=== PATIENT | female | born 1945 | race Caucasian/White ===

== ENCOUNTER 2017-04-02 10:30 | Inpatient (IN) | payer MEDICARE, OTHER ==
[~2017-04-02] VITALS: Ht 177.8 cm; Wt 121.5 kg
[~2017-04-02 10:30] MED LIST: ALLO100 PO; APIX2.5T PO; ATEN-100 PO; CEPH500C3 PO; GABA100C4 PO; LORTA5 PO; SIMV20 PO; SYNT125T PO; TAMS0.4C67 PO; VESI10TA4 PO; VITA100T15 PO
--- NOTE | 2017-04-02 10:36 | PD ---
HPI Chief Complaint: flank pain Time Seen by Provider: 10:36 Travel History International Travel<30 days: No Contact w/Intl Traveler<30days: No Traveled to known affect area: No History of Present Illness HPI 71-year-old female came to the emergency room brought by EMS with history of right sided flank pain that started last night. Patient has history of kidney stones and had a stent put in on the left side by a the urologist from [facility] 1 month ago. Patient has vomited 3-4 times this morning because of the pain. She took her Vicodin but that has not helped. No history of fever or chills. No history of hematuria or dysuria. Patient also happens to have a right hip pain that is chronic. However she says the location of this pain is different from her usual hip pain. PFSH Past Medical History Narrative Medical List of her past medical, surgical, family and social history is reviewed from the nursing note. Hx Anticoagulant Therapy: Yes (ELIQUIS) Arthritis: Yes Heart Rhythm Problems: Yes (Afib) Cancer: Yes (UTERINE - Stage 1) Cardiac Catheterization: Yes Cardiovascular Problems: Yes (AFIB) High Cholesterol: Yes Chest Pain: No Congestive Heart Failure: No Diabetes: Yes (METFORMIN) Endocrine: Yes Genitourinary: Yes Kidney Stones: Yes Musculoskeletal: Yes Neurologic: No Psychiatric: No Reproductive: No Respiratory: No Radiation Therapy: Yes Thyroid Disease: Yes Past Surgical History Abdominal Surgery: No Cardiac Surgery: No Ear Surgery: No Endocrine Surgery: No (partial thyroidectomy 1975) Eye Surgery: No Genitourinary Surgery: Yes (kiDney stone removals) Gynecologic Surgery: Yes (hysterectomy 5.5 years later) Hysterectomy: Yes Oral Surgery: Yes (tonsilectomy at 2) Thoracic Surgery: No Other Surgery: Yes Social History Alcohol Use: No Tobacco Use: No Substance Use: No Allergies-Medications (Allergen,Severity, Reaction): Coded Allergies: Ampicillin (Verified Allergy, Unknown, 04/02/17) *MDRO Multi-Drug Resistant Organism (Verified Adverse Reaction, Unknown, ) 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 Comments List of her allergies reviewed from the nursing note. Reported Meds & Prescriptions Reported Meds & Active Scripts Active Reported Vitamin D3 (Cholecalciferol) 400 Unit Cap 400 Units PO DAILY Tamsulosin (Tamsulosin HCl) 0.4 Mg Cap 0.4 Mg PO HS Synthroid (Levothyroxine Sodium) 125 Mcg Tab 125 Mcg PO DAILY Vesicare (Solifenacin) 10 Mg Tab 10 Mg PO DAILY Simvastatin 20 Mg Tab 20 Mg PO DAILY Hydrocodone-Acetaminophen 5-325 mg Tab 1 Tab PO Q6H PRN Gabapentin 100 Mg Cap 100 Mg PO TID Vitamin B-12 (Cyanocobalamin) 1,000 Mcg Tab 100 Mcg PO DAILY Atenolol 25 Mg Tab 12.5 Mg PO DAILY Eliquis (Apixaban) 2.5 Mg Tab 2.5 Mg PO BID Allopurinol 100 Mg Tab 100 Mg PO DAILY Narrative Medication List of her home medications reviewed from the nursing note. Review of Systems Except as stated in HPI: all other systems reviewed are Neg Physical Exam Narrative GENERAL: Awake, alert, morbidly obese, moderate distress SKIN: Focused skin assessment warm/dry. HEAD: Atraumatic. Normocephalic. EYES: Pupils equal and round. No scleral icterus. No injection or drainage. ENT: No nasal bleeding or discharge. Mucous membranes pink and moist. NECK: Trachea midline. No JVD. CARDIOVASCULAR: Regular rate and rhythm. No murmur appreciated. RESPIRATORY: No accessory muscle use. Clear to auscultation. Breath sounds equal bilaterally. GASTROINTESTINAL: Abdomen soft, non-tender, nondistended. Hepatic and splenic margins not palpable. Large ventral hernia MUSCULOSKELETAL: No obvious deformities. No clubbing. No cyanosis. No edema. NEUROLOGICAL: Awake and alert. No obvious cranial nerve deficits. Motor grossly within normal limits. Normal speech. PSYCHIATRIC: Appropriate mood and affect; insight and judgment normal. Data Data Last Documented VS Vital Signs Date Time Temp Pulse Resp B/P Pulse Ox O2 Delivery O2 Flow Rate FiO2 04/02/17 10:39 98.4 77 15 118/71 95 Orders Complete Blood Count With Diff (04/02/17 10:43) Comprehensive Metabolic Panel (04/02/17 10:43) Urinalysis - C+S If Indicated (04/02/17 10:43) Ct Abd/Pel W/O Iv Contrast (04/02/17 10:43) Ecg Monitoring (04/02/17 10:43) Iv Access Insert/Monitor (04/02/17 10:43) Morphine Inj (Morphine Inj) (04/02/17 10:45) Ondansetron Inj (Zofran Inj) (04/02/17 10:45) Sodium Chloride 0.9% Flush (Ns Flush) (04/02/17 10:45) Sodium Chlor 0.9% 1000 Ml Inj (Ns 1000 M (04/02/17 10:43) Morphine Inj (Morphine Inj) (04/02/17 11:30) Vascular Access Team Consult/P PRN (04/02/17 11:31) Vascular Poc Ultrasound (04/02/17 ) Urinary Catheter Insert/Apply (04/02/17 12:20) Sodium Chlor 0.9% 1000 Ml Inj (Ns 1000 M (04/02/17 12:30) NPO (04/02/17 12:29) Consent (04/02/17 12:33) Electrocardiogram (04/02/17 ) Prothrombin Time / Inr (Pt) (04/02/17 12:45) Diet Npo (04/02/17 Lunch) Vital Signs (Adult) BRYON.Q4H (04/02/17 12:45) Ondansetron Inj (Zofran Inj) (04/02/17 12:45) Sodium Chlor 0.9% 1000 Ml Inj (Ns 1000 M (04/02/17 12:45) Consult Urology (04/02/17 ) Basic Metabolic Panel (Bmp) (04/03/17 06:00) Complete Blood Count With Diff (04/03/17 06:00) Intake + Output 06,14,22 (04/02/17 12:45) Atenolol (Tenormin) (04/03/17 09:00) Admit Order (Ed Use Only) (04/02/17 12:47) Labs Laboratory Tests Test 04/02/17 04/02/17 11:20 12:45 White Blood Count 9.7 TH/MM3 Red Blood Count 3.39 MIL/MM3 Hemoglobin 9.7 GM/DL Hematocrit 30.3 % Mean Corpuscular Volume 89.3 FL Mean Corpuscular Hemoglobin 28.7 PG Mean Corpuscular Hemoglobin 32.1 % Concent Red Cell Distribution Width 16.4 % Platelet Count 211 TH/MM3 Mean Platelet Volume 7.1 FL Neutrophils (%) (Auto) 85.8 % Lymphocytes (%) (Auto) 7.7 % Monocytes (%) (Auto) 4.8 % Eosinophils (%) (Auto) 1.0 % Basophils (%) (Auto) 0.7 % Neutrophils # (Auto) 8.3 TH/MM3 Lymphocytes # (Auto) 0.7 TH/MM3 Monocytes # (Auto) 0.5 TH/MM3 Eosinophils # (Auto) 0.1 TH/MM3 Basophils # (Auto) 0.1 TH/MM3 CBC Comment DIFF FINAL Differential Comment Sodium Level 135 MEQ/L Potassium Level 5.2 MEQ/L Chloride Level 106 MEQ/L Carbon Dioxide Level 18.7 MEQ/L Anion Gap 10 MEQ/L Blood Urea Nitrogen 50 MG/DL Creatinine 3.70 MG/DL Estimat Glomerular Filtration 12 ML/MIN Rate Random Glucose 141 MG/DL Calcium Level 9.0 MG/DL Total Bilirubin 0.3 MG/DL Aspartate Amino Transf 22 U/L (AST/SGOT) Alanine Aminotransferase 14 U/L (ALT/SGPT) Alkaline Phosphatase 110 U/L Total Protein 7.7 GM/DL Albumin 3.2 GM/DL Prothrombin Time 11.2 SEC Prothromb Time International 1.0 RATIO Ratio MDM Medical Decision Making Medical Screen Exam Complete: Yes Emergency Medical Condition: Yes Medical Record Reviewed: Yes Interpretation(s) Twelve-lead EKG was reviewed by me. Atrial fibrillation, left axis deviation, left bundle branch block. Heart rate of 73 bpm Differential Diagnosis Ureteral colic, pyelonephritis, muscular pain, incarcerated hernia Narrative Course 11:29 AM the hernia was manually reduced by me completely. Currently waiting for blood test results and the CAT scan to be done and resulted. Patient has been given pain medication. 12:30 PM CAT scan and blood test results of back. CAT scan is significant for bilateral severe hydronephrosis and the blood test result is significant for acute renal failure. I discussed the case with Dr. Turner who is on for urology. He wants the patient to be admitted under medical service, fluid resuscitated, nothing by mouth. He will try to take her to the OR today and if not then it would be tomorrow as per him. For the hospitalist call back. I've ordered a second liter of IV fluid bolus. Patient will get a Bell catheter. Still waiting for a UA. Critical Care Narrative Aggregate critical care time was 30 minutes. Time to perform other separately billable procedures was not included in the critical care time. My time did not include minutes spent treating any other patients simultaneously or on activities that did not directly contribute to the patient's treatment. The services I provided to this patient were to treat and/or prevent clinically significant deterioration that could result in: Bilateral ureteral obstruction with severe hydronephrosis, acute renal failure, fluid resuscitation I provided critical care services requiring my management, as noted below: Chart data review, documentation time, medication orders and management, vital sign assessments/reviewing monitor data, ordering and reviewing lab tests, ordering and interpreting/reviewing x-rays and diagnostic studies, care of the patient and discussion of the patient with the admitting physicians. Procedures EKG Prior to Arrival: No Physician Communication Physician Communication Dr. Turner Diagnosis Primary Impression: Bilateral ureteral obstruction Additional Impressions: Bilateral hydronephrosis Acute renal failure Qualified Code: N17.9 - Acute renal failure, unspecified acute renal failure type Obstructive uropathy Dehydration Rafa Murrieta MD April 02, 2017 10:36
[2017-04-02 10:39] VITALS: BP 118/71; PULSE 77; RESP 15; TEMP 98.4; O2SAT 95
[2017-04-02] MEDS ORDERED: SODIUM CHLOR 0.9% 1000 ML INJ 1,000 ML IV ONE ×2 (10:43→12:30)
[2017-04-02] MEDS ORDERED: ONDANSETRON HCL 4 MG/2 ML VIAL IVP ONE (10:45)
[2017-04-02] MEDS ORDERED: SODIUM CHLORIDE 0.9% FLUSH 10 ML FLUSH IVF PRN (10:45)
[2017-04-02] MEDS ORDERED: MORPHINE SULFATE 4 MG/ML INJ IV ONE (10:45)
[2017-04-02] MEDS ORDERED: ALLO100T PO (11:10)
[2017-04-02] MEDS ORDERED: GABA100C4 PO (11:10)
[2017-04-02] MEDS ORDERED: VESI10TA PO (11:10)
[2017-04-02] MEDS ORDERED: LEVO.125 PO (11:10)
[2017-04-02] MEDS ORDERED: ATEN25TA PO (11:10)
[2017-04-02] MEDS ORDERED: HYDR-3516 PO (11:10)
[2017-04-02] MEDS ORDERED: APIX2.5T PO (11:10)
[2017-04-02] MEDS ORDERED: SIMV20TA PO (11:10)
[2017-04-02] MEDS ORDERED: TAMS0.4C4 PO (11:10)
[2017-04-02] MEDS ORDERED: VITA10002 PO (11:10)
[2017-04-02] MEDS ORDERED: CHOL1CAP8 PO (11:11)
[2017-04-02] MEDS ORDERED: MORPHINE SULFATE 8 MG/ML INJ IM ONE (11:30)
[2017-04-02 11:39] LABS: AUTOMATED NEUTROPHIL # 8.3 TH/MM3 (1.8-7.7); BASOPHIL # 0.1 TH/MM3 (0-0.2); BASOPHIL % 0.7 % (0.0-2.0); EOSINOPHIL # 0.1 TH/MM3 (0-0.4); HEMATOCRIT 30.3 % (35.0-46.0); HEMO FLAGS DIFF FINAL; LYMPH % 7.7 % (9.0-44.0); LYMPHOCYTE # 0.7 TH/MM3 (1.0-4.8); MEAN CELL VOLUME 89.3 FL (80.0-100.0); MEAN CORPUSCULAR HEMOGLOBIN 28.7 PG (27.0-34.0); MEAN CORPUSCULAR HGB CONC 32.1 % (32.0-36.0); MONO % 4.8 % (0.0-8.0); NEUT % 85.8 % (16.0-70.0); PLATELET COUNT 211 TH/MM3 (150-450); RED BLOOD COUNT 3.39 MIL/MM3 (4.00-5.30); RED CELL DISTRIBUTION WIDTH 16.4 % (11.6-17.2); WHITE BLOOD COUNT 9.7 TH/MM3 (4.0-11.0)
[2017-04-02 12:02] LABS: ANION GAP 10 MEQ/L (5-15); AST (GOT) 22 U/L (15-37); BICARBONATE 18.7 MEQ/L (21.0-32.0); BLOOD UREA NITROGEN 50 MG/DL (7-18); CHLORIDE 106 MEQ/L (98-107); GLOMERULAR FILTRATION RATE 12 ML/MIN (>89); POTASSIUM 5.2 MEQ/L (3.5-5.1); SODIUM (NA) 135 MEQ/L (136-145)
[2017-04-02 12:09] LABS: ALKALINE PHOSPHATASE 110 U/L (45-117); ALT (GPT) 14 U/L (10-53); TOTAL BILIRUBIN ADULT 0.3 MG/DL (0.2-1.0)
--- NOTE | 2017-04-02 12:13 | RADRPT ---
EXAM DATE/TIME: 04/02/2017 11:33 [facility] COMPARISON: No previous studies available for comparison. INDICATIONS : Right side abdomen pain history of kidney stones ORAL CONTRAST: No oral contrast ingested. RADIATION DOSE: 30.35 CTDIvol (mGy) MEDICAL HISTORY : Renal calculi. diabetes uterine cancer SURGICAL HISTORY : Hysterectomy. Renal stent ENCOUNTER: Initial ACUITY: 1 day PAIN SCALE: 8/10 LOCATION: Right Abdomen TECHNIQUE: Volumetric scanning of the abdomen and pelvis was performed. Using automated exposure control and ad justment of the mA and/or kV according to patient size, radiation dose was kept as low as reasonably achievable to obtain optimal diagnostic quality images. FINDINGS: LOWER LUNGS: The visualized lower lungs are clear. LIVER: Homogeneous density without lesion. There is no dilation of the biliary tree. Large gallstone seen w ithin the fundus. SPLEEN: Normal size without lesion. PANCREAS: Within normal limits. KIDNEYS: Severe hydronephrosis of both kidneys. Hydroureter on the right with what appears to be a subtle calc ulus at the UVJ measuring 9 x 18 mm. The possibility of a ureterocele cannot be excluded from these i mages. Left-sided nephroureteral stent appears in good position. There are 3 nonobstructing left-side d renal calculi measuring 5-6 mm in size. ADRENAL GLANDS: Within normal limits. VASCULAR: There is no aortic aneurysm. BOWEL/MESENTERY: The stomach, small bowel, and colon demonstrate no acute abnormality. There is no free intraperitone al air or fluid. ABDOMINAL WALL: Large periumbilical hernia containing small segment of transverse colon. Slight inflammatory changes. No obstruction. A few scattered diverticula without diverticulitis. RETROPERITONEUM: There is no lymphadenopathy. BLADDER: No wall thickening or mass. REPRODUCTIVE: Within normal limits. INGUINAL: There is no lymphadenopathy or hernia. 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 CONCLUSION: 1. Severe right-sided hydronephrosis with what appears to be a subtle calculus at the right UVJ measu ring 9 x 2 mm. Possibility of a ureterocele cannot be excluded. 2. Severe left-sided hydronephrosis despite a left-sided nephroureteral stent. Several nonobstructing left-sided renal calculi. 3. Large gallstone in the gallbladder fundus. No inflammatory changes. 4. Large periumbilical hernia containing fat and small segment of transverse colon. Slight inflammato ry changes but no obstruction. 5. Scattered diverticula without diverticulitis. Sebas Godoy MD on April 02, 2017 at 12:03 Board Certified Radiologist. This report was verified electronically.
[2017-04-02] MEDS ORDERED: SODIUM CHLOR 0.9% 1000 ML INJ 1,000 ML IV SCH (12:45)
[2017-04-02] MEDS ORDERED: ONDANSETRON HCL 4 MG/2 ML VIAL IV PUSH PRN (12:45)
[2017-04-02 13:10] LABS: PROTHROMBIN TIME - PATIENT 11.2 SEC (9.8-11.6)
--- NOTE | 2017-04-02 13:28 | HHI.HP ---
[facility] ([place], [place])ists Primary Care Physician Quinn Chambers MD Admission Diagnosis bilateral obstructive uropathy, acute renal failure Diagnoses: (1) Bilateral hydronephrosis Diagnosis: Principal (2) ANDREA (acute kidney injury) Diagnosis: Principal Chief Complaint: right flank pain Travel History International Travel<30 Days: No Contact w/Intl Traveler <30 Da: No Traveled to Known Affected Are: No History of Present Illness patient is a 71 y/o female with history of kidney stones- s/p left ureteral stent placement two months ago, presented with right flank pain. she says that the pain started last night. pain was moderate in intensity with some radiation to the back. pain was associated with nausea and emesis earlier this morning. she denies any gross hematuria and dysuria. she's being followed up by her urologist at [facility]. Review of Systems Constitutional: DENIES: Fever, Weight loss, Chills, Night Sweats Eyes: DENIES: Blurred vision, Diplopia, Vision loss, Double Vision Ears, nose, mouth, throat: DENIES: Tinnitus, Vertigo, Throat pain, Epistaxis Respiratory: DENIES: Apneas, Cough, Snoring, Wheezing, Hemoptysis, Sputum production, Shortness of breath Cardiovascular: DENIES: Chest pain, Palpitations, Syncope, Dyspnea on Exertion , PND, Lower Extremity Edema, Orthopnea, Claudication Gastrointestinal: COMPLAINS OF: Abdominal pain (right flank.), Nausea, Vomiting , DENIES: Black stools, Bloody stools, Constipation, Diarrhea, Difficulty Swallowing, Anorexia Genitourinary: DENIES: Urinary frequency, Urgency, Hematuria, Dysuria Musculoskeletal: DENIES: Joint pain, Muscle aches, Stiffness, Joint Swelling Integumentary: DENIES: Rash Neurologic: DENIES: Abnormal gait, Headache, Localized weakness, Paresthesias, Seizures, Speech Problems, Tremor, Poor Balance Psychiatric: DENIES: Anxiety, Confusion, Mood changes, Depression, Hallucinations, Agitation, Suicidal Ideation, Homicidal Ideation, Delusions Past Family Social History Past Medical History atrial fibrillation kidney stone uterine cancer Past Surgical History tonsillectomy stent placement left kidney partial thyroidectomy Reported Medications Vitamin D3 (Cholecalciferol) 400 Unit Cap 400 Units PO DAILY Tamsulosin (Tamsulosin HCl) 0.4 Mg Cap 0.4 Mg PO HS Synthroid (Levothyroxine Sodium) 125 Mcg Tab 125 Mcg PO DAILY Vesicare (Solifenacin) 10 Mg Tab 10 Mg PO DAILY Simvastatin 20 Mg Tab 20 Mg PO DAILY Hydrocodone-Acetaminophen 5-325 mg Tab 1 Tab PO Q6H PRN Gabapentin 100 Mg Cap 100 Mg PO TID Vitamin B-12 (Cyanocobalamin) 1,000 Mcg Tab 100 Mcg PO DAILY Atenolol 25 Mg Tab 12.5 Mg PO DAILY Eliquis (Apixaban) 2.5 Mg Tab 2.5 Mg PO BID Allopurinol 100 Mg Tab 100 Mg PO DAILY Allergies: Coded Allergies: Ampicillin (Verified Allergy, Unknown, 04/02/17) *MDRO Multi-Drug Resistant Organism (Verified Adverse Reaction, Unknown, ) 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 Active Ordered Medications Current Medications Morphine Sulfate (Morphine Inj) 4 mg ONCE ONCE IV ; Start 04/02/17 at 10:45; Stop 04/02/17 at 10:46; Status DC Ondansetron HCl (Zofran Inj) 4 mg ONCE ONCE IVP ; Start 04/02/17 at 10:45; Stop 04/02/17 at 10:46; Status DC Sodium Chloride 2 ml 2 ml UNSCH PRN IVF FLUSH AFTER USING IV ACCESS; Start 04/02 at 10:45 Sodium Chloride (NS 1000 ml Inj) 1,000 ml @ 1,000 mls/hr Q1H ONCE IV Last administered on 04/02/17 10:43; Start 04/02/17 at 10:43; Stop 04/02/17 at 11:42; Status DC Morphine Sulfate 6 mg 6 mg ONCE ONCE IM Last administered on 04/02/17 11:49; Start 04/02/17 at 11:30; Stop 04/02/17 at 11:31; Status DC Sodium Chloride (NS 1000 ml Inj) 1,000 ml @ 999 mls/hr BOLUS ONCE IV Last administered on 04/02/17 12:30; Start 04/02/17 at 12:30; Stop 04/02/17 at 13:30 Ondansetron HCl 4 mg 4 mg Q8HR PRN IV PUSH NAUSEA; Start 04/02/17 at 12:45 Sodium Chloride (NS 1000 ml Inj) 1,000 ml @ 100 mls/hr Q10H IV ; Start 04/02/17 at 12:45 Atenolol (Tenormin) 12.5 mg DAILY PO ; Start 04/03/17 at 09:00 Social History doesn't smoke.drinks occasionally. Physical Exam Vital Signs Vital Signs Date Time Temp Pulse Resp B/P Pulse Ox O2 Delivery O2 Flow Rate FiO2 04/02/17 10:39 98.4 77 15 118/71 95 Physical Exam GENERAL: This is a well-nourished, well-developed patient, in no apparent distress. SKIN: No rashes, ecchymoses or lesions. Cool and dry. HEAD: Atraumatic. Normocephalic. No temporal or scalp tenderness. EYES: Pupils equal round and reactive. Extraocular motions intact. No scleral icterus. No injection or drainage. ENT: Nose without bleeding, purulent drainage or septal hematoma. Throat without erythema, tonsillar hypertrophy or exudate. Uvula midline. Airway patent. NECK: Trachea midline. No JVD or lymphadenopathy. Supple, nontender, no meningeal signs. CARDIOVASCULAR: Regular rate and rhythm without murmurs, gallops, or rubs. RESPIRATORY: Clear to auscultation. Breath sounds equal bilaterally. No wheezes , rales, or rhonchi. GASTROINTESTINAL: Abdomen soft, non-tender, nondistended. No hepato-splenomegaly , or palpable masses. No guarding. MUSCULOSKELETAL: Extremities without clubbing, cyanosis, or edema. No joint tenderness, effusion, or edema noted. No calf tenderness. Negative Homans sign bilaterally. NEUROLOGICAL: Awake and alert. Cranial nerves II through XII intact. Motor and sensory grossly within normal limits. Five out of 5 muscle strength in all muscle groups. Normal speech. Laboratory Laboratory Tests Test 04/02/17 04/02/17 11:20 12:45 White Blood Count 9.7 Red Blood Count 3.39 Hemoglobin 9.7 Hematocrit 30.3 Mean Corpuscular Volume 89.3 Mean Corpuscular Hemoglobin 28.7 Mean Corpuscular Hemoglobin 32.1 Concent Red Cell Distribution Width 16.4 Platelet Count 211 Mean Platelet Volume 7.1 Neutrophils (%) (Auto) 85.8 Lymphocytes (%) (Auto) 7.7 Monocytes (%) (Auto) 4.8 Eosinophils (%) (Auto) 1.0 Basophils (%) (Auto) 0.7 Neutrophils # (Auto) 8.3 Lymphocytes # (Auto) 0.7 Monocytes # (Auto) 0.5 Eosinophils # (Auto) 0.1 Basophils # (Auto) 0.1 CBC Comment DIFF FINAL Differential Comment Sodium Level 135 Potassium Level 5.2 Chloride Level 106 Carbon Dioxide Level 18.7 Anion Gap 10 Blood Urea Nitrogen 50 Creatinine 3.70 Estimat Glomerular Filtration 12 Rate Random Glucose 141 Calcium Level 9.0 Total Bilirubin 0.3 Aspartate Amino Transf 22 (AST/SGOT) Alanine Aminotransferase 14 (ALT/SGPT) Alkaline Phosphatase 110 Total Protein 7.7 Albumin 3.2 Prothrombin Time 11.2 Prothromb Time International 1.0 Ratio Result Diagram: 04/02/17 1120 04/02/17 1120 Imaging Last Impressions Abdomen/Pelvis CT 04/02/17 1043 Signed Impressions: Service Date/Time: Sunday, April 02, 2017 11:33 - CONCLUSION: 1. Severe right-sided hydronephrosis with what appears to be a subtle calculus at the right UVJ measuring 9 x 2 mm. Possibility of a ureterocele cannot be excluded. 2. Severe left-sided hydronephrosis despite a left-sided nephroureteral stent. Several nonobstructing left-sided renal calculi. 3. Large gallstone in the gallbladder fundus. No inflammatory changes. 4. Large periumbilical hernia containing fat and small segment of transverse colon. Slight inflammatory changes but no obstruction. 5. Scattered diverticula without diverticulitis. Sebas Godoy MD Assessment and Plan Assessment and Plan A/P - bilateral hydronephrosis with nephrolithiasis- s/p left ureteral stent placement two months ago keep NPO and start IV fluid- continue with pain control and consult urology. -acute kidney injury superimposed on chronic renal insufficiency start IV hydration- monitor I/O and close monitoring of the renal function -atrial fibrillation; hold Eliquis for possible procedure- resume atenolol -anemia of chronic disease- will monitor -diabetes mellitus; accu-check with SSI -DVT prophylaxis with SCD's Discussed Condition With ER physician and the patient. Physician Certification 2 Midnight Certification Type: Admission for Inpatient Services Order for Inpatient Services The services are ordered in accordance with Medicare regulations or non- Medicare payer requirements, as applicable. In the case of services not specified as inpatient-only, they are appropriately provided as inpatient services in accordance with the 2-midnight benchmark. Estimated LOS (days): 2 days is the estimated time the patient will need to remain in the hospital, assuming treatment plan goals are met and no additional complications. Post-Hospital Plan: Home Damien England MD April 02, 2017 13:28
[2017-04-02] MEDS ORDERED: DEXTROSE 50% IN WATER 50 ML VIAL(D50) IV PUSH PRN (13:30)
[2017-04-02] MEDS ORDERED: GLUCAGON 1 MG/ML VIAL OTHER PRN (13:30)
[2017-04-02 15:07] LABS: BACTERIA, URINE MOD /hpf; BLOOD, URINE MOD (NEG); COMMENT (UR) CULTURE INDICATED; CULTURE IF INDICATED CULTURE INDICATED; GLUCOSE,URINE TRACE mg/dL (NEG); KETONE, URINE NEG (NEG); MUCUS URINE FEW /lpf (OCC); NITRITE,URINE NEG (NEG); PH, URINE 6.5 (5.0-8.5); SQUAMOUS EPITHELIAL CELL URINE 4 /hpf (0-5); URINE COLOR YELLOW (YELLW/STRAW)
[2017-04-02 15:26] VITALS: BP 120/57; PULSE 84; RESP 15; TEMP 98.2; O2SAT 95
[2017-04-02] MEDS: MORPHINE SULFATE 4 MG/ML INJ IV PUSH PRN (15:37)
[2017-04-02 16:05] VITALS: BP 108/73; PULSE 122; RESP 20; TEMP 97.2; O2SAT 98
[2017-04-02] MEDS: INSULIN ASPART SUPPLEMENTAL SCALE SQ SCH ×2 (18:55→21:00)
[2017-04-02 20:05] VITALS: BP 103/50; PULSE 76; RESP 20; TEMP 98.7; O2SAT 97
[2017-04-02 20:45] VITALS: PULSE 75
[2017-04-02] MEDS: DEXT 5%-NACL 0.9% 1000 ML INJ 1,000 ML IV SCH (22:15)
[2017-04-03] VITALS (7 sets, daily range): BP systolic 85–110; BP diastolic 46–55; PULSE 67–82; RESP 16–20; TEMP 97–98; O2SAT 95–99
[2017-04-03] MEDS: INSULIN ASPART SUPPLEMENTAL SCALE SQ SCH ×4 (04:39→21:00)
[2017-04-03] MEDS: MORPHINE SULFATE 4 MG/ML INJ IV PUSH PRN ×2 (04:46→08:22)
--- NOTE | 2017-04-03 06:13 | EKG ---
Date Performed: 04/02/2017 Time Performed: 13:02:38 PTAGE: 71 years EKG: ATRIAL FIBRILLATION MARKED LEFT AXIS DEVIATION LEFT BUNDLE BRANCH BLOCK ABNORMAL ECG PREVIOUS TRACING : 07/16/2015 22.32 Compared to the previous tracing LBBB present DOCTOR: Aníbal Mcclendon Interpretating Date/Time 04/03/2017 06:13:39
--- NOTE | 2017-04-03 07:51 | PD.CONS ---
HPI Service Urology Consult Requested By Primary Care Physician Quinn Chambers MD Diagnosis: (1) Bilateral hydronephrosis ICD Code: N13.30 (2) ANDREA (acute kidney injury) ICD Code: N17.9 History of Present Illness 71 y.o female admitted with right flank pain associated with nausea and vomiting. She is found to be in acute renal failure with a creatinine of 3.7. She has a history of a poorly functioning left kidney and a history of nephrolithiasis. CT scan performed emergency room demonstrated bilateral hydronephrosis with a suggestion of a distal right ureteral calculus causing obstruction. Her left double-J stent is in place but she does have some dilatation of the collecting system. The patient will need to undergo cystoscopy with left double-J stent exchange followed by right double-J stent insertion to alleviate her obstruction and acute renal failure. Past Family Social History Past Medical History Nephrolithiasis Uterine cancer Atrial fibrillation Past Surgical History ESWL Left ureteroscopy laser lithotripsy and stone extraction with stent insertion Total abdominal hysterectomy Partial thyroidectomy Tonsillectomy Allergies: Coded Allergies: Ampicillin (Verified Allergy, Unknown, 04/02/17) *MDRO Multi-Drug Resistant Organism (Verified Adverse Reaction, Unknown, ) 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 Family History Denies malignancies Social History Presently denies smoking or drinking Physical Exam Vital Signs Date Time Temp Pulse Resp B/P Pulse Ox O2 Delivery O2 Flow Rate FiO2 04/03/17 05:01 16 04/03/17 04:37 98.0 80 19 104/55 98 04/03/17 00:23 97.4 67 20 110/53 98 04/02/17 20:05 98.7 76 20 103/50 97 04/02/17 16:05 97.2 122 20 108/73 98 04/02/17 15:26 98.2 84 15 120/57 95 Room Air 04/02/17 10:39 98.4 77 15 118/71 95 Physical Exam GENERAL: This is a well-nourished, well-developed patient, in no apparent distress. SKIN: No rashes, ecchymoses or lesions. Cool and dry. HEAD: Atraumatic. Normocephalic. No temporal or scalp tenderness. EYES: Pupils equal round and reactive. Extraocular motions intact. No scleral icterus. No injection or drainage. ENT: Nose without bleeding, purulent drainage or septal hematoma. Throat without erythema, tonsillar hypertrophy or exudate. Uvula midline. Airway patent. NECK: Trachea midline. No JVD or lymphadenopathy. Supple, nontender, no meningeal signs. CARDIOVASCULAR: Regular rate and rhythm without murmurs, gallops, or rubs. RESPIRATORY: Clear to auscultation. Breath sounds equal bilaterally. No wheezes , rales, or rhonchi. GASTROINTESTINAL: Abdomen soft, non-tender, nondistended. No hepato-splenomegaly , or palpable masses. No guarding. GENITOURINARY: Right CVA tenderness is noted, normal external genitalia MUSCULOSKELETAL: Extremities without clubbing, cyanosis, or edema. No joint tenderness, effusion, or edema noted. No calf tenderness. Negative Homans sign bilaterally. NEUROLOGICAL: Awake and alert. Cranial nerves II through XII intact. Motor and sensory grossly within normal limits. Five out of 5 muscle strength in all muscle groups. Normal speech. Laboratory Tests Test 04/02/17 04/02/17 04/02/17 11:20 12:45 14:30 White Blood Count 9.7 Red Blood Count 3.39 Hemoglobin 9.7 Hematocrit 30.3 Mean Corpuscular Volume 89.3 Mean Corpuscular Hemoglobin 28.7 Mean Corpuscular Hemoglobin 32.1 Concent Red Cell Distribution Width 16.4 Platelet Count 211 Mean Platelet Volume 7.1 Neutrophils (%) (Auto) 85.8 Lymphocytes (%) (Auto) 7.7 Monocytes (%) (Auto) 4.8 Eosinophils (%) (Auto) 1.0 Basophils (%) (Auto) 0.7 Neutrophils # (Auto) 8.3 Lymphocytes # (Auto) 0.7 Monocytes # (Auto) 0.5 Eosinophils # (Auto) 0.1 Basophils # (Auto) 0.1 CBC Comment DIFF FINAL Differential Comment Sodium Level 135 Potassium Level 5.2 Chloride Level 106 Carbon Dioxide Level 18.7 Anion Gap 10 Blood Urea Nitrogen 50 Creatinine 3.70 Estimat Glomerular Filtration 12 Rate Random Glucose 141 Calcium Level 9.0 Total Bilirubin 0.3 Aspartate Amino Transf 22 (AST/SGOT) Alanine Aminotransferase 14 (ALT/SGPT) Alkaline Phosphatase 110 Total Protein 7.7 Albumin 3.2 Prothrombin Time 11.2 Prothromb Time International 1.0 Ratio Urine Color YELLOW Urine Turbidity CLOUDY Urine pH 6.5 Urine Specific [place] 1.028 Urine Protein 300 Urine Glucose (UA) TRACE Urine Ketones NEG Urine Occult Blood MOD Urine Nitrite NEG Urine Bilirubin NEG Urine Urobilinogen LESS THAN 2.0 Urine Leukocyte Esterase MOD Urine RBC 100 Urine WBC Urine WBC Clumps MANY Urine Squamous Epithelial 4 Cells Urine Amorphous Sediment RARE Urine Bacteria MOD Urine Mucus FEW Microscopic Urinalysis Comment CULTURE INDICATED Date/Time Procedure Status Source Growth 04/02/17 14:30 Urine Culture Received Urine Clean Catch Pending Result Diagram: 04/02/17 1120 04/02/17 1120 Imaging Last Impressions Abdomen/Pelvis CT 04/02/17 1043 Signed Impressions: Service Date/Time: Sunday, April 02, 2017 11:33 - CONCLUSION: 1. Severe right-sided hydronephrosis with what appears to be a subtle calculus at the right UVJ measuring 9 x 2 mm. Possibility of a ureterocele cannot be excluded. 2. Severe left-sided hydronephrosis despite a left-sided nephroureteral stent. Several nonobstructing left-sided renal calculi. 3. Large gallstone in the gallbladder fundus. No inflammatory changes. 4. Large periumbilical hernia containing fat and small segment of transverse colon. Slight inflammatory changes but no obstruction. 5. Scattered diverticula without diverticulitis. Sebas Godoy MD Assessment and Plan Assessment and Plan 71 year-old female with evidence of acute renal failure with history of a poorly functioning left kidney with right sided ureteral calculus causing obstruction with hydronephrosis. We'll plan for cystoscopy with exchange of left double-J stent followed by insertion of right double-J stent. Continue nothing by mouth. Risk and benefits discussed and the patient is willing to proceed. Jose Turner DO April 03, 2017 07:51
[2017-04-03] MEDS ORDERED: Custom Consult Pharmacy 1 EA OTHER SCH (08:00)
--- NOTE | 2017-04-03 08:00 | HHI.PR ---
Subjective Remarks resting comfortably with no distress. still with mild right flank pain. no nausea or vomiting. Objective Vitals Vital Signs Date Time Temp Pulse Resp B/P Pulse Ox O2 Delivery O2 Flow Rate FiO2 04/03/17 05:01 16 04/03/17 04:37 98.0 80 19 104/55 98 04/03/17 00:23 97.4 67 20 110/53 98 04/02/17 20:05 98.7 76 20 103/50 97 04/02/17 16:05 97.2 122 20 108/73 98 04/02/17 15:26 98.2 84 15 120/57 95 Room Air 04/02/17 10:39 98.4 77 15 118/71 95 I/O 04/02/17 04/02/17 04/02/17 04/03/17 04/03/17 04/03/17 07:00 15:00 23:00 07:00 15:00 23:00 Intake Total 0 ml Output Total 300 ml Balance -300 ml Intake Oral 0 ml Output Urine Total 300 ml # Bowel Movements 0 Result Diagram: 04/02/17 1120 04/02/17 1120 Imaging Last Impressions Abdomen/Pelvis CT 04/02/17 1043 Signed Impressions: Service Date/Time: Sunday, April 02, 2017 11:33 - CONCLUSION: 1. Severe right-sided hydronephrosis with what appears to be a subtle calculus at the right UVJ measuring 9 x 2 mm. Possibility of a ureterocele cannot be excluded. 2. Severe left-sided hydronephrosis despite a left-sided nephroureteral stent. Several nonobstructing left-sided renal calculi. 3. Large gallstone in the gallbladder fundus. No inflammatory changes. 4. Large periumbilical hernia containing fat and small segment of transverse colon. Slight inflammatory changes but no obstruction. 5. Scattered diverticula without diverticulitis. Sebas Godoy MD Objective Remarks GENERAL: This is a well-nourished, well-developed patient, in no apparent distress. CARDIOVASCULAR: Regular rate and regular rhythm without murmurs, gallops, or rubs. RESPIRATORY: Clear to auscultation. Breath sounds equal bilaterally. No wheezes , rales, or rhonchi. GASTROINTESTINAL: Abdomen soft, non-tender, nondistended. Normal, active bowel sounds MUSCULOSKELETAL: Extremities without clubbing, cyanosis, or edema. NEURO: Alert & Oriented x4 to person, place, time, situation. Moves all ext x4 Procedures none Medications and IVs Current Medications Morphine Sulfate (Morphine Inj) 4 mg ONCE ONCE IV ; Start 04/02/17 at 10:45; Stop 04/02/17 at 10:46; Status DC Ondansetron HCl (Zofran Inj) 4 mg ONCE ONCE IVP ; Start 04/02/17 at 10:45; Stop 04/02/17 at 10:46; Status DC Sodium Chloride 2 ml 2 ml UNSCH PRN IVF FLUSH AFTER USING IV ACCESS; Start 04/02 at 10:45 Sodium Chloride (NS 1000 ml Inj) 1,000 ml @ 1,000 mls/hr Q1H ONCE IV Last administered on 04/02/17 10:43; Start 04/02/17 at 10:43; Stop 04/02/17 at 11:42; Status DC Morphine Sulfate 6 mg 6 mg ONCE ONCE IM Last administered on 04/02/17 11:49; Start 04/02/17 at 11:30; Stop 04/02/17 at 11:31; Status DC Sodium Chloride (NS 1000 ml Inj) 1,000 ml @ 999 mls/hr BOLUS ONCE IV Last administered on 04/02/17 12:30; Start 04/02/17 at 12:30; Stop 04/02/17 at 13:30; Status DC Ondansetron HCl 4 mg 4 mg Q8HR PRN IV PUSH NAUSEA; Start 04/02/17 at 12:45 Sodium Chloride (NS 1000 ml Inj) 1,000 ml @ 100 mls/hr Q10H IV Last administered on 04/02/17 13:32; Start 04/02/17 at 12:45; Stop 04/02/17 at 22:14; Status DC Atenolol (Tenormin) 12.5 mg DAILY PO ; Start 04/03/17 at 09:00 Morphine Sulfate (Morphine Inj) 2 mg Q3H PRN IV PUSH PAIN Last administered on 04/03/17 04:46; Start 04/02/17 at 13:30 Dextrose (D50w (Vial) Inj) 25 ml UNSCH PRN IV PUSH HYPOGLYCEMIA-SEE COMMENTS; Start 04/02/17 at 13:30 Glucagon (Glucagon Inj) 1 mg UNSCH PRN OTHER HYPOGLYCEMIA-SEE COMMENTS; Start 04/02/17 at 13:30 Insulin Aspart 1 1 ACHS SLIDING SCALE SQ ; Start 04/02/17 at 16:00 Dextrose/Sodium Chloride (D5W-NS 1000 ml Inj) 1,000 ml @ 84 mls/hr [id number] IV Last administered on 04/02/17t 22:15; Start 04/02/17 at 22:15 A/P Assessment and Plan A/p - bilateral hydronephrosis with nephrolithiasis- s/p left ureteral stent placement two months ago keep NPO and start IV fluid- continue with pain control. urology consult appreciated and plan for cystoscopy and exchange of left double-J stent followed by insertion of right double-J stent. -acute kidney injury superimposed on chronic renal insufficiency continue IV hydration- monitor I/O and close monitoring of the renal function -possible UTI- start IV antibiotic and follow the culture -atrial fibrillation; hold Eliquis for possible procedure- resumed atenolol -anemia of chronic disease- will monitor -diabetes mellitus; accu-check with SSI -DVT prophylaxis with SCD's Damien England MD April 03, 2017 08:00
[2017-04-03] MEDS: ATENOLOL 25 MG TAB PO SCH (08:21)
[2017-04-03] MEDS: DEXT 5%-NACL 0.9% 1000 ML INJ 1,000 ML IV SCH (08:24)
[2017-04-03] MEDS ORDERED: LEVOFLOXACIN 500 MG PREMIX INJ 100 ML IV ONE (09:00)
[2017-04-03 09:35] LABS: AUTOMATED NEUTROPHIL # 6.4 TH/MM3 (1.8-7.7); BASOPHIL % 0.6 % (0.0-2.0); EOSINOPHIL # 0.1 TH/MM3 (0-0.4); EOSINOPHIL % 1.6 % (0.0-4.0); HEMATOCRIT 28.1 % (35.0-46.0); HEMO FLAGS DIFF FINAL; LYMPH % 8.5 % (9.0-44.0); LYMPHOCYTE # 0.7 TH/MM3 (1.0-4.8); MEAN CELL VOLUME 90.6 FL (80.0-100.0); MEAN CORPUSCULAR HEMOGLOBIN 28.9 PG (27.0-34.0); MEAN CORPUSCULAR HGB CONC 31.9 % (32.0-36.0); MONO % 6.6 % (0.0-8.0); NEUT % 82.7 % (16.0-70.0); PLATELET COUNT 168 TH/MM3 (150-450); RED CELL DISTRIBUTION WIDTH 16.5 % (11.6-17.2); WHITE BLOOD COUNT 7.8 TH/MM3 (4.0-11.0)
[2017-04-03 09:43] LABS: POTASSIUM 4.8 MEQ/L (3.5-5.1)
[2017-04-03] MEDS ORDERED: PROPOFOL 200 MG/20 ML AMP IV ONE (09:43)
[2017-04-03] MEDS ORDERED: PHENYLEPH/NS 1000 MCG/10 ML SYR IV ONE (09:45)
[2017-04-03] MEDS ORDERED: NEOSTIGMINE METHYLSULFATE 10 MG/10 ML VIAL IV PUSH ONE (09:45)
[2017-04-03] MEDS ORDERED: ePHEDrine/NS 25 MG/5 ML SYR IV ONE (09:45)
[2017-04-03] MEDS ORDERED: ONDANSETRON HCL 4 MG/2 ML VIAL IV PUSH ONE (09:46)
[2017-04-03] MEDS ORDERED: PHENYLEPHRINE HCL 10 MG/ML VIAL IV ONE (09:46)
[2017-04-03] MEDS ORDERED: SODIUM CHLOR 0.9% 250 ML INJ 1,000 ML IV ONE (09:47)
[2017-04-03] MEDS ORDERED: ACETAMINOPHEN 1000 MG/100 ML VIAL IV ONE (11:39)
[2017-04-03] MEDS ORDERED: DEXAMETHASONE SOD PHOS 4 MG/ML VIAL ONE (11:39)
[2017-04-03] MEDS ORDERED: fentaNYL CITRATE 250 MCG/5 ML AMP ONE (11:39)
[2017-04-03] MEDS ORDERED: FAMOTIDINE 20 MG/2 ML VIAL ONE (11:39)
[2017-04-03] MEDS ORDERED: IOHEXOL 350 MG/ML 50 ML BTL (for RAD DIAG) OTHER ONE (12:46)
--- NOTE | 2017-04-03 13:30 | PD.OP ---
Operative Report Date of Surgery: April 03, 2017 Preoperative Diagnosis: Bilateral hydronephrosis with encrusted left ureteral stent and right UVJ stone Postoperative Diagnosis: Same Procedure: Cystoscopy left retrograde study left double-J stent exchange; right ureteroscopy with stone extraction; right retrograde study with right double-J stent insertion Anesthesia: LARA Surgeon: Jose Turner Case Coordinator(s): None Resident Surgeon: None Operation and Findings: Patient is brought to the operating room and identified myself as Dorothy Arredondo. She is placed in dorsal lithotomy position, prepped and draped in usual sterile fashion, received preprocedure antibiotics, and general endotracheal tube anesthesia was administered. 22 [place] scope was inserted in the bladder suazo cystoscopy did not show any acute abnormalities. There was a stone identified at the right UVJ. The left ureter stent was identified and using alligator graspers brought to the urethral meatus. A 0.35 sensor wire was then passed through the left ureteral stent with a good curl in the kidney and the stent was removed. An open-ended catheter was inserted over the wire and the wire was then removed, leaving the open-ended catheter in the lower left ureter. Retrograde study was performed showing dilatation of the left collecting system but no acute obstruction was identified. The cystoscope was backloaded over the wire and then it 22 cm 6 [place] Bard exterminator helper stent was placed without difficulty. Attention was directed then to the right ureteral orifice. Attempt was made using the alligator grasper to grasp the stone out of the lower distal ureter but this was unsuccessful because it was impacted. The rigid ureteroscope was then used and passed into the bladder and using a nitinol basket, the stone fragments were extracted from the lower ureter. Noted was a stone was impacted in the ureter and some fragments were embedded in the wall of the lower ureter at the UVJ. A wire was then passed through the rigid ureteroscope and left in position. Stone fragments were cleared from the lower ureter using the nitinol basket. The cystoscope was backloaded over the wire and then an opening catheter was inserted over the wire. Retrograde study was then performed on the left showing dilatated collecting system but no other evidence of any stones. A 6 [place] 22 cm right double-J stent was placed with good curl in the kidney and a good curl in the bladder. 16 [place] Bell was then inserted and we will be left until tomorrow morning and her creatinine returns to baseline. She'll follow-up at the [facility] with her regular urologist. Stone fragments were sent to pathology for analysis. She tolerated the procedure well. Jose Turner DO April 03, 2017 13:30
[2017-04-03] MEDS: SODIUM CHLOR 0.9% 1000 ML INJ 1,000 ML IV SCH (22:51)
[2017-04-04] VITALS: BP 106/52; PULSE 72; RESP 17; TEMP 98.9; O2SAT 94
[2017-04-04 04:00] VITALS: BP 103/82; PULSE 69; RESP 17; TEMP 98.1; O2SAT 97
[2017-04-04] MEDS: INSULIN ASPART SUPPLEMENTAL SCALE SQ SCH ×3 (04:26→20:07)
[2017-04-04 06:41] LABS: BICARBONATE 18.4 MEQ/L (21.0-32.0); POTASSIUM 4.7 MEQ/L (3.5-5.1)
--- NOTE | 2017-04-04 07:41 | HHI.PR ---
Subjective Remarks feeling better today. pain has almost resolved. no new complaints. Objective Vitals Vital Signs Date Time Temp Pulse Resp B/P Pulse Ox O2 Delivery O2 Flow Rate FiO2 04/04/17 04:00 98.1 69 17 103/82 97 04/04/17 00:00 98.9 72 17 106/52 94 04/03/17 20:00 98.0 76 18 94/50 95 04/03/17 16:00 97.0 80 16 99/52 99 04/03/17 14:30 97.8 82 18 85/46 98 04/03/17 14:20 83 16 118/56 99 Nasal Cannula 2 04/03/17 14:00 86 16 113/53 99 Nasal Cannula 2 04/03/17 13:45 98.7 88 16 127/58 98 Nasal Cannula 2 04/03/17 08:00 97.3 78 16 107/55 99 I/O 04/03/17 04/03/17 04/03/17 04/04/17 04/04/17 04/04/17 07:00 15:00 23:00 07:00 15:00 23:00 Intake Total 0 ml 1100 ml 240 ml Output Total 300 ml 105 ml 900 ml 550 ml Balance -300 ml 995 ml -900 ml -310 ml Intake Oral 0 ml 240 ml Other 1100 ml Output Urine Total 300 ml 100 ml 900 ml 550 ml Estimated Blood Loss 5 ml # Bowel Movements 0 Result Diagram: 04/03/17 0900 04/04/17 0556 Imaging Last Impressions Abdomen/Pelvis CT 04/02/17 1043 Signed Impressions: Service Date/Time: Sunday, April 02, 2017 11:33 - CONCLUSION: 1. Severe right-sided hydronephrosis with what appears to be a subtle calculus at the right UVJ measuring 9 x 2 mm. Possibility of a ureterocele cannot be excluded. 2. Severe left-sided hydronephrosis despite a left-sided nephroureteral stent. Several nonobstructing left-sided renal calculi. 3. Large gallstone in the gallbladder fundus. No inflammatory changes. 4. Large periumbilical hernia containing fat and small segment of transverse colon. Slight inflammatory changes but no obstruction. 5. Scattered diverticula without diverticulitis. Sebas Godoy MD Objective Remarks GENERAL: This is a well-nourished, well-developed patient, in no apparent distress. CARDIOVASCULAR: Regular rate and regular rhythm without murmurs, gallops, or rubs. RESPIRATORY: Clear to auscultation. Breath sounds equal bilaterally. No wheezes , rales, or rhonchi. GASTROINTESTINAL: Abdomen soft, non-tender, nondistended. Normal, active bowel sounds MUSCULOSKELETAL: Extremities without clubbing, cyanosis, or edema. NEURO: Alert & Oriented x4 to person, place, time, situation. Moves all ext x4 Procedures none Medications and IVs Current Medications Morphine Sulfate (Morphine Inj) 4 mg ONCE ONCE IV ; Start 04/02/17 at 10:45; Stop 04/02/17 at 10:46; Status DC Ondansetron HCl (Zofran Inj) 4 mg ONCE ONCE IVP ; Start 04/02/17 at 10:45; Stop 04/02/17 at 10:46; Status DC Sodium Chloride 2 ml 2 ml UNSCH PRN IVF FLUSH AFTER USING IV ACCESS; Start 04/02 at 10:45 Sodium Chloride (NS 1000 ml Inj) 1,000 ml @ 1,000 mls/hr Q1H ONCE IV Last administered on 04/02/17 10:43; Start 04/02/17 at 10:43; Stop 04/02/17 at 11:42; Status DC Morphine Sulfate 6 mg 6 mg ONCE ONCE IM Last administered on 04/02/17 11:49; Start 04/02/17 at 11:30; Stop 04/02/17 at 11:31; Status DC Sodium Chloride (NS 1000 ml Inj) 1,000 ml @ 999 mls/hr BOLUS ONCE IV Last administered on 04/02/17 12:30; Start 04/02/17 at 12:30; Stop 04/02/17 at 13:30; Status DC Ondansetron HCl 4 mg 4 mg Q8HR PRN IV PUSH NAUSEA; Start 04/02/17 at 12:45 Sodium Chloride (NS 1000 ml Inj) 1,000 ml @ 100 mls/hr Q10H IV Last administered on 04/02/17 13:32; Start 04/02/17 at 12:45; Stop 04/02/17 at 22:14; Status DC Atenolol (Tenormin) 12.5 mg DAILY PO Last administered on 04/03/17 08:21; Start 04/03/17 at 09:00 Morphine Sulfate (Morphine Inj) 2 mg Q3H PRN IV PUSH PAIN Last administered on 04/03/17 08:22; Start 04/02/17 at 13:30 Dextrose (D50w (Vial) Inj) 25 ml UNSCH PRN IV PUSH HYPOGLYCEMIA-SEE COMMENTS; Start 04/02/17 at 13:30 Glucagon (Glucagon Inj) 1 mg UNSCH PRN OTHER HYPOGLYCEMIA-SEE COMMENTS; Start 04/02/17 at 13:30 Insulin Aspart 1 1 ACHS SLIDING SCALE SQ ; Start 04/02/17 at 16:00 Dextrose/Sodium Chloride 1,000 ml @ 84 mls/hr [id number] IV Last administered on 04/03/17 08:24; Start 04/02/17 at 22:15; Stop 04/03/17 at 20:57; Status DC Levofloxacin/ Dextrose 100 ml @ 100 mls/hr ONCE ONCE IV Last administered on 04/03/17 08:46; Start 04/03/17 at 09:00; Stop 04/03/17 at 09:59; Status DC Pharmacy Profile Note ([facility]) 0 ml @ 0 mls/hr UNSCH OTHER ; Start 04/03/17 at 08:00 Acetaminophen (Ofirmev Inj) 1,000 mg STK-MED ONCE IV ; Start 04/03/17 at 11:39; Stop 04/03/17 at 11:40; Status DC Fentanyl Citrate (fentaNYL INJ) 250 mcg STK-MED ONCE .ROUTE ; Start 04/03/17 at 11:39; Stop 04/03/17 at 11:40; Status DC Famotidine (Pepcid Inj) 20 mg STK-MED ONCE .ROUTE ; Start 04/03/17 at 11:39; Stop 04/03/17 at 11:40; Status DC Dexamethasone Sodium Phosphate (Decadron Inj) 4 mg STK-MED ONCE .ROUTE ; Start 04/03/17 at 11:39; Stop 04/03/17 at 11:40; Status DC Iohexol 50 ml 50 ml STK-MED ONCE OTHER Last administered on 04/03/17 12:46; Start 04/03/17 at 12:46; Stop 04/03/17 at 13:24; Status DC Sodium Chloride (NS 1000 ml Inj) 1,000 ml @ 84 mls/hr [id number] IV Last administered on 04/03/17t 22:51; Start 04/03/17 at 21:00 A/P Assessment and Plan A/p - bilateral hydronephrosis with nephrolithiasis- s/p left ureteral stent placement two months ago s/p Cystoscopy left retrograde study left double-J stent exchange; right ureteroscopy with stone extraction; right retrograde study with right double-J stent insertion urology following. -acute kidney injury superimposed on chronic renal insufficiency- improving continue IV hydration- monitor I/O and close monitoring of the renal function -possible UTI- started IV antibiotic and follow the culture -atrial fibrillation; resume Eliquis ( ok with urology)- resumed atenolol -anemia of chronic disease- will monitor -diabetes mellitus; accu-check with SSI -DVT prophylaxis with SCD's d/w . Discharge Planning dc home within the next 24-48 hrs if renal function gets close to her baseline. d/w . Damien England MD April 04, 2017 07:41
--- NOTE | 2017-04-04 07:44 | HHI.DCPOC ---
Discharge Care Plan Diagnosis: (1) Bilateral hydronephrosis Your Health Problems Are: Urinary Difficulties Goals to Promote Your Health * To prevent worsening of your condition and complications * To maintain your health at the optimal level Directions to Meet Your Goals Take your medications as prescribed Follow your dietary instruction Follow activity as directed Keep your appointments as scheduled Take your immunizations and boosters as scheduled If your symptoms worsen call your PCP, if no PCP go to Urgent Care Center or Emergency Room Smoking is Dangerous to Your Health. Avoid second hand smoke Call the 24-hour hour crisis hotline for domestic abuse at Damien England MD April 04, 2017 07:44
--- NOTE | 2017-04-04 07:52 | HHI.PR ---
Subjective Patient symptoms today Pt seen and examined. Feeling better. Objective Vital Signs Vital Signs Date Time Temp Pulse Resp B/P Pulse Ox O2 Delivery O2 Flow Rate FiO2 04/04/17 04:00 98.1 69 17 103/82 97 04/04/17 00:00 98.9 72 17 106/52 94 04/03/17 20:00 98.0 76 18 94/50 95 04/03/17 16:00 97.0 80 16 99/52 99 04/03/17 14:30 97.8 82 18 85/46 98 04/03/17 14:20 83 16 118/56 99 Nasal Cannula 2 04/03/17 14:00 86 16 113/53 99 Nasal Cannula 2 04/03/17 13:45 98.7 88 16 127/58 98 Nasal Cannula 2 04/03/17 08:00 97.3 78 16 107/55 99 Result Diagram: 04/03/17 0900 04/04/17 0556 Objective Remarks Abd: soft,nt,nd Gonzalez: urine clear Medications and IVs Current Medications Medications (Trade) Dose Ordered Sig/David Route Start Time Stop Time Status Last Admin (NS Flush) 2 ml UNSCH PRN IVF 04/02/17 10:45 (Zofran Inj) 4 mg Q8HR PRN IV PUSH 04/02/17 12:45 (Tenormin) 12.5 mg DAILY PO 04/03/17 09:00 04/03/17 08:21 (Morphine Inj) 2 mg Q3H PRN IV PUSH 04/02/17 13:30 04/03/17 08:22 (D50w (Vial) Inj) 25 ml UNSCH PRN IV PUSH 04/02/17 13:30 Glucagon 1 mg 1 mg UNSCH PRN OTHER 04/02/17 13:30 Pharmacy Profile Note 0 ml @ 0 mls/hr UNSCH OTHER 04/03/17 08:00 (NS 1000 ml Inj) 1,000 ml @ 84 mls/hr [id number] IV 04/03/17 21:00 04/03/17 22:51 (Depew 5-325 Mg) 1 tab Q4H PRN PO 04/04/17 07:45 UNV (Tylenol) 650 mg Q4H PRN PO 04/04/17 07:45 UNV Assessment and Plan Assessment and Plan 71 year-old female with evidence of acute renal failure with history of a poorly functioning left kidney with right sided ureteral calculus causing obstruction with hydronephrosis. We'll plan for cystoscopy with exchange of left double-J stent followed by insertion of right double-J stent. Continue nothing by mouth. Risk and benefits discussed and the patient is willing to proceed. 04/04 Stable s/p cysto with right URS with stone extraction with right JJ stent insertion and left JJ stent change AFR slowing improving Maintain gonzalez [facility] 2017 07:51
[2017-04-04 08:00] VITALS: BP 117/55; PULSE 63; RESP 18; TEMP 96.8; O2SAT 98
[2017-04-04] MEDS ORDERED: ACETAMINOPHEN 325 MG TAB PO PRN (08:00)
[2017-04-04] MEDS: ATENOLOL 25 MG TAB PO SCH (08:13)
[2017-04-04] MEDS: SODIUM CHLOR 0.9% 1000 ML INJ 1,000 ML IV SCH (08:14)
[2017-04-04] MEDS ORDERED: APIXABAN 2.5 MG TABLET PO SCH (09:00)
[2017-04-04] MEDS ORDERED: SODIUM BICARBONATE 8.4% INJ 50 MEQ in SODIUM CHLOR 0.45% 1000 ML INJ 1,000 ML IV SCH (11:00)
[2017-04-04 12:00] VITALS: BP 115/60; PULSE 79; RESP 20; TEMP 96.7; O2SAT 98
[2017-04-04 16:00] VITALS: BP 111/58; PULSE 68; RESP 18; TEMP 97; O2SAT 98
[2017-04-04 20:00] VITALS: BP 113/56; PULSE 62; PULSE 67; RESP 18; TEMP 98.6; O2SAT 98
[2017-04-04] MEDS: APIXABAN 2.5 MG TABLET PO SCH (20:04)
[2017-04-04] MEDS ORDERED: SODIUM CHLOR 0.9% 1000 ML INJ 1,000 ML IV SCH (21:00)
[2017-04-05] VITALS: BP 109/54; PULSE 64; RESP 17; TEMP 97.7; O2SAT 98
[2017-04-05 04:00] VITALS: BP 111/57; PULSE 69; RESP 18; TEMP 96.1; O2SAT 97
[2017-04-05] MEDS: INSULIN ASPART SUPPLEMENTAL SCALE SQ SCH ×4 (06:29→20:06)
[2017-04-05] MEDS: ATENOLOL 25 MG TAB PO SCH (07:43)
[2017-04-05] MEDS: APIXABAN 2.5 MG TABLET PO SCH ×2 (07:44→20:03)
[2017-04-05 08:00] VITALS: BP 129/60; PULSE 63; RESP 18; TEMP 97.6; O2SAT 98
[2017-04-05 08:14] LABS: BICARBONATE 18.6 MEQ/L (21.0-32.0); POTASSIUM 4.7 MEQ/L (3.5-5.1)
[2017-04-05] MEDS ORDERED: LEVOFLOXACIN 500 MG PREMIX INJ 100 ML IV SCH (09:00)
--- NOTE | 2017-04-05 10:00 | HHI.PR ---
Subjective Remarks resting comfortably with no distress. pain is controlled. no new complaints other than constipation. Objective Vitals Vital Signs Date Time Temp Pulse Resp B/P Pulse Ox O2 Delivery O2 Flow Rate FiO2 04/05/17 08:00 97.6 63 18 129/60 98 04/05/17 04:00 96.1 69 18 111/57 97 04/05/17 00:00 97.7 64 17 109/54 98 04/04/17 20:00 67 04/04/17 20:00 98.6 62 18 113/56 98 04/04/17 16:00 97.0 68 18 111/58 98 04/04/17 12:00 96.7 79 20 115/60 98 I/O 04/04/17 04/04/17 04/04/17 04/05/17 04/05/17 04/05/17 07:00 15:00 23:00 07:00 15:00 23:00 Intake Total 240 ml 840 ml 775 ml 553 ml Output Total 550 ml 775 ml 350 ml 750 ml Balance -310 ml 65 ml 425 ml -197 ml Intake Oral 240 ml 840 ml IV Total 775 ml 553 ml Output Urine Total 550 ml 775 ml 350 ml 750 ml # Bowel Movements 0 Result Diagram: 04/03/17 0900 04/05/17 0700 Imaging Last Impressions Abdomen/Pelvis CT 04/02/17 1043 Signed Impressions: Service Date/Time: Sunday, April 02, 2017 11:33 - CONCLUSION: 1. Severe right-sided hydronephrosis with what appears to be a subtle calculus at the right UVJ measuring 9 x 2 mm. Possibility of a ureterocele cannot be excluded. 2. Severe left-sided hydronephrosis despite a left-sided nephroureteral stent. Several nonobstructing left-sided renal calculi. 3. Large gallstone in the gallbladder fundus. No inflammatory changes. 4. Large periumbilical hernia containing fat and small segment of transverse colon. Slight inflammatory changes but no obstruction. 5. Scattered diverticula without diverticulitis. Sebas Godoy MD Objective Remarks GENERAL: This is a well-nourished, well-developed patient, in no apparent distress. CARDIOVASCULAR: Regular rate and regular rhythm without murmurs, gallops, or rubs. RESPIRATORY: Clear to auscultation. Breath sounds equal bilaterally. No wheezes , rales, or rhonchi. GASTROINTESTINAL: Abdomen soft, non-tender, nondistended. Normal, active bowel sounds MUSCULOSKELETAL: Extremities without clubbing, cyanosis, or edema. NEURO: Alert & Oriented x4 to person, place, time, situation. Moves all ext x4 Procedures none Medications and IVs Current Medications Morphine Sulfate (Morphine Inj) 4 mg ONCE ONCE IV ; Start 04/02/17 at 10:45; Stop 04/02/17 at 10:46; Status DC Ondansetron HCl (Zofran Inj) 4 mg ONCE ONCE IVP ; Start 04/02/17 at 10:45; Stop 04/02/17 at 10:46; Status DC Sodium Chloride 2 ml 2 ml UNSCH PRN IVF FLUSH AFTER USING IV ACCESS; Start 04/02 at 10:45 Sodium Chloride (NS 1000 ml Inj) 1,000 ml @ 1,000 mls/hr Q1H ONCE IV Last administered on 04/02/17 10:43; Start 04/02/17 at 10:43; Stop 04/02/17 at 11:42; Status DC Morphine Sulfate 6 mg 6 mg ONCE ONCE IM Last administered on 04/02/17 11:49; Start 04/02/17 at 11:30; Stop 04/02/17 at 11:31; Status DC Sodium Chloride (NS 1000 ml Inj) 1,000 ml @ 999 mls/hr BOLUS ONCE IV Last administered on 04/02/17 12:30; Start 04/02/17 at 12:30; Stop 04/02/17 at 13:30; Status DC Ondansetron HCl 4 mg 4 mg Q8HR PRN IV PUSH NAUSEA; Start 04/02/17 at 12:45 Sodium Chloride (NS 1000 ml Inj) 1,000 ml @ 100 mls/hr Q10H IV Last administered on 04/02/17 13:32; Start 04/02/17 at 12:45; Stop 04/02/17 at 22:14; Status DC Atenolol (Tenormin) 12.5 mg DAILY PO Last administered on 04/05/17 07:43; Start 04/03/17 at 09:00 Morphine Sulfate (Morphine Inj) 2 mg Q3H PRN IV PUSH BREAKTHROUGH PAIN Last administered on 04/03/17 08:22; Start 04/02/17 at 13:30 Dextrose (D50w (Vial) Inj) 25 ml UNSCH PRN IV PUSH HYPOGLYCEMIA-SEE COMMENTS; Start 04/02/17 at 13:30 Glucagon (Glucagon Inj) 1 mg UNSCH PRN OTHER HYPOGLYCEMIA-SEE COMMENTS; Start 04/02/17 at 13:30 Insulin Aspart 1 1 ACHS SLIDING SCALE SQ ; Start 04/02/17 at 16:00 Dextrose/Sodium Chloride 1,000 ml @ 84 mls/hr [id number] IV Last administered on 04/03/17 08:24; Start 04/02/17 at 22:15; Stop 04/03/17 at 20:57; Status DC Levofloxacin/ Dextrose 100 ml @ 100 mls/hr ONCE ONCE IV Last administered on 04/03/17 08:46; Start 04/03/17 at 09:00; Stop 04/03/17 at 09:59; Status DC Pharmacy Profile Note ([facility]) 0 ml @ 0 mls/hr UNSCH OTHER ; Start 04/03/17 at 08:00; Stop 04/04/17 at 14:44; Status DC Acetaminophen (Ofirmev Inj) 1,000 mg STK-MED ONCE IV ; Start 04/03/17 at 11:39; Stop 04/03/17 at 11:40; Status DC Fentanyl Citrate (fentaNYL INJ) 250 mcg STK-MED ONCE .ROUTE ; Start 04/03/17 at 11:39; Stop 04/03/17 at 11:40; Status DC Famotidine (Pepcid Inj) 20 mg STK-MED ONCE .ROUTE ; Start 04/03/17 at 11:39; Stop 04/03/17 at 11:40; Status DC Dexamethasone Sodium Phosphate (Decadron Inj) 4 mg STK-MED ONCE .ROUTE ; Start 04/03/17 at 11:39; Stop 04/03/17 at 11:40; Status DC Iohexol 50 ml 50 ml STK-MED ONCE OTHER Last administered on 04/03/17 12:46; Start 04/03/17 at 12:46; Stop 04/03/17 at 13:24; Status DC Sodium Chloride (NS 1000 ml Inj) 1,000 ml @ 84 mls/hr [id number] IV Last administered on 04/04/17 08:14; Start 04/03/17 at 21:00; Stop 04/04/17 at 09:39 ; Status DC Acetaminophen/ Hydrocodone Bitart ([place] 5-325 Mg) 1 tab Q4H PRN PO PAIN > 5; Start 04/04/17 at 08:00 Acetaminophen (Tylenol) 650 mg Q4H PRN PO PAIN < 5; Start 04/04/17 at 08:00 Apixaban (Eliquis) 2.5 mg BID PO ; Start 04/04/17 at 09:00; Stop 04/04/17 at 09: 00; Status DC Apixaban 2.5 mg 2.5 mg BID PO Last administered on 04/05/17 07:44; Start 04/04 at 21:00 Sodium Bicarbonate 50 meq/Sodium Chloride 1,050 ml @ 50 mls/hr Q21H IV Last administered on 04/04/17 13:15; Start 04/04/17 at 11:00; Stop 04/04/17 at 21:00 ; Status DC Sodium Chloride 1,000 ml @ 100 mls/hr Q10H IV ; Start 04/04/17 at 21:00 Levofloxacin/ Dextrose (Levaquin 500 Mg Premix Inj) 100 ml @ 100 mls/hr Q48H IV Last administered on 04/05/17 07:45; Start 04/05/17 at 09:00; Stop at 09:59 A/P Assessment and Plan A/p - bilateral hydronephrosis with nephrolithiasis- s/p left ureteral stent placement two months ago s/p Cystoscopy left retrograde study left double-J stent exchange; right ureteroscopy with stone extraction; right retrograde study with right double-J stent insertion f/u with Urology as outpatient. -acute kidney injury superimposed on chronic renal insufficiency- improving slowly continue IV hydration- monitor I/O and close monitoring of the renal function -atrial fibrillation; resume Eliquis ( ok with urology)- resumed atenolol -anemia of chronic disease- will monitor -diabetes mellitus; accu-check with SSI -constipation; laxatives as needed. -DVT prophylaxis with SCD's Discharge Planning dc home tomorrow if stable and renal function continues to improve. Damien England MD April 05, 2017 10:00
[2017-04-05] MEDS ORDERED: DOCUSATE SODIUM 100 MG CAP PO PRN (10:15)
--- NOTE | 2017-04-05 10:43 | HHI.PR ---
Subjective Patient symptoms today Pt seen and examined. Feels well. Creatinine down to 3.01 Objective Vital Signs Vital Signs Date Time Temp Pulse Resp B/P Pulse Ox O2 Delivery O2 Flow Rate FiO2 04/05/17 08:00 97.6 63 18 129/60 98 04/05/17 04:00 96.1 69 18 111/57 97 04/05/17 00:00 97.7 64 17 109/54 98 04/04/17 20:00 67 04/04/17 20:00 98.6 62 18 113/56 98 04/04/17 16:00 97.0 68 18 111/58 98 04/04/17 12:00 96.7 79 20 115/60 98 Result Diagram: 04/03/17 0900 04/05/17 0700 Objective Remarks Abd: soft,nt,nd Gonzalez: urine clear 04/05 Abd: soft,nt,nd Gonzalez: urine clear Medications and IVs Current Medications Medications (Trade) Dose Ordered Sig/David Route Start Time Stop Time Status Last Admin (NS Flush) 2 ml UNSCH PRN IVF 04/02/17 10:45 (Zofran Inj) 4 mg Q8HR PRN IV PUSH 04/02/17 12:45 (Tenormin) 12.5 mg DAILY PO 04/03/17 09:00 04/05/17 07:43 (Morphine Inj) 2 mg Q3H PRN IV PUSH 04/02/17 13:30 04/03/17 08:22 (D50w (Vial) Inj) 25 ml UNSCH PRN IV PUSH 04/02/17 13:30 (Glucagon Inj) 1 mg UNSCH PRN OTHER 04/02/17 13:30 ([place] 5-325 Mg) 1 tab Q4H PRN PO 04/04/17 08:00 (Tylenol) 650 mg Q4H PRN PO 04/04/17 08:00 Apixaban 2.5 mg 2.5 mg BID PO 04/04/17 21:00 04/05/17 07:44 (NS 1000 ml Inj) 1,000 ml @ 100 mls/hr Q10H IV 04/04/17 21:00 (Colace) 100 mg BID PRN PO 04/05/17 10:15 Assessment and Plan Assessment and Plan 71 year-old female with evidence of acute renal failure with history of a poorly functioning left kidney with right sided ureteral calculus causing obstruction with hydronephrosis. We'll plan for cystoscopy with exchange of left double-J stent followed by insertion of right double-J stent. Continue nothing by mouth. Risk and benefits discussed and the patient is willing to proceed. 04/04 Stable s/p cysto with right URS with stone extraction with right JJ stent insertion and left JJ stent change AFR slowing improving Maintain gonzalez for now F/U with urologist at [facility] 04/05 04/04 Stable s/p cysto with right URS with stone extraction with right JJ stent insertion and left JJ stent change POD#2 AFR slowing improving down to 3.01 Void trial in AM F/U with urologist at [facility] Jose Turner DO April 05, 2017 10:43
[2017-04-05 12:00] VITALS: BP 130/63; PULSE 72; RESP 19; TEMP 97.3; O2SAT 97
[2017-04-05] MEDS ORDERED: SODIUM CHLOR 0.45% IV ONE (13:00)
[2017-04-05] MEDS ORDERED: SODIUM BICARBONATE IV ONE (13:00)
[2017-04-05 16:45] VITALS: BP 133/63; PULSE 73; RESP 20; TEMP 98.2; O2SAT 96
[2017-04-05 20:00] VITALS: BP 124/62; PULSE 67; PULSE 73; RESP 16; TEMP 97.6; O2SAT 96
[2017-04-06] VITALS (7 sets, daily range): BP systolic 134–147; BP diastolic 62–84; PULSE 62–86; RESP 16–20; TEMP 96.3–97.6; O2SAT 96–98
[2017-04-06] MEDS: ACETAMINOPHEN/HYDROcodone 325 MG/5 MG TAB PO PRN ×3 (02:47→13:49)
[2017-04-06] MEDS: INSULIN ASPART SUPPLEMENTAL SCALE SQ SCH ×3 (06:37→15:35)
[2017-04-06 08:32] LABS: BICARBONATE 18.2 MEQ/L (21.0-32.0)
[2017-04-06] MEDS: SODIUM CHLOR 0.9% 1000 ML INJ 1,000 ML IV SCH ×2 (09:00)
[2017-04-06] MEDS: ATENOLOL 25 MG TAB PO SCH (09:20)
[2017-04-06] MEDS: APIXABAN 2.5 MG TABLET PO SCH (09:20)
--- NOTE | 2017-04-06 11:58 | HHI.PR ---
Subjective Remarks The patient was anxious to go home today. She says she feels like she will be able to urinate on her own. She said the Bell catheter has been removed less than an hour ago. She complained of chronic dryness in her lower extremities. Discussed with nursing. Objective Vitals Vital Signs Date Time Temp Pulse Resp B/P Pulse Ox O2 Delivery O2 Flow Rate FiO2 04/06/17 08:00 72 04/06/17 07:50 97.2 65 20 143/69 97 04/06/17 03:00 96.3 73 16 134/62 98 04/06/17 00:00 97.6 75 16 135/63 96 04/05/17 20:00 67 04/05/17 20:00 97.6 73 16 124/62 96 04/05/17 16:45 98.2 73 20 133/63 96 04/05/17 12:00 97.3 72 19 130/63 97 I/O 04/05/17 04/05/17 04/05/17 04/06/17 04/06/17 04/06/17 07:00 15:00 23:00 07:00 15:00 23:00 Intake Total 553 ml 907 ml 1234 ml Output Total 750 ml 1300 ml 850 ml 650 ml Balance -197 ml -1300 ml 57 ml 584 ml Intake Oral 240 ml 240 ml IV Total 553 ml 667 ml 994 ml Output Urine Total 750 ml 1300 ml 850 ml 650 ml # Bowel Movements 2 1 2 Result Diagram: 04/03/17 0900 04/06/17 0705 Imaging Last Impressions Abdomen/Pelvis CT 04/02/17 1043 Signed Impressions: Service Date/Time: Sunday, April 02, 2017 11:33 - CONCLUSION: 1. Severe right-sided hydronephrosis with what appears to be a subtle calculus at the right UVJ measuring 9 x 2 mm. Possibility of a ureterocele cannot be excluded. 2. Severe left-sided hydronephrosis despite a left-sided nephroureteral stent. Several nonobstructing left-sided renal calculi. 3. Large gallstone in the gallbladder fundus. No inflammatory changes. 4. Large periumbilical hernia containing fat and small segment of transverse colon. Slight inflammatory changes but no obstruction. 5. Scattered diverticula without diverticulitis. Sebas Godoy MD Objective Remarks GENERAL: This is a well-nourished, well-developed patient, in no apparent distress. CARDIOVASCULAR: Regular rate and regular rhythm without murmurs, gallops, or rubs. RESPIRATORY: Clear to auscultation. Breath sounds equal bilaterally. No wheezes , rales, or rhonchi. GASTROINTESTINAL: Abdomen soft, non-tender, nondistended. Umbilical hernia noted. MUSCULOSKELETAL: Extremities without clubbing, cyanosis, or edema. NEURO: Alert & Oriented x4 to person, place, time, situation. Moves all ext x4. PSYCH: Mood and affect appropriate. Procedures Cystoscopy with right URS with stone extraction with right JJ stent insertion and left JJ stent change. Medications and IVs Current Medications Medications (Trade) Dose Ordered Sig/David Route Start Time Stop Time Status Last Admin (NS Flush) 2 ml UNSCH PRN IVF 04/02/17 10:45 (Zofran Inj) 4 mg Q8HR PRN IV PUSH 04/02/17 12:45 (Tenormin) 12.5 mg DAILY PO 04/03/17 09:00 04/06/17 09:20 (Morphine Inj) 2 mg Q3H PRN IV PUSH 04/02/17 13:30 04/03/17 08:22 (D50w (Vial) Inj) 25 ml UNSCH PRN IV PUSH 04/02/17 13:30 (Glucagon Inj) 1 mg UNSCH PRN OTHER 04/02/17 13:30 ([place] 5-325 Mg) 1 tab Q4H PRN PO 04/04/17 08:00 04/06/17 06:34 (Tylenol) 650 mg Q4H PRN PO 04/04/17 08:00 (Eliquis) 2.5 mg BID PO 04/04/17 21:00 04/06/17 09:20 Docusate Sodium 100 mg 100 mg BID PRN PO 04/05/17 10:15 04/05/17 11:59 (NS 1000 ml Inj) 1,000 ml @ 100 mls/hr Q10H IV 04/05/17 23:00 04/06/17 00:00 A/P Problem List: (1) Bilateral hydronephrosis ICD Code: N13.30 Status: Acute (2) ANDREA (acute kidney injury) ICD Code: N17.9 Status: Acute Assessment and Plan Bilateral hydronephrosis with nephrolithiasis S/p left ureteral stent placement two months ago. Urology was consulted. S/p Cystoscopy left retrograde study left double-J stent exchange; right ureteroscopy with stone extraction; right retrograde study with right double-J stent insertion. - Bell removed. - f/u with Urology as outpatient. Acute kidney injury Superimposed on chronic renal insufficiency- improving slowly. - continue IV hydration- monitor I/O and close monitoring of the renal function. Atrial fibrillation Resume Eliquis ( ok with urology). - resumed atenolol. Anemia Of chronic disease. - will monitor. Diabetes mellitus Well controlled. - accu-check with SSI DVT prophylaxis with SCD's Discharge Planning D/c home if urinating well without Bell. Bhargav Villafuerte DO April 06, 2017 11:58
[2017-04-06] MEDS ORDERED: HYDROCORTISONE 1% CREAM 30 GM TOPICAL ONE (13:00)
[2017-04-06] MEDS ORDERED: HYDR-3516 PO (13:04)
--- NOTE | 2017-04-06 13:12 | HHI.DS ---
Discharge Summary Admission Date April 02, 2017 at 12:51 Discharge Date: April 06, 2017 Admitting Diagnosis bilateral obstructive uropathy, acute renal failure (1) Bilateral hydronephrosis ICD Code: N13.30 Diagnosis: Principal (2) ANDREA (acute kidney injury) ICD Code: N17.9 Diagnosis: Principal (3) Chronic anemia ICD Code: D64.9 Procedures Cystoscopy with right URS with stone extraction with right JJ stent insertion and left JJ stent change. Brief History - From Admission patient is a 71 y/o female with history of kidney stones- s/p left ureteral stent placement two months ago, presented with right flank pain. she says that the pain started last night. pain was moderate in intensity with some radiation to the back. pain was associated with nausea and emesis earlier this morning. she denies any gross hematuria and dysuria. she's being followed up by her urologist at [facility]. CBC/BMP: 04/03/17 0900 04/06/17 0705 Significant Findings Laboratory Tests Test 04/04/17 04/05/17 04/06/17 05:56 07:00 07:05 Chloride Level 112 MEQ/L 115 MEQ/L 115 MEQ/L (98-107) (98-107) (98-107) Carbon Dioxide Level 18.4 MEQ/L 18.6 MEQ/L 18.2 MEQ/L (21.0-32.0) (21.0-32.0) (21.0-32.0) Blood Urea Nitrogen 52 MG/DL (7-18) 49 MG/DL (7-18) 40 MG/DL (7-18) Creatinine 4.37 MG/DL 3.01 MG/DL 2.19 MG/DL (0.50-1.00) (0.50-1.00) (0.50-1.00) Estimat Glomerular Filtration 10 ML/MIN (>89) 15 ML/MIN (>89) 22 ML/MIN (>89) Rate Random Glucose 119 MG/DL 109 MG/DL (74-106) (74-106) Calcium Level 8.3 MG/DL 8.4 MG/DL (8.5-10.1) (8.5-10.1) Imaging Last Impressions Abdomen/Pelvis CT 04/02/17 1043 Signed Impressions: Service Date/Time: Sunday, April 02, 2017 11:33 - CONCLUSION: 1. Severe right-sided hydronephrosis with what appears to be a subtle calculus at the right UVJ measuring 9 x 2 mm. Possibility of a ureterocele cannot be excluded. 2. Severe left-sided hydronephrosis despite a left-sided nephroureteral stent. Several nonobstructing left-sided renal calculi. 3. Large gallstone in the gallbladder fundus. No inflammatory changes. 4. Large periumbilical hernia containing fat and small segment of transverse colon. Slight inflammatory changes but no obstruction. 5. Scattered diverticula without diverticulitis. Sebas Godoy MD PE at Discharge GENERAL: This is a well-nourished, well-developed patient, in no apparent distress. CARDIOVASCULAR: Regular rate and regular rhythm without murmurs, gallops, or rubs. RESPIRATORY: Clear to auscultation. Breath sounds equal bilaterally. No wheezes , rales, or rhonchi. GASTROINTESTINAL: Abdomen soft, non-tender, nondistended. Umbilical hernia noted. MUSCULOSKELETAL: Extremities without clubbing, cyanosis, or edema. NEURO: Alert & Oriented x4 to person, place, time, situation. Moves all ext x4. PSYCH: Mood and affect appropriate. Hospital Course Bilateral hydronephrosis with nephrolithiasis S/p left ureteral stent placement two months ago. CT abdomen showed: Severe right-sided hydronephrosis with what appears to be a subtle calculus at the right UVJ measuring 9 x 2 mm; Possibility of a ureterocele cannot be excluded; Severe left-sided hydronephrosis despite a left-sided nephroureteral stent; Several nonobstructing left-sided renal calculi. Urology was consulted. S/p cystoscopy left retrograde study left double-J stent exchange; right ureteroscopy with stone extraction; right retrograde study with right double-J stent insertion. Bell catheter was removed. The pt will f/u with urology as an outpatient. Acute kidney injury Superimposed on chronic renal insufficiency. Improving with fluids. She will have a BMP repeated in 3-5 days and will follow up with nephrology. Pt Condition on Discharge: Stable Discharge Disposition: Discharge Home Discharge Time: > 30 minutes Discharge Instructions DIET: Follow Instructions for: Diabetic Diet Activities you can perform: Weight Bearing as Molly Follow up Referrals: Nephrology - [address] Lopez PCP Follow-up Urology - 1 Week with Jose Turner DO New Orders: BASIC METABOLIC PROF - 3-5 Days New Medications: Hydrocodone-Acetaminophen (Hydrocodone-Acetaminophen) 5-325 mg Tab 1 TAB PO Q4H PRN PAIN > 5 #10 TAB Continued Medications: Allopurinol (Allopurinol) 100 Mg Tab 100 MG PO DAILY Gout #30 Ref 0 TAB Apixaban (Eliquis) 2.5 Mg Tab 2.5 MG PO BID Blood Clot Prevention Ref 0 TAB Atenolol (Atenolol) 25 Mg Tab 12.5 MG PO DAILY Blood Pressure Management #30 Ref 0 TAB Cholecalciferol (Vitamin D3) 400 Unit Cap 400 UNITS PO DAILY Nutritional Supplement #1 Ref 0 BOTTLE Cyanocobalamin (Vitamin B-12) 1,000 Mcg Tab 100 MCG PO DAILY Nutritional Supplement #1 Ref 0 BOTTLE Gabapentin (Gabapentin) 100 Mg Cap 100 MG PO TID #90 Ref 0 CAP Hydrocodone-Acetaminophen (Hydrocodone-Acetaminophen) 5-325 mg Tab 1 TAB PO Q6H PRN PAIN Ref 0 TAB Levothyroxine (Synthroid) 125 Mcg Tab 125 MCG PO DAILY Thyroid #30 Ref 0 TAB Simvastatin (Simvastatin) 20 Mg Tab 20 MG PO DAILY Cholesterol Management #30 Ref 0 TAB Solifenacin (Vesicare) 10 Mg Tab 10 MG PO DAILY Urinary Symptom Managemen #30 Ref 0 TAB Tamsulosin (Tamsulosin) 0.4 Mg Cap 0.4 MG PO HS Manage Prostate Problems #30 Ref 0 CAP Additional Information Discharge time greater than 30 minutes. Bhargav Villafuerte DO April 06, 2017 13:12
== END 2017-04-06 16:18 | disposition home or self-care (01) | DRG 669 ==
LOC: NEPD 10:30 → NEDA 12:51 → HOCB 16:13
PROVIDERS: ADMIT Hospitalist; ATTEND Hospitalist
PROC: 0TP98DZ Removal of Intraluminal Device from Ureter, Via Natural or Artificial Opening Endoscopic (ICD-10-PCS; 2017-04-03)
PROC: 0T788DZ Dilation of Bilateral Ureters with Intraluminal Device, Via Natural or Artificial Opening Endoscopic (ICD-10-PCS; 2017-04-03)
PROC: BT14ZZZ Fluoroscopy of Kidneys, Ureters and Bladder (ICD-10-PCS; 2017-04-03)
PROC: 0TC68ZZ Extirpation of Matter from Right Ureter, Via Natural or Artificial Opening Endoscopic (ICD-10-PCS; principal; 2017-04-03 12:18)
DX: N13.2 Hydronephrosis with renal and ureteral calculous obstruction (principal); N17.9 Acute kidney failure, unspecified; E11.22 Type 2 diabetes mellitus with diabetic chronic kidney disease; E66.01 Morbid (severe) obesity due to excess calories; I48.91 Unspecified atrial fibrillation; E89.0 Postprocedural hypothyroidism; E86.0 Dehydration; I12.9 Hypertensive chronic kidney disease with stage 1 through stage 4 chronic kidney disease, or unspecified chronic kidney disease; N18.9 Chronic kidney disease, unspecified; D63.8 Anemia in other chronic diseases classified elsewhere; Z79.84 Long term (current) use of oral hypoglycemic drugs; Z68.38 Body mass index [BMI] 38.0-38.9, adult
CPT/HCPCS: 51702; 74176; 74420; 76937; 80048; 80053; 81001; 82370; 82948; 85025; 85610; 87086; 88300; 93005; 96360; 96361; 96372; C1769; J0131; J1100; J1956; J2270; J2370; J2405; J2710; J3010; J7030; J7042; J7050; Q9967

== ENCOUNTER 2017-08-19 00:22 | Inpatient (IN) | payer MEDICARE, OTHER ==
[~2017-08-19] VITALS: Ht 177.8 cm; Wt 112.9 kg
[2017-08-19] VITALS (11 sets, daily range): BP systolic 90–123; BP diastolic 43–64; PULSE 75–100; RESP 16–21; TEMP 96.4–98; O2SAT 96–100
[~2017-08-19 00:22] MED LIST changes: -ALLO100 PO; +ALLO100T PO; -ATEN-100 PO; +ATEN25TA PO; -CEPH500C3 PO; +CHOL1CAP8 PO; +HYDR-3516 PO; +LEVO.125 PO; -LORTA5 PO; -SIMV20 PO; +SIMV20TA PO; -SYNT125T PO; +TAMS0.4C4 PO; -TAMS0.4C67 PO; +VESI10TA PO; -VESI10TA4 PO; +VITA10002 PO; -VITA100T15 PO
--- NOTE | 2017-08-19 01:04 | PD ---
HPI Chief Complaint: Abdominal Pain Time Seen by Provider: 00:42 Travel History International Travel<30 days: No Contact w/Intl Traveler<30days: No Traveled to known affect area: No History of Present Illness HPI The patient is a 71 year old female who presents to the [facility] emergency department with a history of laying down to go to sleep and at the point of nearly falling asleep having sudden onset of tremors, chills, nausea with vomiting, and generalized body pain. The generalized body pain improved, however she continues to have abdominal pain. The abdominal pain since the onset was initially generalized and now has become more localized to the left upper quadrant of the abdomen. She had had n/v 7-8 times. The patient denies any known recent fevers, cough congestion, neck pain, chest pain, shortness of breath, diarrhea, new urinary symptoms, or neurologic symptoms. She has a history of an abdominal hernia that is reportedly soft. She also has a history of recurrent kidney stones with ureteral stents in place that have required replacement approximately every 6 months since originally having them placed a few years ago. Dr. Reid is her urologist at the [facility] for her urologic care. Incidentally on review of systems, the patient does report having increased lower extremity edema with a slight erythema to the skin over the last few weeks. PCP: Dr. Chambers. [facility] Past Medical History Narrative Medical The patient's past medical history is significant for chronic right hip pain, atrial fibrillation, osteoarthritis, kidney stones with ureteral stents, recurrent urinary tract infections, anemia requiring a blood transfusion a few years ago. Her recent medical history is significant for being hospitalized for 5 days for a bacterial infection in the blood 2 weeks ago. The source of the infection was not determined. She has completed a course of antibiotic recently. Hx Anticoagulant Therapy: Yes (elaquis) Arthritis: Yes Atrial Fibrillation: Yes Heart Rhythm Problems: Yes (Afib) Cancer: Yes (UTERINE - Stage 1) Cardiac Catheterization: Yes Cardiovascular Problems: Yes (AFIB) High Cholesterol: Yes Chest Pain: No Congestive Heart Failure: No Diabetes: Yes Endocrine: Yes Genitourinary: Yes Kidney Stones: Yes Musculoskeletal: Yes Neurologic: No Psychiatric: No Reproductive: No Respiratory: No Radiation Therapy: Yes Thyroid Disease: Yes Past Surgical History Narrative Surgical The patient's past surgical history is significant for hysterectomy, bilateral ureteral stents, tonsillectomy, kidney stone removal. 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 Reported Meds & Prescriptions Reported Meds & Active Scripts Active Reported Simvastatin 20 Mg Tab 20 Mg PO DAILY Atenolol 25 Mg Tab 12.5 Mg PO DAILY Allopurinol 100 Mg Tab 100 Mg PO DAILY Review of Systems Except as stated in HPI: all other systems reviewed are Neg General / Constitutional: Positive: Fever, Chills Eyes: No: Visual changes HENT: No: Headaches Cardiovascular: No: Chest Pain or Discomfort Respiratory: No: Shortness of Breath Gastrointestinal: Positive: Nausea, Vomiting, Abdominal Pain, No: Diarrhea, Hematemesis, Hematochezia, Changes in Bowel Habits, Indigestion, Loss of Appetite Genitourinary: Positive: Frequency, Flank Pain Musculoskeletal: No: Pain Skin: No Rash Neurologic: No: Weakness Psychiatric: No: Depression Endocrine: No: Polydipsia Hematologic/Lymphatic: No: Easy Bruising Physical Exam Narrative General: The patient is well-developed well-nourished female in no acute distress. The patient has skin pallor noted on examination. Head and Neck exam: Head is normocephalic atraumatic. Eyes: EOMI, pupils are equal round and reactive to light. Nose: Midline septum with pink mucous membranes Mouth: Dentition unremarkable. Moist mucus membranes. Posterior oropharynx is not erythematous. No tonsillar hypertrophy. Uvula midline. Airway patent. Neck: No palpable lymphadenopathy. No nuchal rigidity. No thyromegaly. Cardiovascular: Irregularly irregular with a rate in the 70s without murmurs, gallops, or rubs. Lungs: Clear to auscultation bilaterally. No wheezes, rhonchi, or rales. Abdomen: Soft, with tenderness on palpation of the left upper and left lower quadrant of the abdomen. The patient has a palpable abdominal hernia that is easily reducible. No other tenderness on palpation of the other quadrants of the abdomen. Normal bowel sounds are audible. No guarding, rebound, or rigidity. Negative Moncada's sign. No tenderness on palpation of McBurney's point. Extremities: No clubbing or cyanosis. The patient has hyperpigmentation of bilateral lower extremities consistent with venous stasis changes with a slight underlying pink coloration. The patient reports tenderness on palpation of bilateral lower extremities. 2+ pulses in all 4 extremities. Negative Homans sign. No palpable cords. Back: No spinous process tenderness to palpation. The patient has bilateral CVA tenderness on palpation worse on the left compared to the right. Neurologic Exam: Grossly nonfocal. Skin Exam: No rash noted. Intact skin that is warm and dry. Data Data Last Documented VS Vital Signs Date Time Temp Pulse Resp B/P (MAP) Pulse Ox O2 Delivery O2 Flow Rate FiO2 08/19/17 01:27 97.9 75 16 111/55 (73) 96 Nasal Cannula Orders Orders Complete Blood Count With Diff (08/19/17 00:54) Comprehensive Metabolic Panel (08/19/17 00:54) Prothrombin Time / Inr (Pt) (08/19/17 00:54) Act Partial Throm Time (Ptt) (08/19/17 00:54) C-Reactive Protein (Crp) (08/19/17 00:54) Lipase (08/19/17 00:54) Urinalysis - C+S If Indicated (08/19/17 00:54) Magnesium (Mg) (08/19/17 00:54) Chest, Single Ap (08/19/17 00:54) Iv Access Insert/Monitor (08/19/17 00:54) Ecg Monitoring (08/19/17 00:54) Oximetry (08/19/17 00:54) Ct Abd/Pel W/O Iv Contrast (08/19/17 02:16) Red Blood Cells (Rbc) (08/19/17 02:18) Blood Product Administration (08/19/17 02:18) Sodium Chlor 0.9% 250 Ml Inj (Ns 250 Ml (08/19/17 02:30) Type And Screen (08/19/17 02:18) Admit Order (Ed Use Only) (08/19/17 02:51) Labs Laboratory Tests Test 08/19/17 01:35 08/19/17 02:40 White Blood Count 6.8 TH/MM3 Red Blood Count 2.59 MIL/MM3 Hemoglobin 7.2 GM/DL Hematocrit 22.8 % Mean Corpuscular Volume 87.9 FL Mean Corpuscular Hemoglobin 27.8 PG Mean Corpuscular Hemoglobin Concent 31.7 % Red Cell Distribution Width 19.0 % Platelet Count 220 TH/MM3 Mean Platelet Volume 6.8 FL Neutrophils (%) (Auto) 80.9 % Lymphocytes (%) (Auto) 8.7 % Monocytes (%) (Auto) 7.6 % Eosinophils (%) (Auto) 1.9 % Basophils (%) (Auto) 0.9 % Neutrophils # (Auto) 5.5 TH/MM3 Lymphocytes # (Auto) 0.6 TH/MM3 Monocytes # (Auto) 0.5 TH/MM3 Eosinophils # (Auto) 0.1 TH/MM3 Basophils # (Auto) 0.1 TH/MM3 CBC Comment DIFF FINAL Differential Comment Prothrombin Time 12.5 SEC Prothromb Time International Ratio 1.1 RATIO Activated Partial Thromboplast Time 32.3 SEC Blood Urea Nitrogen 96 MG/DL Creatinine 11.06 MG/DL Random Glucose 108 MG/DL Total Protein 7.5 GM/DL Albumin 2.5 GM/DL Calcium Level 8.5 MG/DL Magnesium Level 1.8 MG/DL Alkaline Phosphatase 127 U/L Aspartate Amino Transf (AST/SGOT) 14 U/L Alanine Aminotransferase (ALT/SGPT) 7 U/L Total Bilirubin 0.3 MG/DL Sodium Level 136 MEQ/L Potassium Level 5.1 MEQ/L Chloride Level 109 MEQ/L Carbon Dioxide Level 12.9 MEQ/L Anion Gap 14 MEQ/L Estimat Glomerular Filtration Rate 3 ML/MIN C-Reactive Protein 4.97 MG/DL Lipase 114 U/L Urine Color YELLOW Urine Turbidity CLOUDY Urine pH 5.5 Urine Specific Agency 1.016 Urine Protein 100 mg/dL Urine Glucose (UA) NEG mg/dL Urine Ketones NEG mg/dL Urine Occult Blood MOD Urine Nitrite NEG Urine Bilirubin NEG Urine Urobilinogen LESS THAN 2.0 MG/DL Urine Leukocyte Esterase LARGE Urine RBC 55 /hpf Urine WBC /hpf Urine WBC Clumps MANY Urine Bacteria MANY /hpf Urine Mucus FEW /lpf Microscopic Urinalysis Comment CULTURE INDICATED MDM Medical Decision Making Medical Screen Exam Complete: Yes Emergency Medical Condition: Yes Medical Record Reviewed: Yes Interpretation(s) Last Impressions Abdomen/Pelvis CT 08/19/17 0216 Signed Impressions: Service Date/Time: Saturday, August 19, 2017 02:51 - CONCLUSION: 1. Compared with April 02 there is placement of a right-sided ureteral stent with persistent moderate right hydronephrosis. There is also moderate left hydronephrosis with renal cortical atrophy and stable left ureteral stent. Nonobstructing calcifications left kidney. 2. Stable large calcified gallstone without biliary ductal dilatation. 3. Stable left-sided ventral hernia containing fat and a loop of small bowel. 4. Bell catheter in bladder. Colin Gilmore MD Chest X-Ray 08/19/17 0054 Signed Impressions: Service Date/Time: Saturday, August 19, 2017 01:07 - CONCLUSION: 1. Mild basilar atelectasis. Cardiomegaly. Colin Gilmore MD Differential Diagnosis Sepsis related to urinary tract infection, versus pneumonia, versus undetermined cause, versus symptomatic anemia, versus acute coronary syndrome Narrative Course During the course of the patients emergency department visit, the patients history, examination, and differential diagnosis were reviewed with the patient. The patient had IV access obtained and blood work sent for analysis. The patient was placed on a behavioral sciences department chair with oximetry and blood pressure monitoring. An ECG was done on arrival. The patient's ECG reveals atrial fibrillation which the patient has a history of with a heart rate of 74, marked left axis deviation, left bundle branch block, no other acute abnormality. The patient was initially provided normal saline at 250 mL IV fluid bolus times one. The patients laboratory studies were reviewed and remarkable for a white count of 6.8, hemoglobin 7.2, platelets 228 with neutrophils 80.9, lymphocytes 8.7. The patient's MCV is 87.9, CMP is remarkable for a chloride of 109, acidosis with CO2 of 12.9, BUN 96, creatinine 11.06 which is acute on chronic renal failure compared to a prior creatinine at this facility of 2, glucose 108, AST 14, ALT 7, alkaline phosphatase 127, C-reactive protein 4.97, albumin 2.5, lipase 114. The patient had a Bell catheter placed to gravity to carefully monitor her urine output while she is rehydrated. Given the patient's anemia the patient was typed and crossmatched for 2 units of packed red blood cells, 1 unit will be administered. PT 12.5, PTT 32.3. Urinalysis shows cloudy urine, protein 100, moderate occult blood, large leukocyte esterase, rbc's 65, innumerable wbc's with many wbc clumps and bacteria many. Culture indicated. Radiology studies were reviewed and remarkable for a chest x-ray that shows mild basilar atelectasis, cardiomegaly. CT scan of the abdomen and pelvis is compared with April 02. There is placement of a right-sided ureteral stent with persistent moderate right hydronephrosis. There is also moderate left hydronephrosis with renal cortical atrophy and stable left ureteral stent. Nonobstructing calcifications of the left kidney. Stable large calcified gallstone without biliary ductal dilatation, stable left-sided ventral hernia containing fat and a loop of small bowel. Bell catheter and bladder. The patients results were discussed with the patient, including the plan of care. I explained that further testing and/ or monitoring is indicated based on the patients history, examination, and/ or laboratory findings. Therefore, I recommended admission for additional evaluation. The patient expressed understanding and was agreeable with this plan. The patient was admitted to the hospital in guarded condition and sent to a bed under the care of the [facility]. Physician Communication Physician Communication The patient's case is discussed with Dr. Zayas who did agree to admit the patient for further evaluation and treatment at this time. Diagnosis Primary Impression: Acute on chronic renal failure Qualified Codes: N17.9 - Acute kidney failure, unspecified; N18.9 - Chronic kidney disease, unspecified Additional Impression: Anemia Qualified Codes: D64.9 - Anemia, unspecified Admitting Information Admitting Physician Requests: Admit Luz Burnett MD Aug 19, 2017 01:04
--- NOTE | 2017-08-19 01:21 | RADRPT ---
EXAM DATE/TIME: 08/19/2017 01:07 [facility] COMPARISON: No previous studies available for comparison. INDICATIONS : Vomiting for hours. MEDICAL HISTORY : Renal calculi. diabetes uterine cancer SURGICAL HISTORY : Hysterectomy. ENCOUNTER: Initial ACUITY: 1 day PAIN SCORE: 6/10 LOCATION: Bilateral chest FINDINGS: A single view of the chest demonstrates the lungs to be symmetrically aerated without evidence of mas s, infiltrate or effusion. The cardiomediastinal contours are prominent with mild basilar atelectasi s. Osseous structures are intact. CONCLUSION: 1. Mild basilar atelectasis. Cardiomegaly. Colin Gilmore MD on August 19, 2017 at 1:18 Board Certified Radiologist. This report was verified electronically.
[2017-08-19 01:58] LABS: AUTOMATED NEUTROPHIL # 5.5 TH/MM3 (1.8-7.7); BASOPHIL # 0.1 TH/MM3 (0-0.2); BASOPHIL % 0.9 % (0.0-2.0); EOSINOPHIL # 0.1 TH/MM3 (0-0.4); EOSINOPHIL % 1.9 % (0.0-4.0); HEMATOCRIT 22.8 % (35.0-46.0); HEMO FLAGS DIFF FINAL; LYMPH % 8.7 % (9.0-44.0); LYMPHOCYTE # 0.6 TH/MM3 (1.0-4.8); MEAN CELL VOLUME 87.9 FL (80.0-100.0); MEAN CORPUSCULAR HEMOGLOBIN 27.8 PG (27.0-34.0); MEAN CORPUSCULAR HGB CONC 31.7 % (32.0-36.0); MONO % 7.6 % (0.0-8.0); NEUT % 80.9 % (16.0-70.0); PLATELET COUNT 220 TH/MM3 (150-450); RED BLOOD COUNT 2.59 MIL/MM3 (4.00-5.30); WHITE BLOOD COUNT 6.8 TH/MM3 (4.0-11.0)
[2017-08-19 02:09] LABS: APTT (PATIENT) 32.3 SEC (24.3-30.1); INTERNATIONAL NORMALIZED RATIO 1.1 RATIO; PROTHROMBIN TIME - PATIENT 12.5 SEC (9.8-11.6)
[2017-08-19 02:11] LABS: ANION GAP 14 MEQ/L (5-15); AST (GOT) 14 U/L (15-37); BICARBONATE 12.9 MEQ/L (21.0-32.0); BLOOD UREA NITROGEN 96 MG/DL (7-18); CHLORIDE 109 MEQ/L (98-107); GLOMERULAR FILTRATION RATE 3 ML/MIN (>89); MAGNESIUM 1.8 MG/DL (1.5-2.5); POTASSIUM 5.1 MEQ/L (3.5-5.1); SODIUM (NA) 136 MEQ/L (136-145)
[2017-08-19 02:14] LABS: ALKALINE PHOSPHATASE 127 U/L (45-117); ALT (GPT) 7 U/L (10-53); TOTAL BILIRUBIN ADULT 0.3 MG/DL (0.2-1.0)
[2017-08-19] MEDS ORDERED: SODIUM CHLOR 0.9% 250 ML INJ 250 ML IV ONE (02:30)
[2017-08-19 03:01] LABS: BACTERIA, URINE MANY /hpf; BLOOD, URINE MOD (NEG); COMMENT (UR) CULTURE INDICATED; CULTURE IF INDICATED CULTURE INDICATED; GLUCOSE,URINE NEG (NEG); KETONE, URINE NEG (NEG); MUCUS URINE FEW /lpf (OCC); NITRITE,URINE NEG (NEG); PH, URINE 5.5 (5.0-8.5); URINE COLOR YELLOW (YELLW/STRAW)
--- NOTE | 2017-08-19 03:14 | RADRPT ---
EXAM DATE/TIME: 08/19/2017 02:51 [facility] COMPARISON: No previous studies available for comparison. INDICATIONS : Left sided abdominal pain. ORAL CONTRAST: No oral contrast ingested. RADIATION DOSE: 31.13 CTDIvol (mGy) ; Patient body habitus MEDICAL HISTORY : Renal calculi. Cardiovascular disease Uterine cancer. Diabetes. SURGICAL HISTORY : Hysterectomy. Thyroidectomy.Cardiac catherization. ENCOUNTER: Initial ACUITY: 1 day PAIN SCALE: 10/10 LOCATION: Left abdomen TECHNIQUE: Volumetric scanning of the abdomen and pelvis was performed. Using automated exposure control and ad justment of the mA and/or kV according to patient size, radiation dose was kept as low as reasonably achievable to obtain optimal diagnostic quality images. DICOM format image data is available electro nically for review and comparison. FINDINGS: Compare April 02. Lung bases are clear. No acute findings within the liver. Multiple splenic granulomata . Large gallstone in gallbladder stable. There is persistent moderate bilateral hydronephrosis similar to April 02 with bilateral nephroureteral stents present suspect position. There is a left-sided abdominal ventral hernia containing a loop of colon but without evidence for ob struction. No free air or free fluid. Advanced arthritic change right hip similar to prior exam. CONCLUSION: 1. Compared with April 02 there is placement of a right-sided ureteral stent with persistent moderate ri ght hydronephrosis. There is also moderate left hydronephrosis with renal cortical atrophy and stable left ureteral stent. Nonobstructing calcifications left kidney. 2. Stable large calcified gallstone without biliary ductal dilatation. 3. Stable left-sided ventral hernia containing fat and a loop of small bowel. 4. Bell catheter in bladder. Colin Gilmore MD on August 19, 2017 at 3:06 Board Certified Radiologist. This report was verified electronically.
[2017-08-19] MEDS ORDERED: SODIUM CHLORIDE 0.9% FLUSH 10 ML FLUSH IV FLUSH PRN ×2 (04:00→04:45)
--- NOTE | 2017-08-19 04:37 | HHI.HP ---
[facility] Primary [facility] Physician Quinn Chambers MD Admission Diagnosis ACUTE ON CHRONIC RENAL FAILURE, ANEMIA Diagnoses: Chief Complaint: Generalized malaise, pain all over Travel History International Travel<30 Days: No Contact w/Intl Traveler <30 Da: No Traveled to Known Affected Are: No History of Present Illness 71-year-old female with a medical history significant for diabetes, osteoarthritis, atrial fibrillation on Eliquis, history of ovarian cancer, anemia, history of bilateral ureteral stent placement for kidney stones, chronic kidney disease with fluctuating levels of renal functions who presented to the emergency room for sudden onset, severe generalized body ache. Patient reports she has had urinary tract infection on and off. She denies suprapubic pain. No dysuria. She believes she has been voiding as usual. She denies blood in her stool or melena. Workup in the emergency room revealed significant anemia with hemoglobin of 7.3 and acute on chronic renal failure with creatinine of 11 and low bicarbonate. The patient also reports increasing bilateral lower extremity erythema. She denies any fevers or chills at home. The patient normally follows with urology and nephrology at the [facility]. Past Family Social History Past Medical History diabetes, osteoarthritis, atrial fibrillation on Eliquis, history of ovarian cancer, anemia, history of bilateral ureteral stent placement for kidney stones , chronic kidney disease with fluctuating levels of renal functions Past Surgical History Appendectomy Partial thyroidectomy Total hysterectomy Rotator cuff repair Reported Medications Reported Meds & Active Scripts Active Reported Simvastatin 20 Mg Tab 20 Mg PO DAILY Atenolol 25 Mg Tab 12.5 Mg PO DAILY Allopurinol 100 Mg Tab 100 Mg PO DAILY Patient has been on Eliquis for atrial fibrillation. She reports she was told to stop this medication a couple of weeks ago and to restart it once her "blood count" normalized. Allergies: Coded Allergies: ampicillin (Unverified Allergy, Unknown, 08/19/17) *MDRO Multi-Drug Resistant Organism (Verified Adverse Reaction, Unknown, ) 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 Family History Reviewed and is found to be noncontributory. Social History Patient does not smoke tobacco, use alcohol or illicit drugs. Physical Exam Vital Signs Vital Signs Date Time Temp Pulse Resp B/P (MAP) Pulse Ox O2 Delivery O2 Flow Rate FiO2 08/19/17 01:27 97.9 75 16 111/55 (73) 96 Nasal Cannula 08/19/17 00:43 21 08/19/17 00:39 97.9 75 21 111/55 (73) 96 Physical Exam GENERAL: Chronically ill-appearing female. Very pale. SKIN: Pale skin. Bilateral lower extremity with chronic venous stasis changes. There is evidence of early cellulitis involving both lower extremities. HEAD: Atraumatic. Normocephalic. No temporal or scalp tenderness. EYES: Pupils equal round and reactive. Extraocular motions intact. No scleral icterus. No injection or drainage. ENT: Nose without bleeding, purulent drainage or septal hematoma. Throat without erythema, tonsillar hypertrophy or exudate. Uvula midline. Airway patent. NECK: Trachea midline. No JVD or lymphadenopathy. Supple, nontender, no meningeal signs. CARDIOVASCULAR: Normal rate and irregular rhythm without overt murmurs. RESPIRATORY: Clear to auscultation. Breath sounds equal bilaterally. No wheezes , rales, or rhonchi. GASTROINTESTINAL: Abdomen soft, non-tender, nondistended. No hepato-splenomegaly , or palpable masses. No guarding. MUSCULOSKELETAL: Extremities without clubbing, cyanosis, or edema. No joint tenderness, effusion, or edema noted. No calf tenderness. Negative Homans sign bilaterally. NEUROLOGICAL: Awake and alert. Normal speech. Laboratory Laboratory Tests Test 08/19/17 01:35 08/19/17 02:40 White Blood Count 6.8 Red Blood Count 2.59 Hemoglobin 7.2 Hematocrit 22.8 Mean Corpuscular Volume 87.9 Mean Corpuscular Hemoglobin 27.8 Mean Corpuscular Hemoglobin Concent 31.7 Red Cell Distribution Width 19.0 Platelet Count 220 Mean Platelet Volume 6.8 Neutrophils (%) (Auto) 80.9 Lymphocytes (%) (Auto) 8.7 Monocytes (%) (Auto) 7.6 Eosinophils (%) (Auto) 1.9 Basophils (%) (Auto) 0.9 Neutrophils # (Auto) 5.5 Lymphocytes # (Auto) 0.6 Monocytes # (Auto) 0.5 Eosinophils # (Auto) 0.1 Basophils # (Auto) 0.1 CBC Comment DIFF FINAL Differential Comment Prothrombin Time 12.5 Prothromb Time International Ratio 1.1 Activated Partial Thromboplast Time 32.3 Blood Urea Nitrogen 96 Creatinine 11.06 Random Glucose 108 Total Protein 7.5 Albumin 2.5 Calcium Level 8.5 Magnesium Level 1.8 Alkaline Phosphatase 127 Aspartate Amino Transf (AST/SGOT) 14 Alanine Aminotransferase (ALT/SGPT) 7 Total Bilirubin 0.3 Sodium Level 136 Potassium Level 5.1 Chloride Level 109 Carbon Dioxide Level 12.9 Anion Gap 14 Estimat Glomerular Filtration Rate 3 C-Reactive Protein 4.97 Lipase 114 Urine Color YELLOW Urine Turbidity CLOUDY Urine pH 5.5 Urine Specific [place] 1.016 Urine Protein 100 Urine Glucose (UA) NEG Urine Ketones NEG Urine Occult Blood MOD Urine Nitrite NEG Urine Bilirubin NEG Urine Urobilinogen LESS THAN 2.0 Urine Leukocyte Esterase LARGE Urine RBC 55 Urine WBC Urine WBC Clumps MANY Urine Bacteria MANY Urine Mucus FEW Microscopic Urinalysis Comment CULTURE INDICATED Date/Time Source Procedure Growth Status 08/19/17 02:40 Urine Clean Catch Urine Culture Pending Received Result Diagram: 08/19/175 08/19/17134 Imaging Last Impressions Abdomen/Pelvis CT 08/19/176 Signed Impressions: Service Date/Time: Saturday, August 19, 2017 02:51 - CONCLUSION: 1. Compared with April 02 there is placement of a right-sided ureteral stent with persistent moderate right hydronephrosis. There is also moderate left hydronephrosis with renal cortical atrophy and stable left ureteral stent. Nonobstructing calcifications left kidney. 2. Stable large calcified gallstone without biliary ductal dilatation. 3. Stable left-sided ventral hernia containing fat and a loop of small bowel. 4. Bell catheter in bladder. Colin Gilmore MD Chest X-Ray 08/19/17 0054 Signed Impressions: Service Date/Time: Saturday, August 19, 2017 01:07 - CONCLUSION: 1. Mild basilar atelectasis. Cardiomegaly. MD Mimi Carrion VTE Risk Assessment Mimi VTE Risk Assessment: Mod/High Risk (score >= 2) VTE Pharm Contraindication: anemia Caprini Risk Assessment Model Point Value = 1 Point Value = 2 Point Value = 3 Point Value = 5 Age 41-60 Minor surgery BMI > 25 kg/m2 Swollen legs Varicose veins or History of unexplained or recurrent spontaneous Oral contraceptives or hormone replacement Sepsis (< 1 month) Serious lung disease, including pneumonia (< 1 month) Abnormal pulmonary function Acute myocardial infarction Congestive heart failure (< 1 month) History of inflammatory bowel disease Medical patient at bed rest Age 61-74 Arthroscopic surgery Major open surgery (> 45 min) Laparoscopic surgery (> 45 min) Malignancy Confined to bed (> 72 hours) Immobilizing plaster cast Central venous access Age >= 75 History of VTE Family history of VTE Factor V Leiden Prothrombin [id number] Lupus anticoagulant Anticardiolipin antibodies Elevated serum homocysteine Heparin-induced thrombocytopenia Other congenital or acquired thrombophilia Stroke (< 1 month) Elective arthroplasty Hip, pelvis, or leg fracture Acute spinal cord injury (< 1 month) Prophylaxis Regimen Total Risk Factor Score Risk Level Prophylaxis Regimen 0-1 Low Early ambulation 2 Moderate Order ONE of the following: *Sequential Compression Device (SCD) *Heparin 5000 units SQ BID 3-4 Higher Order ONE of the following medications: *Heparin 5000 units SQ TID *Enoxaparin/Lovenox 40 mg SQ daily (WT < 150 kg, CrCl > 30 mL/min) *Enoxaparin/Lovenox 30 mg SQ daily (WT < 150 kg, CrCl > 10-29 mL/min) *Enoxaparin/Lovenox 30 mg SQ BID (WT < 150 kg, CrCl > 30 mL/min) AND/OR *Sequential Compression Device (SCD) 5 or more Highest Order ONE of the following medications: *Heparin 5000 units SQ TID (Preferred with Epidurals) *Enoxaparin/Lovenox 40 mg SQ daily (WT < 150 kg, CrCl > 30 mL/min) *Enoxaparin/Lovenox 30 mg SQ daily (WT < 150 kg, CrCl > 10-29 mL/min) *Enoxaparin/Lovenox 30 mg SQ BID (WT < 150 kg, CrCl > 30 mL/min) AND *Sequential Compression Device (SCD) Assessment and Plan Problem List: (1) Cellulitis of both lower extremities ICD Code: L03.115 - Cellulitis of right lower limb; L03.116 - Cellulitis of left lower limb (2) Anemia ICD Code: D64.9 - Anemia, unspecified (3) Acute on chronic renal failure ICD Code: N17.9 - Acute kidney failure, unspecified; N18.9 - Chronic kidney disease, unspecified (4) Diabetes ICD Code: E11.9 - Diabetes Status: Chronic (5) Atrial fibrillation ICD Code: I48.91 - Unspecified atrial fibrillation Status: Chronic (6) Complicated UTI (urinary tract infection) ICD Code: N39.0 - Urinary tract infection, site not specified Status: Acute Assessment and Plan 71-year-old female admitted for acute on chronic renal failure, worsening anemia requiring blood transfusion, cellulitis of bilateral lower extremities. Acute on chronic renal failure: The patient does have a history of obstructive uropathy but she previously had bilateral stent placed. There is persistent hydronephrosis. - Consult nephrology. - Start IV fluid with bicarbonate pending nephrology consult. Worsening anemia: No reports of active bleeding. Anemia may be secondary to chronic kidney disease. -1 unit of PRBC has been ordered. Continue to follow H&H. Bilateral lower extremity cellulitis: Patient has chronic venous stasis. She has developed cellulitis over the past few days. - Start Rocephin. Monitor for improvement. UTI: Has been recurrent for the patient. No history of multi drug resistant UTI. - Follow urine culture. On Rocephin as above. Atrial fibrillation: Continue atenolol. Patient reports she was taken off Eliquis temporarily. She was told to resume this medication once approved by her physician. [id number]. - Follow H&H. Would plan to resume this medication if renal functions can tolerate in the next couple of days. GI prophylaxis: Stool softener PRN constipation. DVT PPx: SCDs. Physician Certification 2 Midnight Certification Type: Admission for Inpatient Services Order for Inpatient Services The services are ordered in accordance with Medicare regulations or non- Medicare payer requirements, as applicable. In the case of services not specified as inpatient-only, they are appropriately provided as inpatient services in accordance with the 2-midnight benchmark. Estimated LOS (days): 3 days is the estimated time the patient will need to remain in the hospital, assuming treatment plan goals are met and no additional complications. Post-Hospital Plan: Not yet determined Capo Zayas MD Aug 19, 2017 04:37
[2017-08-19] MEDS ORDERED: LACTULOSE SYRUP 20 GM/30 ML CUP PO PRN (04:45)
[2017-08-19] MEDS ORDERED: NALOXONE HCL 0.4 MG/ML AMP IV PUSH PRN (04:45)
[2017-08-19] MEDS ORDERED: BISACODYL 10 MG SUPP RECTAL PRN (04:45)
[2017-08-19] MEDS: cefTRIAXone INJ 1,000 MG in SODIUM CHLORIDE 0.9% INJ 100 ML IV SCH ×2 (05:15→17:54)
[2017-08-19] MEDS ORDERED: ACETAMINOPHEN/HYDROcodone 325 MG/5 MG TAB PO ONE ×2 (06:15→06:30)
[2017-08-19] MEDS ORDERED: SODIUM BICARBONATE 8.4% INJ 75 MEQ in SODIUM CHLOR 0.45% 1000 ML INJ 1,000 ML IV SCH (06:45)
[2017-08-19] MEDS ORDERED: ACETAMINOPHEN/HYDROcodone 325 MG/5 MG TAB PO PRN (07:00)
[2017-08-19] MEDS ORDERED: PILL SPLITTER OTHER PRN (07:45)
[2017-08-19] MEDS ORDERED: SODIUM CHLORIDE 0.9% FLUSH 10 ML FLUSH IV FLUSH SCH (09:00)
[2017-08-19] MEDS: SODIUM CHLORIDE 0.9% FLUSH 10 ML FLUSH IV FLUSH SCH ×2 (09:27→20:16)
[2017-08-19] MEDS: ATENOLOL 25 MG TAB PO SCH (09:29)
[2017-08-19] MEDS: PRAVASTATIN SOD 40 MG TAB PO SCH (09:29)
[2017-08-19] MEDS: ALLOPURINOL 100 MG TAB PO SCH (09:29)
--- NOTE | 2017-08-19 11:14 | MB ---
cc: ELIZA FONTANEZ MD DATE OF CONSULTATION: 08/19/2017 REASON FOR CONSULTATION Chronic kidney disease and acute kidney injury, for evaluation. HISTORY OF PRESENT ILLNESS This is a 71-year-old female with past medical history of diabetes mellitus, atrial fibrillation, history of recurrent renal stone, history of bilateral stent and following with urology and nephrology at [facility], came with abdominal pain, suprapubic pain and generalized body pain with nausea and vomiting. I was called to see the patient because of very high BUN and creatinine. The patient has a history of chronic kidney disease and she has recurrent infection and left-sided renal stone and according to the patient her left kidney is not working very good and she is following at [facility]. We have her creatinine in the past, in March it was 4.8 and then it improved to 2.1 and now she came with creatinine of 11.0. The patient is not following with any care consultant here in this area. She was told once at [facility] that at some point she will need dialysis and she was seen by Dr. Turner when she was here in March and she had a cystoscopy done. The patient did not notice any dysuria, hematuria or decrease in the urine output. She has this abdominal pain and pain in her legs and right hip yesterday evening and then she started vomiting and she vomited six times at home before she came here. She denies taking any nonsteroidal anti-inflammatory drugs. PAST MEDICAL HISTORY 1. Chronic kidney disease. 2. Diabetes mellitus. 3. Osteoarthritis. 4. Atrial fibrillation. 5. Anemia. 6. Ovarian cancer. 7. Recurrent urinary tract infection. 8. History of kidney stones. 9. Hyperlipidemia. PAST SURGICAL HISTORY 1. Thyroidectomy. 2. Hysterectomy. 3. Rotator cuff repair. 4. Appendicectomy. 5. Multiple cystoscopy and stent placement in both ureters. REVIEW OF SYSTEMS There is no history of fever. No headache, dizziness or blurring of vision. Denies any shortness of breath. No chest pain. She has this generalized body pain and pain in her abdomen, mainly in the lower abdomen and has nausea and she vomited six times yesterday. There is no history of diarrhea. Nausea is improving now. She has this chronic edema of her legs which got a little bit more worse according to the patient after she had a long flight 2 weeks ago. SOCIAL HISTORY There is no history of smoking or alcoholism. FAMILY HISTORY Family history is noncontributory. ALLERGIES She is allergic to AMPICILLIN. MEDICATIONS Currently she is on the following medications: 1. IV fluid with sodium bicarbonate at 75 an hour. 2. Allopurinol 100 mg once a day. 3. Atenolol 12.5 mg daily. 4. Pravachol 40 mg once a day. 5. Ceftriaxone 1 gram q.12 hours. 6. Zofran as needed. 7. Acdz-gi-Bhwnhtpm. 8. Dulcolax as needed. 9. [place] as needed. PHYSICAL EXAMINATION GENERAL: The patient is awake, alert. She is not in acute distress. VITAL SIGNS: Her last blood pressure is 90/43, temperature is 97.6, oxygen saturation on room air is 100%. HEENT: Pupils are mid constricted. Nonicteric sclerae, conjunctivae pale. NECK: Supple. JVD is not elevated. LUNGS: The patient has bilateral decreased air entry with occasional wheezing. HEART: S1, S2, regular rhythm. ABDOMEN: Abdomen is obese, soft, lax. There is mild tenderness in umbilical and suprapubic region. She also has periumbilical hernia which is reducible. Bowel sounds positive. EXTREMITIES: She has bilateral mild lymphedema with chronic scaling and mild erythema of both legs, especially the lower half. INVESTIGATION WBC count is 6.8, hemoglobin 7.2, platelet count of 220, neutrophils 80.9%. Sodium 136, potassium 5.1, chloride 109, bicarb 12.9, BUN 96, creatinine 11.0, AST is 14, ALT is 7. Alkaline phosphatase 127. C-reactive protein is 4.9, total protein 7.5, albumin of 2.5, lipase is 114, INR is 1.1. Urinalysis showing protein of 100, large leukocyte esterase, RBC 55, WBC innumerable. She also has high kappa and lambda chain in June of 2015. The urine culture is pending. IMAGING STUDIES CT scan of the abdomen and pelvis was done without IV contrast and showed that she has right ureteral stent with persistent moderate right hydronephrosis. There is moderate left hydronephrosis with cortical atrophy, stable large calcified gallstone without biliary dilatation, stable left-sided ventral hernia, Bell catheter in the bladder. Chest x-ray was done which shows basilar atelectasis and cardiomegaly. ASSESSMENT/PLAN 1. Chronic kidney disease, acute kidney injury. 2. Metabolic acidosis. 3. Possible urinary tract infection. 4. Anemia. 5. Atrial fibrillation. The patient has chronic kidney disease and according to the patient her left kidney is not functioning much, there is some cortical thinning, so possibility of some damage to both kidneys because of recurrent obstruction and urinary tract infection with more damage to the left kidney and now she has some acute worsening, possibility of obstruction is there and also may be an element of prerenal. I will ask urology to see the patient and agree with continuing IV fluids and antibiotic and follow the culture results. She is asking for tramadol for pain as according to the patient it works better for her. At present there is no acute urgent need for dialysis, but I did discuss with the patient that if kidney function does not improve she possibly will need dialysis. Thank you for the consultation and I will follow the patient while she is in the hospital. MD NAEEM Morris/RAHUL /10:21 AM /10:35 AM
--- NOTE | 2017-08-19 12:02 | HHI.PR ---
Subjective Remarks Follow-up for acute renal failure and infection Patient stated she is feeling better. She is complaining about fatigue. She remains afebrile. She stated prior from this admission she was making good urine. Denies any change in her urine output. She did have diffuse abdominal pain prior from this admission but that has seemed to resolve. Objective Vitals Vital Signs Date Time Temp Pulse Resp B/P (MAP) Pulse Ox O2 Delivery O2 Flow Rate FiO2 08/19/17 10:05 97.6 79 18 90/43 100 08/19/17 09:39 97.6 100 16 90/43 (59) 100 08/19/17 08:00 96.8 78 18 94/54 (67) 100 08/19/17 06:03 96.4 81 18 112/57 (75) 98 08/19/17 06:00 08/19/17 05:37 75 16 113/54 (73) 100 Room Air 08/19/17 01:27 97.9 75 16 111/55 (73) 96 Nasal Cannula 08/19/17 00:43 21 08/19/17 00:39 97.9 75 21 111/55 (73) 96 I/O 08/18/17 08/18/17 08/18/17 08/19/17 08/19/17 08/19/17 07:00 15:00 23:00 07:00 15:00 23:00 Intake Total 220 ml Output Total 300 ml Balance -80 ml Intake Oral 120 ml IV Total 100 ml Output Urine Total 300 ml # Bowel Movements 0 Result Diagram: 08/19/1713408/19/17134 Objective Remarks GENERAL: in NAD SKIN: LE with hyperpigmentation venous stasis changes along with erythema and warmth of the lower extremity. HEAD: Normocephalic. CARDIOVASCULAR: Regular rate and rhythm without murmurs, gallops, or rubs. RESPIRATORY: Breath sounds equal bilaterally. No accessory muscle use. GASTROINTESTINAL: Abdomen soft, non-tender, nondistended. No CVA tenderness. Medications and IVs Current Medications Sodium Chloride 250 ml @ 15 mls/hr ONCE ONCE IV Last administered on t 09:33; Start 08/19/17 at 02:30; Stop 08/19/17 at 19:09 Sodium Chloride (NS Flush) 2 ml UNSCH PRN IV FLUSH FLUSH AFTER USING IV ACCESS ; Start 08/19/17 at 04:00; Status Cancel Sodium Chloride (NS Flush) 2 ml BID IV FLUSH ; Start 08/19/17 at 09:00; Status Cancel Sodium Chloride (NS Flush) 2 ml UNSCH PRN IV FLUSH FLUSH AFTER USING IV ACCESS ; Start 08/19/17 at 04:45 Sodium Chloride (NS Flush) 2 ml BID IV FLUSH Last administered on 08/19/17 09: 27; Start 08/19/17 at 09:00 Ondansetron HCl (Zofran Inj) 4 mg Q6H PRN IVP NAUSEA OR VOMITING; Start at 04:45 Naloxone HCl (Narcan Inj) 0.4 mg UNSCH PRN IV PUSH SEE LABEL COMMENTS; Start at 04:45 Magnesium Hydroxide (Milk Of Magnesia Liq) 30 ml Q12H PRN PO MILD - MODERATE CONSTIPATION; Start 08/19/17 at 04:45 Sennosides (Senokot) 17.2 mg Q12H PRN PO MODERATE - SEVERE CONSTIPATION; Start 08/19/17 at 04:45 Bisacodyl (Dulcolax Supp) 10 mg DAILY PRN RECTAL SEVERE CONSITIPATION; Start at 04:45 Lactulose (Lactulose Liq) 30 ml DAILY PRN PO SEVERE CONSITIPATION; Start at 04:45 Ceftriaxone Sodium 1000 mg/ Sodium Chloride 100 ml @ 200 mls/hr Q12H IV Last administered on 08/19/17 05:15; Start 08/19/17 at 05:00 Acetaminophen/ Hydrocodone Bitart ([place] 5-325 Mg) 1 tab ONCE ONCE PO Last administered on 08/19/17 06:22; Start 08/19/17 at 06:15; Stop 08/19/17 at 06:18 ; Status DC Acetaminophen/ Hydrocodone Bitart ([place] 5-325 Mg) 1 tab ONCE ONCE PO ; Start 08/19/17 at 06:30; Stop 08/19/17 at 06:31; Status DC Sodium Bicarbonate 75 meq/Sodium Chloride 1,075 ml @ 75 mls/hr [id number] IV Last administered on 08/19/17 09:27; Start 08/19/17 at 06:45; Stop 08/19/17 at 21:04 Acetaminophen/ Hydrocodone Bitart ([place] 5-325 Mg) 1 tab Q6H PRN PO PAIN GREATER THAN 5; Start 08/19/17 at 07:00; Stop 08/19/17 at 10:31; Status DC Allopurinol (Zyloprim) 100 mg DAILY PO Last administered on 08/19/17 09:29; Start 08/19/17 at 09:00 Atenolol (Tenormin) 12.5 mg DAILY PO Last administered on 08/19/17 09:29; Start 08/19/17 at 09:00 Pravastatin Sodium (Pravachol) 40 mg DAILY PO Last administered on 08/19/17 09 :29; Start 08/19/17 at 09:00 Miscellaneous (Pill Splitter) 1 ea UNSCH PRN OTHER SEE LABEL COMMENTS; Start at 07:45 Tramadol HCl (Ultram) 50 mg Q6H PRN PO PAIN SCALE 4 TO 10; Start 08/19/17 at 10 :30 A/P Problem List: (1) Cellulitis of both lower extremities ICD Code: L03.115 - Cellulitis of right lower limb; L03.116 - Cellulitis of left lower limb (2) Anemia ICD Code: D64.9 - Anemia, unspecified (3) Acute on chronic renal failure ICD Code: N17.9 - Acute kidney failure, unspecified; N18.9 - Chronic kidney disease, unspecified (4) Diabetes ICD Code: E11.9 - Diabetes Status: Chronic (5) Atrial fibrillation ICD Code: I48.91 - Unspecified atrial fibrillation Status: Chronic (6) Complicated UTI (urinary tract infection) ICD Code: N39.0 - Urinary tract infection, site not specified Status: Acute Assessment and Plan 71-year-old female admitted for acute on chronic renal failure, worsening anemia requiring blood transfusion, cellulitis of bilateral lower extremities. Acute on chronic renal failure: The patient does have a history of obstructive uropathy but she previously had bilateral stent placed. There is persistent hydronephrosis. - [employer] consulted appreciate recommendation. - Continue with IV fluid with bicarbonate pending nephrology consult. -May be prerenal. [employer] consulted urologist due to possible obstructive uropathy. -Strict ins and outs. Avoid nephrotoxins. Worsening anemia: No reports of active bleeding. Anemia may be secondary to chronic kidney disease. -1 unit of PRBC has been ordered. Continue to follow H&H. Bilateral lower extremity cellulitis: Patient has chronic venous stasis. She has developed cellulitis over the past few days. - Continue Rocephin. Monitor for improvement. UTI: Has been recurrent for the patient. No history of multi drug resistant UTI. - Follow urine culture. On Rocephin as above. Atrial fibrillation: Continue atenolol. Patient reports she was taken off Eliquis temporarily. She was told to resume this medication once approved by her physician. She was [id number]. - Follow H&H. Would plan to resume this medication if renal functions can tolerate in the next couple of days. GI prophylaxis: Stool softener PRN constipation. DVT PPx: SCDs. Yvonne Benton MD Aug 19, 2017 12:02
[2017-08-19] MEDS: traMADol HCL 50 MG TAB PO PRN ×2 (12:47→17:54)
--- NOTE | 2017-08-19 13:59 | EKG ---
Date Performed: 08/19/2017 Time Performed: 00:43:15 PTAGE: 71 years EKG: ATRIAL FIBRILLATION MARKED LEFT AXIS DEVIATION LEFT BUNDLE BRANCH BLOCK ABNORMAL ECG Compar ed to prior tracing no significant change PREVIOUS TRACING : 04/02/2017 13.02 DOCTOR: Ramon Gandara Interpretating Date/Time 08/19/2017 13:58:11
[2017-08-20] VITALS (10 sets, daily range): BP systolic 95–137; BP diastolic 50–85; PULSE 73–92; RESP 16–20; TEMP 96.4–98.3; O2SAT 92–100
[2017-08-20] MEDS: cefTRIAXone INJ 1,000 MG in SODIUM CHLORIDE 0.9% INJ 100 ML IV SCH ×2 (05:00→17:42)
[2017-08-20 05:47] LABS: AUTOMATED NEUTROPHIL # 4.8 TH/MM3 (1.8-7.7); BASOPHIL # 0.1 TH/MM3 (0-0.2); BASOPHIL % 1.1 % (0.0-2.0); EOSINOPHIL # 0.2 TH/MM3 (0-0.4); EOSINOPHIL % 3.1 % (0.0-4.0); HEMATOCRIT 21.8 % (35.0-46.0); HEMO FLAGS DIFF FINAL; LYMPH % 12.3 % (9.0-44.0); LYMPHOCYTE # 0.8 TH/MM3 (1.0-4.8); MEAN CELL VOLUME 85.6 FL (80.0-100.0); MEAN CORPUSCULAR HEMOGLOBIN 28.6 PG (27.0-34.0); MEAN CORPUSCULAR HGB CONC 33.4 % (32.0-36.0); NEUT % 75.5 % (16.0-70.0); PLATELET COUNT 174 TH/MM3 (150-450); RED BLOOD COUNT 2.54 MIL/MM3 (4.00-5.30); RED CELL DISTRIBUTION WIDTH 19.1 % (11.6-17.2); WHITE BLOOD COUNT 6.4 TH/MM3 (4.0-11.0)
[2017-08-20 06:11] LABS: BICARBONATE 15.9 MEQ/L (21.0-32.0); POTASSIUM 5.3 MEQ/L (3.5-5.1)
[2017-08-20] MEDS: traMADol HCL 50 MG TAB PO PRN ×3 (08:23→21:08)
[2017-08-20] MEDS: ATENOLOL 25 MG TAB PO SCH (08:23)
[2017-08-20] MEDS: PRAVASTATIN SOD 40 MG TAB PO SCH (08:25)
[2017-08-20] MEDS: ALLOPURINOL 100 MG TAB PO SCH (08:25)
[2017-08-20] MEDS: SODIUM CHLORIDE 0.9% FLUSH 10 ML FLUSH IV FLUSH SCH ×2 (08:25→21:08)
--- NOTE | 2017-08-20 08:33 | PD.CONS ---
HPI Service Urology Consult Requested By Reason for Consult Bilateral hydronephrosis, ARF Primary Care Physician Quinn Chambers MD Diagnosis: (1) Cellulitis of both lower extremities ICD Code: L03.115 - Cellulitis of right lower limb; L03.116 - Cellulitis of left lower limb (2) Anemia ICD Code: D64.9 - Anemia, unspecified (3) Acute on chronic renal failure ICD Code: N17.9 - Acute kidney failure, unspecified; N18.9 - Chronic kidney disease, unspecified (4) Diabetes ICD Code: E11.9 - Diabetes (5) Atrial fibrillation ICD Code: I48.91 - Unspecified atrial fibrillation (6) Complicated UTI (urinary tract infection) ICD Code: N39.0 - Urinary tract infection, site not specified History of Present Illness 71yo female with history DM, Afib on Eliquis and Nephrolithiasis with Renal insufficiency now admitted with Creatinine over 11 and baseline in the range of 2-4. Patient was found to have a bilateral hydronephrosis with bilateral ureteral stents in place. At this time the patient denies any pain, no hematuria. She has had multiple kidney stones in the past, which were treated with lithotripsy. She has been seen by Dr. Turner in the past. The current stents have been in place since March 2017. No fevers. No N/V. Review of Systems ROS Limitations: Clinical Condition Constitutional: DENIES: Fever Endocrine: DENIES: Abnorml menstrual pattern Eyes: DENIES: Blurred vision Ears, nose, mouth, throat: DENIES: Hearing loss Respiratory: DENIES: Apneas, Cough Cardiovascular: DENIES: Chest pain, Palpitations Gastrointestinal: DENIES: Abdominal pain, Nausea, Vomiting Genitourinary: DENIES: Urgency, Hematuria Musculoskeletal: DENIES: Joint pain Integumentary: DENIES: Abnormal pigmentation Immunologic/allergic: DENIES: Eczema Neurologic: DENIES: Abnormal gait Psychiatric: DENIES: Anxiety Except as stated in HPI: all other systems reviewed are Neg Past Family Social History Past Medical History diabetes, osteoarthritis, atrial fibrillation on Eliquis, history of ovarian cancer, anemia, history of bilateral ureteral stent placement for kidney stones , chronic kidney disease with fluctuating levels of renal functions Past Surgical History Appendectomy Partial thyroidectomy Total hysterectomy Rotator cuff repair Reported Medications Reported Meds & Active Scripts Active Reported Simvastatin 20 Mg Tab 20 Mg PO DAILY Atenolol 25 Mg Tab 12.5 Mg PO DAILY Allopurinol 100 Mg Tab 100 Mg PO DAILY Allergies: Coded Allergies: ampicillin (Unverified Allergy, Unknown, 08/19/17) *MDRO Multi-Drug Resistant Organism (Verified Adverse Reaction, Unknown, ) 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 Active Ordered Medications Current Medications Medications (Trade) Dose Ordered Sig/David Route Start Time Stop Time Status Last Admin (NS Flush) 2 ml UNSCH PRN IV FLUSH 08/19/17 04:45 (NS Flush) 2 ml BID IV FLUSH 08/19/17 09:00 08/19/17 20:16 (Zofran Inj) 4 mg Q6H PRN IVP 08/19/17 04:45 (Narcan Inj) 0.4 mg UNSCH PRN IV PUSH 08/19/17 04:45 (Milk Of Magnesia Liq) 30 ml Q12H PRN PO 08/19/17 04:45 (Senokot) 17.2 mg Q12H PRN PO 08/19/17 04:45 (Dulcolax Supp) 10 mg DAILY PRN RECTAL 08/19/17 04:45 (Lactulose Liq) 30 ml DAILY PRN PO 08/19/17 04:45 Ceftriaxone Sodium 1000 mg/ Sodium Chloride 100 ml @ 200 mls/hr Q12H IV 08/19/17 05:00 08/20/17 05:00 (Zyloprim) 100 mg DAILY PO 08/19/17 09:00 08/19/17 09:29 (Tenormin) 12.5 mg DAILY PO 08/19/17 09:00 08/19/17 09:29 (Pravachol) 40 mg DAILY PO 08/19/17 09:00 08/19/17 09:29 (Pill Splitter) 1 ea UNSCH PRN OTHER 08/19/17 07:45 (Ultram) 50 mg Q6H PRN PO 08/19/17 10:30 08/19/17 17:54 (Flu (Quadrivalent) Vaccine Inj) 0.5 ml ONCE ONCE IM 08/21/17 10:00 08/21/17 10:01 Family History Family history reviewed and noncontriobutory to present illness Social History Patient does not smoke tobacco, use alcohol or illicit drugs. Physical Exam Vital Signs Date Time Temp Pulse Resp B/P (MAP) Pulse Ox O2 Delivery O2 Flow Rate FiO2 08/20/17 04:32 97.6 78 17 95/50 (65) 96 08/20/17 00:14 98.1 79 17 119/58 (78) 96 08/19/17 20:31 98.0 86 17 110/59 (76) 96 08/19/17 16:00 97.9 85 19 114/61 (78) 97 08/19/17 13:15 97.7 77 18 122/61 98 08/19/17 12:00 97.1 78 18 123/64 (83) 99 08/19/17 10:05 97.6 79 18 90/43 100 08/19/17 09:39 97.6 100 16 90/43 (59) 100 Physical Exam GENERAL: This is a well-nourished, well-developed patient, in no apparent distress. SKIN: No rashes, ecchymoses or lesions. Cool and dry. HEAD: Atraumatic. Normocephalic. EYES: Extraocular motions intact. No scleral icterus. No injection or drainage. ENT: Nose without bleeding, purulent drainage. Airway patent. NECK: Trachea midline. No JVD or lymphadenopathy. CARDIOVASCULAR: Normal pulse, LE Edema RESPIRATORY: Nonlabored GASTROINTESTINAL: Abdomen soft, non-tender, nondistended GENITOURINARY: Bell in place, clear yellow urine MUSCULOSKELETAL: Extremities without clubbing, cyanosis; LE edema.. NEUROLOGICAL: Awake and alert.Motor and sensory grossly within normal limits, Normal speech. Lab results reviewed: Yes Laboratory Tests Test 08/20/17 05:31 White Blood Count 6.4 Red Blood Count 2.54 Hemoglobin 7.3 Hematocrit 21.8 Mean Corpuscular Volume 85.6 Mean Corpuscular Hemoglobin 28.6 Mean Corpuscular Hemoglobin Concent 33.4 Red Cell Distribution Width 19.1 Platelet Count 174 Mean Platelet Volume 7.1 Neutrophils (%) (Auto) 75.5 Lymphocytes (%) (Auto) 12.3 Monocytes (%) (Auto) 8.0 Eosinophils (%) (Auto) 3.1 Basophils (%) (Auto) 1.1 Neutrophils # (Auto) 4.8 Lymphocytes # (Auto) 0.8 Monocytes # (Auto) 0.5 Eosinophils # (Auto) 0.2 Basophils # (Auto) 0.1 CBC Comment DIFF FINAL Differential Comment Blood Urea Nitrogen 93 Creatinine 11.31 Random Glucose 92 Calcium Level 7.7 Phosphorus Level 5.4 Sodium Level 139 Potassium Level 5.3 Chloride Level 112 Carbon Dioxide Level 15.9 Anion Gap 11 Estimat Glomerular Filtration Rate 3 Date/Time Source Procedure Growth Status 08/19/17 02:40 Urine Clean Catch Urine Culture Pending Received Result Diagram: 08/20/1731 08/20/1731 Personally reviewed images: Yes Imaging Last Impressions Abdomen/Pelvis CT 08/19/17 0216 Signed Impressions: Service Date/Time: Saturday, August 19, 2017 02:51 - CONCLUSION: 1. Compared with April 02 there is placement of a right-sided ureteral stent with persistent moderate right hydronephrosis. There is also moderate left hydronephrosis with renal cortical atrophy and stable left ureteral stent. Nonobstructing calcifications left kidney. 2. Stable large calcified gallstone without biliary ductal dilatation. 3. Stable left-sided ventral hernia containing fat and a loop of small bowel. 4. Bell catheter in bladder. Colin Gilmore MD Chest X-Ray 08/19/17 0054 Signed Impressions: Service Date/Time: Saturday, August 19, 2017 01:07 - CONCLUSION: 1. Mild basilar atelectasis. Cardiomegaly. Colin Gilmore MD Assessment and Plan Problem List: (1) Urinary tract infection ICD Code: N39.0 - Urinary tract infection Status: Chronic (2) Renal failure ICD Code: N19 - Renal failure Status: Acute (3) CKD (chronic kidney disease) stage 3, GFR 30-59 ml/min ICD Code: N18.3 - Chronic kidney disease, stage 3 (moderate) Status: Chronic (4) Obstructive uropathy ICD Code: N13.9 - Obstructive and reflux uropathy, unspecified Status: Acute Assessment and Plan -Images reviewed, bilateral ureteral stents noted. However signficant hydronephrosis also identified bilaterally -In the clinical setting with stents in place with elevated Cr and ARF, it appears the stents are currently not properly draining -Recommend Bilateral nephrostomy tube placement today in order to adequately drain each kidney. Each collecting system may then be further investigated in the future to evaluate function and plan any further treatment. This was discussed with the patient who understands and agrees -NPO -Will follow. Expect Cr to improve after nephrostomy tube placement Lele Cyr MD Aug 20, 2017 08:33
--- NOTE | 2017-08-20 10:34 | HHI.PR ---
Subjective Remarks Follow-up for acute renal failure Patient stated that she feels the same and just feels awful. She cannot give me specific details. Deny any pain. Denies any nausea or vomiting. Last urine output document 1000 mL. She remains afebrile. Objective Vitals Vital Signs Date Time Temp Pulse Resp B/P (MAP) Pulse Ox O2 Delivery O2 Flow Rate FiO2 08/20/17 08:00 97.9 92 17 116/61 (79) 96 08/20/17 04:32 97.6 78 17 95/50 (65) 96 08/20/17 00:14 98.1 79 17 119/58 (78) 96 08/19/17 20:31 98.0 86 17 110/59 (76) 96 08/19/17 16:00 97.9 85 19 114/61 (78) 97 08/19/17 13:15 97.7 77 18 122/61 98 08/19/17 12:00 97.1 78 18 123/64 (83) 99 I/O 08/19/17 08/19/17 08/19/17 08/20/17 08/20/17 08/20/17 07:00 15:00 23:00 07:00 15:00 23:00 Intake Total 220 ml 730 ml 360 ml 120 ml Output Total 300 ml 250 ml 400 ml 350 ml Balance -80 ml 480 ml -40 ml -230 ml Intake Oral 120 ml 480 ml 360 ml 120 ml IV Total 100 ml Packed Cells 250 ml Output Urine Total 300 ml 250 ml 400 ml 350 ml # Bowel Movements 0 0 0 Result Diagram: 08/20/17 0531 08/20/17530 Objective Remarks GENERAL: in NAD SKIN: LE with hyperpigmentation venous stasis changes along with erythema and warmth of the lower extremity. HEAD: Normocephalic. CARDIOVASCULAR: Regular rate and rhythm without murmurs, gallops, or rubs. RESPIRATORY: Breath sounds equal bilaterally. No accessory muscle use. GASTROINTESTINAL: Abdomen soft, non-tender, nondistended. No CVA tenderness. Medications and IVs Current Medications Sodium Chloride 250 ml @ 15 mls/hr ONCE ONCE IV Last administered on t 09:33; Start 08/19/17 at 02:30; Stop 08/19/17 at 19:09; Status DC Sodium Chloride (NS Flush) 2 ml UNSCH PRN IV FLUSH FLUSH AFTER USING IV ACCESS ; Start 08/19/17 at 04:00; Status Cancel Sodium Chloride (NS Flush) 2 ml BID IV FLUSH ; Start 08/19/17 at 09:00; Status Cancel Sodium Chloride (NS Flush) 2 ml UNSCH PRN IV FLUSH FLUSH AFTER USING IV ACCESS ; Start 08/19/17 at 04:45 Sodium Chloride (NS Flush) 2 ml BID IV FLUSH Last administered on 08/19/17 20: 16; Start 08/19/17 at 09:00 Ondansetron HCl (Zofran Inj) 4 mg Q6H PRN IVP NAUSEA OR VOMITING; Start at 04:45 Naloxone HCl (Narcan Inj) 0.4 mg UNSCH PRN IV PUSH SEE LABEL COMMENTS; Start at 04:45 Magnesium Hydroxide (Milk Of Magnesia Liq) 30 ml Q12H PRN PO MILD - MODERATE CONSTIPATION; Start 08/19/17 at 04:45 Sennosides (Senokot) 17.2 mg Q12H PRN PO MODERATE - SEVERE CONSTIPATION; Start 08/19/17 at 04:45 Bisacodyl (Dulcolax Supp) 10 mg DAILY PRN RECTAL SEVERE CONSITIPATION; Start at 04:45 Lactulose (Lactulose Liq) 30 ml DAILY PRN PO SEVERE CONSITIPATION; Start at 04:45 Ceftriaxone Sodium 1000 mg/ Sodium Chloride 100 ml @ 200 mls/hr Q12H IV Last administered on 08/20/17 05:00; Start 08/19/17 at 05:00 Acetaminophen/ Hydrocodone Bitart ([place] 5-325 Mg) 1 tab ONCE ONCE PO Last administered on 08/19/17 06:22; Start 08/19/17 at 06:15; Stop 08/19/17 at 06:18 ; Status DC Acetaminophen/ Hydrocodone Bitart ([place] 5-325 Mg) 1 tab ONCE ONCE PO ; Start 08/19/17 at 06:30; Stop 08/19/17 at 06:31; Status DC Sodium Bicarbonate 75 meq/Sodium Chloride 1,075 ml @ 75 mls/hr [id number] IV Last administered on 08/19/17 09:27; Start 08/19/17 at 06:45; Stop 08/19/17 at 21:04; Status DC Acetaminophen/ Hydrocodone Bitart ([place] 5-325 Mg) 1 tab Q6H PRN PO PAIN GREATER THAN 5; Start 08/19/17 at 07:00; Stop 08/19/17 at 10:31; Status DC Allopurinol (Zyloprim) 100 mg DAILY PO Last administered on 08/19/17 09:29; Start 08/19/17 at 09:00 Atenolol (Tenormin) 12.5 mg DAILY PO Last administered on 08/20/17 08:23; Start 08/19/17 at 09:00 Pravastatin Sodium (Pravachol) 40 mg DAILY PO Last administered on 08/19/17 09 :29; Start 08/19/17 at 09:00 Miscellaneous (Pill Splitter) 1 ea UNSCH PRN OTHER SEE LABEL COMMENTS; Start at 07:45 Tramadol HCl (Ultram) 50 mg Q6H PRN PO PAIN SCALE 4 TO 10 Last administered on 08/20/17 08:23; Start 08/19/17 at 10:30 Influenza Virus Vaccine (Flu (Quadrivalent) Vaccine Inj) 0.5 ml ONCE ONCE IM ; Start 08/21/17 at 10:00; Stop 08/21/17 at 10:01 A/P Problem List: (1) Cellulitis of both lower extremities ICD Code: L03.115 - Cellulitis of right lower limb; L03.116 - Cellulitis of left lower limb (2) Anemia ICD Code: D64.9 - Anemia, unspecified (3) Acute on chronic renal failure ICD Code: N17.9 - Acute kidney failure, unspecified; N18.9 - Chronic kidney disease, unspecified (4) Diabetes ICD Code: E11.9 - Diabetes Status: Chronic (5) Atrial fibrillation ICD Code: I48.91 - Unspecified atrial fibrillation Status: Chronic (6) Complicated UTI (urinary tract infection) ICD Code: N39.0 - Urinary tract infection, site not specified Status: Acute Assessment and Plan 71-year-old female admitted for acute on chronic renal failure, worsening anemia requiring blood transfusion, cellulitis of bilateral lower extremities. Acute on chronic renal failure: The patient does have a history of obstructive uropathy but she previously had bilateral stent placed. There is persistent hydronephrosis. -Most likely secondary to obstructive uropathy. - Pulmonary Specialist consulted appreciate recommendation. - Continue with IV fluid with bicarbonate. -Urologist consulted appreciate recommendations. Patient scheduled for bilateral nephrostomy tube placement today. -Continue a strict ins and outs and avoid nephrotoxins. Worsening anemia: No reports of active bleeding. Anemia may be secondary to chronic kidney disease. -1 unit of PRBC has been ordered. Continue to follow H&H. Bilateral lower extremity cellulitis: Patient has chronic venous stasis. She has developed cellulitis over the past few days. - Continue Rocephin. Monitor for improvement. UTI: Has been recurrent for the patient. No history of multi drug resistant UTI. - Follow urine culture. On Rocephin as above. Atrial fibrillation: Continue atenolol. Patient reports she was taken off Eliquis temporarily. She was told to resume this medication once approved by her physician. [id number]. - Follow H&H. Would plan to resume this medication if renal functions can tolerate in the next couple of days. GI prophylaxis: Stool softener PRN constipation. DVT PPx: SCDs. Yvonne Benton MD Aug 20, 2017 10:34
[2017-08-20] MEDS ORDERED: LEVOFLOXACIN 500 MG PREMIX INJ 100 ML IV ONE (11:28)
[2017-08-20] MEDS ORDERED: MIDAZOLAM HCL 5 MG/5 ML VIAL ONE (11:28)
[2017-08-20] MEDS ORDERED: IOHEXOL 350 MG/ML 50 ML BTL (for RAD DIAG) OTHER ONE (12:40)
--- NOTE | 2017-08-20 13:15 | PD.RAD ---
Post Procedure Progress Note Pre Procedure Diagnosis: (1) Urinary tract infection due to Proteus (2) Sepsis due to urinary tract infection (3) Bilateral ureteral obstruction Post Procedure Diagnosis: (1) Obstructive uropathy (2) Sepsis due to urinary tract infection (3) Urinary tract infection due to Proteus Procedure Date: Aug 20, 2017 Supervising Radiologist: Julien Ramos Proceduralist/Assist: Matthias Vegas, RT(R), Suresh Oliveira, RT(R) Estimated blood loss: none Anesthesia: Local, Conscious Sedation Plan of Activity Patient to Unit: ROPU Patient Condition: Fair See PACS Report for procedural detail/treatment Drainage Procedure Procedure 1 Imaging Guidance: Fluoroscopy, Ultrasound Side: Right Procedure Type: Nephrostomy Procedure: Placement [place]: 8 Drainage: [place] drainage Fluid Description: Julien Garnica MD Aug 20, 2017 13:15
[2017-08-20] MEDS: ONDANSETRON HCL 4 MG/2 ML VIAL IVP PRN (13:29)
--- NOTE | 2017-08-20 15:14 | RADRPT ---
EXAM DATE/TIME: 08/20/2017 11:30 [facility] COMPARISON: No previous studies available for comparison. INDICATIONS : Patient presents with hydronephrosis in need of Nephrostomy tube placement. MEDICAL HISTORY : Diabetes Osteoarthritis Atrial Fibrillation Ovarian cancer Anemia Kidney stones Chronic kidney disease SURGICAL HISTORY : Appendectomy Partial thyroidectomy Total hysterectomy Rotator cuff repair ENCOUNTER: Initial ACUITY: 1 day PAIN SCORE: 3/10 LOCATION: Right hip FLUORO TIME: 2.3 minutes IMAGE SERIES: 0 SEDATION TIME: 30 minutes CONTRAST: 18 cc Omnipaque (iohexol) 350 MEDICATION(S): 1.) 1.5 mg midazolam (Versed) IV 2.) 75 mcg fentanyl (Sublimaze) IV Prophylactic antibiotics were administered with appropriate pre-procedure timing. DEVICE(S): 1.) 8.3x 25 Expel Neph PROCEDURE : 1. Ultrasound-guided puncture of the kidney. 2. Antegrade percutaneous pyelogram. 3. Percutaneous nephrostomy placement with fluoroscopic guidance. 4. Conscious sedation with continuous EKG and oximetry monitoring. The risks, benefits and alternatives to the procedure were explained and verbal and written consent w as obtained. The site was prepped in sterile fashion. Full sterile technique was used, including ca p, mask, sterile gloves and gown and a large sterile sheet. Hand hygiene and 2% chlorhexidine and/or betadine/alcohol prep was utilized per protocol for cutaneous antisepsis. Sterile gel and sterile probe cover were utilized for ultrasound guidance. The skin and subcutaneous tissues were infiltrate d with local anesthetic solution. Under direct ultrasound and fluoroscopic guidance, a 22 gauge Chiba needle was used to access a poste rior lower pole calyx of the left kidney. A 0.018 inch guidewire was introduced and coiled in the joshua al pelvis. The AccuStick dilator was used to aid in insertion of a 4 Maldivian vessel dilator. The trans parenchymal tract was tested over a [place]indy adapter revealing direct access into the collecting system with no vascular opacification noted. The AccuStick was then used to insert a 5.5 Maldivian vesse l dilator through which a J-wire was inserted. An 8 Maldivian pigtail nephrostomy tube was then introduc ed and formed up in the renal pelvis. This was secured at the skin with silk suture and connected to gravity drainage. The urine was frankly purulent. The patient tolerated the procedure well and was taken to recovery area in stable condition. MEDICAL MANAGEMENT: Conscious sedation administered as above. Continuous pulse oximetry, hemodynamic and EKG monitoring performed throughout. Patient was stable throughout and taken to recovery in good stable condition. CONCLUSION: Uncomplicated percutaneous nephrostomy as above. Julien Ramos MD on August 20, 2017 at 14:36 Board Certified Radiologist. This report was verified electronically.
--- NOTE | 2017-08-20 22:17 | HHI.NPPN ---
Subjective History of Present Illness 71-year-old female with past medical history of diabetes mellitus, atrial fibrillation, history of recurrent renal stone, history of bilateral stent and following with urology and nephrology at [facility], came with abdominal pain, suprapubic pain and generalized body pain with nausea and vomiting. I was called to see the patient because of very high BUN and creatinine. Additional Remarks Patient is alert, no SOB, feeling better, not in distress. Review of Systems General Constitutional: Fatigue Cardiovascular Cardiac: Edema, BURGOS Objective Data Data 08/20/17 08/21/17 19:00 07:00 Intake Total 0 ml 480 ml Output Total 600 ml 275 ml Balance -600 ml 205 ml Intake Oral 0 ml 480 ml Output Urine Total 100 ml 275 ml Drainage Total 500 ml # Bowel Movements 0 0 Vital Signs Date Time Temp Pulse Resp B/P (MAP) Pulse Ox O2 Delivery O2 Flow Rate FiO2 08/20/17 20:00 96.4 83 16 98/55 (69) 100 08/20/17 18:49 Room Air 08/20/17 16:15 96.9 87 20 97/54 (68) 96 08/20/17 13:40 80 18 137/73 (94) 94 08/20/17 13:10 98.3 84 18 121/59 (79) 98 08/20/17 12:40 79 18 114/85 (95) 92 08/20/17 12:25 97.6 73 18 120/60 (80) 99 08/20/17 08:00 97.9 92 17 116/61 (79) 96 08/20/17 04:32 97.6 78 17 95/50 (65) 96 08/20/17 00:14 98.1 79 17 119/58 (78) 96 -: 08/20/17 0531 08/20/17 0531 Physical Exam General Appearance: No Acute Distress, Comfortable Eyes Eye Exam: Pupils Equal Neck Neck Exam: Neck Supple Pulmonary Resp Exam: Breath Sounds Equal, No Distress, Decreased Bases Cardiology CV Exam: Regular, Normal Sinus Rhythm Gastrointestinal/Abdomen GI Exam: Soft, Non-Tender, Bowel Sounds Present, Distended Extremeties Extremities Exam: Moderate Edema, Pitting Edema Neurologic Neuro Exam: Alert, Awake, Oriented Psychiatric Psych Exam: Appropriate Responses Assessment/Plan Assessment Summary: ANDREA/Acute Renal Failure Problem List: (1) Hypothyroidism ICD Codes: E03.9 - Hypothyroidism, unspecified Status: Chronic (2) Chronic anemia ICD Codes: D64.9 - Chronic anemia Status: Chronic (3) Atrial fibrillation ICD Codes: I48.91 - Unspecified atrial fibrillation Status: Chronic (4) Diabetes ICD Codes: E11.9 - Diabetes Status: Chronic (5) Anemia ICD Codes: D64.9 - Anemia, unspecified (6) Bilateral hydronephrosis ICD Codes: N13.30 - Unspecified hydronephrosis Status: Acute (7) ANDREA (acute kidney injury) ICD Codes: N17.9 - Acute kidney failure, unspecified Status: Acute Plan Patient has Rt. Nephrostomy done. Her Creatinine was 2.1-3.0 in March 2017. Has bloody urine in Nephrostomy. Continue IVF and encourage oral intake. Creatinine only slightly better. Avoid Nephrotoxins, and follow the BMP. Nely Lopez MD Aug 20, 2017 22:17
[2017-08-20] MEDS: SODIUM BICARBONATE 8.4% INJ 100 MEQ in DEXTROSE 5% IN WATE 1000ML INJ 1,000 ML IV SCH ×2 (22:26)
[2017-08-21] MEDS: ACETAMINOPHEN 325 MG TAB PO PRN (02:05)
[2017-08-21] MEDS: cefTRIAXone INJ 1,000 MG in SODIUM CHLORIDE 0.9% INJ 100 ML IV SCH (04:03)
[2017-08-21] MEDS: traMADol HCL 50 MG TAB PO PRN ×4 (04:03→23:46)
[2017-08-21 04:15] VITALS: BP 119/58; PULSE 83; RESP 19; TEMP 98.4; O2SAT 98
[2017-08-21 07:21] LABS: BICARBONATE 17.4 MEQ/L (21.0-32.0); POTASSIUM 5.1 MEQ/L (3.5-5.1)
[2017-08-21 07:22] LABS: MEAN CELL VOLUME 87.1 FL (80.0-100.0); MEAN CORPUSCULAR HEMOGLOBIN 28.2 PG (27.0-34.0); MEAN CORPUSCULAR HGB CONC 32.4 % (32.0-36.0); PLATELET COUNT 176 TH/MM3 (150-450); RED BLOOD COUNT 2.76 MIL/MM3 (4.00-5.30); RED CELL DISTRIBUTION WIDTH 19.3 % (11.6-17.2); REVIEW FLAG FINAL; WHITE BLOOD COUNT 8.3 TH/MM3 (4.0-11.0)
[2017-08-21 08:00] VITALS: BP 115/55; PULSE 88; RESP 17; TEMP 98.3; O2SAT 96
[2017-08-21] MEDS: ONDANSETRON HCL 4 MG/2 ML VIAL IVP PRN ×3 (08:09→23:51)
[2017-08-21] MEDS: SODIUM CHLORIDE 0.9% FLUSH 10 ML FLUSH IV FLUSH SCH ×2 (08:09→23:47)
[2017-08-21] MEDS: PRAVASTATIN SOD 40 MG TAB PO SCH (08:10)
[2017-08-21] MEDS: ATENOLOL 25 MG TAB PO SCH (08:11)
[2017-08-21] MEDS ORDERED: LEVO.15 PO (08:17)
[2017-08-21] MEDS ORDERED: INFLUENZA VIRUS VACCINE (QUADRIVALENT) 0.5 ML SYR IM ONE (10:00)
[2017-08-21] MEDS: ALLOPURINOL 100 MG TAB PO SCH (10:31)
[2017-08-21 12:00] VITALS: BP 91/53; PULSE 70; RESP 17; TEMP 97.5; O2SAT 100
[2017-08-21] MEDS ORDERED: ASP: Documented ESBL, MDR A baumannii or P. aeruginosa PRN (12:00)
[2017-08-21] MEDS ORDERED: MISCELLANEOUS PHARMACY INFORMATION XX PRN (12:00)
--- NOTE | 2017-08-21 12:33 | HHI.PR ---
Subjective Remarks f/u for ARF and infection patient found sitting up in chair. she stated she feels a lot better, but a little nausea today. denied any emesis or abdominal pain. Patient remains afebrile and asking to go back in bed. d/w patient's nurse stated med list updated with Synthroid dose and no other complaints. Objective Vitals Vital Signs Date Time Temp Pulse Resp B/P (MAP) Pulse Ox O2 Delivery O2 Flow Rate FiO2 08/21/17 08:00 98.3 88 17 115/55 (75) 96 08/21/17 04:15 98.4 83 19 119/58 (78) 98 08/20/17 23:30 97.4 85 19 118/60 (79) 97 08/20/17 20:00 96.4 83 16 98/55 (69) 100 08/20/17 18:49 Room Air 08/20/17 16:15 96.9 87 20 97/54 (68) 96 08/20/17 13:40 80 18 137/73 (94) 94 08/20/17 13:10 98.3 84 18 121/59 (79) 98 08/20/17 12:40 79 18 114/85 (95) 92 I/O 08/20/17 08/20/17 08/20/17 08/21/17 08/21/17 08/21/17 07:00 15:00 23:00 07:00 15:00 23:00 Intake Total 120 ml 0 ml 1680 ml 790 ml Output Total 350 ml 100 ml 1225 ml 775 ml Balance -230 ml -100 ml 455 ml 15 ml Intake Oral 120 ml 0 ml 480 ml 240 ml IV Total 1200 ml 550 ml Output Urine Total 350 ml 100 ml 725 ml 775 ml Drainage Total 500 ml # Bowel Movements 0 0 0 0 Result Diagram: 08/21/1716 08/21/17615 Objective Remarks GENERAL: in NAD SKIN: LE with hyperpigmentation venous stasis changes along with erythema and warmth of the lower extremity. HEAD: Normocephalic. CARDIOVASCULAR: Regular rate and rhythm without murmurs, gallops, or rubs. RESPIRATORY: Breath sounds equal bilaterally. No accessory muscle use. GASTROINTESTINAL: Abdomen soft, non-tender, nondistended. No CVA tenderness. A/P Problem List: (1) Cellulitis of both lower extremities ICD Code: L03.115 - Cellulitis of right lower limb; L03.116 - Cellulitis of left lower limb (2) Anemia ICD Code: D64.9 - Anemia, unspecified (3) Acute on chronic renal failure ICD Code: N17.9 - Acute kidney failure, unspecified; N18.9 - Chronic kidney disease, unspecified (4) Diabetes ICD Code: E11.9 - Diabetes Status: Chronic (5) Atrial fibrillation ICD Code: I48.91 - Unspecified atrial fibrillation Status: Chronic (6) Complicated UTI (urinary tract infection) ICD Code: N39.0 - Urinary tract infection, site not specified Status: Acute Assessment and Plan 71-year-old female admitted for acute on chronic renal failure, worsening anemia requiring blood transfusion, cellulitis of bilateral lower extremities. Acute on chronic renal failure: The patient does have a history of obstructive uropathy but she previously had bilateral stent placed. There is persistent hydronephrosis. -Most likely secondary to obstructive uropathy. - Financial Services Officer consulted appreciate recommendation. - Continue with IV fluid with bicarbonate. -Urologist consulted appreciate recommendations. -Post right nephrostomy tube placement by IR on 08/20. -Continue a strict ins and outs and avoid nephrotoxins. Worsening anemia: No reports of active bleeding. Anemia may be secondary to chronic kidney disease. -s/p 1 unit of PRBC and hemoglobin is stable. Continue to follow H&H. Bilateral lower extremity cellulitis: Patient has chronic venous stasis. She has developed cellulitis over the past few days. - Continue Rocephin. Monitor for improvement. UTI: Has been recurrent for the patient. - Cultures positive for ESBL. Will start ertapenem renal dose. Consult infectious disease. Atrial fibrillation: Continue atenolol. Patient reports she was taken off Eliquis temporarily. She was told to resume this medication once approved by her physician. She was admitted to an [id number] 2 weeks ago. - Follow H&H. Would plan to resume this medication if renal functions can tolerate. GI prophylaxis: Stool softener PRN constipation. Decondition. PT is following. Encourage ambulation. DVT PPx: SCDs. Yvonne Benton MD Aug 21, 2017 12:33
[2017-08-21] MEDS: ERTAPENEM INJ 500 MG in SODIUM CHLORIDE 0.9% INJ 100 ML IV SCH (14:34)
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
[2017-08-21 15:02] LABS: BASOPHIL % 0.5 % (0.0-2.0); EOSINOPHIL # 0.2 TH/MM3 (0-0.4); EOSINOPHIL % 2.8 % (0.0-4.0); HEMATOCRIT 24.9 % (35.0-46.0); HEMO FLAGS DIFF FINAL; LYMPH % 4.2 % (9.0-44.0); LYMPHOCYTE # 0.3 TH/MM3 (1.0-4.8); MEAN CELL VOLUME 86.8 FL (80.0-100.0); MEAN CORPUSCULAR HEMOGLOBIN 28.4 PG (27.0-34.0); MEAN CORPUSCULAR HGB CONC 32.7 % (32.0-36.0); MONO % 4.3 % (0.0-8.0); NEUT % 88.2 % (16.0-70.0); PLATELET COUNT 189 TH/MM3 (150-450); RED BLOOD COUNT 2.87 MIL/MM3 (4.00-5.30); RED CELL DISTRIBUTION WIDTH 19.8 % (11.6-17.2)
[2017-08-21 15:25] LABS: ANION GAP 8 MEQ/L (5-15); AST (GOT) 8 U/L (15-37); BICARBONATE 19.8 MEQ/L (21.0-32.0); BLOOD UREA NITROGEN 85 MG/DL (7-18); CHLORIDE 109 MEQ/L (98-107); GLOMERULAR FILTRATION RATE 4 ML/MIN (>89); POTASSIUM 4.5 MEQ/L (3.5-5.1); SODIUM (NA) 137 MEQ/L (136-145)
[2017-08-21 15:29] LABS: ALKALINE PHOSPHATASE 116 U/L (45-117); ALT (GPT) LESS THAN 6 U/L (10-53); TOTAL BILIRUBIN ADULT 0.2 MG/DL (0.2-1.0)
[2017-08-21 16:00] VITALS: BP 111/59; PULSE 75; RESP 16; TEMP 96.6
--- NOTE | 2017-08-21 16:34 | HHI.NPPN ---
Subjective History of Present Illness 71-year-old female with past medical history of diabetes mellitus, atrial fibrillation, history of recurrent renal stone, history of bilateral stent and following with urology and nephrology at [facility], came with abdominal pain, suprapubic pain and generalized body pain with nausea and vomiting. I was called to see the patient because of very high BUN and creatinine. Additional Remarks Patient is alert, no SOB, no abd. pain. Review of Systems General Constitutional: Fatigue Cardiovascular Cardiac: Edema, BURGOS Objective Data Data Vital Signs Date Time Temp Pulse Resp B/P (MAP) Pulse Ox O2 Delivery O2 Flow Rate FiO2 08/21/17 16:00 96.6 75 16 111/59 (76) 08/21/17 12:00 97.5 70 17 91/53 (66) 100 08/21/17 08:00 98.3 88 17 115/55 (75) 96 08/21/17 04:15 98.4 83 19 119/58 (78) 98 08/20/17 23:30 97.4 85 19 118/60 (79) 97 08/20/17 20:00 96.4 83 16 98/55 (69) 100 08/20/17 18:49 Room Air -: 08/21/17 1430 08/21/17 1430 Microbiology 08/21/17 Aerobic Blood Culture, Received Pending 08/21/17 Anaerobic Blood Culture, Received Pending 08/21/17 Aerobic Blood Culture, Received Pending 08/21/17 Anaerobic Blood Culture, Received Pending Physical Exam General Appearance: No Acute Distress, Comfortable Throat Throat Exam: Oral Mucosa [place] & Moist Neck Neck Exam: Neck Supple Pulmonary Resp Exam: Clear Bilaterally, Breath Sounds Equal, No Distress, Decreased Bases Cardiology CV Exam: Regular, Normal Sinus Rhythm Gastrointestinal/Abdomen GI Exam: Soft, Non-Tender, Bowel Sounds Present, Distended Extremeties Extremities Exam: Moderate Edema, Pitting Edema Neurologic Neuro Exam: Alert, Awake, Oriented Psychiatric Psych Exam: Appropriate Responses Assessment/Plan Assessment Summary: ANDREA/Acute Renal Failure Problem List: (1) Dehydration ICD Codes: E86.0 - Dehydration Status: Acute (2) Hypothyroidism ICD Codes: E03.9 - Hypothyroidism Status: Chronic (3) Chronic anemia ICD Codes: D64.9 - Chronic anemia Status: Chronic (4) Diabetes ICD Codes: E11.9 - Diabetes Status: Chronic (5) Atrial fibrillation ICD Codes: I48.91 - Unspecified atrial fibrillation Status: Chronic (6) Bilateral hydronephrosis ICD Codes: N13.30 - Unspecified hydronephrosis Status: Acute (7) ANDREA (acute kidney injury) ICD Codes: N17.9 - Acute kidney failure, unspecified Status: Acute Plan Patient has been post Rt. Nephrostomy. Urine out put is adequate. Creatinine is very slowly improving. Has underlying Chronic kidney disease, her baseline Creatinine was 2.1-3.0 in March 2015. Now the Creatinine is 9.7. Continue the IVF with NaHco3. Avoid Nephrotoxins, possibility of Dialysis discussed with the patient. Nely Lopez MD Aug 21, 2017 16:34
[2017-08-21 19:45] VITALS: BP 109/59; PULSE 77; RESP 18; TEMP 97.1; O2SAT 100
[2017-08-21] MEDS: SODIUM BICARBONATE 8.4% INJ 100 MEQ in DEXTROSE 5% IN WATE 1000ML INJ 1,000 ML IV SCH ×2 (23:24)
[2017-08-21 23:58] VITALS: BP 115/56; PULSE 67; RESP 18; TEMP 97.4; O2SAT 93
[2017-08-22 04:48] VITALS: BP 100/55; PULSE 68; RESP 18; TEMP 97.8; O2SAT 100
[2017-08-22] MEDS: cefTRIAXone INJ 1,000 MG in SODIUM CHLORIDE 0.9% INJ 100 ML IV SCH (05:54)
[2017-08-22] MEDS: traMADol HCL 50 MG TAB PO PRN ×3 (05:55→18:31)
[2017-08-22] MEDS: LEVOTHYROXINE SODIUM 150 MCG TAB PO SCH (05:55)
[2017-08-22] MEDS: ONDANSETRON HCL 4 MG/2 ML VIAL IVP PRN ×3 (05:58→18:32)
[2017-08-22 07:50] LABS: HEMATOCRIT 23.9 % (35.0-46.0); MEAN CELL VOLUME 87.1 FL (80.0-100.0); MEAN CORPUSCULAR HEMOGLOBIN 28.4 PG (27.0-34.0); MEAN CORPUSCULAR HGB CONC 32.6 % (32.0-36.0); PLATELET COUNT 149 TH/MM3 (150-450); RED BLOOD COUNT 2.74 MIL/MM3 (4.00-5.30); RED CELL DISTRIBUTION WIDTH 19.6 % (11.6-17.2); REVIEW FLAG FINAL
[2017-08-22 08:00] VITALS: BP 111/56; PULSE 81; RESP 17; TEMP 96.6; O2SAT 96
[2017-08-22 08:30] LABS: ANION GAP 9 MEQ/L (5-15); AST (GOT) 8 U/L (15-37); BLOOD UREA NITROGEN 79 MG/DL (7-18); CHLORIDE 111 MEQ/L (98-107); GLOMERULAR FILTRATION RATE 4 ML/MIN (>89); POTASSIUM 4.5 MEQ/L (3.5-5.1); SODIUM (NA) 139 MEQ/L (136-145)
[2017-08-22 08:34] LABS: ALKALINE PHOSPHATASE 103 U/L (45-117); ALT (GPT) LESS THAN 6 U/L (10-53); TOTAL BILIRUBIN ADULT 0.2 MG/DL (0.2-1.0)
[2017-08-22] MEDS: ATENOLOL 25 MG TAB PO SCH (09:00)
[2017-08-22] MEDS: SODIUM CHLORIDE 0.9% FLUSH 10 ML FLUSH IV FLUSH SCH ×2 (09:00→20:10)
[2017-08-22] MEDS: PRAVASTATIN SOD 40 MG TAB PO SCH (09:11)
[2017-08-22] MEDS: ALLOPURINOL 100 MG TAB PO SCH (09:11)
[2017-08-22 12:00] VITALS: BP 102/58; PULSE 82; RESP 17; TEMP 96.3; O2SAT 99
--- NOTE | 2017-08-22 13:59 | HHI.PR ---
Subjective Patient symptoms today Patient doing well, no pain. Right Nephrostomy tube draining clear yellow urine. Cr improving Objective Vital Signs Vital Signs Date Time Temp Pulse Resp B/P (MAP) Pulse Ox O2 Delivery O2 Flow Rate FiO2 08/22/17 08:00 96.6 81 17 111/56 (74) 96 08/22/17 04:48 97.8 68 18 100/55 (70) 100 08/21/17 23:58 97.4 67 18 115/56 (75) 93 08/21/17 19:45 97.1 77 18 109/59 (76) 100 08/21/17 18:50 Room Air 08/21/17 16:00 96.6 75 16 111/59 (76) Intake & Output 08/22/17 08/22/17 07:00 19:00 Intake Total 1203 ml Output Total 1100 ml Balance 103 ml Intake Oral 720 ml IV Total 483 ml Output Urine Total 1100 ml # Bowel Movements 0 Result Diagram: 08/22/1771208/22/17 07 Objective Remarks NAD, AAOx3 Resp NL Right nephrostomy tube in place, draining clear yellow urine Medications and IVs Current Medications Medications (Trade) Dose Ordered Sig/David Route Start Time Stop Time Status Last Admin (NS Flush) 2 ml UNSCH PRN IV FLUSH 08/19/17 04:45 (NS Flush) 2 ml BID IV FLUSH 08/19/17 09:00 08/21/17 23:47 (Zofran Inj) 4 mg Q6H PRN IVP 08/19/17 04:45 08/22/17 12:13 (Narcan Inj) 0.4 mg UNSCH PRN IV PUSH 08/19/17 04:45 (Milk Of Magnesia Liq) 30 ml Q12H PRN PO 08/19/17 04:45 (Senokot) 17.2 mg Q12H PRN PO 08/19/17 04:45 (Dulcolax Supp) 10 mg DAILY PRN RECTAL 08/19/17 04:45 (Lactulose Liq) 30 ml DAILY PRN PO 08/19/17 04:45 (Zyloprim) 100 mg DAILY PO 08/19/17 09:00 08/22/17 09:11 (Tenormin) 12.5 mg DAILY PO 08/19/17 09:00 08/21/17 08:11 (Pravachol) 40 mg DAILY PO 08/19/17 09:00 08/22/17 09:11 (Pill Splitter) 1 ea UNSCH PRN OTHER 08/19/17 07:45 (Ultram) 50 mg Q6H PRN PO 08/19/17 10:30 08/22/17 12:13 Sodium Bicarbonate 100 meq/Dextrose 1,100 ml @ 42 mls/hr Q24H IV 08/20/17 21:45 08/21/17 23:24 (Tylenol) 650 mg Q6H PRN PO 08/21/17 02:00 08/21/17 02:05 Ertapenem 500 mg/ Sodium Chloride 100 ml @ 200 mls/hr Q24H IV 08/21/17 14:00 08/21/17 14:34 Ceftriaxone Sodium 1000 mg/ Sodium Chloride 100 ml @ 200 mls/hr Q24H IV 08/22/17 05:00 08/22/17 05:54 (Synthroid) 150 mcg DAILY@0600 PO 08/22/17 06:00 08/22/17 05:55 Assessment and Plan Problem List: (1) Urinary tract infection ICD Code: N39.0 - Urinary tract infection Status: Chronic (2) Renal failure ICD Code: N19 - Renal failure Status: Acute (3) CKD (chronic kidney disease) stage 3, GFR 30-59 ml/min ICD Code: N18.3 - Chronic kidney disease, stage 3 (moderate) Status: Chronic (4) Obstructive uropathy ICD Code: N13.9 - Obstructive and reflux uropathy, unspecified Status: Acute Assessment and Plan -Right nephrostomy tube appears to be draining well -No left nephrostomy tube as this appears to be a nonfunctional renal unit -Cr improving, continue to monitor -Patient to follow-up with Dr. Turner in clinic for further management regarding her ureteral stents -Please call with questions Lele Cyr MD Aug 22, 2017 13:59
[2017-08-22] MEDS: ERTAPENEM INJ 500 MG in SODIUM CHLORIDE 0.9% INJ 100 ML IV SCH (14:43)
--- NOTE | 2017-08-22 15:11 | HHI.PR ---
Subjective Remarks Above for renal failure secondary to obstruction status post nephrostomy tube placement and UTI Patient stated that she feels nauseous but she is doing a lot better. She has concerns about her renal diet and does not understand why she can't drink milk. Otherwise she remains afebrile. Discussed with patient's nurse and no complaints. Objective Vitals Vital Signs Date Time Temp Pulse Resp B/P (MAP) Pulse Ox O2 Delivery O2 Flow Rate FiO2 08/22/17 12:00 96.3 82 17 102/58 (73) 99 08/22/17 08:00 96.6 81 17 111/56 (74) 96 08/22/17 04:48 97.8 68 18 100/55 (70) 100 08/21/17 23:58 97.4 67 18 115/56 (75) 93 08/21/17 19:45 97.1 77 18 109/59 (76) 100 08/21/17 18:50 Room Air 08/21/17 16:00 96.6 75 16 111/59 (76) I/O 08/21/17 08/21/17 08/21/17 08/22/17 08/22/17 08/22/17 07:00 15:00 23:00 07:00 15:00 23:00 Intake Total 790 ml 420 ml 960 ml 843 ml Output Total 775 ml 1200 ml 875 ml 225 ml Balance 15 ml -780 ml 85 ml 618 ml Intake Oral 240 ml 420 ml 360 ml 360 ml IV Total 550 ml 600 ml 483 ml Output Urine Total 775 ml 1200 ml 875 ml 225 ml # Bowel Movements 0 1 0 0 Result Diagram: 08/22/1771208/22/17712 Objective Remarks GENERAL: in NAD SKIN: LE with hyperpigmentation venous stasis changes of the lower extremity. Erythema seems to have resolved lately. HEAD: Normocephalic. CARDIOVASCULAR: Regular rate and rhythm without murmurs, gallops, or rubs. RESPIRATORY: Breath sounds equal bilaterally. No accessory muscle use. GASTROINTESTINAL: Abdomen soft, non-tender, nondistended. No CVA tenderness. Right nephrostomy tube in place Medications and IVs Current Medications Sodium Chloride 250 ml @ 15 mls/hr ONCE ONCE IV Last administered on t 09:33; Start 08/19/17 at 02:30; Stop 08/19/17 at 19:09; Status DC Sodium Chloride (NS Flush) 2 ml UNSCH PRN IV FLUSH FLUSH AFTER USING IV ACCESS ; Start 08/19/17 at 04:00; Status Cancel Sodium Chloride (NS Flush) 2 ml BID IV FLUSH ; Start 08/19/17 at 09:00; Status Cancel Sodium Chloride (NS Flush) 2 ml UNSCH PRN IV FLUSH FLUSH AFTER USING IV ACCESS ; Start 08/19/17 at 04:45 Sodium Chloride (NS Flush) 2 ml BID IV FLUSH Last administered on 08/21/17 23: 47; Start 08/19/17 at 09:00 Ondansetron HCl (Zofran Inj) 4 mg Q6H PRN IVP NAUSEA OR VOMITING Last administered on 08/22/17 12:13; Start 08/19/17 at 04:45 Naloxone HCl (Narcan Inj) 0.4 mg UNSCH PRN IV PUSH SEE LABEL COMMENTS; Start at 04:45 Magnesium Hydroxide (Milk Of Magnesia Liq) 30 ml Q12H PRN PO MILD - MODERATE CONSTIPATION; Start 08/19/17 at 04:45 Sennosides (Senokot) 17.2 mg Q12H PRN PO MODERATE - SEVERE CONSTIPATION; Start 08/19/17 at 04:45 Bisacodyl (Dulcolax Supp) 10 mg DAILY PRN RECTAL SEVERE CONSITIPATION; Start at 04:45 Lactulose (Lactulose Liq) 30 ml DAILY PRN PO SEVERE CONSITIPATION; Start at 04:45 Ceftriaxone Sodium 1000 mg/ Sodium Chloride 100 ml @ 200 mls/hr Q12H IV Last administered on 08/21/17 04:03; Start 08/19/17 at 05:00; Stop 08/21/17 at 12:04 ; Status DC Acetaminophen/ Hydrocodone Bitart ([place] 5-325 Mg) 1 tab ONCE ONCE PO Last administered on 08/19/17 06:22; Start 08/19/17 at 06:15; Stop 08/19/17 at 06:18 ; Status DC Acetaminophen/ Hydrocodone Bitart ([place] 5-325 Mg) 1 tab ONCE ONCE PO ; Start 08/19/17 at 06:30; Stop 08/19/17 at 06:31; Status DC Sodium Bicarbonate 75 meq/Sodium Chloride 1,075 ml @ 75 mls/hr [id number] IV Last administered on 08/19/17 09:27; Start 08/19/17 at 06:45; Stop 08/19/17 at 21:04; Status DC Acetaminophen/ Hydrocodone Bitart ([place] 5-325 Mg) 1 tab Q6H PRN PO PAIN GREATER THAN 5; Start 08/19/17 at 07:00; Stop 08/19/17 at 10:31; Status DC Allopurinol (Zyloprim) 100 mg DAILY PO Last administered on 08/22/17 09:11; Start 08/19/17 at 09:00 Atenolol (Tenormin) 12.5 mg DAILY PO Last administered on 08/21/17 08:11; Start 08/19/17 at 09:00 Pravastatin Sodium (Pravachol) 40 mg DAILY PO Last administered on 08/22/17 09 :11; Start 08/19/17 at 09:00 Miscellaneous (Pill Splitter) 1 ea UNSCH PRN OTHER SEE LABEL COMMENTS; Start at 07:45 Tramadol HCl (Ultram) 50 mg Q6H PRN PO PAIN SCALE 4 TO 10 Last administered on 08/22/17 12:13; Start 08/19/17 at 10:30 Influenza Virus Vaccine (Flu (Quadrivalent) Vaccine Inj) 0.5 ml ONCE ONCE IM Last administered on 08/21/17 10:32; Start 08/21/17 at 10:00; Stop 08/21/17 at 10:01; Status DC Midazolam HCl (Versed Inj) 5 mg STK-MED ONCE .ROUTE Last administered on 11:45; Start 08/20/17 at 11:28; Stop 08/20/17 at 11:29; Status DC Fentanyl Citrate (fentaNYL INJ) 200 mcg STK-MED ONCE .ROUTE Last administered on 08/20/17 11:45; Start 08/20/17 at 11:28; Stop 08/20/17 at 11:29; Status DC Levofloxacin/ Dextrose 100 ml @ As Directed STK-MED ONCE IV Last administered on 08/20/17 11:28; Start 08/20/17 at 11:28; Stop 08/20/17 at 11:29; Status DC Iohexol (Omnipaque 350 Inj) 18 ml STK-MED ONCE OTHER Last administered on 12:05; Start 08/20/17 at 12:40; Stop 08/20/17 at 12:41; Status DC Sodium Bicarbonate 100 meq/Dextrose 1,100 ml @ 42 mls/hr Q24H IV Last administered on 08/21/17 23:24; Start 08/20/17 at 21:45 Acetaminophen (Tylenol) 650 mg Q6H PRN PO pain, headaches Last administered on 08/21/17 02:05; Start 08/21/17 at 02:00 Miscellaneous Medication (ASP Crit: Doc ESBL, MDR A baumannii or P aer) 1 UNSCH X1 PRN .XX PHARMACY DOCUMENTATION; Start 08/21/17 at 12:00; Stop 08/22/17 at 11 :59; Status DC Miscellaneous Medication ([facility]) 1 UNSCH X1 PRN XX PHARMACY DOCUMENTATION; Start 08/21/17 at 12:00; Stop 08/22/17 at 11:59; Status DC Ertapenem 500 mg/ Sodium Chloride 100 ml @ 200 mls/hr Q24H IV Last administered on 08/22/17 14:43; Start 08/21/17 at 14:00 Ceftriaxone Sodium 1000 mg/ Sodium Chloride 100 ml @ 200 mls/hr Q24H IV Last administered on 08/22/17 05:54; Start 08/22/17 at 05:00 Levothyroxine Sodium (Synthroid) 150 mcg DAILY@0600 PO Last administered on 05:55; Start 08/22/17 at 06:00 A/P Problem List: (1) Cellulitis of both lower extremities ICD Code: L03.115 - Cellulitis of right lower limb; L03.116 - Cellulitis of left lower limb (2) Anemia ICD Code: D64.9 - Anemia, unspecified (3) Acute on chronic renal failure ICD Code: N17.9 - Acute kidney failure, unspecified; N18.9 - Chronic kidney disease, unspecified (4) Diabetes ICD Code: E11.9 - Diabetes Status: Chronic (5) Atrial fibrillation ICD Code: I48.91 - Unspecified atrial fibrillation Status: Chronic (6) Complicated UTI (urinary tract infection) ICD Code: N39.0 - Urinary tract infection, site not specified Status: Acute Assessment and Plan 71-year-old female admitted for acute on chronic renal failure, worsening anemia requiring blood transfusion, cellulitis of bilateral lower extremities. Acute on chronic renal failure: The patient does have a history of obstructive uropathy but she previously had bilateral stent placed. There is persistent hydronephrosis. -Most likely secondary to obstructive uropathy. - Pattern Drum Maker consulted appreciate recommendation. - Continue with IV fluid with bicarbonate. -Urologist consulted appreciate recommendations. Urology signed off and stated that patient can follow-up with Dr. Turner as outpatient. -Post right nephrostomy tube placement by IR on 08/20. -Continue a strict ins and outs and avoid nephrotoxins. -Kidney function is slowly improving. Worsening anemia: No reports of active bleeding. Anemia may be secondary to chronic kidney disease. -s/p 1 unit of PRBC and hemoglobin is stable. Continue to follow H&H. Bilateral lower extremity cellulitis: Patient has chronic venous stasis. -Cellulitis seems to have resolved. -May consider discontinuing Rocephin tomorrow or earlier if okay with infectious disease. UTI: Has been recurrent for the patient. - Cultures positive for ESBL. On ertapenem. Infectious disease is following. The cultures obtained. -Echo order place to rule out endocarditis. Atrial fibrillation: -Continue atenolol. Patient reports she was taken off Eliquis temporarily. She was told to resume this medication once approved by her physician. [id number]. - Follow H&H. Would plan to resume this medication if renal functions can tolerate. GI prophylaxis: Stool softener PRN constipation. Decondition. PT is following. Encourage ambulation. DVT PPx: SCDs. Yvonne Benton MD Aug 22, 2017 15:11
[2017-08-22 16:00] VITALS: BP 127/58; PULSE 73; RESP 18; TEMP 95.9; O2SAT 96
--- NOTE | 2017-08-22 16:28 | HHI.NPPN ---
Subjective History of Present Illness 71-year-old female with past medical history of diabetes mellitus, atrial fibrillation, history of recurrent renal stone, history of bilateral stent and following with urology and nephrology at [facility], came with abdominal pain, suprapubic pain and generalized body pain with nausea and vomiting. I was called to see the patient because of very high BUN and creatinine. Additional Remarks Patient is alert, no SOB, no abd. pain, eating better. Review of Systems General Constitutional: Fatigue Cardiovascular Cardiac: Edema, BURG[place] Objective Data Data Vital Signs Date Time Temp Pulse Resp B/P (MAP) Pulse Ox O2 Delivery O2 Flow Rate FiO2 08/22/17 12:00 96.3 82 17 102/58 (73) 99 08/22/17 08:00 96.6 81 17 111/56 (74) 96 08/22/17 04:48 97.8 68 18 100/55 (70) 100 08/21/17 23:58 97.4 67 18 115/56 (75) 93 08/21/17 19:45 97.1 77 18 109/59 (76) 100 08/21/17 18:50 Room Air -: 08/22/17 0713 08/22/17 0713 Physical Exam General Appearance: No Acute Distress, Comfortable Eyes Eye Exam: Pupils Equal Throat Throat Exam: Oral Mucosa [place] & Moist Neck Neck Exam: Neck Supple Pulmonary Resp Exam: Clear Bilaterally, Breath Sounds Equal, No Distress, Decreased Bases Cardiology CV Exam: Regular, Normal Sinus Rhythm Gastrointestinal/Abdomen GI Exam: Soft, Non-Tender, Bowel Sounds Present, Distended Extremeties Extremities Exam: Moderate Edema, Pitting Edema Neurologic Neuro Exam: Alert, Awake, Oriented Psychiatric Psych Exam: Appropriate Responses Assessment/Plan Assessment Summary: ANDREA/Acute Renal Failure Problem List: (1) Dehydration ICD Codes: E86.0 - Dehydration Status: Acute (2) Hypothyroidism ICD Codes: E03.9 - Hypothyroidism Status: Chronic (3) Chronic anemia ICD Codes: D64.9 - Chronic anemia Status: Chronic (4) Diabetes ICD Codes: E11.9 - Diabetes Status: Chronic (5) Atrial fibrillation ICD Codes: I48.91 - Unspecified atrial fibrillation Status: Chronic (6) Bilateral hydronephrosis ICD Codes: N13.30 - Unspecified hydronephrosis Status: Acute (7) ANDREA (acute kidney injury) ICD Codes: N17.9 - Acute kidney failure, unspecified Status: Acute Plan Patient has been post Rt. Nephrostomy. Urine out put is adequate. Creatinine is very slowly improving. Has underlying Chronic kidney disease, her baseline Creatinine was 2.1-3.0 in March 2015. Now the Creatinine is 9.7. Continue the IVF with NaHco3. Avoid Nephrotoxins, possibility of Dialysis discussed with the patient. Her left Kidney is not much functional as per patient. Nely Lopez MD Aug 22, 2017 16:28
[2017-08-22 20:00] VITALS: BP 104/55; PULSE 81; RESP 16; TEMP 97.6; O2SAT 97
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
[2017-08-23] VITALS: BP 99/54; PULSE 79; RESP 16; TEMP 98.1; O2SAT 95
[2017-08-23] MEDS: SODIUM BICARBONATE 8.4% INJ 100 MEQ in DEXTROSE 5% IN WATE 1000ML INJ 1,000 ML IV SCH ×4 (01:43→21:31)
[2017-08-23] MEDS: ONDANSETRON HCL 4 MG/2 ML VIAL IVP PRN ×4 (01:44→23:24)
[2017-08-23] MEDS: traMADol HCL 50 MG TAB PO PRN ×4 (01:44→23:24)
[2017-08-23 04:00] VITALS: BP 95/60; PULSE 82; RESP 16; TEMP 97.9; O2SAT 96
[2017-08-23] MEDS: cefTRIAXone INJ 1,000 MG in SODIUM CHLORIDE 0.9% INJ 100 ML IV SCH (04:20)
[2017-08-23] MEDS: LEVOTHYROXINE SODIUM 150 MCG TAB PO SCH (04:20)
[2017-08-23] MEDS: CLINDAMYCIN 150 MG CAP PO SCH ×4 (06:45→23:24)
[2017-08-23 07:54] VITALS: BP 96/52; PULSE 71; RESP 18; TEMP 96.1; O2SAT 95
[2017-08-23] MEDS: PRAVASTATIN SOD 40 MG TAB PO SCH (08:37)
[2017-08-23] MEDS: ALLOPURINOL 100 MG TAB PO SCH (08:37)
[2017-08-23] MEDS: ATENOLOL 25 MG TAB PO SCH (08:40)
[2017-08-23] MEDS: SODIUM CHLORIDE 0.9% FLUSH 10 ML FLUSH IV FLUSH SCH ×2 (08:42→19:18)
[2017-08-23 12:04] VITALS: BP 94/55; PULSE 73; RESP 18; TEMP 96.8; O2SAT 97
--- NOTE | 2017-08-23 12:07 | HHI.PR ---
Subjective Remarks Follow for infection Patient has no complaints. She states she is doing better. Denying nausea or vomiting. Deny any pain. She remains afebrile. Patient stated that she is moving around with physical therapist. She has no other complaints. Objective Vitals Vital Signs Date Time Temp Pulse Resp B/P (MAP) Pulse Ox O2 Delivery O2 Flow Rate FiO2 08/23/17 07:54 96.1 71 18 96/52 (67) 95 08/23/17 04:00 97.9 82 16 95/60 (72) 96 08/23/17 00:00 98.1 79 16 99/54 (69) 95 08/22/17 20:00 97.6 81 16 104/55 (71) 97 08/22/17 16:00 95.9 73 18 127/58 (81) 96 I/O 08/22/17 08/22/17 08/22/17 08/23/17 08/23/17 08/23/17 07:00 15:00 23:00 07:00 15:00 23:00 Intake Total 843 ml 600 ml 1200 ml 1350 ml Output Total 225 ml 650 ml 2000 ml 275 ml Balance 618 ml -50 ml -800 ml 1075 ml Intake Oral 360 ml 600 ml 600 ml 350 ml IV Total 483 ml 600 ml 1000 ml Output Urine Total 225 ml 650 ml 150 ml 100 ml Drainage Total 1850 ml 175 ml # Bowel Movements 0 1 Result Diagram: 08/22/1771208/22/17712 Objective Remarks GENERAL: in NAD SKIN: LE with hyperpigmentation venous stasis changes of the lower extremity. Erythema resolved. HEAD: Normocephalic. CARDIOVASCULAR: Regular rate and rhythm without murmurs, gallops, or rubs. RESPIRATORY: Breath sounds equal bilaterally. No accessory muscle use. GASTROINTESTINAL: Abdomen soft, non-tender, nondistended. No CVA tenderness. Right nephrostomy tube in place A/P Problem List: (1) Cellulitis of both lower extremities ICD Code: L03.115 - Cellulitis of right lower limb; L03.116 - Cellulitis of left lower limb (2) Anemia ICD Code: D64.9 - Anemia, unspecified (3) Acute on chronic renal failure ICD Code: N17.9 - Acute kidney failure, unspecified; N18.9 - Chronic kidney disease, unspecified (4) Diabetes ICD Code: E11.9 - Diabetes Status: Chronic (5) Atrial fibrillation ICD Code: I48.91 - Unspecified atrial fibrillation Status: Chronic (6) Complicated UTI (urinary tract infection) ICD Code: N39.0 - Urinary tract infection, site not specified Status: Acute Assessment and Plan 71-year-old female admitted for acute on chronic renal failure, worsening anemia requiring blood transfusion, cellulitis of bilateral lower extremities. Acute on chronic renal failure: The patient does have a history of obstructive uropathy but she previously had bilateral stent placed. There is persistent hydronephrosis. -Most likely secondary to obstructive uropathy. - Tile Finisher consulted appreciate recommendation. - Continue with IV fluid with bicarbonate. -Urologist consulted appreciate recommendations. Urology signed off and stated that patient can follow-up with Dr. Turner as outpatient. -Post right nephrostomy tube placement by IR on 08/20. -Continue a strict ins and outs and avoid nephrotoxins. -Kidney function is slowly improving. Worsening anemia: No reports of active bleeding. Anemia may be secondary to chronic kidney disease. -s/p 1 unit of PRBC and hemoglobin is stable. Continue to follow H&H. Bilateral lower extremity cellulitis: Patient has chronic venous stasis. -Cellulitis seems to have resolved. -Rocephin discontinued this morning. UTI: Has been recurrent for the patient. - Cultures positive for ESBL. On ertapenem. Infectious disease is following. -Urine cultures also grew Lactobacillus since count > 100,000 clindamycin was started by infectious disease. -Pending echo report. History of recent treatment for bacteremia -Pending medical records from Hospital in [place]. Atrial fibrillation: -Continue atenolol. Patient reports she was taken off Eliquis temporarily. She was told to resume this medication once approved by her physician. She was [id number]. - Follow H&H. Would plan to resume this medication if renal functions can tolerate. GI prophylaxis: Stool softener PRN constipation. Decondition. PT is following. Encourage ambulation. DVT PPx: SCDs. Yvonne Benton MD Aug 23, 2017 12:07
--- NOTE | 2017-08-23 12:51 | ECHRPT ---
Indication: endocarditis CONCLUSIONS The left ventricular systolic function is low normal with an estimated ejection fraction in the rang e of 60- 65%. No definite wall motion abnormalities. Normal left ventricular size. Structurally normal mitral valve. [id number] mitral valve regurgitation. Structurally normal tricuspid valve. There is trace to mild tricuspid valve regurgitation. BP: 100 / 55 HR: 68 Rhythm: MEASUREMENTS (Male / Female) Normal Values Technical Quality:Technically difficult study 2D ECHO LV Diastolic Diameter PLAX 5.3 cm 4.2 - 5.9 / 3.9 - 5.3 cm LV Systolic Diameter PLAX 4.1 cm IVS Diastolic Thickness 1.3 cm 0.6 - 1.0 / 0.6 - 0.9 cm LVPW Diastolic Thickness 1.2 cm 0.6 - 1.0 / 0.6 - 0.9 cm LV Relative Wall Thickness 0.5 RV Internal Dim ED PLAX 3.5 cm M-MODE Aortic Root Diameter MM 3.2 cm LA Systolic Diameter MM 4.9 cm LA Ao Ratio MM 1.5 AV Cusp Separation MM 2.2 cm DOPPLER MV Area PHT 2.0 cm LV E' Lateral Velocity 11.4 cm/s LV E' Septal Velocity 12.5 cm/s FINDINGS LEFT VENTRICLE The left ventricular systolic function is low normal with an estimated ejection fraction in the rang e of 60- 65%. No definite wall motion abnormalities. Normal left ventricular size. RIGHT VENTRICLE Normal right ventricular size and systolic function. LEFT ATRIUM The left atrial size is normal. RIGHT ATRIUM The right atrial size is normal. ATRIAL SEPTUM Normal atrial septal thickness without atrial level shunting by limited color doppler interrogation. AORTA The aortic root and proximal ascending aorta are normal in size on limited imaging. MITRAL VALVE Structurally normal mitral valve. [id number] mitral valve regurgitation. AORTIC VALVE Trileaflet aortic valve. No aortic valve regurgitation. No aortic valve stenosis. TRICUSPID VALVE Structurally normal tricuspid valve. There is trace to mild tricuspid valve regurgitation. PULMONARY VALVE The pulmonary valve is not well visualized. VESSELS The inferior vena cava is normal in size. PERICARDIUM No pericardial effusion. Porter Batres MD (Electronically Signed) Final Date:23 August 2017 12:50
[2017-08-23] MEDS: ERTAPENEM INJ 500 MG in SODIUM CHLORIDE 0.9% INJ 100 ML IV SCH (13:52)
[2017-08-23 15:05] LABS: BICARBONATE 25.1 MEQ/L (21.0-32.0); POTASSIUM 4.1 MEQ/L (3.5-5.1)
--- NOTE | 2017-08-23 15:45 | HHI.NPPN ---
Subjective History of Present Illness 71-year-old female with past medical history of diabetes mellitus, atrial fibrillation, history of recurrent renal stone, history of bilateral stent and following with urology and nephrology at [facility], came with abdominal pain, suprapubic pain and generalized body pain with nausea and vomiting. I was called to see the patient because of very high BUN and creatinine. Additional Remarks Patient is alert, no SOB, not eating well, occ. has nausea. Review of Systems General Constitutional: Fatigue Cardiovascular Cardiac: Edema, BURGOS Objective Data Data Vital Signs Date Time Temp Pulse Resp B/P (MAP) Pulse Ox O2 Delivery O2 Flow Rate FiO2 08/23/17 12:04 96.8 73 18 94/55 (68) 97 08/23/17 07:54 96.1 71 18 96/52 (67) 95 08/23/17 04:00 97.9 82 16 95/60 (72) 96 08/23/17 00:00 98.1 79 16 99/54 (69) 95 08/22/17 20:00 97.6 81 16 104/55 (71) 97 08/22/17 16:00 95.9 73 18 127/58 (81) 96 -: 08/22/17 0713 08/23/17 1403 Physical Exam General Appearance: No Acute Distress, Comfortable Eyes Eye Exam: Pupils Equal Throat Throat Exam: Oral Mucosa [place] & Moist Neck Neck Exam: Neck Supple Pulmonary Resp Exam: Clear Bilaterally, Breath Sounds Equal, No Distress, Decreased Bases Cardiology CV Exam: Regular, Normal Sinus Rhythm Gastrointestinal/Abdomen GI Exam: Soft, Non-Tender, Bowel Sounds Present, Distended Extremeties Extremities Exam: Moderate Edema, Pitting Edema Neurologic Neuro Exam: Alert, Awake, Oriented Psychiatric Psych Exam: Appropriate Responses Assessment/Plan Assessment Summary: ANDREA/Acute Renal Failure Problem List: (1) Dehydration ICD Codes: E86.0 - Dehydration Status: Acute (2) Hypothyroidism ICD Codes: E03.9 - Hypothyroidism Status: Chronic (3) Chronic anemia ICD Codes: D64.9 - Chronic anemia Status: Chronic (4) Diabetes ICD Codes: E11.9 - Diabetes Status: Chronic (5) Atrial fibrillation ICD Codes: I48.91 - Unspecified atrial fibrillation Status: Chronic (6) Bilateral hydronephrosis ICD Codes: N13.30 - Unspecified hydronephrosis Status: Acute (7) ANDREA (acute kidney injury) ICD Codes: N17.9 - Acute kidney failure, unspecified Status: Acute Plan Patient has been post Rt. Nephrostomy. Urine out put is adequate. Creatinine is very slowly improving. Has underlying Chronic kidney disease, her baseline Creatinine was 2.1-3.0 in March 2015. Now the Creatinine is 8.5, slowly improving. Continue the IVF. Avoid Nephrotoxins. Her left Kidney is not much functional as per patient. Follow the urine out put and BMP. Nely Lopez MD Aug 23, 2017 15:45
[2017-08-23 16:00] VITALS: BP 98/57; PULSE 75; RESP 18; TEMP 96.5; O2SAT 97
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
[2017-08-23 20:00] VITALS: BP 106/55; PULSE 82; RESP 16; TEMP 97.7; O2SAT 97
[2017-08-23] MEDS ORDERED: CALCIUM CARBONATE 500 MG CHEWABLE TAB CHEW ONE (20:30)
[2017-08-24] VITALS: BP 106/55; PULSE 79; RESP 16; TEMP 98; O2SAT 97
[2017-08-24] MEDS: SODIUM BICARBONATE 8.4% INJ 100 MEQ in DEXTROSE 5% IN WATE 1000ML INJ 1,000 ML IV SCH ×2 (03:31)
[2017-08-24] MEDS: CLINDAMYCIN 150 MG CAP PO SCH ×4 (05:20→23:58)
[2017-08-24] MEDS: LEVOTHYROXINE SODIUM 150 MCG TAB PO SCH (05:21)
[2017-08-24] MEDS: ONDANSETRON HCL 4 MG/2 ML VIAL IVP PRN ×4 (05:21→23:17)
[2017-08-24] MEDS: traMADol HCL 50 MG TAB PO PRN ×4 (05:21→23:17)
[2017-08-24 08:00] VITALS: BP 111/54; PULSE 72; RESP 18; TEMP 97.4; O2SAT 94
[2017-08-24 08:44] LABS: BICARBONATE 24.3 MEQ/L (21.0-32.0); POTASSIUM 3.7 MEQ/L (3.5-5.1)
[2017-08-24] MEDS: ATENOLOL 25 MG TAB PO SCH (08:47)
[2017-08-24] MEDS: ALLOPURINOL 100 MG TAB PO SCH (08:47)
[2017-08-24] MEDS: PRAVASTATIN SOD 40 MG TAB PO SCH (08:47)
[2017-08-24] MEDS: SODIUM CHLORIDE 0.9% FLUSH 10 ML FLUSH IV FLUSH SCH ×2 (08:47→21:00)
[2017-08-24] MEDS: ERTAPENEM INJ 500 MG in SODIUM CHLORIDE 0.9% INJ 100 ML IV SCH (11:44)
[2017-08-24 11:45] VITALS: BP 101/59; PULSE 65; RESP 18; TEMP 97; O2SAT 97
--- NOTE | 2017-08-24 12:59 | HHI.PR ---
Subjective Remarks Follow-up for acute renal failure and infection Patient states she is doing a lot better. She stated that the clindamycin is making her nauseous. Otherwise denies any abdominal pain. She remains afebrile. Discussed with patient's nurse. Objective Vitals Vital Signs Date Time Temp Pulse Resp B/P (MAP) Pulse Ox O2 Delivery O2 Flow Rate FiO2 08/24/17 11:45 97.0 65 18 101/59 (73) 97 08/24/17 09:02 Room Air 08/24/17 08:00 97.4 72 18 111/54 (73) 94 08/24/17 00:00 98.0 79 16 106/55 (72) 97 08/23/17 20:00 97.7 82 16 106/55 (72) 97 08/23/17 16:00 96.5 75 18 98/57 (71) 97 I/O 08/23/17 08/23/17 08/23/17 08/24/17 08/24/17 08/24/17 07:00 15:00 23:00 07:00 15:00 23:00 Intake Total 1350 ml 760 ml 462 ml 1470 ml Output Total 275 ml 450 ml 1600 ml 750 ml 475 ml Balance 1075 ml 310 ml -1138 ml 720 ml -475 ml Intake Oral 350 ml 660 ml 480 ml IV Total 1000 ml 100 ml 462 ml 990 ml Output Urine Total 100 ml 450 ml 100 ml Drainage Total 175 ml 1600 ml 650 ml 475 ml # Voids 0 # Bowel Movements 0 Result Diagram: 08/22/1771208/24/17712 Objective Remarks GENERAL: in NAD SKIN: LE with hyperpigmentation venous stasis changes of the lower extremity. Erythema resolved. HEAD: Normocephalic. CARDIOVASCULAR: Regular rate and rhythm without murmurs, gallops, or rubs. RESPIRATORY: Breath sounds equal bilaterally. No accessory muscle use. GASTROINTESTINAL: Abdomen soft, non-tender, nondistended. No CVA tenderness. Right nephrostomy tube in place Medications and IVs Current Medications Sodium Chloride 250 ml @ 15 mls/hr ONCE ONCE IV Last administered on t 09:33; Start 08/19/17 at 02:30; Stop 08/19/17 at 19:09; Status DC Sodium Chloride (NS Flush) 2 ml UNSCH PRN IV FLUSH FLUSH AFTER USING IV ACCESS ; Start 08/19/17 at 04:00; Status Cancel Sodium Chloride (NS Flush) 2 ml BID IV FLUSH ; Start 08/19/17 at 09:00; Status Cancel Sodium Chloride (NS Flush) 2 ml UNSCH PRN IV FLUSH FLUSH AFTER USING IV ACCESS ; Start 08/19/17 at 04:45 Sodium Chloride (NS Flush) 2 ml BID IV FLUSH Last administered on 08/24/17 08: 47; Start 08/19/17 at 09:00 Ondansetron HCl (Zofran Inj) 4 mg Q6H PRN IVP NAUSEA OR VOMITING Last administered on 08/24/17 11:43; Start 08/19/17 at 04:45 Naloxone HCl (Narcan Inj) 0.4 mg UNSCH PRN IV PUSH SEE LABEL COMMENTS; Start at 04:45 Magnesium Hydroxide (Milk Of Magnesia Liq) 30 ml Q12H PRN PO MILD - MODERATE CONSTIPATION; Start 08/19/17 at 04:45 Sennosides (Senokot) 17.2 mg Q12H PRN PO MODERATE - SEVERE CONSTIPATION; Start 08/19/17 at 04:45 Bisacodyl (Dulcolax Supp) 10 mg DAILY PRN RECTAL SEVERE CONSITIPATION; Start at 04:45 Lactulose (Lactulose Liq) 30 ml DAILY PRN PO SEVERE CONSITIPATION; Start at 04:45 Ceftriaxone Sodium 1000 mg/ Sodium Chloride 100 ml @ 200 mls/hr Q12H IV Last administered on 08/21/17 04:03; Start 08/19/17 at 05:00; Stop 08/21/17 at 12:04 ; Status DC Acetaminophen/ Hydrocodone Bitart ([place] 5-325 Mg) 1 tab ONCE ONCE PO Last administered on 08/19/17 06:22; Start 08/19/17 at 06:15; Stop 08/19/17 at 06:18 ; Status DC Acetaminophen/ Hydrocodone Bitart ([place] 5-325 Mg) 1 tab ONCE ONCE PO ; Start 08/19/17 at 06:30; Stop 08/19/17 at 06:31; Status DC Sodium Bicarbonate 75 meq/Sodium Chloride 1,075 ml @ 75 mls/hr [id number] IV Last administered on 08/19/17 09:27; Start 08/19/17 at 06:45; Stop 08/19/17 at 21:04; Status DC Acetaminophen/ Hydrocodone Bitart ([place] 5-325 Mg) 1 tab Q6H PRN PO PAIN GREATER THAN 5; Start 08/19/17 at 07:00; Stop 08/19/17 at 10:31; Status DC Allopurinol (Zyloprim) 100 mg DAILY PO Last administered on 08/24/17 08:47; Start 08/19/17 at 09:00 Atenolol (Tenormin) 12.5 mg DAILY PO Last administered on 08/24/17 08:47; Start 08/19/17 at 09:00 Pravastatin Sodium (Pravachol) 40 mg DAILY PO Last administered on 08/24/17 08 :47; Start 08/19/17 at 09:00 Miscellaneous (Pill Splitter) 1 ea UNSCH PRN OTHER SEE LABEL COMMENTS; Start at 07:45 Tramadol HCl (Ultram) 50 mg Q6H PRN PO PAIN SCALE 4 TO 10 Last administered on 08/24/17 11:43; Start 08/19/17 at 10:30 Influenza Virus Vaccine (Flu (Quadrivalent) Vaccine Inj) 0.5 ml ONCE ONCE IM Last administered on 08/21/17 10:32; Start 08/21/17 at 10:00; Stop 08/21/17 at 10:01; Status DC Midazolam HCl (Versed Inj) 5 mg STK-MED ONCE .ROUTE Last administered on 11:45; Start 08/20/17 at 11:28; Stop 08/20/17 at 11:29; Status DC Fentanyl Citrate (fentaNYL INJ) 200 mcg STK-MED ONCE .ROUTE Last administered on 08/20/17 11:45; Start 08/20/17 at 11:28; Stop 08/20/17 at 11:29; Status DC Levofloxacin/ Dextrose 100 ml @ As Directed STK-MED ONCE IV Last administered on 08/20/17 11:28; Start 08/20/17 at 11:28; Stop 08/20/17 at 11:29; Status DC Iohexol (Omnipaque 350 Inj) 18 ml STK-MED ONCE OTHER Last administered on 12:05; Start 08/20/17 at 12:40; Stop 08/20/17 at 12:41; Status DC Sodium Bicarbonate 100 meq/Dextrose 1,100 ml @ 42 mls/hr Q24H IV Last administered on 08/24/17 03:31; Start 08/20/17 at 21:45 Acetaminophen (Tylenol) 650 mg Q6H PRN PO pain, headaches Last administered on 08/21/17 02:05; Start 08/21/17 at 02:00 Miscellaneous Medication (ASP Crit: Doc ESBL, MDR A baumannii or P aer) 1 UNSCH X1 PRN .XX PHARMACY DOCUMENTATION; Start 08/21/17 at 12:00; Stop 08/22/17 at 11 :59; Status DC Miscellaneous Medication ([facility] [place] [facility] Information) 1 UNSCH X1 PRN XX PHARMACY DOCUMENTATION; Start 08/21/17 at 12:00; Stop 08/22/17 at 11:59; Status DC Ertapenem 500 mg/ Sodium Chloride 100 ml @ 200 mls/hr Q24H IV Last administered on 08/23/17 13:52; Start 08/21/17 at 14:00; Stop 08/24/17 at 06:44 ; Status DC Ceftriaxone Sodium 1000 mg/ Sodium Chloride 100 ml @ 200 mls/hr Q24H IV Last administered on 08/23/17 04:20; Start 08/22/17 at 05:00; Stop 08/23/17 at 06:43 ; Status DC Levothyroxine Sodium (Synthroid) 150 mcg DAILY@0600 PO Last administered on 05:21; Start 08/22/17 at 06:00 Clindamycin HCl (Cleocin) 300 mg Q6HR PO Last administered on 08/24/17 11:43; Start 08/23/17 at 06:45 Calcium Carbonate (Tums Chew) 500 mg ONCE ONCE CHEW Last administered on 21:02; Start 08/23/17 at 20:30; Stop 08/23/17 at 20:31; Status DC Ertapenem 500 mg/ Sodium Chloride 100 ml @ 200 mls/hr Q24H IV Last administered on 08/24/17 11:44; Start 08/24/17 at 14:00 A/P Problem List: (1) Cellulitis of both lower extremities ICD Code: L03.115 - Cellulitis of right lower limb; L03.116 - Cellulitis of left lower limb (2) Anemia ICD Code: D64.9 - Anemia, unspecified (3) Acute on chronic renal failure ICD Code: N17.9 - Acute kidney failure, unspecified; N18.9 - Chronic kidney disease, unspecified (4) Diabetes ICD Code: E11.9 - Diabetes Status: Chronic (5) Atrial fibrillation ICD Code: I48.91 - Unspecified atrial fibrillation Status: Chronic (6) Complicated UTI (urinary tract infection) ICD Code: N39.0 - Urinary tract infection, site not specified Status: Acute Assessment and Plan 71-year-old female admitted for acute on chronic renal failure, worsening anemia requiring blood transfusion, cellulitis of bilateral lower extremities. Acute on chronic renal failure: The patient does have a history of obstructive uropathy but she previously had bilateral stent placed. There is persistent hydronephrosis. -Most likely secondary to obstructive uropathy. - Patch Washer consulted appreciate recommendation. - Continue with IV fluid with bicarbonate. -Urologist consulted appreciate recommendations. Urology signed off and stated that patient can follow-up with Dr. Turner as outpatient. -Post right nephrostomy tube placement by IR on 08/20. -Continue a strict ins and outs and avoid nephrotoxins. -Kidney function is slowly improving. Worsening anemia: No reports of active bleeding. Anemia may be secondary to chronic kidney disease. -s/p 1 unit of PRBC and hemoglobin is stable. Continue to follow H&H. Bilateral lower extremity cellulitis: Patient has chronic venous stasis. -Cellulitis seems to have resolved. -Rocephin discontinued on 08/23. UTI: Has been recurrent for the patient. - Cultures positive for ESBL. On ertapenem. Infectious disease is following. -Urine cultures also grew Lactobacillus since count > 100,000 clindamycin was started by infectious disease. -Echo reviewed with the EF is 60-65%. No vegetation noted. History of recent treatment for bacteremia -Pending medical records from [facility] in [place]. Atrial fibrillation: -Continue atenolol. Patient reports she was taken off Eliquis temporarily. She was told to resume this medication once approved by her physician. [id number]. - Follow H&H. Would plan to resume this medication if renal functions can tolerate. GI prophylaxis: Stool softener PRN constipation. Decondition. PT is following. Encourage ambulation. DVT PPx: SCDs. Yvonne Benton MD Aug 24, 2017 12:59
--- NOTE | 2017-08-24 16:14 | HHI.NPPN ---
Subjective History of Present Illness 71-year-old female with past medical history of diabetes mellitus, atrial fibrillation, history of recurrent renal stone, history of bilateral stent and following with urology and nephrology at [facility], came with abdominal pain, suprapubic pain and generalized body pain with nausea and vomiting. I was called to see the patient because of very high BUN and creatinine. Additional Remarks No acute complaints Review of Systems General Constitutional: Fatigue Cardiovascular Cardiac: Edema, BURGOS Objective Data Data 08/24/17 08/25/17 19:00 07:00 Intake Total 480 ml Output Total 600 ml Balance -120 ml Intake Oral 480 ml Output Urine Total 125 ml Drainage Total 475 ml # Bowel Movements 0 Vital Signs Date Time Temp Pulse Resp B/P (MAP) Pulse Ox O2 Delivery O2 Flow Rate FiO2 08/24/17 11:45 97.0 65 18 101/59 (73) 97 08/24/17 09:02 Room Air 08/24/17 08:00 97.4 72 18 111/54 (73) 94 08/24/17 00:00 98.0 79 16 106/55 (72) 97 08/23/17 20:00 97.7 82 16 106/55 (72) 97 -: 08/22/17 0713 08/24/17 0713 Physical Exam General Appearance: No Acute Distress, Comfortable Eyes Eye Exam: Pupils Equal Throat Throat Exam: Oral Mucosa [place] & Moist Neck Neck Exam: Neck Supple Pulmonary Resp Exam: Clear Bilaterally, Breath Sounds Equal, No Distress, Decreased Bases Cardiology CV Exam: Regular, Normal Sinus Rhythm Gastrointestinal/Abdomen GI Exam: Soft, Non-Tender, Bowel Sounds Present, Distended Extremeties Extremities Exam: Moderate Edema, Pitting Edema Neurologic Neuro Exam: Alert, Awake, Oriented Psychiatric Psych Exam: Appropriate Responses Assessment/Plan Assessment Summary: ANDREA/Acute Renal Failure Problem List: (1) Dehydration ICD Codes: E86.0 - Dehydration Status: Acute (2) Hypothyroidism ICD Codes: E03.9 - Hypothyroidism Status: Chronic (3) Chronic anemia ICD Codes: D64.9 - Chronic anemia Status: Chronic (4) Diabetes ICD Codes: E11.9 - Diabetes Status: Chronic (5) Atrial fibrillation ICD Codes: I48.91 - Unspecified atrial fibrillation Status: Chronic (6) Bilateral hydronephrosis ICD Codes: N13.30 - Unspecified hydronephrosis Status: Acute (7) ANDREA (acute kidney injury) ICD Codes: N17.9 - Acute kidney failure, unspecified Status: Acute Plan Patient has been post Rt. Nephrostomy. Urine out put is adequate - 2.2 L/ 24 hours Creatinine is very slowly improving, continue to monitor. Has underlying Chronic kidney disease, her baseline Creatinine was 2.1-3.0 in March 2015. On IVFs with HCO3 at 42cc/hour - continue for now Avoid Nephrotoxins, possibility of Dialysis discussed with the patient - no need for HD at this time. Her left Kidney is not much functional as per patient. Tonny Payan MD Aug 24, 2017 16:13
[2017-08-24 16:26] VITALS: BP 108/59; PULSE 73; TEMP 97; O2SAT 96
[2017-08-24 20:30] VITALS: BP 103/52; PULSE 69; RESP 17; TEMP 97.4; O2SAT 97
[2017-08-25 00:10] VITALS: BP 95/50; PULSE 70; RESP 17; TEMP 97.9; O2SAT 94
[2017-08-25] MEDS: SODIUM BICARBONATE 8.4% INJ 100 MEQ in DEXTROSE 5% IN WATE 1000ML INJ 1,000 ML IV SCH ×2 (04:43)
[2017-08-25] MEDS: LEVOTHYROXINE SODIUM 150 MCG TAB PO SCH (05:22)
[2017-08-25] MEDS: CLINDAMYCIN 150 MG CAP PO SCH ×4 (05:22→17:49)
[2017-08-25] MEDS: ONDANSETRON HCL 4 MG/2 ML VIAL IVP PRN ×2 (05:23→05:26)
[2017-08-25] MEDS: traMADol HCL 50 MG TAB PO PRN ×3 (05:25→16:30)
[2017-08-25 06:54] LABS: AUTOMATED NEUTROPHIL # 4.8 TH/MM3 (1.8-7.7); BASOPHIL % 0.6 % (0.0-2.0); EOSINOPHIL # 0.3 TH/MM3 (0-0.4); EOSINOPHIL % 4.9 % (0.0-4.0); HEMATOCRIT 24.6 % (35.0-46.0); HEMO FLAGS DIFF FINAL; MEAN CELL VOLUME 86.2 FL (80.0-100.0); MEAN CORPUSCULAR HEMOGLOBIN 28.4 PG (27.0-34.0); MEAN CORPUSCULAR HGB CONC 32.9 % (32.0-36.0); MONO % 10.7 % (0.0-8.0); NEUT % 69.8 % (16.0-70.0); PLATELET COUNT 165 TH/MM3 (150-450); RED BLOOD COUNT 2.86 MIL/MM3 (4.00-5.30); RED CELL DISTRIBUTION WIDTH 18.9 % (11.6-17.2); WHITE BLOOD COUNT 6.9 TH/MM3 (4.0-11.0)
[2017-08-25 06:59] LABS: BICARBONATE 28.8 MEQ/L (21.0-32.0); POTASSIUM 3.6 MEQ/L (3.5-5.1)
[2017-08-25 08:00] VITALS: BP 122/63; PULSE 64; RESP 18; TEMP 96.9; O2SAT 98
[2017-08-25] MEDS: PRAVASTATIN SOD 40 MG TAB PO SCH (08:16)
[2017-08-25] MEDS: ALLOPURINOL 100 MG TAB PO SCH (08:17)
[2017-08-25] MEDS: ATENOLOL 25 MG TAB PO SCH (08:17)
[2017-08-25] MEDS: SENNOSIDES 8.6 MG TAB PO PRN (08:17)
[2017-08-25] MEDS: SODIUM CHLORIDE 0.9% FLUSH 10 ML FLUSH IV FLUSH SCH ×2 (08:18→20:45)
[2017-08-25] MEDS: MAGNESIUM HYDROXIDE SUSP 30 ML CUP PO PRN ×2 (08:18→20:44)
--- NOTE | 2017-08-25 11:11 | HHI.PR ---
Subjective Remarks Follow-up for acute renal failure and infection Patient states she is doing a lot better. She stated that the clindamycin is making her nauseous. Otherwise denies any abdominal pain. She remains afebrile. Discussed with patient's nurse. 10 patient complaining of NAUSEA THINKS IT MAY BE THE CLINDA WILL ADJUST ANTI NAUSEA MEDS Objective Vitals Vital Signs Date Time Temp Pulse Resp B/P (MAP) Pulse Ox O2 Delivery O2 Flow Rate FiO2 08/25/17 08:00 96.9 64 18 122/63 (82) 98 08/25/17 00:10 97.9 70 17 95/50 (65) 94 08/24/17 20:30 97.4 69 17 103/52 (69) 97 08/24/17 16:26 97.0 73 108/59 (75) 96 08/24/17 11:45 97.0 65 18 101/59 (73) 97 I/O 08/24/17 08/24/17 08/24/17 08/25/17 08/25/17 08/25/17 07:00 15:00 23:00 07:00 15:00 23:00 Intake Total 1470 ml 579 ml 1239 ml 240 ml Output Total 750 ml 600 ml 950 ml 25 ml Balance 720 ml -21 ml 289 ml 215 ml Intake Oral 480 ml 480 ml 240 ml 240 ml IV Total 990 ml 99 ml 999 ml Output Urine Total 100 ml 125 ml 100 ml 25 ml Drainage Total 650 ml 475 ml 850 ml # Bowel Movements 0 0 0 Result Diagram: 08/25/17 0515 08/25/17 0515 Other Results Laboratory Tests Test 08/23/17 14:03 08/24/17 07:13 08/25/17 05:15 Blood Urea Nitrogen 72 MG/DL 62 MG/DL 53 MG/DL Creatinine 8.50 MG/DL 7.76 MG/DL 6.70 MG/DL Random Glucose 93 MG/DL 84 MG/DL 83 MG/DL Calcium Level 7.5 MG/DL 7.7 MG/DL 7.9 MG/DL Sodium Level 139 MEQ/L 140 MEQ/L 140 MEQ/L Potassium Level 4.1 MEQ/L 3.7 MEQ/L 3.6 MEQ/L Chloride Level 107 MEQ/L 106 MEQ/L 105 MEQ/L Carbon Dioxide Level 25.1 MEQ/L 24.3 MEQ/L 28.8 MEQ/L Anion Gap 7 MEQ/L 10 MEQ/L 6 MEQ/L Estimat Glomerular Filtration Rate 5 ML/MIN 5 ML/MIN 6 ML/MIN White Blood Count 6.9 TH/MM3 Red Blood Count 2.86 MIL/MM3 Hemoglobin 8.1 GM/DL Hematocrit 24.6 % Mean Corpuscular Volume 86.2 FL Mean Corpuscular Hemoglobin 28.4 PG Mean Corpuscular Hemoglobin Concent 32.9 % Red Cell Distribution Width 18.9 % Platelet Count 165 TH/MM3 Mean Platelet Volume 7.7 FL Neutrophils (%) (Auto) 69.8 % Lymphocytes (%) (Auto) 14.0 % Monocytes (%) (Auto) 10.7 % Eosinophils (%) (Auto) 4.9 % Basophils (%) (Auto) 0.6 % Neutrophils # (Auto) 4.8 TH/MM3 Lymphocytes # (Auto) 1.0 TH/MM3 Monocytes # (Auto) 0.7 TH/MM3 Eosinophils # (Auto) 0.3 TH/MM3 Basophils # (Auto) 0.0 TH/MM3 CBC Comment DIFF FINAL Differential Comment Imaging Last Impressions Nephrostomy 08/20/17 0000 Signed Impressions: Service Date/Time: Sunday, August 20, 2017 11:30 - CONCLUSION: Uncomplicated percutaneous nephrostomy as above. Julien Ramos MD Abdomen/Pelvis CT 08/19/17 0216 Signed Impressions: Service Date/Time: Saturday, August 19, 2017 02:51 - CONCLUSION: 1. Compared with April 02 there is placement of a right-sided ureteral stent with persistent moderate right hydronephrosis. There is also moderate left hydronephrosis with renal cortical atrophy and stable left ureteral stent. Nonobstructing calcifications left kidney. 2. Stable large calcified gallstone without biliary ductal dilatation. 3. Stable left-sided ventral hernia containing fat and a loop of small bowel. 4. Samuels catheter in bladder. Colin Gilmore MD Chest X-Ray 08/19/17 0054 Signed Impressions: Service Date/Time: Saturday, August 19, 2017 01:07 - CONCLUSION: 1. Mild basilar atelectasis. Cardiomegaly. Colin Gilmore MD Objective Remarks GENERAL: AWAKE ALERT AND ORIENTED x3 SKIN: Warm and dry. VENOUS STASIS CHANGES BL LE HEAD: Atraumatic. Normocephalic. EYES: Pupils equal and round. No scleral icterus. No injection or drainage. EOMI ENT: No nasal bleeding or discharge. Mucous membranes pink and moist.TONGUE IS MIDLINE NECK: Trachea midline. No JVD. SUPPLE CARDIOVASCULAR: Regular rate and rhythm. S1, S2 NO S3 OR S4 RESPIRATORY: No accessory muscle use. Clear to auscultation. Breath sounds equal bilaterally. GASTROINTESTINAL: Abdomen soft, non-tender, nondistended. Hepatic and splenic margins not palpable. MUSCULOSKELETAL: Extremities without clubbing, cyanosis, or edema. No obvious deformities. NEUROLOGICAL: Awake and alert. No obvious cranial nerve deficits. Motor grossly within normal limits. 4 out of 5 muscle strength in the arms and legs. Normal speech. PSYCHIATRIC: Appropriate mood and affect; insight and judgment normal. SAMUELS CATHETER AND RIGHT NEPHROSTOMY TUBE WITH DRAINAGE Procedures RIGHT NEPHROSTOMY TUBE Medications and IVs Current Medications Sodium Chloride 250 ml @ 15 mls/hr ONCE ONCE IV Last administered on 09:33; Start 08/19/17 at 02:30; Stop 08/19/17 at 19:09; Status DC Sodium Chloride (NS Flush) 2 ml UNSCH PRN IV FLUSH FLUSH AFTER USING IV ACCESS ; Start 08/19/17 at 04:00; Status Cancel Sodium Chloride (NS Flush) 2 ml BID IV FLUSH ; Start 08/19/17 at 09:00; Status Cancel Sodium Chloride (NS Flush) 2 ml UNSCH PRN IV FLUSH FLUSH AFTER USING IV ACCESS ; Start 08/19/17 at 04:45 Sodium Chloride (NS Flush) 2 ml BID IV FLUSH Last administered on 08/25/17 08: 18; Start 08/19/17 at 09:00 Ondansetron HCl (Zofran Inj) 4 mg Q6H PRN IVP NAUSEA OR VOMITING Last administered on 08/25/17 05:26; Start 08/19/17 at 04:45 Naloxone HCl (Narcan Inj) 0.4 mg UNSCH PRN IV PUSH SEE LABEL COMMENTS; Start at 04:45 Magnesium Hydroxide (Milk Of Magnesia Liq) 30 ml Q12H PRN PO MILD - MODERATE CONSTIPATION Last administered on 08/25/17 08:18; Start 08/19/17 at 04:45 Sennosides (Senokot) 17.2 mg Q12H PRN PO MODERATE - SEVERE CONSTIPATION Last administered on 08/25/17 08:17; Start 08/19/17 at 04:45 Bisacodyl (Dulcolax Supp) 10 mg DAILY PRN RECTAL SEVERE CONSITIPATION; Start at 04:45 Lactulose (Lactulose Liq) 30 ml DAILY PRN PO SEVERE CONSITIPATION; Start at 04:45 Ceftriaxone Sodium 1000 mg/ Sodium Chloride 100 ml @ 200 mls/hr Q12H IV Last administered on 08/21/17 04:03; Start 08/19/17 at 05:00; Stop 08/21/17 at 12:04 ; Status DC Acetaminophen/ Hydrocodone Bitart (Lanse 5-325 Mg) 1 tab ONCE ONCE PO Last administered on 08/19/17 06:22; Start 08/19/17 at 06:15; Stop 08/19/17 at 06:18 ; Status DC Acetaminophen/ Hydrocodone Bitart (Lanse 5-325 Mg) 1 tab ONCE ONCE PO ; Start 08/19/17 at 06:30; Stop 08/19/17 at 06:31; Status DC Sodium Bicarbonate 75 meq/Sodium Chloride 1,075 ml @ 75 mls/hr [id number] IV Last administered on 08/19/17 09:27; Start 08/19/17 at 06:45; Stop 08/19/17 at 21:04; Status DC Acetaminophen/ Hydrocodone Bitart (Lanse 5-325 Mg) 1 tab Q6H PRN PO PAIN GREATER THAN 5; Start 08/19/17 at 07:00; Stop 08/19/17 at 10:31; Status DC Allopurinol (Zyloprim) 100 mg DAILY PO Last administered on 08/25/17 08:17; Start 08/19/17 at 09:00 Atenolol (Tenormin) 12.5 mg DAILY PO Last administered on 08/25/17 08:17; Start 08/19/17 at 09:00 Pravastatin Sodium (Pravachol) 40 mg DAILY PO Last administered on 08/25/17 08 :16; Start 08/19/17 at 09:00 Miscellaneous (Pill Splitter) 1 ea UNSCH PRN OTHER SEE LABEL COMMENTS; Start at 07:45 Tramadol HCl (Ultram) 50 mg Q6H PRN PO PAIN SCALE 4 TO 10 Last administered on 08/25/17 05:25; Start 08/19/17 at 10:30 Influenza Virus Vaccine (Flu (Quadrivalent) Vaccine Inj) 0.5 ml ONCE ONCE IM Last administered on 08/21/17 10:32; Start 08/21/17 at 10:00; Stop 08/21/17 at 10:01; Status DC Midazolam HCl (Versed Inj) 5 mg STK-MED ONCE .ROUTE Last administered on 11:45; Start 08/20/17 at 11:28; Stop 08/20/17 at 11:29; Status DC Fentanyl Citrate (fentaNYL INJ) 200 mcg STK-MED ONCE .ROUTE Last administered on 08/20/17 11:45; Start 08/20/17 at 11:28; Stop 08/20/17 at 11:29; Status DC Levofloxacin/ Dextrose 100 ml @ As Directed STK-MED ONCE IV Last administered on 08/20/17 11:28; Start 08/20/17 at 11:28; Stop 08/20/17 at 11:29; Status DC Iohexol (Omnipaque 350 Inj) 18 ml STK-MED ONCE OTHER Last administered on 12:05; Start 08/20/17 at 12:40; Stop 08/20/17 at 12:41; Status DC Sodium Bicarbonate 100 meq/Dextrose 1,100 ml @ 42 mls/hr Q24H IV Last administered on 08/25/17 04:43; Start 08/20/17 at 21:45 Acetaminophen (Tylenol) 650 mg Q6H PRN PO pain, headaches Last administered on 08/21/17 02:05; Start 08/21/17 at 02:00 Miscellaneous Medication (ASP Crit: Doc ESBL, MDR A baumannii or P aer) 1 UNSCH X1 PRN .XX PHARMACY DOCUMENTATION; Start 08/21/17 at 12:00; Stop 08/22/17 at 11 :59; Status DC Miscellaneous Medication ([facility] Information) 1 UNSCH X1 PRN XX PHARMACY DOCUMENTATION; Start 08/21/17 at 12:00; Stop 08/22/17 at 11:59; Status DC Ertapenem 500 mg/ Sodium Chloride 100 ml @ 200 mls/hr Q24H IV Last administered on 08/23/17 13:52; Start 08/21/17 at 14:00; Stop 08/24/17 at 06:44 ; Status DC Ceftriaxone Sodium 1000 mg/ Sodium Chloride 100 ml @ 200 mls/hr Q24H IV Last administered on 08/23/17 04:20; Start 08/22/17 at 05:00; Stop 08/23/17 at 06:43 ; Status DC Levothyroxine Sodium (Synthroid) 150 mcg DAILY@0600 PO Last administered on 05:22; Start 08/22/17 at 06:00 Clindamycin HCl (Cleocin) 300 mg Q6HR PO Last administered on 08/25/17 05:22; Start 08/23/17 at 06:45 Calcium Carbonate (Tums Chew) 500 mg ONCE ONCE CHEW Last administered on 21:02; Start 08/23/17 at 20:30; Stop 08/23/17 at 20:31; Status DC Ertapenem 500 mg/ Sodium Chloride 100 ml @ 200 mls/hr Q24H IV Last administered on 08/24/17 11:44; Start 08/24/17 at 14:00 Urinary Catheter: Yes Assessment to: Continue Samuels insert reason: Obstruction/Retention A/P Problem List: (1) Cellulitis of both lower extremities ICD Code: L03.115 - Cellulitis of right lower limb; L03.116 - Cellulitis of left lower limb (2) Anemia ICD Code: D64.9 - Anemia, unspecified (3) Acute on chronic renal failure ICD Code: N17.9 - Acute kidney failure, unspecified; N18.9 - Chronic kidney disease, unspecified (4) Diabetes ICD Code: E11.9 - Diabetes Status: Chronic (5) Atrial fibrillation ICD Code: I48.91 - Unspecified atrial fibrillation Status: Chronic (6) Complicated UTI (urinary tract infection) ICD Code: N39.0 - Urinary tract infection, site not specified Status: Acute Assessment and Plan 71-year-old female admitted for acute on chronic renal failure, worsening anemia requiring blood transfusion, cellulitis of bilateral lower extremities. Acute on chronic renal failure: The patient does have a history of obstructive uropathy but she previously had bilateral stent placed. There is persistent hydronephrosis. -Most likely secondary to obstructive uropathy. - Cover Mat Machine Operator consulted appreciate recommendation. - Continue with IV fluid with bicarbonate. -Urologist consulted appreciate recommendations. Urology signed off and stated that patient can follow-up with Dr. Turner as outpatient. -Post right nephrostomy tube placement by IR on 08/20. -Continue a strict ins and outs and avoid nephrotoxins. -Kidney function is slowly improving. HAS RIGHT NEPHROSTOMY TUBE IN PLACE AND SAMUELS CATHETER Worsening anemia: No reports of active bleeding. Anemia may be secondary to chronic kidney disease. -s/p 1 unit of PRBC and hemoglobin is stable. Continue to follow H&H. Bilateral lower extremity cellulitis: Patient has chronic venous stasis. -Cellulitis seems to have resolved. -Rocephin discontinued on 08/23. UTI: Has been recurrent for the patient. - Cultures positive for ESBL. On ertapenem. Infectious disease is following. -Urine cultures also grew Lactobacillus since count > 100,000 clindamycin was started by infectious disease.- TRY OTHER ANTIEMETICS SO SHE WILL TAKE IT -Echo reviewed with the EF is 60-65%. No vegetation noted. History of recent treatment for bacteremia -Pending medical records from [facility] [place]. Atrial fibrillation: -Continue atenolol. Patient reports she was taken off Eliquis temporarily. She was told to resume this medication once approved by her physician. [id number]. - Follow H&H. Would plan to resume this medication if renal functions can tolerate. GI prophylaxis: Stool softener PRN constipation. Decondition. PT is following. Encourage ambulation. DVT PPx: SCDs. AM LABS NEEDS TO TAKE ALL ANTIBIOTICS MONITOR RENAL FUNCTIONS- VERY SLOW IMPROVEMENT Discharge Planning RENAL FUNCTION IMPROVEMENT Santy Cervantes DO Aug 25, 2017 11:11
[2017-08-25] MEDS ORDERED: NALOXONE HCL 0.4 MG/ML AMP IV PUSH PRN (11:15)
[2017-08-25] MEDS ORDERED: LACTULOSE SYRUP 20 GM/30 ML CUP PO PRN (11:15)
[2017-08-25] MEDS ORDERED: PROCHLORPERAZINE 25 MG SUPP RECTAL PRN (11:15)
[2017-08-25] MEDS ORDERED: MAGNESIUM HYDROXIDE SUSP 30 ML CUP PO PRN (11:15)
[2017-08-25] MEDS ORDERED: BISACODYL 10 MG SUPP RECTAL PRN (11:15)
[2017-08-25] MEDS ORDERED: SENNOSIDES 8.6 MG TAB PO PRN (11:15)
[2017-08-25 11:26] VITALS: BP 108/58; PULSE 70; RESP 17; TEMP 96.9; O2SAT 96
[2017-08-25] MEDS: ERTAPENEM INJ 500 MG in SODIUM CHLORIDE 0.9% INJ 100 ML IV SCH (11:32)
--- NOTE | 2017-08-25 11:32 | HHI.NPPN ---
Subjective History of Present Illness 71-year-old female with past medical history of diabetes mellitus, atrial fibrillation, history of recurrent renal stone, history of bilateral stent and following with urology and nephrology at [facility], came with abdominal pain, suprapubic pain and generalized body pain with nausea and vomiting. I was called to see the patient because of very high BUN and creatinine. Additional Remarks Some nausea this morning Review of Systems General Constitutional: Fatigue Cardiovascular Cardiac: Edema, BURGOS Objective Data Data Vital Signs Date Time Temp Pulse Resp B/P (MAP) Pulse Ox O2 Delivery O2 Flow Rate FiO2 08/25/17 11:26 96.9 70 17 108/58 (75) 96 08/25/17 08:00 96.9 64 18 122/63 (82) 98 08/25/17 00:10 97.9 70 17 95/50 (65) 94 08/24/17 20:30 97.4 69 17 103/52 (69) 97 08/24/17 16:26 97.0 73 108/59 (75) 96 08/24/17 11:45 97.0 65 18 101/59 (73) 97 -: 08/25/17 0515 08/25/17 0515 Physical Exam General Appearance: No Acute Distress, Comfortable Eyes Eye Exam: Pupils Equal Throat Throat Exam: Oral Mucosa [place] & Moist Neck Neck Exam: Neck Supple Pulmonary Resp Exam: Clear Bilaterally, Breath Sounds Equal, No Distress, Decreased Bases Cardiology CV Exam: Regular, Normal Sinus Rhythm Gastrointestinal/Abdomen GI Exam: Soft, Non-Tender, Bowel Sounds Present, Distended Extremeties Extremities Exam: Moderate Edema, Pitting Edema Neurologic Neuro Exam: Alert, Awake, Oriented Psychiatric Psych Exam: Appropriate Responses Assessment/Plan Assessment Summary: ANDREA/Acute Renal Failure Problem List: (1) Dehydration ICD Codes: E86.0 - Dehydration Status: Acute (2) Hypothyroidism ICD Codes: E03.9 - Hypothyroidism Status: Chronic (3) Chronic anemia ICD Codes: D64.9 - Chronic anemia Status: Chronic (4) Diabetes ICD Codes: E11.9 - Diabetes Status: Chronic (5) Atrial fibrillation ICD Codes: I48.91 - Unspecified atrial fibrillation Status: Chronic (6) Bilateral hydronephrosis ICD Codes: N13.30 - Unspecified hydronephrosis Status: Acute (7) ANDREA (acute kidney injury) ICD Codes: N17.9 - Acute kidney failure, unspecified Status: Acute Plan Patient has been post Rt. Nephrostomy. Urine out put is adequate - 2.2 L/ 24 hours Creatinine is very slowly improving, continue to monitor. Has underlying Chronic kidney disease, her baseline Creatinine was 2.1-3.0 in March 2015. On IVFs - will stop HCO3 and continue with NS at 70cc/hour. Encouraged PO intake, not eating much. Avoid Nephrotoxins, no need for HD at this time. Her left Kidney is not much functional as per patient. Tonny Payan MD Aug 25, 2017 11:31
[2017-08-25] MEDS: SODIUM CHLOR 0.9% 1000 ML INJ 1,000 ML IV SCH ×2 (12:45→16:30)
[2017-08-25] MEDS: ONDANSETRON INJ 8 MG in DEXTROSE 5% IN WATER INJ 50 ML IV PUSH PRN ×2 (16:30)
[2017-08-25 16:31] VITALS: BP 121/57; PULSE 75; RESP 18; TEMP 96.8; O2SAT 98
[2017-08-25] MEDS ORDERED: ONDANSETRON HCL 4 MG/2 ML VIAL IVP PRN (16:45)
[2017-08-25] MEDS: DOCUSATE SODIUM 50 MG/SENNA 8.6 MG TAB PO SCH (20:44)
[2017-08-25 20:49] VITALS: BP 106/53; PULSE 70; RESP 17; TEMP 97.1; O2SAT 93
[2017-08-26] MEDS: ONDANSETRON INJ 8 MG in DEXTROSE 5% IN WATER INJ 50 ML IV PUSH PRN ×6 (00:01→17:32)
[2017-08-26] MEDS: traMADol HCL 50 MG TAB PO PRN ×3 (00:01→17:33)
[2017-08-26 00:52] VITALS: BP 96/52; PULSE 71; RESP 17; TEMP 97.7; O2SAT 93
[2017-08-26] MEDS: LEVOTHYROXINE SODIUM 150 MCG TAB PO SCH (05:52)
[2017-08-26] MEDS: CLINDAMYCIN 150 MG CAP PO SCH ×2 (06:00)
[2017-08-26 08:00] VITALS: BP 92/59; PULSE 68; RESP 18; TEMP 97; O2SAT 93
[2017-08-26 08:06] LABS: AUTOMATED NEUTROPHIL # 4.6 TH/MM3 (1.8-7.7); BASOPHIL % 0.5 % (0.0-2.0); EOSINOPHIL # 0.3 TH/MM3 (0-0.4); EOSINOPHIL % 4.9 % (0.0-4.0); HEMATOCRIT 25.7 % (35.0-46.0); HEMO FLAGS DIFF FINAL; LYMPH % 15.6 % (9.0-44.0); MEAN CELL VOLUME 86.1 FL (80.0-100.0); MEAN CORPUSCULAR HEMOGLOBIN 28.3 PG (27.0-34.0); MEAN CORPUSCULAR HGB CONC 32.9 % (32.0-36.0); MONO % 9.8 % (0.0-8.0); NEUT % 69.2 % (16.0-70.0); PLATELET COUNT 161 TH/MM3 (150-450); RED BLOOD COUNT 2.98 MIL/MM3 (4.00-5.30); RED CELL DISTRIBUTION WIDTH 18.7 % (11.6-17.2); WHITE BLOOD COUNT 6.7 TH/MM3 (4.0-11.0)
[2017-08-26 08:30] LABS: ANION GAP 7 MEQ/L (5-15); AST (GOT) 15 U/L (15-37); BICARBONATE 29.6 MEQ/L (21.0-32.0); BLOOD UREA NITROGEN 43 MG/DL (7-18); CHLORIDE 104 MEQ/L (98-107); GLOMERULAR FILTRATION RATE 7 ML/MIN (>89); MAGNESIUM 1.2 MG/DL (1.5-2.5); POTASSIUM 3.6 MEQ/L (3.5-5.1); SODIUM (NA) 141 MEQ/L (136-145)
[2017-08-26 08:41] LABS: ALKALINE PHOSPHATASE 106 U/L (45-117); ALT (GPT) LESS THAN 6 U/L (10-53); FREE T4 1.24 NG/DL (0.76-1.46); TOTAL BILIRUBIN ADULT 0.3 MG/DL (0.2-1.0)
[2017-08-26] MEDS: SENNOSIDES 8.6 MG TAB PO PRN (08:45)
[2017-08-26] MEDS: DOCUSATE SODIUM 50 MG/SENNA 8.6 MG TAB PO SCH ×2 (08:45→20:48)
[2017-08-26] MEDS: ALLOPURINOL 100 MG TAB PO SCH (08:45)
[2017-08-26] MEDS: PRAVASTATIN SOD 40 MG TAB PO SCH (08:46)
[2017-08-26] MEDS: ATENOLOL 25 MG TAB PO SCH (08:46)
[2017-08-26] MEDS: SODIUM CHLORIDE 0.9% FLUSH 10 ML FLUSH IV FLUSH SCH ×2 (09:00→20:48)
[2017-08-26 12:00] VITALS: BP 105/52; PULSE 76; RESP 18; TEMP 96.8; O2SAT 98
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
--- NOTE | 2017-08-26 13:41 | HHI.PR ---
Subjective Remarks Follow-up renal failure, UTI. Patient is requesting Tums. Denies chest pain or dyspnea. No nausea or vomiting. Objective Vitals Vital Signs Date Time Temp Pulse Resp B/P (MAP) Pulse Ox O2 Delivery O2 Flow Rate FiO2 08/26/17 08:00 97.0 68 18 92/59 (70) 93 08/26/17 00:52 97.7 71 17 96/52 (67) 93 08/25/17 20:49 97.1 70 17 106/53 (70) 93 08/25/17 16:31 96.8 75 18 121/57 (78) 98 I/O 08/25/17 08/25/17 08/25/17 08/26/17 08/26/17 08/26/17 07:00 15:00 23:00 07:00 15:00 23:00 Intake Total 240 ml 99 ml 1412 ml 240 ml Output Total 25 ml 450 ml 900 ml 575 ml Balance 215 ml -351 ml 512 ml -335 ml Intake Oral 240 ml 240 ml 240 ml IV Total 99 ml 1172 ml Output Urine Total 25 ml 350 ml 25 ml Drainage Total 450 ml 550 ml 550 ml # Bowel Movements 0 0 0 Result Diagram: 08/26/17 0750 08/26/17 0750 Imaging Last Impressions Nephrostomy 08/20/17 0000 Signed Impressions: Service Date/Time: Sunday, August 20, 2017 11:30 - CONCLUSION: Uncomplicated percutaneous nephrostomy as above. Julien Ramos MD Abdomen/Pelvis CT 08/19/17 0216 Signed Impressions: Service Date/Time: Saturday, August 19, 2017 02:51 - CONCLUSION: 1. Compared with April 02 there is placement of a right-sided ureteral stent with persistent moderate right hydronephrosis. There is also moderate left hydronephrosis with renal cortical atrophy and stable left ureteral stent. Nonobstructing calcifications left kidney. 2. Stable large calcified gallstone without biliary ductal dilatation. 3. Stable left-sided ventral hernia containing fat and a loop of small bowel. 4. Bell catheter in bladder. Colin Gilmore MD Chest X-Ray 08/19/17 0054 Signed Impressions: Service Date/Time: Saturday, August 19, 2017 01:07 - CONCLUSION: 1. Mild basilar atelectasis. Cardiomegaly. Colin Gilmore MD Objective Remarks General: Elderly female in no acute distress. Heart: Regular rate and rhythm. No murmur. Lungs: Clear to auscultation bilaterally. No wheezes, rales, or rhonchi. Breathing is nonlabored. Abdomen: Soft, nontender, nondistended. Right nephrostomy tube. Extremities: No lower extremity edema. Psych: Alert and oriented. Procedures 08/20/17 right nephrostomy tube Urinary Catheter: Yes Assessment to: Continue Bell insert reason: Obstruction/Retention Vascular Central Line Catheter: No A/P Problem List: (1) Cellulitis of both lower extremities ICD Code: L03.115 - Cellulitis of right lower limb; L03.116 - Cellulitis of left lower limb (2) Anemia ICD Code: D64.9 - Anemia, unspecified (3) Acute on chronic renal failure ICD Code: N17.9 - Acute kidney failure, unspecified; N18.9 - Chronic kidney disease, unspecified (4) Diabetes ICD Code: E11.9 - Diabetes Status: Chronic (5) Atrial fibrillation ICD Code: I48.91 - Unspecified atrial fibrillation Status: Chronic (6) Complicated UTI (urinary tract infection) ICD Code: N39.0 - Urinary tract infection, site not specified Status: Acute Assessment and Plan 1. Acute renal failure superimposed on chronic kidney disease: Patient has a history of obstructive uropathy. Appreciate nephrology, urology recommendations. Right nephrostomy tube in place. Bell catheter in place. Creatinine trending down. 2. Anemia: No active bleeding. Likely secondary to chronic kidney disease. Status post transfusion 1 unit PRBCs. 3. Bilateral lower extremity cellulitis: Chronic venous stasis changes bilaterally. Cellulitis has resolved. Rocephin discontinued. 4. UTI: Culture positive for ESBL Escherichia coli, lactobacillus. Continue ertapenem, clindamycin per infectious disease recommendations. 5. History of recent bacteremia: Awaiting medical records from hospital in [place]. 2-D echocardiogram shows ejection fraction 60-65% with no apparent vegetation. 6. Atrial fibrillation: Continue atenolol. Patient has been off Eliquis for the last couple weeks. 7. Weakness, deconditioning: Continue physical therapy. Encourage ambulation. 8. DVT prophylaxis: SCDs. Chemical prophylaxis on hold secondary to anemia. Discharge Planning Physical therapy has recommended short-term rehabilitation/SNF placement. Patient states that she does not want to go to rehabilitation and that she will be returning home. She states that there will be somebody to help take care of her. Case management assisting with discharge planning. Wili Chance MD Aug 26, 2017 13:41
[2017-08-26] MEDS: CALCIUM CARBONATE 500 MG CHEWABLE TAB CHEW PRN ×2 (13:50→17:33)
[2017-08-26] MEDS: ERTAPENEM INJ 500 MG in SODIUM CHLORIDE 0.9% INJ 100 ML IV SCH (13:50)
[2017-08-26 16:00] VITALS: BP 113/54; PULSE 68; RESP 18; TEMP 96.8; O2SAT 98
[2017-08-26 16:17] LABS: HEMOGLOBIN A1a 1.3 %; HEMOGLOBIN Ao 82.8 %; HEMOGLOBIN LA1C 2.5 %; HEMOGLOBIN P3 6.5 %
[2017-08-26] MEDS: SODIUM CHLOR 0.9% 1000 ML INJ 1,000 ML IV SCH (17:21)
--- NOTE | 2017-08-26 17:21 | HHI.NPPN ---
Subjective History of Present Illness 71-year-old female with past medical history of diabetes mellitus, atrial fibrillation, history of recurrent renal stone, history of bilateral stent and following with urology and nephrology at [facility], came with abdominal pain, suprapubic pain and generalized body pain with nausea and vomiting. I was called to see the patient because of very high BUN and creatinine. Additional Remarks Patient is alert, no SOB, occ. has nausea, on Zofran, not in distress. Review of Systems General Constitutional: Fatigue Cardiovascular Cardiac: Edema, BURGOS Objective Data Data 08/26/17 08/27/17 19:00 07:00 Intake Total 600 ml Output Total 50 ml Balance 550 ml Intake Oral 600 ml Output Urine Total 50 ml # Bowel Movements 0 Vital Signs Date Time Temp Pulse Resp B/P (MAP) Pulse Ox O2 Delivery O2 Flow Rate FiO2 08/26/17 12:00 96.8 76 18 105/52 (69) 98 08/26/17 08:00 97.0 68 18 92/59 (70) 93 08/26/17 00:52 97.7 71 17 96/52 (67) 93 08/25/17 20:49 97.1 70 17 106/53 (70) 93 -: 08/26/17 0750 08/26/17 0750 Physical Exam General Appearance: No Acute Distress, Comfortable Eyes Eye Exam: Pupils Equal Throat Throat Exam: Oral Mucosa [place] & Moist Neck Neck Exam: Neck Supple Pulmonary Resp Exam: Clear Bilaterally, Breath Sounds Equal, No Distress, Decreased Bases Cardiology CV Exam: Regular, Normal Sinus Rhythm Gastrointestinal/Abdomen GI Exam: Soft, Non-Tender, Bowel Sounds Present, Distended Extremeties Extremities Exam: Moderate Edema, Pitting Edema Neurologic Neuro Exam: Alert, Awake, Oriented Psychiatric Psych Exam: Appropriate Responses Assessment/Plan Assessment Summary: ANDREA/Acute Renal Failure Problem List: (1) Dehydration ICD Codes: E86.0 - Dehydration Status: Acute (2) Hypothyroidism ICD Codes: E03.9 - Hypothyroidism Status: Chronic (3) Chronic anemia ICD Codes: D64.9 - Chronic anemia Status: Chronic (4) Diabetes ICD Codes: E11.9 - Diabetes Status: Chronic (5) Atrial fibrillation ICD Codes: I48.91 - Unspecified atrial fibrillation Status: Chronic (6) Bilateral hydronephrosis ICD Codes: N13.30 - Unspecified hydronephrosis Status: Acute (7) ANDREA (acute kidney injury) ICD Codes: N17.9 - Acute kidney failure, unspecified Status: Acute Plan Patient has been post Rt. Nephrostomy. Urine out put is adequate. Creatinine is very slowly improving. Has underlying Chronic kidney disease, her baseline Creatinine was 2.1-3.0 in March 2015. Now the Creatinine is 5.9, slowly improving. Continue the IVF. Avoid Nephrotoxins. Her left Kidney is not much functional as per patient. Follow the urine out put and BMP. Encourage oral intake and continue IVF. Nely Lopez MD Aug 26, 2017 17:21
[2017-08-26 19:50] VITALS: BP 99/51; PULSE 71; RESP 18; TEMP 96.7; O2SAT 95
[2017-08-26 23:58] VITALS: BP 106/53; PULSE 77; RESP 18; TEMP 97.4; O2SAT 93
[2017-08-27] VITALS (7 sets, daily range): BP systolic 107–125; BP diastolic 53–58; PULSE 71–86; RESP 18; TEMP 95.9–97.9; O2SAT 94–97
[2017-08-27] MEDS: traMADol HCL 50 MG TAB PO PRN ×2 (04:00→16:27)
[2017-08-27] MEDS: ONDANSETRON INJ 8 MG in DEXTROSE 5% IN WATER INJ 50 ML IV PUSH PRN ×4 (04:25→16:32)
[2017-08-27] MEDS: LEVOTHYROXINE SODIUM 25 MCG TAB PO SCH (05:32)
[2017-08-27] MEDS: LEVOTHYROXINE SODIUM 150 MCG TAB PO SCH (05:32)
[2017-08-27] MEDS: SODIUM CHLOR 0.9% 1000 ML INJ 1,000 ML IV SCH ×2 (06:03→21:03)
[2017-08-27] MEDS: PRAVASTATIN SOD 40 MG TAB PO SCH (08:23)
[2017-08-27] MEDS: ATENOLOL 25 MG TAB PO SCH (08:23)
[2017-08-27] MEDS: DOCUSATE SODIUM 50 MG/SENNA 8.6 MG TAB PO SCH ×2 (08:24→21:00)
[2017-08-27] MEDS: ALLOPURINOL 100 MG TAB PO SCH (08:24)
[2017-08-27] MEDS: SODIUM CHLORIDE 0.9% FLUSH 10 ML FLUSH IV FLUSH SCH ×2 (08:24→21:03)
[2017-08-27 10:04] LABS: AUTOMATED NEUTROPHIL # 4.9 TH/MM3 (1.8-7.7); BASOPHIL % 0.5 % (0.0-2.0); EOSINOPHIL # 0.4 TH/MM3 (0-0.4); EOSINOPHIL % 5.7 % (0.0-4.0); HEMATOCRIT 25.2 % (35.0-46.0); LYMPH % 13.2 % (9.0-44.0); LYMPHOCYTE # 0.9 TH/MM3 (1.0-4.8); MEAN CORPUSCULAR HEMOGLOBIN 27.8 PG (27.0-34.0); MONO % 9.3 % (0.0-8.0); NEUT % 71.3 % (16.0-70.0); PLATELET COUNT 169 TH/MM3 (150-450); RED CELL DISTRIBUTION WIDTH 18.4 % (11.6-17.2); WHITE BLOOD COUNT 6.9 TH/MM3 (4.0-11.0)
[2017-08-27 10:07] LABS: HEMO FLAGS AUTO DIFF
[2017-08-27 10:50] LABS: BANDS 2 % (0-6); EOSINOPHILS 3 % (0-4); MYELOCYTES 1 % (0-0); NEUTROPHIL # MANUAL DIFF 5.7 TH/MM3 (1.8-7.7); POLYS (SEG NEUTROPHILS) 79 % (16-70); WBC DIFF SAMPLE 100
[2017-08-27 10:51] LABS: BICARBONATE 29.3 MEQ/L (21.0-32.0); POTASSIUM 3.8 MEQ/L (3.5-5.1); TOXIC GRANULATION 1+ (NORMAL)
[2017-08-27 10:52] LABS: OVALOCYTES 1+ (NORMAL); SCAN/DIFF FINAL DIFF MANUAL
--- NOTE | 2017-08-27 12:40 | HHI.NPPN ---
Subjective History of Present Illness 71-year-old female with past medical history of diabetes mellitus, atrial fibrillation, history of recurrent renal stone, history of bilateral stent and following with urology and nephrology at [facility], came with abdominal pain, suprapubic pain and generalized body pain with nausea and vomiting. I was called to see the patient because of very high BUN and creatinine. Additional Remarks Patient is alert, no SOB, nausea is better, want to eat more. Review of Systems General Constitutional: Fatigue Cardiovascular Cardiac: Edema, BURGOS Objective Data Data Vital Signs Date Time Temp Pulse Resp B/P (MAP) Pulse Ox O2 Delivery O2 Flow Rate FiO2 08/27/17 12:00 95.9 78 18 109/55 (73) 94 08/27/17 08:00 96.6 75 18 107/58 (74) 94 08/27/17 03:01 97.9 78 18 123/55 (77) 95 08/26/17 23:58 97.4 77 18 106/53 (70) 93 08/26/17 19:50 96.7 71 18 99/51 (67) 95 08/26/17 16:00 96.8 68 18 113/54 (73) 98 -: 08/27/17 0927 08/27/17 0927 Physical Exam General Appearance: No Acute Distress, Comfortable Eyes Eye Exam: Pupils Equal Throat Throat Exam: Oral Mucosa [place] & Moist Neck Neck Exam: Neck Supple Pulmonary Resp Exam: Clear Bilaterally, Breath Sounds Equal, No Distress, Decreased Bases Cardiology CV Exam: Regular, Normal Sinus Rhythm Gastrointestinal/Abdomen GI Exam: Soft, Non-Tender, Bowel Sounds Present, Distended Extremeties Extremities Exam: Moderate Edema, Pitting Edema Neurologic Neuro Exam: Alert, Awake, Oriented Psychiatric Psych Exam: Appropriate Responses Assessment/Plan Assessment Summary: ANDREA/Acute Renal Failure Problem List: (1) Dehydration ICD Codes: E86.0 - Dehydration Status: Acute (2) Hypothyroidism ICD Codes: E03.9 - Hypothyroidism Status: Chronic (3) Chronic anemia ICD Codes: D64.9 - Chronic anemia Status: Chronic (4) Diabetes ICD Codes: E11.9 - Diabetes Status: Chronic (5) Atrial fibrillation ICD Codes: I48.91 - Unspecified atrial fibrillation Status: Chronic (6) Bilateral hydronephrosis ICD Codes: N13.30 - Unspecified hydronephrosis Status: Acute (7) ANDREA (acute kidney injury) ICD Codes: N17.9 - Acute kidney failure, unspecified Status: Acute Plan Patient has been post Rt. Nephrostomy. Urine out put is adequate. Creatinine is very slowly improving. Has underlying Chronic kidney disease, her baseline Creatinine was 2.1-3.0 in March 2015. Now the Creatinine is 5.1, slowly improving. K is normal. Continue the IVF. Avoid Nephrotoxins. Her left Kidney is not much functional as per patient. Follow the urine out put and BMP. Change diet to Heart Healthy. Nely Lopez MD Aug 27, 2017 12:39
--- NOTE | 2017-08-27 13:31 | HHI.PR ---
Subjective Remarks Follow-up renal failure, UTI. Patient states that she feels a little better today. Feels that she is getting stronger. Denies chest pain or dyspnea. Objective Vitals Vital Signs Date Time Temp Pulse Resp B/P (MAP) Pulse Ox O2 Delivery O2 Flow Rate FiO2 08/27/17 12:00 95.9 78 18 109/55 (73) 94 08/27/17 08:00 96.6 75 18 107/58 (74) 94 08/27/17 03:01 97.9 78 18 123/55 (77) 95 08/26/17 23:58 97.4 77 18 106/53 (70) 93 08/26/17 19:50 96.7 71 18 99/51 (67) 95 08/26/17 16:00 96.8 68 18 113/54 (73) 98 I/O 08/26/17 08/26/17 08/26/17 08/27/17 08/27/17 08/27/17 07:00 15:00 23:00 07:00 15:00 23:00 Intake Total 240 ml 600 ml 480 ml 534 ml Output Total 575 ml 50 ml 450 ml 475 ml Balance -335 ml 550 ml 30 ml 59 ml Intake Oral 240 ml 600 ml 480 ml 480 ml IV Total 54 ml Output Urine Total 25 ml 50 ml 50 ml 75 ml Drainage Total 550 ml 400 ml 400 ml # Bowel Movements 0 0 1 2 Result Diagram: 08/27/1792608/27/17926 Imaging Last Impressions Nephrostomy 08/20/17 0000 Signed Impressions: Service Date/Time: Sunday, August 20, 2017 11:30 - CONCLUSION: Uncomplicated percutaneous nephrostomy as above. Julien Ramos MD Abdomen/Pelvis CT 08/19/17 0216 Signed Impressions: Service Date/Time: Saturday, August 19, 2017 02:51 - CONCLUSION: 1. Compared with April 02 there is placement of a right-sided ureteral stent with persistent moderate right hydronephrosis. There is also moderate left hydronephrosis with renal cortical atrophy and stable left ureteral stent. Nonobstructing calcifications left kidney. 2. Stable large calcified gallstone without biliary ductal dilatation. 3. Stable left-sided ventral hernia containing fat and a loop of small bowel. 4. Bell catheter in bladder. Colin Gilmore MD Chest X-Ray 08/19/17 0054 Signed Impressions: Service Date/Time: Saturday, August 19, 2017 01:07 - CONCLUSION: 1. Mild basilar atelectasis. Cardiomegaly. Colin Gilmore MD Objective Remarks General: Elderly female in no acute distress. Sitting up in a chair. Heart: Regular rate and rhythm. No murmur. Lungs: Clear to auscultation bilaterally. No wheezes, rales, or rhonchi. Breathing is nonlabored. Abdomen: Soft, nontender, nondistended. Right nephrostomy tube. Extremities: No lower extremity edema. Psych: Alert and oriented. Procedures 08/20/17 right nephrostomy tube Urinary Catheter: Yes Assessment to: Continue Bell insert reason: Obstruction/Retention Vascular Central Line Catheter: No A/P Problem List: (1) Cellulitis of both lower extremities ICD Code: L03.115 - Cellulitis of right lower limb; L03.116 - Cellulitis of left lower limb (2) Anemia ICD Code: D64.9 - Anemia, unspecified (3) Acute on chronic renal failure ICD Code: N17.9 - Acute kidney failure, unspecified; N18.9 - Chronic kidney disease, unspecified (4) Diabetes ICD Code: E11.9 - Diabetes Status: Chronic (5) Atrial fibrillation ICD Code: I48.91 - Unspecified atrial fibrillation Status: Chronic (6) Complicated UTI (urinary tract infection) ICD Code: N39.0 - Urinary tract infection, site not specified Status: Acute Assessment and Plan 1. Acute renal failure superimposed on chronic kidney disease: Patient has a history of obstructive uropathy. Appreciate nephrology, urology recommendations. Right nephrostomy tube in place. Bell catheter in place. Creatinine trending down slowly. 2. Anemia: No active bleeding. Likely secondary to chronic kidney disease. Status post transfusion of 1 unit PRBCs. 3. Bilateral lower extremity cellulitis: Chronic venous stasis changes bilaterally. Cellulitis has resolved. Rocephin discontinued. 4. UTI: Culture positive for ESBL Escherichia coli, lactobacillus. Continue ertapenem, clindamycin per infectious disease recommendations. 5. History of recent bacteremia: Awaiting medical records from hospital in [place]. 2-D echocardiogram shows ejection fraction 60-65% with no apparent vegetation. 6. Atrial fibrillation: Continue atenolol. Patient has been off Eliquis for the last couple weeks. 7. Weakness, deconditioning: Continue physical therapy. Encourage ambulation. Patient feels a little stronger today. 8. DVT prophylaxis: SCDs. Chemical prophylaxis on hold secondary to anemia. Discharge Planning Physical therapy has recommended short-term rehabilitation/SNF placement. Patient states that she does not want to go to rehabilitation and that she will be returning home. She states that there will be somebody to help take care of her. Case management assisting with discharge planning. Wili Chance MD Aug 27, 2017 13:31
[2017-08-27] MEDS: ERTAPENEM INJ 500 MG in SODIUM CHLORIDE 0.9% INJ 100 ML IV SCH (14:16)
[2017-08-28] MEDS: ONDANSETRON INJ 8 MG in DEXTROSE 5% IN WATER INJ 50 ML IV PUSH PRN ×4 (00:59→11:26)
[2017-08-28] MEDS: traMADol HCL 50 MG TAB PO PRN ×3 (00:59→20:49)
[2017-08-28] MEDS: LEVOTHYROXINE SODIUM 25 MCG TAB PO SCH (04:44)
[2017-08-28] MEDS: LEVOTHYROXINE SODIUM 150 MCG TAB PO SCH (04:44)
[2017-08-28 08:00] VITALS: BP 114/54; PULSE 74; RESP 18; TEMP 96.6; O2SAT 94
[2017-08-28] MEDS: SODIUM CHLORIDE 0.9% FLUSH 10 ML FLUSH IV FLUSH SCH ×2 (09:00→20:49)
[2017-08-28] MEDS: DOCUSATE SODIUM 50 MG/SENNA 8.6 MG TAB PO SCH ×2 (09:00→20:49)
[2017-08-28] MEDS: PRAVASTATIN SOD 40 MG TAB PO SCH (09:16)
[2017-08-28] MEDS: ALLOPURINOL 100 MG TAB PO SCH (09:16)
[2017-08-28] MEDS: ATENOLOL 25 MG TAB PO SCH (09:18)
--- NOTE | 2017-08-28 10:47 | HHI.PR ---
Subjective Remarks Follow up renal failure, UTI. Patient has no complaints at this time. States that she still feels weak. No chest pain, dyspnea. Objective Vitals Vital Signs Date Time Temp Pulse Resp B/P (MAP) Pulse Ox O2 Delivery O2 Flow Rate FiO2 08/27/17 23:00 97.1 86 18 125/58 (80) 95 08/27/17 19:31 97.7 71 18 107/53 (71) 95 08/27/17 18:29 97 08/27/17 15:30 97.3 75 18 109/53 (71) 97 08/27/17 12:00 95.9 78 18 109/55 (73) 94 I/O 08/27/17 08/27/17 08/27/17 08/28/17 08/28/17 08/28/17 07:00 15:00 23:00 07:00 15:00 23:00 Intake Total 534 ml 600 ml 480 ml 290 ml Output Total 475 ml 50 ml 975 ml 575 ml Balance 59 ml 550 ml -495 ml -285 ml Intake Oral 480 ml 600 ml 480 ml 240 ml IV Total 54 ml 50 ml Output Urine Total 75 ml 50 ml 50 ml 25 ml Drainage Total 400 ml 925 ml 550 ml # Bowel Movements 2 2 0 0 Result Diagram: 08/27/1792608/27/17926 Imaging Last Impressions Nephrostomy 08/20/17 0000 Signed Impressions: Service Date/Time: Sunday, August 20, 2017 11:30 - CONCLUSION: Uncomplicated percutaneous nephrostomy as above. Julien Ramos MD Abdomen/Pelvis CT 08/19/17 0216 Signed Impressions: Service Date/Time: Saturday, August 19, 2017 02:51 - CONCLUSION: 1. Compared with April 02 there is placement of a right-sided ureteral stent with persistent moderate right hydronephrosis. There is also moderate left hydronephrosis with renal cortical atrophy and stable left ureteral stent. Nonobstructing calcifications left kidney. 2. Stable large calcified gallstone without biliary ductal dilatation. 3. Stable left-sided ventral hernia containing fat and a loop of small bowel. 4. Bell catheter in bladder. Colin Gilmore MD Chest X-Ray 08/19/17 0054 Signed Impressions: Service Date/Time: Saturday, August 19, 2017 01:07 - CONCLUSION: 1. Mild basilar atelectasis. Cardiomegaly. Colin Gilmore MD Objective Remarks General: Elderly female in no acute distress. Heart: Regular rate and rhythm. No murmur. Lungs: Clear to auscultation bilaterally. No wheezes, rales, or rhonchi. Breathing is nonlabored. Abdomen: Soft, nontender, nondistended. Right nephrostomy tube. Extremities: No lower extremity edema. Psych: Alert and oriented. Procedures 08/20/17 right nephrostomy tube Urinary Catheter: Yes Assessment to: Continue Bell insert reason: Obstruction/Retention Vascular Central Line Catheter: No A/P Problem List: (1) Cellulitis of both lower extremities ICD Code: L03.115 - Cellulitis of right lower limb; L03.116 - Cellulitis of left lower limb (2) Anemia ICD Code: D64.9 - Anemia, unspecified (3) Acute on chronic renal failure ICD Code: N17.9 - Acute kidney failure, unspecified; N18.9 - Chronic kidney disease, unspecified (4) Diabetes ICD Code: E11.9 - Diabetes Status: Chronic (5) Atrial fibrillation ICD Code: I48.91 - Unspecified atrial fibrillation Status: Chronic (6) Complicated UTI (urinary tract infection) ICD Code: N39.0 - Urinary tract infection, site not specified Status: Acute Assessment and Plan 1. Acute renal failure superimposed on chronic kidney disease: Patient has a history of obstructive uropathy. Appreciate nephrology, urology recommendations. Right nephrostomy tube in place. Bell catheter in place. Creatinine trending down slowly. Labs are pending today. 2. Anemia: No active bleeding. Likely secondary to chronic kidney disease. Status post transfusion of 1 unit PRBCs. Labs are pending today. 3. Bilateral lower extremity cellulitis: Chronic venous stasis changes bilaterally. Cellulitis has resolved. Rocephin discontinued. 4. UTI: Culture positive for ESBL Escherichia coli, lactobacillus. Continue ertapenem, clindamycin per infectious disease recommendations. 5. History of recent bacteremia: Awaiting medical records from hospital in [place]. 2-D echocardiogram shows ejection fraction 60-65% with no apparent vegetation. 6. Atrial fibrillation: Continue atenolol. Patient has been off Eliquis for the last couple weeks. 7. Weakness, deconditioning: Continue physical therapy. Encourage ambulation. Patient encouraged to be more active and increase work with PT. 8. DVT prophylaxis: SCDs. Chemical prophylaxis on hold secondary to anemia. Discharge Planning Physical therapy has recommended short-term rehabilitation/SNF placement. Patient states that she does not want to go to rehabilitation and that she will be returning home. She states that there will be somebody to help take care of her. Case management assisting with discharge planning. Wili Chance MD Aug 28, 2017 10:47
[2017-08-28] MEDS: SODIUM CHLOR 0.9% 1000 ML INJ 1,000 ML IV SCH ×2 (11:23→20:48)
[2017-08-28 12:00] VITALS: BP 125/64; PULSE 81; RESP 17; TEMP 97; O2SAT 96
--- NOTE | 2017-08-28 13:05 | HHI.NPPN ---
Subjective History of Present Illness 71-year-old female with past medical history of diabetes mellitus, atrial fibrillation, history of recurrent renal stone, history of bilateral stent and following with urology and nephrology at [facility], came with abdominal pain, suprapubic pain and generalized body pain with nausea and vomiting. I was called to see the patient because of very high BUN and creatinine. Additional Remarks Patient is alert, no SOB, now eating better, no abd. pain. Review of Systems General Constitutional: Fatigue Cardiovascular Cardiac: Edema, BURGOS Objective Data Data Vital Signs Date Time Temp Pulse Resp B/P (MAP) Pulse Ox O2 Delivery O2 Flow Rate FiO2 08/28/17 08:00 96.6 74 18 114/54 (74) 94 08/27/17 23:00 97.1 86 18 125/58 (80) 95 08/27/17 19:31 97.7 71 18 107/53 (71) 95 08/27/17 18:29 97 08/27/17 15:30 97.3 75 18 109/53 (71) 97 -: 08/27/17 0927 08/27/17 0927 Physical Exam General Appearance: No Acute Distress, Comfortable Eyes Eye Exam: Pupils Equal Throat Throat Exam: Oral Mucosa [place] & Moist Neck Neck Exam: Neck Supple Pulmonary Resp Exam: Clear Bilaterally, Breath Sounds Equal, No Distress, Decreased Bases Cardiology CV Exam: Regular, Normal Sinus Rhythm Gastrointestinal/Abdomen GI Exam: Soft, Non-Tender, Bowel Sounds Present, Distended Extremeties Extremities Exam: Moderate Edema, Pitting Edema Neurologic Neuro Exam: Alert, Awake, Oriented Psychiatric Psych Exam: Appropriate Responses Assessment/Plan Assessment Summary: ANDREA/Acute Renal Failure Problem List: (1) Dehydration ICD Codes: E86.0 - Dehydration Status: Acute (2) Hypothyroidism ICD Codes: E03.9 - Hypothyroidism Status: Chronic (3) Chronic anemia ICD Codes: D64.9 - Chronic anemia Status: Chronic (4) Diabetes ICD Codes: E11.9 - Diabetes Status: Chronic (5) Atrial fibrillation ICD Codes: I48.91 - Unspecified atrial fibrillation Status: Chronic (6) Bilateral hydronephrosis ICD Codes: N13.30 - Unspecified hydronephrosis Status: Acute (7) ANDREA (acute kidney injury) ICD Codes: N17.9 - Acute kidney failure, unspecified Status: Acute Plan Patient has been post Rt. Nephrostomy. Urine out put is adequate. Creatinine is very slowly improving. Has underlying Chronic kidney disease, her baseline Creatinine was 2.1-3.0 in March 2015. Now the Creatinine is 5.1, done yesterday, now new BMP. Continue the IVF. Avoid Nephrotoxins. Her left Kidney is not much functional as per patient. Follow the urine out put and BMP. Nely Lopez MD Aug 28, 2017 13:05
[2017-08-28] MEDS: ERTAPENEM INJ 500 MG in SODIUM CHLORIDE 0.9% INJ 100 ML IV SCH (13:51)
[2017-08-28 16:23] VITALS: BP 105/54; PULSE 72; RESP 17; TEMP 97.9; O2SAT 97
[2017-08-28 19:30] VITALS: BP 101/53; PULSE 78; RESP 18; TEMP 97.4; O2SAT 98
[2017-08-29] VITALS: BP 98/67; PULSE 76; RESP 16; TEMP 98.2; O2SAT 96
[2017-08-29] MEDS: LEVOTHYROXINE SODIUM 25 MCG TAB PO SCH (05:13)
[2017-08-29] MEDS: LEVOTHYROXINE SODIUM 150 MCG TAB PO SCH (05:13)
[2017-08-29 08:00] VITALS: BP 108/52; PULSE 72; RESP 18; TEMP 97.7; O2SAT 95
[2017-08-29 08:07] LABS: AUTOMATED NEUTROPHIL # 4.5 TH/MM3 (1.8-7.7); BASOPHIL % 0.7 % (0.0-2.0); EOSINOPHIL # 0.3 TH/MM3 (0-0.4); EOSINOPHIL % 4.6 % (0.0-4.0); LYMPH % 17.1 % (9.0-44.0); LYMPHOCYTE # 1.1 TH/MM3 (1.0-4.8); MEAN CELL VOLUME 87.7 FL (80.0-100.0); MEAN CORPUSCULAR HEMOGLOBIN 28.1 PG (27.0-34.0); MEAN CORPUSCULAR HGB CONC 32.1 % (32.0-36.0); MONO % 7.5 % (0.0-8.0); NEUT % 70.1 % (16.0-70.0); PLATELET COUNT 152 TH/MM3 (150-450); RED BLOOD COUNT 2.73 MIL/MM3 (4.00-5.30); RED CELL DISTRIBUTION WIDTH 18.4 % (11.6-17.2); WHITE BLOOD COUNT 6.4 TH/MM3 (4.0-11.0)
[2017-08-29 08:20] LABS: HEMO FLAGS AUTO DIFF
[2017-08-29] MEDS: ALLOPURINOL 100 MG TAB PO SCH (08:30)
[2017-08-29] MEDS: ATENOLOL 25 MG TAB PO SCH (08:30)
[2017-08-29] MEDS: PRAVASTATIN SOD 40 MG TAB PO SCH (08:30)
[2017-08-29 08:31] LABS: BICARBONATE 27.8 MEQ/L (21.0-32.0); POTASSIUM 3.3 MEQ/L (3.5-5.1)
[2017-08-29] MEDS: SODIUM CHLORIDE 0.9% FLUSH 10 ML FLUSH IV FLUSH SCH ×2 (09:00→21:00)
[2017-08-29] MEDS: DOCUSATE SODIUM 50 MG/SENNA 8.6 MG TAB PO SCH ×2 (09:00→21:00)
[2017-08-29 09:11] LABS: CALCIUM-PROTEIN CORRECTED 8.2 MG/DL (8.5-10.1)
[2017-08-29 10:07] LABS: SCAN/DIFF AUTO DIFF CONFIRMED
[2017-08-29 12:00] VITALS: BP 108/53; PULSE 87; RESP 18; TEMP 97.6; O2SAT 95
[2017-08-29] MEDS: ERTAPENEM INJ 500 MG in SODIUM CHLORIDE 0.9% INJ 100 ML IV SCH (13:06)
[2017-08-29] MEDS: traMADol HCL 50 MG TAB PO PRN (13:11)
[2017-08-29] MEDS: ACETAMINOPHEN 325 MG TAB PO PRN (13:19)
--- NOTE | 2017-08-29 14:56 | HHI.PR ---
Subjective Remarks Follow-up renal failure, general weakness. Patient states that she feels a lot better today. She is feeling stronger. Denies chest pain or dyspnea. No nausea, vomiting, diarrhea, constipation. Objective Vitals Vital Signs Date Time Temp Pulse Resp B/P (MAP) Pulse Ox O2 Delivery O2 Flow Rate FiO2 08/29/17 12:00 97.6 87 18 108/53 (71) 95 08/29/17 08:00 97.7 72 18 108/52 (70) 95 08/29/17 00:00 98.2 76 16 98/67 (77) 96 08/28/17 19:30 97.4 78 18 101/53 (69) 98 08/28/17 16:23 97.9 72 17 105/54 (71) 97 I/O 08/28/17 08/28/17 08/28/17 08/29/17 08/29/17 08/29/17 07:00 15:00 23:00 07:00 15:00 23:00 Intake Total 290 ml 480 ml 1528 ml 1067 ml Output Total 575 ml 400 ml 825 ml 1025 ml Balance -285 ml 80 ml 703 ml 42 ml Intake Oral 240 ml 480 ml 480 ml 480 ml IV Total 50 ml 1048 ml 587 ml Output Urine Total 25 ml 400 ml 450 ml Drainage Total 550 ml 825 ml 575 ml # Voids 1 # Bowel Movements 0 1 0 1 Result Diagram: 08/29/1730 08/29/17 0730 Imaging Last Impressions Nephrostomy 08/20/17 0000 Signed Impressions: Service Date/Time: Sunday, August 20, 2017 11:30 - CONCLUSION: Uncomplicated percutaneous nephrostomy as above. Julien Ramos MD Abdomen/Pelvis CT 08/19/17 0216 Signed Impressions: Service Date/Time: Saturday, August 19, 2017 02:51 - CONCLUSION: 1. Compared with April 02 there is placement of a right-sided ureteral stent with persistent moderate right hydronephrosis. There is also moderate left hydronephrosis with renal cortical atrophy and stable left ureteral stent. Nonobstructing calcifications left kidney. 2. Stable large calcified gallstone without biliary ductal dilatation. 3. Stable left-sided ventral hernia containing fat and a loop of small bowel. 4. Bell catheter in bladder. Colin Gilmore MD Chest X-Ray 08/19/17 0054 Signed Impressions: Service Date/Time: Saturday, August 19, 2017 01:07 - CONCLUSION: 1. Mild basilar atelectasis. Cardiomegaly. Colin Gilmore MD Objective Remarks General: Elderly female in no acute distress. Heart: Regular rate and rhythm. No murmur. Lungs: Clear to auscultation bilaterally. No wheezes, rales, or rhonchi. Breathing is nonlabored. Abdomen: Soft, nontender, nondistended. Right nephrostomy tube. Extremities: No lower extremity edema. Psych: Alert and oriented. Procedures 08/20/17 right nephrostomy tube Urinary Catheter: Yes Assessment to: Continue Bell insert reason: Obstruction/Retention Vascular Central Line Catheter: No A/P Problem List: (1) Cellulitis of both lower extremities ICD Code: L03.115 - Cellulitis of right lower limb; L03.116 - Cellulitis of left lower limb (2) Anemia ICD Code: D64.9 - Anemia, unspecified (3) Acute on chronic renal failure ICD Code: N17.9 - Acute kidney failure, unspecified; N18.9 - Chronic kidney disease, unspecified (4) Diabetes ICD Code: E11.9 - Diabetes Status: Chronic (5) Atrial fibrillation ICD Code: I48.91 - Unspecified atrial fibrillation Status: Chronic (6) Complicated UTI (urinary tract infection) ICD Code: N39.0 - Urinary tract infection, site not specified Status: Acute Assessment and Plan 1. Acute renal failure superimposed on chronic kidney disease: Patient has a history of obstructive uropathy. Appreciate nephrology, urology recommendations. Right nephrostomy tube in place. Bell catheter in place. Creatinine continues to improve. Recheck labs morning. 2. Anemia: No active bleeding. Likely secondary to chronic kidney disease. Status post transfusion of 1 unit PRBCs. H&H is decreasing. Recheck later today. 3. Bilateral lower extremity cellulitis: Chronic venous stasis changes bilaterally. Cellulitis has resolved. Rocephin discontinued. 4. UTI: Culture positive for ESBL Escherichia coli, lactobacillus. Continue ertapenem, clindamycin per infectious disease recommendations. 5. History of recent bacteremia: Awaiting medical records from hospital in [place]. 2-D echocardiogram shows ejection fraction 60-65% with no apparent vegetation. 6. Atrial fibrillation: Continue atenolol. Patient has been off Eliquis for the last couple weeks. 7. Weakness, deconditioning: Continue physical therapy. Encourage ambulation. Patient encouraged to be more active and increase work with PT. 8. DVT prophylaxis: SCDs. Chemical prophylaxis on hold secondary to anemia. Discharge Planning Physical therapy has recommended short-term rehabilitation/SNF placement. Patient states that she does not want to go to rehabilitation and that she will be returning home. She states that there will be somebody to help take care of her. Case management assisting with discharge planning. Plan for discharge when cleared by nephrology and when patient is stable to go home with home health care. Wili Chance MD Aug 29, 2017 14:56
[2017-08-29 16:00] VITALS: BP 107/55; PULSE 66; RESP 17; TEMP 97.3; O2SAT 97
[2017-08-29] MEDS: NS + KCL 20 MEQ INJ 1,000 ML IV SCH (18:39)
[2017-08-29 20:00] VITALS: BP 102/54; PULSE 68; RESP 16; TEMP 97.8; O2SAT 97
[2017-08-29 21:19] LABS: HEMATOCRIT 24.7 % (35.0-46.0); REVIEW FLAG FINAL
--- NOTE | 2017-08-29 21:44 | HHI.NPPN ---
Subjective History of Present Illness 71-year-old female with past medical history of diabetes mellitus, atrial fibrillation, history of recurrent renal stone, history of bilateral stent and following with urology and nephrology at [facility], came with abdominal pain, suprapubic pain and generalized body pain with nausea and vomiting. I was called to see the patient because of very high BUN and creatinine. Additional Remarks Patient is alert, no SOB, not in distress. Review of Systems General Constitutional: Fatigue Cardiovascular Cardiac: Edema, BURGOS Objective Data Data 08/29/17 08/30/17 19:00 07:00 Intake Total 960 ml Output Total 250 ml Balance 710 ml Intake Oral 400 ml IV Total 560 ml Output Urine Total 250 ml # Bowel Movements 0 Vital Signs Date Time Temp Pulse Resp B/P (MAP) Pulse Ox O2 Delivery O2 Flow Rate FiO2 08/29/17 16:00 97.3 66 17 107/55 (72) 97 08/29/17 12:00 97.6 87 18 108/53 (71) 95 08/29/17 08:00 97.7 72 18 108/52 (70) 95 08/29/17 00:00 98.2 76 16 98/67 (77) 96 -: 08/29/17 2040 08/29/17 0730 Physical Exam General Appearance: No Acute Distress, Comfortable Eyes Eye Exam: Pupils Equal Throat Throat Exam: Oral Mucosa [place] & Moist Neck Neck Exam: Neck Supple Pulmonary Resp Exam: Clear Bilaterally, Breath Sounds Equal, No Distress, Decreased Bases Cardiology CV Exam: Regular, Normal Sinus Rhythm Gastrointestinal/Abdomen GI Exam: Soft, Non-Tender, Bowel Sounds Present, Distended Extremeties Extremities Exam: Moderate Edema, Pitting Edema Neurologic Neuro Exam: Alert, Awake, Oriented Psychiatric Psych Exam: Appropriate Responses Assessment/Plan Assessment Summary: ANDREA/Acute Renal Failure Problem List: (1) Dehydration ICD Codes: E86.0 - Dehydration Status: Acute (2) Hypothyroidism ICD Codes: E03.9 - Hypothyroidism Status: Chronic (3) Chronic anemia ICD Codes: D64.9 - Chronic anemia Status: Chronic (4) Diabetes ICD Codes: E11.9 - Diabetes Status: Chronic (5) Atrial fibrillation ICD Codes: I48.91 - Unspecified atrial fibrillation Status: Chronic (6) Bilateral hydronephrosis ICD Codes: N13.30 - Unspecified hydronephrosis Status: Acute (7) ANDREA (acute kidney injury) ICD Codes: N17.9 - Acute kidney failure, unspecified Status: Acute Plan Patient has been post Rt. Nephrostomy. Has underlying Chronic kidney disease, her baseline Creatinine was 2.1-3.0 in March 2015. Now the Creatinine is 5.1, done yesterday, now new BMP. Continue the IVF. Avoid Nephrotoxins. Her left Kidney is not much functional as per patient. Urine out put is adequate. Creatinine continue to improve. Nely Lopez MD Aug 29, 2017 21:44
[2017-08-30] VITALS: BP 93/58; PULSE 72; RESP 17; TEMP 97.7; O2SAT 98
[2017-08-30] MEDS: LEVOTHYROXINE SODIUM 150 MCG TAB PO SCH (06:08)
[2017-08-30] MEDS: LEVOTHYROXINE SODIUM 25 MCG TAB PO SCH (06:08)
[2017-08-30] MEDS: traMADol HCL 50 MG TAB PO PRN ×3 (06:11→21:49)
[2017-08-30 07:05] LABS: AUTOMATED NEUTROPHIL # 3.8 TH/MM3 (1.8-7.7); BASOPHIL % 0.4 % (0.0-2.0); EOSINOPHIL # 0.3 TH/MM3 (0-0.4); EOSINOPHIL % 4.9 % (0.0-4.0); HEMATOCRIT 23.6 % (35.0-46.0); LYMPH % 18.8 % (9.0-44.0); LYMPHOCYTE # 1.1 TH/MM3 (1.0-4.8); MEAN CELL VOLUME 87.8 FL (80.0-100.0); MEAN CORPUSCULAR HEMOGLOBIN 28.3 PG (27.0-34.0); MEAN CORPUSCULAR HGB CONC 32.2 % (32.0-36.0); MONO % 7.8 % (0.0-8.0); NEUT % 68.1 % (16.0-70.0); PLATELET COUNT 142 TH/MM3 (150-450); RED BLOOD COUNT 2.69 MIL/MM3 (4.00-5.30); RED CELL DISTRIBUTION WIDTH 18.9 % (11.6-17.2); WHITE BLOOD COUNT 5.6 TH/MM3 (4.0-11.0)
[2017-08-30 07:12] LABS: HEMO FLAGS AUTO DIFF
[2017-08-30 07:27] LABS: BICARBONATE 26.4 MEQ/L (21.0-32.0); POTASSIUM 3.6 MEQ/L (3.5-5.1)
[2017-08-30] MEDS: ALLOPURINOL 100 MG TAB PO SCH (07:32)
[2017-08-30] MEDS: PRAVASTATIN SOD 40 MG TAB PO SCH (07:32)
[2017-08-30 07:43] LABS: CALCIUM-PROTEIN CORRECTED 7.9 MG/DL (8.5-10.1)
[2017-08-30 08:00] VITALS: BP 104/63; PULSE 82; RESP 18; TEMP 96.9; O2SAT 97
[2017-08-30 08:57] LABS: BANDS 6 % (0-6); EOSINOPHILS 4 % (0-4); NEUTROPHIL # MANUAL DIFF 4.6 TH/MM3 (1.8-7.7); PLATELET ESTIMATE SMEAR LOW (NORMAL); PLATELET MORPHOLOGY NORMAL (NORMAL); POLYS (SEG NEUTROPHILS) 77 % (16-70); SCAN/DIFF FINAL DIFF MANUAL; WBC DIFF SAMPLE 100
[2017-08-30] MEDS: SODIUM CHLORIDE 0.9% FLUSH 10 ML FLUSH IV FLUSH SCH ×2 (09:00→21:42)
[2017-08-30] MEDS: DOCUSATE SODIUM 50 MG/SENNA 8.6 MG TAB PO SCH ×2 (09:00→21:42)
[2017-08-30] MEDS: ATENOLOL 25 MG TAB PO SCH (09:00)
[2017-08-30] MEDS: NS + KCL 20 MEQ INJ 1,000 ML IV SCH (10:30)
--- NOTE | 2017-08-30 11:07 | HHI.NPPN ---
Subjective History of Present Illness 71-year-old female with past medical history of diabetes mellitus, atrial fibrillation, history of recurrent renal stone, history of bilateral stent and following with urology and nephrology at [facility], came with abdominal pain, suprapubic pain and generalized body pain with nausea and vomiting. I was called to see the patient because of very high BUN and creatinine. Additional Remarks Patient is alert, no SOB, eating well, not in distress. Review of Systems General Constitutional: Fatigue Cardiovascular Cardiac: Edema, BURGOS Objective Data Data Vital Signs Date Time Temp Pulse Resp B/P (MAP) Pulse Ox O2 Delivery O2 Flow Rate FiO2 08/30/17 08:00 96.9 82 18 104/63 (77) 97 08/30/17 00:00 97.7 72 17 93/58 (70) 98 08/29/17 20:00 97.8 68 16 102/54 (70) 97 08/29/17 16:00 97.3 66 17 107/55 (72) 97 08/29/17 12:00 97.6 87 18 108/53 (71) 95 -: 08/30/17 0558 08/30/17 0558 Physical Exam General Appearance: No Acute Distress, Comfortable Eyes Eye Exam: Pupils Equal Throat Throat Exam: Oral Mucosa [place] & Moist Neck Neck Exam: Neck Supple Pulmonary Resp Exam: Clear Bilaterally, Breath Sounds Equal, No Distress, Decreased Bases Cardiology CV Exam: Regular, Normal Sinus Rhythm Gastrointestinal/Abdomen GI Exam: Soft, Non-Tender, Bowel Sounds Present, Distended Extremeties Extremities Exam: Moderate Edema, Pitting Edema Neurologic Neuro Exam: Alert, Awake, Oriented Psychiatric Psych Exam: Appropriate Responses Assessment/Plan Assessment Summary: ANDREA/Acute Renal Failure Problem List: (1) Dehydration ICD Codes: E86.0 - Dehydration Status: Acute (2) Hypothyroidism ICD Codes: E03.9 - Hypothyroidism Status: Chronic (3) Chronic anemia ICD Codes: D64.9 - Chronic anemia Status: Chronic (4) Diabetes ICD Codes: E11.9 - Diabetes Status: Chronic (5) Atrial fibrillation ICD Codes: I48.91 - Unspecified atrial fibrillation Status: Chronic (6) Bilateral hydronephrosis ICD Codes: N13.30 - Unspecified hydronephrosis Status: Acute (7) ANDREA (acute kidney injury) ICD Codes: N17.9 - Acute kidney failure, unspecified Status: Acute Plan Patient has been post Rt. Nephrostomy. Has underlying Chronic kidney disease, her baseline Creatinine was 2.1-3.0 in March 2015. Now the Creatinine is 3.4, continue to improve. Continue the IVF. Avoid Nephrotoxins. Her left Kidney is not much functional as per patient. Urine out put is adequate. Urology to follow about Nephrostomy. Nely Lopez MD Aug 30, 2017 11:07
[2017-08-30 11:28] VITALS: BP 109/56; PULSE 77; RESP 18; TEMP 97.3; O2SAT 98
[2017-08-30] MEDS: ERTAPENEM INJ 500 MG in SODIUM CHLORIDE 0.9% INJ 100 ML IV SCH (12:22)
--- NOTE | 2017-08-30 13:32 | HHI.PR ---
Subjective Remarks Follow-up acute on chronic kidney disease/sepsis/UTI 08/30/17-patient seen and examined, she is requesting if possible uro stent can be removed. Currently afebrile. Renal indices improving. Objective Vitals Vital Signs Date Time Temp Pulse Resp B/P (MAP) Pulse Ox O2 Delivery O2 Flow Rate FiO2 08/30/17 11:28 97.3 77 18 109/56 (73) 98 08/30/17 08:00 96.9 82 18 104/63 (77) 97 08/30/17 00:00 97.7 72 17 93/58 (70) 98 08/29/17 20:00 97.8 68 16 102/54 (70) 97 08/29/17 16:00 97.3 66 17 107/55 (72) 97 I/O 08/29/17 08/29/17 08/29/17 08/30/17 08/30/17 08/30/17 07:00 15:00 23:00 07:00 15:00 23:00 Intake Total 1067 ml 960 ml 600 ml 360 ml Output Total 1025 ml 250 ml 600 ml 300 ml Balance 42 ml 710 ml 0 ml 60 ml Intake Oral 480 ml 400 ml 600 ml 360 ml IV Total 587 ml 560 ml Output Urine Total 450 ml 250 ml 150 ml 50 ml Drainage Total 575 ml 450 ml 250 ml # Bowel Movements 1 0 Result Diagram: 08/30/17 0558 08/30/17 0558 Imaging Last Impressions Nephrostomy 08/20/17 0000 Signed Impressions: Service Date/Time: Sunday, August 20, 2017 11:30 - CONCLUSION: Uncomplicated percutaneous nephrostomy as above. Julien Ramos MD Abdomen/Pelvis CT 08/19/17 0216 Signed Impressions: Service Date/Time: Saturday, August 19, 2017 02:51 - CONCLUSION: 1. Compared with April 02 there is placement of a right-sided ureteral stent with persistent moderate right hydronephrosis. There is also moderate left hydronephrosis with renal cortical atrophy and stable left ureteral stent. Nonobstructing calcifications left kidney. 2. Stable large calcified gallstone without biliary ductal dilatation. 3. Stable left-sided ventral hernia containing fat and a loop of small bowel. 4. Bell catheter in bladder. Colin Gilmore MD Chest X-Ray 08/19/17 0054 Signed Impressions: Service Date/Time: Saturday, August 19, 2017 01:07 - CONCLUSION: 1. Mild basilar atelectasis. Cardiomegaly. Colin Gilmore MD Objective Remarks GENERAL: NAD SKIN: Warm and dry. HEAD: Normocephalic. EYES: No scleral icterus. No injection or drainage. NECK: Supple, trachea midline. No JVD or lymphadenopathy. CARDIOVASCULAR: Regular rate and rhythm without murmurs, gallops, or rubs. RESPIRATORY: Breath sounds equal bilaterally. No accessory muscle use. GASTROINTESTINAL: Abdomen soft, non-tender, nondistended. MUSCULOSKELETAL: No cyanosis, or edema. BACK: Nontender without obvious deformity. No CVA tenderness. Procedures 08/20/17 right nephrostomy tube A/P Problem List: (1) Cellulitis of both lower extremities ICD Code: L03.115 - Cellulitis of right lower limb; L03.116 - Cellulitis of left lower limb (2) Anemia ICD Code: D64.9 - Anemia, unspecified (3) Acute on chronic renal failure ICD Code: N17.9 - Acute kidney failure, unspecified; N18.9 - Chronic kidney disease, unspecified (4) Diabetes ICD Code: E11.9 - Diabetes Status: Chronic (5) Atrial fibrillation ICD Code: I48.91 - Unspecified atrial fibrillation Status: Chronic (6) Complicated UTI (urinary tract infection) ICD Code: N39.0 - Urinary tract infection, site not specified Status: Acute Assessment and Plan 71-year-old female with 1. Acute renal failure superimposed on chronic kidney disease: Appreciate nephrology, urology recommendations. Right nephrostomy tube in place. Monitor BUN and creatinine. Avoid all nephrotoxic drugs. 2. Anemia of chronic kidney disease. Status post transfusion of 1 unit PRBCs. Monitor H&H. Check iron study 3. Bilateral lower extremity cellulitis: Chronic venous stasis changes bilaterally. Cellulitis has resolved. Status post Rocephin 4. UTI- ESBL: Continue ertapenem, clindamycin per infectious disease recommendations. 5. History of recent bacteremia: Awaiting medical records from hospital in [place]. 2-D echocardiogram shows ejection fraction 60-65% with no apparent vegetation. 6. Atrial fibrillation: Continue atenolol. Patient has been off Eliquis for the last couple weeks. 7. Weakness, deconditioning: Continue physical therapy. 8. DVT prophylaxis: SCDs. Chemical prophylaxis on hold secondary to anemia. Sebas Franco MD Aug 30, 2017 13:32
[2017-08-30 14:27] LABS: TRANSFERRIN IRON PROFILE 105 MG/DL (200-360)
[2017-08-30 16:00] VITALS: BP 106/52; PULSE 89; RESP 18; TEMP 97; O2SAT 98
[2017-08-30 20:00] VITALS: BP 108/58; PULSE 89; RESP 16; TEMP 97.8; O2SAT 97
[2017-08-31] VITALS: BP 107/51; PULSE 87; RESP 17; TEMP 97; O2SAT 96
[2017-08-31] MEDS: LEVOTHYROXINE SODIUM 25 MCG TAB PO SCH (06:15)
[2017-08-31] MEDS: LEVOTHYROXINE SODIUM 150 MCG TAB PO SCH (06:15)
[2017-08-31 06:45] LABS: BASOPHIL # 0.1 TH/MM3 (0-0.2); BASOPHIL % 0.9 % (0.0-2.0); EOSINOPHIL # 0.2 TH/MM3 (0-0.4); EOSINOPHIL % 4.1 % (0.0-4.0); HEMATOCRIT 23.2 % (35.0-46.0); HEMO FLAGS DIFF FINAL; LYMPH % 19.5 % (9.0-44.0); LYMPHOCYTE # 1.1 TH/MM3 (1.0-4.8); MEAN CELL VOLUME 89.2 FL (80.0-100.0); MEAN CORPUSCULAR HEMOGLOBIN 28.3 PG (27.0-34.0); MEAN CORPUSCULAR HGB CONC 31.8 % (32.0-36.0); MONO % 7.3 % (0.0-8.0); NEUT % 68.2 % (16.0-70.0); PLATELET COUNT 130 TH/MM3 (150-450); RED CELL DISTRIBUTION WIDTH 18.3 % (11.6-17.2); WHITE BLOOD COUNT 5.9 TH/MM3 (4.0-11.0)
[2017-08-31 07:29] LABS: BICARBONATE 25.4 MEQ/L (21.0-32.0); POTASSIUM 4.2 MEQ/L (3.5-5.1)
[2017-08-31 08:00] VITALS: BP 122/60; PULSE 86; RESP 17; TEMP 97.9; O2SAT 98
[2017-08-31 08:10] LABS: CALCIUM-PROTEIN CORRECTED 8.1 MG/DL (8.5-10.1)
[2017-08-31] MEDS: NS + KCL 20 MEQ INJ 1,000 ML IV SCH ×2 (08:24→16:56)
[2017-08-31] MEDS: DOCUSATE SODIUM 50 MG/SENNA 8.6 MG TAB PO SCH ×2 (09:00→19:39)
[2017-08-31] MEDS: ATENOLOL 25 MG TAB PO SCH (09:00)
[2017-08-31] MEDS: ALLOPURINOL 100 MG TAB PO SCH (09:08)
[2017-08-31] MEDS: PRAVASTATIN SOD 40 MG TAB PO SCH (09:08)
[2017-08-31] MEDS: traMADol HCL 50 MG TAB PO PRN ×2 (09:08→15:40)
[2017-08-31] MEDS: IRON SUCROSE INJ 200 MG in SODIUM CHLORIDE 0.9% INJ 100 ML IV SCH (09:09)
[2017-08-31] MEDS: SODIUM CHLORIDE 0.9% FLUSH 10 ML FLUSH IV FLUSH SCH ×2 (09:09→19:39)
--- NOTE | 2017-08-31 11:56 | HHI.NPPN ---
Subjective History of Present Illness 71-year-old female with past medical history of diabetes mellitus, atrial fibrillation, history of recurrent renal stone, history of bilateral stent and following with urology and nephrology at [facility], came with abdominal pain, suprapubic pain and generalized body pain with nausea and vomiting. I was called to see the patient because of very high BUN and creatinine. Additional Remarks Patient is alert, no SOB, eating well, not in distress, no complain. Review of Systems General Constitutional: Fatigue Cardiovascular Cardiac: Edema, BURGOS Objective Data Data Vital Signs Date Time Temp Pulse Resp B/P (MAP) Pulse Ox O2 Delivery O2 Flow Rate FiO2 08/31/17 08:00 97.9 86 17 122/60 (80) 98 08/31/17 00:00 97.0 87 17 107/51 (69) 96 08/30/17 20:00 97.8 89 16 108/58 (75) 97 08/30/17 16:00 97.0 89 18 106/52 (70) 98 -: 08/31/17 0556 08/31/17 0556 Physical Exam General Appearance: No Acute Distress, Comfortable Eyes Eye Exam: Pupils Equal Throat Throat Exam: Oral Mucosa [place] & Moist Neck Neck Exam: Neck Supple Pulmonary Resp Exam: Clear Bilaterally, Breath Sounds Equal, No Distress, Decreased Bases Cardiology CV Exam: Regular, Normal Sinus Rhythm Gastrointestinal/Abdomen GI Exam: Soft, Non-Tender, Bowel Sounds Present, Distended Extremeties Extremities Exam: Moderate Edema, Pitting Edema Neurologic Neuro Exam: Alert, Awake, Oriented Psychiatric Psych Exam: Appropriate Responses Assessment/Plan Assessment Summary: ANDREA/Acute Renal Failure Problem List: (1) Dehydration ICD Codes: E86.0 - Dehydration Status: Acute (2) Hypothyroidism ICD Codes: E03.9 - Hypothyroidism Status: Chronic (3) Chronic anemia ICD Codes: D64.9 - Chronic anemia Status: Chronic (4) Diabetes ICD Codes: E11.9 - Diabetes Status: Chronic (5) Atrial fibrillation ICD Codes: I48.91 - Unspecified atrial fibrillation Status: Chronic (6) Bilateral hydronephrosis ICD Codes: N13.30 - Unspecified hydronephrosis Status: Acute (7) ANDREA (acute kidney injury) ICD Codes: N17.9 - Acute kidney failure, unspecified Status: Acute Plan Patient has been post Rt. Nephrostomy. Has underlying Chronic kidney disease, her baseline Creatinine was 2.1-3.0 in March 2015. Now the Creatinine is now 3.0, was 2.1 in March 2017. Continue the IVF. Avoid Nephrotoxins. Her left Kidney is not much functional as per patient. Urine out put is adequate. Urology to follow about Nephrostomy, possible change of stent. If D/C , will need Urology and Nephrology follow up. Nely Lopez MD Aug 31, 2017 11:56
[2017-08-31 12:00] VITALS: BP 97/111; PULSE 80; RESP 18; TEMP 97.3
[2017-08-31] MEDS: ERTAPENEM INJ 500 MG in SODIUM CHLORIDE 0.9% INJ 100 ML IV SCH (15:07)
--- NOTE | 2017-08-31 15:11 | HHI.PR ---
Subjective Remarks Follow-up acute on chronic kidney disease/sepsis/UTI 08/30/17-patient seen and examined, she is requesting if possible uro stent can be removed. Currently afebrile. Renal indices improving. 08/31/17-patient seen and examined, currently afebrile. Denies any chest pain or shortness of breath. Creatinine trending down Objective Vitals Vital Signs Date Time Temp Pulse Resp B/P (MAP) Pulse Ox O2 Delivery O2 Flow Rate FiO2 08/31/17 12:00 97.3 80 18 97/111 (106) 08/31/17 08:00 97.9 86 17 122/60 (80) 98 08/31/17 00:00 97.0 87 17 107/51 (69) 96 08/30/17 20:00 97.8 89 16 108/58 (75) 97 08/30/17 16:00 97.0 89 18 106/52 (70) 98 I/O 08/30/17 08/30/17 08/30/17 08/31/17 08/31/17 08/31/17 07:00 15:00 23:00 07:00 15:00 23:00 Intake Total 360 ml 720 ml 720 ml 360 ml Output Total 300 ml 850 ml 575 ml 500 ml Balance 60 ml -130 ml 145 ml -140 ml Intake Oral 360 ml 720 ml 720 ml 360 ml Output Urine Total 50 ml 75 ml 75 ml 100 ml Drainage Total 250 ml 775 ml 500 ml 400 ml # Voids 0 # Bowel Movements 2 Result Diagram: 08/31/17 0556 08/31/17 0556 Objective Remarks GENERAL: NAD SKIN: Warm and dry. HEAD: Normocephalic. EYES: No scleral icterus. No injection or drainage. NECK: Supple, trachea midline. No JVD or lymphadenopathy. CARDIOVASCULAR: Regular rate and rhythm without murmurs, gallops, or rubs. RESPIRATORY: Breath sounds equal bilaterally. No accessory muscle use. GASTROINTESTINAL: Abdomen soft, non-tender, nondistended. MUSCULOSKELETAL: No cyanosis, or edema. BACK: Nontender without obvious deformity. No CVA tenderness. Procedures 08/20/17 right nephrostomy tube A/P Problem List: (1) Cellulitis of both lower extremities ICD Code: L03.115 - Cellulitis of right lower limb; L03.116 - Cellulitis of left lower limb (2) Anemia ICD Code: D64.9 - Anemia, unspecified (3) Acute on chronic renal failure ICD Code: N17.9 - Acute kidney failure, unspecified; N18.9 - Chronic kidney disease, unspecified (4) Diabetes ICD Code: E11.9 - Diabetes Status: Chronic (5) Atrial fibrillation ICD Code: I48.91 - Unspecified atrial fibrillation Status: Chronic (6) Complicated UTI (urinary tract infection) ICD Code: N39.0 - Urinary tract infection, site not specified Status: Acute Assessment and Plan 71-year-old female with 1. Acute renal failure superimposed on chronic kidney disease: Appreciate nephrology, urology recommendations. Right nephrostomy tube in place. Monitor BUN and creatinine. Creatinine 3.01 today. Avoid all nephrotoxic drugs. 2. Anemia of chronic kidney disease. Status post transfusion of 1 unit PRBCs. Monitor H&H. Iron deficiency anemia: Transfuse Venofer 200mg IV daily x 3 days 08/31/17 3. Bilateral lower extremity cellulitis: Chronic venous stasis changes bilaterally. Cellulitis has resolved. Status post Rocephin 4. UTI- ESBL: Continue ertapenem, clindamycin per infectious disease recommendations. 5. History of recent bacteremia: Awaiting medical records from hospital in [place]. 2-D echocardiogram shows ejection fraction 60-65% with no apparent vegetation. 6. Atrial fibrillation: Continue atenolol. Patient has been off Eliquis for the last couple weeks. 7. Weakness, deconditioning: Continue physical therapy. 8. DVT prophylaxis: SCDs. Chemical prophylaxis on hold secondary to anemia. Sebas Franco MD Aug 31, 2017 15:11
[2017-08-31 16:00] VITALS: BP 115/56; PULSE 81; RESP 19; TEMP 97.5; O2SAT 98
[2017-08-31 19:45] VITALS: BP 103/55; PULSE 89; RESP 18; TEMP 97.3; O2SAT 97
[2017-08-31 23:00] VITALS: BP 100/50; PULSE 86; RESP 18; TEMP 98.2; O2SAT 98
[2017-09-01 03:34] VITALS: BP 114/55; PULSE 89; RESP 18; TEMP 98.2; O2SAT 97
[2017-09-01] MEDS: traMADol HCL 50 MG TAB PO PRN ×2 (05:49→15:22)
[2017-09-01] MEDS: LEVOTHYROXINE SODIUM 25 MCG TAB PO SCH (05:49)
[2017-09-01] MEDS: LEVOTHYROXINE SODIUM 150 MCG TAB PO SCH (05:49)
[2017-09-01 08:00] VITALS: BP 136/64; PULSE 92; RESP 19; TEMP 98.4; O2SAT 94
[2017-09-01] MEDS: DOCUSATE SODIUM 50 MG/SENNA 8.6 MG TAB PO SCH ×2 (09:00→20:03)
[2017-09-01] MEDS: ATENOLOL 25 MG TAB PO SCH (09:00)
[2017-09-01] MEDS: ALLOPURINOL 100 MG TAB PO SCH (09:48)
[2017-09-01] MEDS: PRAVASTATIN SOD 40 MG TAB PO SCH (09:48)
[2017-09-01] MEDS: IRON SUCROSE INJ 200 MG in SODIUM CHLORIDE 0.9% INJ 100 ML IV SCH (09:49)
[2017-09-01] MEDS: SODIUM CHLORIDE 0.9% FLUSH 10 ML FLUSH IV FLUSH SCH ×2 (09:49→20:02)
--- NOTE | 2017-09-01 10:52 | HHI.NPPN ---
Subjective History of Present Illness 71-year-old female with past medical history of diabetes mellitus, atrial fibrillation, history of recurrent renal stone, history of bilateral stent and following with urology and nephrology at [facility], came with abdominal pain, suprapubic pain and generalized body pain with nausea and vomiting. I was called to see the patient because of very high BUN and creatinine. Additional Remarks Patient is alert, no SOB, no abd. pain, eating better. Review of Systems General Constitutional: Fatigue Cardiovascular Cardiac: Edema, BURGOS Objective Data Data Vital Signs Date Time Temp Pulse Resp B/P (MAP) Pulse Ox O2 Delivery O2 Flow Rate FiO2 09/01/17 08:00 98.4 92 19 136/64 (88) 94 09/01/17 03:34 98.2 89 18 114/55 (74) 97 08/31/17 23:00 98.2 86 18 100/50 (67) 98 08/31/17 19:45 97.3 89 18 103/55 (71) 97 08/31/17 16:00 97.5 81 19 115/56 (75) 98 08/31/17 12:00 97.3 80 18 97/111 (106) -: 08/31/17 0556 08/31/17 0556 Physical Exam General Appearance: No Acute Distress, Comfortable Eyes Eye Exam: Pupils Equal Throat Throat Exam: Oral Mucosa [place] & Moist Neck Neck Exam: Neck Supple Pulmonary Resp Exam: Clear Bilaterally, Breath Sounds Equal, No Distress, Decreased Bases Cardiology CV Exam: Regular, Normal Sinus Rhythm Gastrointestinal/Abdomen GI Exam: Soft, Non-Tender, Bowel Sounds Present, Distended Extremeties Extremities Exam: Moderate Edema, Pitting Edema Neurologic Neuro Exam: Alert, Awake, Oriented Psychiatric Psych Exam: Appropriate Responses Assessment/Plan Assessment Summary: ANDREA/Acute Renal Failure Problem List: (1) Dehydration ICD Codes: E86.0 - Dehydration Status: Acute (2) Hypothyroidism ICD Codes: E03.9 - Hypothyroidism Status: Chronic (3) Chronic anemia ICD Codes: D64.9 - Chronic anemia Status: Chronic (4) Diabetes ICD Codes: E11.9 - Diabetes Status: Chronic (5) Atrial fibrillation ICD Codes: I48.91 - Unspecified atrial fibrillation Status: Chronic (6) Bilateral hydronephrosis ICD Codes: N13.30 - Unspecified hydronephrosis Status: Acute (7) ANDREA (acute kidney injury) ICD Codes: N17.9 - Acute kidney failure, unspecified Status: Acute Plan Patient has been post Rt. Nephrostomy. Has underlying Chronic kidney disease, her baseline Creatinine was 2.1-3.0 in March 2015. Now the Creatinine is now 3.0, was 2.1 in March 2017. Continue the IVF. Avoid Nephrotoxins. Her left Kidney is not much functional as per patient. Urine out put is adequate. Urology to follow about Nephrostomy, possible change of stent. If D/C , will need Urology and Nephrology follow up. No new BMP today, will see in AM. Nely Lopez MD Sep 01, 2017 10:52
[2017-09-01 12:00] VITALS: BP 108/58; PULSE 79; RESP 19; TEMP 99; O2SAT 96
--- NOTE | 2017-09-01 14:12 | HHI.PR ---
Subjective Remarks Follow-up acute on chronic kidney disease/sepsis/UTI 08/30/17-patient seen and examined, she is requesting if possible uro stent can be removed. Currently afebrile. Renal indices improving. 08/31/17-patient seen and examined, currently afebrile. Denies any chest pain or shortness of breath. Creatinine trending down 09/01/17-patient seen and examined, resting and no acute event overnight. Afebrile. Objective Vitals Vital Signs Date Time Temp Pulse Resp B/P (MAP) Pulse Ox O2 Delivery O2 Flow Rate FiO2 09/01/17 08:00 98.4 92 19 136/64 (88) 94 09/01/17 03:34 98.2 89 18 114/55 (74) 97 08/31/17 23:00 98.2 86 18 100/50 (67) 98 08/31/17 19:45 97.3 89 18 103/55 (71) 97 08/31/17 16:00 97.5 81 19 115/56 (75) 98 I/O 08/31/17 08/31/17 08/31/17 09/01/17 09/01/17 09/01/17 07:00 15:00 23:00 07:00 15:00 23:00 Intake Total 360 ml 830 ml 1460 ml 360 ml Output Total 500 ml 700 ml 300 ml 600 ml Balance -140 ml 130 ml 1160 ml -240 ml Intake Oral 360 ml 720 ml 360 ml 360 ml IV Total 110 ml 1100 ml Output Urine Total 100 ml 700 ml Drainage Total 400 ml 300 ml 600 ml # Voids 50 50 # Bowel Movements 1 0 0 Result Diagram: 08/31/17 0556 08/31/17 05 Objective Remarks GENERAL: NAD SKIN: Warm and dry. HEAD: Normocephalic. EYES: No scleral icterus. No injection or drainage. NECK: Supple, trachea midline. No JVD or lymphadenopathy. CARDIOVASCULAR: Regular rate and rhythm without murmurs, gallops, or rubs. RESPIRATORY: Breath sounds equal bilaterally. No accessory muscle use. GASTROINTESTINAL: Abdomen soft, non-tender, nondistended. MUSCULOSKELETAL: No cyanosis, or edema. BACK: Nontender without obvious deformity. No CVA tenderness. Procedures 08/20/17 right nephrostomy tube A/P Problem List: (1) Cellulitis of both lower extremities ICD Code: L03.115 - Cellulitis of right lower limb; L03.116 - Cellulitis of left lower limb (2) Anemia ICD Code: D64.9 - Anemia, unspecified (3) Acute on chronic renal failure ICD Code: N17.9 - Acute kidney failure, unspecified; N18.9 - Chronic kidney disease, unspecified (4) Diabetes ICD Code: E11.9 - Diabetes Status: Chronic (5) Atrial fibrillation ICD Code: I48.91 - Unspecified atrial fibrillation Status: Chronic (6) Complicated UTI (urinary tract infection) ICD Code: N39.0 - Urinary tract infection, site not specified Status: Acute Assessment and Plan 71-year-old female with 1. Acute renal failure superimposed on chronic kidney disease: Appreciate nephrology, urology recommendations. Right nephrostomy tube in place. Monitor BUN and creatinine. Creatinine 3.01 today. Avoid all nephrotoxic drugs. 2. Anemia of chronic kidney disease. Status post transfusion of 1 unit PRBCs. Monitor H&H. Iron deficiency anemia: Transfuse Venofer 200mg IV daily x 3 days end date 08/11 3. Bilateral lower extremity cellulitis: Chronic venous stasis changes bilaterally. Cellulitis has resolved. Status post Rocephin 4. UTI- ESBL: Continue ertapenem, clindamycin per infectious disease recommendations. 5. History of recent bacteremia: Awaiting medical records from hospital in [place]. 2-D echocardiogram shows ejection fraction 60-65% with no apparent vegetation. 6. Atrial fibrillation: Continue atenolol. Patient has been off Eliquis for the last couple weeks. 7. Weakness, deconditioning: Continue physical therapy. 8. DVT prophylaxis: SCDs. Chemical prophylaxis on hold secondary to anemia. Sebas Franco MD Sep 01, 2017 14:12
[2017-09-01] MEDS: NS + KCL 20 MEQ INJ 1,000 ML IV SCH (15:22)
[2017-09-01] MEDS: ERTAPENEM INJ 500 MG in SODIUM CHLORIDE 0.9% INJ 100 ML IV SCH (15:22)
[2017-09-01 16:00] VITALS: BP 112/61; PULSE 80; RESP 17; TEMP 98.1; O2SAT 96
[2017-09-01 19:34] VITALS: BP 138/82; PULSE 76; RESP 18; TEMP 98.4; O2SAT 96
[2017-09-01 23:54] VITALS: BP 120/53; PULSE 82; RESP 19; TEMP 98.2; O2SAT 94
[2017-09-02] VITALS (7 sets, daily range): BP systolic 105–123; BP diastolic 52–58; PULSE 75–91; RESP 16–19; TEMP 97–99.2; O2SAT 93–97
[2017-09-02] MEDS: NS + KCL 20 MEQ INJ 1,000 ML IV SCH ×2 (02:54→17:36)
[2017-09-02] MEDS: LEVOTHYROXINE SODIUM 150 MCG TAB PO SCH (05:31)
[2017-09-02] MEDS: traMADol HCL 50 MG TAB PO PRN ×2 (05:31→20:43)
[2017-09-02] MEDS: LEVOTHYROXINE SODIUM 25 MCG TAB PO SCH (05:31)
[2017-09-02] MEDS: SODIUM CHLORIDE 0.9% FLUSH 10 ML FLUSH IV FLUSH SCH ×2 (09:00→20:42)
[2017-09-02] MEDS: ATENOLOL 25 MG TAB PO SCH (09:28)
[2017-09-02] MEDS: PRAVASTATIN SOD 40 MG TAB PO SCH (09:28)
[2017-09-02] MEDS: IRON SUCROSE INJ 200 MG in SODIUM CHLORIDE 0.9% INJ 100 ML IV SCH (09:28)
[2017-09-02] MEDS: ALLOPURINOL 100 MG TAB PO SCH (09:28)
[2017-09-02] MEDS: DOCUSATE SODIUM 50 MG/SENNA 8.6 MG TAB PO SCH ×2 (09:29→20:42)
--- NOTE | 2017-09-02 09:59 | HHI.NPPN ---
Subjective History of Present Illness 71-year-old female with past medical history of diabetes mellitus, atrial fibrillation, history of recurrent renal stone, history of bilateral stent and following with urology and nephrology at [facility], came with abdominal pain, suprapubic pain and generalized body pain with nausea and vomiting. I was called to see the patient because of very high BUN and creatinine. Additional Remarks Patient is alert, no SOB, no abd. pain, eating better, no complain. Review of Systems General Constitutional: Fatigue Cardiovascular Cardiac: Edema, BURGOS Objective Data Data Vital Signs Date Time Temp Pulse Resp B/P (MAP) Pulse Ox O2 Delivery O2 Flow Rate FiO2 09/02/17 08:00 98.7 84 19 107/57 (74) 96 09/02/17 03:36 99.2 86 18 123/53 (76) 94 09/01/17 23:54 98.2 82 19 120/53 (75) 94 09/01/17 19:34 98.4 76 18 138/82 (100) 96 09/01/17 16:00 98.1 80 17 112/61 (78) 96 09/01/17 12:00 99.0 79 19 108/58 (75) 96 -: 08/31/17 0556 08/31/17 0556 Physical Exam General Appearance: No Acute Distress, Comfortable Eyes Eye Exam: Pupils Equal Throat Throat Exam: Oral Mucosa [place] & Moist Neck Neck Exam: Neck Supple Pulmonary Resp Exam: Clear Bilaterally, Breath Sounds Equal, No Distress, Decreased Bases Cardiology CV Exam: Regular, Normal Sinus Rhythm Gastrointestinal/Abdomen GI Exam: Soft, Non-Tender, Bowel Sounds Present, Distended Extremeties Extremities Exam: Moderate Edema, Pitting Edema Neurologic Neuro Exam: Alert, Awake, Oriented Psychiatric Psych Exam: Appropriate Responses Assessment/Plan Assessment Summary: ANDREA/Acute Renal Failure Problem List: (1) Dehydration ICD Codes: E86.0 - Dehydration Status: Acute (2) Hypothyroidism ICD Codes: E03.9 - Hypothyroidism Status: Chronic (3) Chronic anemia ICD Codes: D64.9 - Chronic anemia Status: Chronic (4) Diabetes ICD Codes: E11.9 - Diabetes Status: Chronic (5) Atrial fibrillation ICD Codes: I48.91 - Unspecified atrial fibrillation Status: Chronic (6) Bilateral hydronephrosis ICD Codes: N13.30 - Unspecified hydronephrosis Status: Acute (7) ANDREA (acute kidney injury) ICD Codes: N17.9 - Acute kidney failure, unspecified Status: Acute Plan Patient has been post Rt. Nephrostomy. Has underlying Chronic kidney disease, her baseline Creatinine was 2.1-3.0 in March 2015. Now the Creatinine is now 3.0, was 2.1 in March 2017. Continue the IVF and on Ertapenem as per ID. Avoid Nephrotoxins. Her left Kidney is not much functional as per patient. Urine out put is adequate. Urology to follow about Nephrostomy, possible change of stent. If D/C , will need Urology and Nephrology follow up. No new BMP today, ordered one now. Nely Lopez MD Sep 02, 2017 09:59
--- NOTE | 2017-09-02 10:54 | HHI.PR ---
Subjective Remarks Follow-up acute on chronic kidney disease/sepsis/UTI 08/30/17-patient seen and examined, she is requesting if possible uro stent can be removed. Currently afebrile. Renal indices improving. 08/31/17-patient seen and examined, currently afebrile. Denies any chest pain or shortness of breath. Creatinine trending down 09/01/17-patient seen and examined, resting and no acute event overnight. Afebrile. 09/02/17-patient seen and examined, good urine output and currently afebrile. Hemoglobin 7.4 however patient denies any bleeding. Receiving last dose of Venofer Objective Vitals Vital Signs Date Time Temp Pulse Resp B/P (MAP) Pulse Ox O2 Delivery O2 Flow Rate FiO2 09/02/17 08:00 98.7 84 19 107/57 (74) 96 09/02/17 03:36 99.2 86 18 123/53 (76) 94 09/01/17 23:54 98.2 82 19 120/53 (75) 94 09/01/17 19:34 98.4 76 18 138/82 (100) 96 09/01/17 16:00 98.1 80 17 112/61 (78) 96 09/01/17 12:00 99.0 79 19 108/58 (75) 96 I/O 09/01/17 09/01/17 09/01/17 09/02/17 09/02/17 09/02/17 07:00 15:00 23:00 07:00 15:00 23:00 Intake Total 360 ml 830 ml 1460 ml 360 ml Output Total 600 ml 750 ml 350 ml 800 ml Balance -240 ml 80 ml 1110 ml -440 ml Intake Oral 360 ml 720 ml 360 ml 360 ml IV Total 110 ml 1100 ml Output Urine Total 25 ml 50 ml 250 ml Drainage Total 600 ml 725 ml 300 ml 550 ml # Voids 50 # Bowel Movements 0 1 0 Result Diagram: 08/31/17 0556 08/31/17 05 Objective Remarks GENERAL: NAD SKIN: Warm and dry. HEAD: Normocephalic. EYES: No scleral icterus. No injection or drainage. NECK: Supple, trachea midline. No JVD or lymphadenopathy. CARDIOVASCULAR: Regular rate and rhythm without murmurs, gallops, or rubs. RESPIRATORY: Breath sounds equal bilaterally. No accessory muscle use. GASTROINTESTINAL: Abdomen soft, non-tender, nondistended. MUSCULOSKELETAL: No cyanosis, or edema. BACK: Nontender without obvious deformity. No CVA tenderness. Procedures 08/20/17 right nephrostomy tube A/P Problem List: (1) Cellulitis of both lower extremities ICD Code: L03.115 - Cellulitis of right lower limb; L03.116 - Cellulitis of left lower limb (2) Anemia ICD Code: D64.9 - Anemia, unspecified (3) Acute on chronic renal failure ICD Code: N17.9 - Acute kidney failure, unspecified; N18.9 - Chronic kidney disease, unspecified (4) Diabetes ICD Code: E11.9 - Diabetes Status: Chronic (5) Atrial fibrillation ICD Code: I48.91 - Unspecified atrial fibrillation Status: Chronic (6) Complicated UTI (urinary tract infection) ICD Code: N39.0 - Urinary tract infection, site not specified Status: Acute Assessment and Plan 71-year-old female with 1. Acute renal failure superimposed on chronic kidney disease: Appreciate nephrology, urology recommendations. Right nephrostomy tube in place. Monitor BUN and creatinine. Creatinine 3.01 , BMP pending today. Avoid all nephrotoxic drugs. 2. Anemia of chronic kidney disease. Status post transfusion of 1 unit PRBCs. Monitor H&H. Will transfuse 1 unit packed red blood cell today 09/02/17 Iron deficiency anemia: Transfuse Venofer 200mg IV daily x 3 days end date today 09/02/17 3. Bilateral lower extremity cellulitis: Chronic venous stasis changes bilaterally. Cellulitis has resolved. Status post Rocephin 4. UTI- ESBL: Continue ertapenem, clindamycin per infectious disease recommendations. 5. History of recent bacteremia: Awaiting medical records from hospital in [place]. 2-D echocardiogram shows ejection fraction 60-65% with no apparent vegetation. 6. Atrial fibrillation: Continue atenolol. Patient has been off Eliquis for the last couple weeks. 7. Weakness, deconditioning: Continue physical therapy. 8. DVT prophylaxis: SCDs. Chemical prophylaxis on hold secondary to anemia. Sebas Franco MD Sep 02, 2017 10:54
[2017-09-02] MEDS ORDERED: SODIUM CHLOR 0.9% 250 ML INJ 250 ML IV ONE (11:00)
[2017-09-02] MEDS ORDERED: ACETAMINOPHEN 325 MG TAB PO PRN (11:00)
[2017-09-02] MEDS ORDERED: diphenhydrAMINE HCL 25 MG CAP PO PRN (11:00)
--- NOTE | 2017-09-02 13:29 | HHI.PR ---
Subjective Patient symptoms today -Patient doing well, Creatinine improved -Maintain Nephrostomy tube in place -Bell catheter may be removed from Urology standpoint -Patient is clear for discharge from Urology standpoint with clinic followup in [place] this week to further plan stent exchange and potential nephrostomy tube removal in the future -Please call with questions Objective Vital Signs Vital Signs Date Time Temp Pulse Resp B/P (MAP) Pulse Ox O2 Delivery O2 Flow Rate FiO2 09/02/17 12:00 98.7 80 18 112/55 (74) 97 09/02/17 08:00 98.7 84 19 107/57 (74) 96 09/02/17 03:36 99.2 86 18 123/53 (76) 94 09/01/17 23:54 98.2 82 19 120/53 (75) 94 09/01/17 19:34 98.4 76 18 138/82 (100) 96 09/01/17 16:00 98.1 80 17 112/61 (78) 96 Intake & Output 09/02/17 09/02/17 07:00 19:00 Intake Total 720 ml Output Total 1150 ml Balance -430 ml Intake Oral 720 ml Output Urine Total 300 ml Drainage Total 850 ml # Bowel Movements 0 Result Diagram: 08/31/1756 08/31/1756 Medications and IVs Current Medications Medications (Trade) Dose Ordered Sig/David Route Start Time Stop Time Status Last Admin (NS Flush) 2 ml UNSCH PRN IV FLUSH 08/19/17 04:45 (NS Flush) 2 ml BID IV FLUSH 08/19/17 09:00 09/01/17 09:49 (Narcan Inj) 0.4 mg UNSCH PRN IV PUSH 08/19/17 04:45 (Zyloprim) 100 mg DAILY PO 08/19/17 09:00 09/02/17 09:28 (Tenormin) 12.5 mg DAILY PO 08/19/17 09:00 09/02/17 09:28 (Pravachol) 40 mg DAILY PO 08/19/17 09:00 09/02/17 09:28 (Pill Splitter) 1 ea UNSCH PRN OTHER 08/19/17 07:45 (Ultram) 50 mg Q6H PRN PO 08/19/17 10:30 09/02/17 05:31 (Tylenol) 650 mg Q6H PRN PO 08/21/17 02:00 08/29/17 13:19 (Synthroid) 150 mcg DAILY@0600 PO 08/22/17 06:00 09/02/17 05:31 Ertapenem 500 mg/ Sodium Chloride 100 ml @ 200 mls/hr Q24H IV 08/24/17 14:00 09/01/17 15:22 (Compazine Supp) 25 mg Q12H PRN RECTAL 08/25/17 11:15 08/25/17 11:36 (Narcan Inj) 0.4 mg UNSCH PRN IV PUSH 08/25/17 11:15 (Maria Del Rosario-Colace) 1 tab BID PO 08/25/17 21:00 08/26/17 20:48 (Milk Of Magnesia Liq) 30 ml Q12H PRN PO 08/25/17 11:15 (Senokot) 17.2 mg Q12H PRN PO 08/25/17 11:15 08/26/17 20:48 (Dulcolax Supp) 10 mg DAILY PRN RECTAL 08/25/17 11:15 (Lactulose Liq) 30 ml DAILY PRN PO 08/25/17 11:15 Ondansetron HCl 8 mg/Dextrose 54 ml @ 216 mls/hr Q6H PRN IV PUSH 08/25/17 12:00 08/28/17 11:26 (Tums Chew) 500 mg Q2H PRN CHEW 08/26/17 13:45 08/26/17 17:33 (Synthroid) 25 mcg DAILY@0600 PO 08/27/17 06:00 09/02/17 05:31 Potassium Chloride/Sodium Chloride 1,000 ml @ 70 mls/hr [id number] IV 08/29/17 13:30 09/01/17 15:22 Sodium Chloride 250 ml @ 15 mls/hr ONCE ONCE IV 09/02/17 11:00 09/03/17 03:39 (Tylenol) 650 mg Q4H PRN PO 09/02/17 11:00 09/03/17 10:59 (Benadryl) 25 mg Q4H PRN PO 09/02/17 11:00 09/03/17 10:59 Assessment and Plan Problem List: (1) Urinary tract infection ICD Code: N39.0 - Urinary tract infection Status: Chronic (2) Renal failure ICD Code: N19 - Renal failure Status: Acute (3) CKD (chronic kidney disease) stage 3, GFR 30-59 ml/min ICD Code: N18.3 - Chronic kidney disease, stage 3 (moderate) Status: Chronic (4) Obstructive uropathy ICD Code: N13.9 - Obstructive and reflux uropathy, unspecified Status: Acute Lele Cyr MD Sep 02, 2017 13:29
[2017-09-02] MEDS: ERTAPENEM INJ 500 MG in SODIUM CHLORIDE 0.9% INJ 100 ML IV SCH (13:31)
--- NOTE | 2017-09-02 14:40 | HHI.PR ---
Addendum to Inpatient Note Addendum Reason: Additional Documentation Additional Information Patient does no want any more blood transfusion, states it has been ineffective in the past. Will cancel blood transfusion ordered. Patient has been cleared by urology, nephrology and likely will be clear by ID today Sebas Franco MD Sep 02, 2017 14:40
--- NOTE | 2017-09-02 14:42 | HHI.FF ---
Face to Face Verification Diagnosis: (1) Sepsis (2) UTI (urinary tract infection) (3) Acute on chronic renal failure (4) Complicated UTI (urinary tract infection) Physical Therapy Order: Evaluate and Treat Home Health Nursing Order: IV medication administration I have seen patient Dorothy Arredondo on 09/02/17. My clinical findings support the need for the requested home health care services because: Deconditioned w/ increased weakness I certify that my clinical findings support that this patient is homebound because: Poor cardiac reserve Sebas Franco MD Sep 02, 2017 14:42
--- NOTE | 2017-09-02 14:51 | HHI.DS ---
Discharge Summary Admission Date Aug 19, 2017 at 02:53 Discharge Date: Sep 02, 2017 Admitting Diagnosis ACUTE ON CHRONIC RENAL FAILURE, ANEMIA (1) Cellulitis of both lower extremities ICD Code: L03.115 - Cellulitis of right lower limb; L03.116 - Cellulitis of left lower limb (2) Anemia ICD Code: D64.9 - Anemia, unspecified (3) Acute on chronic renal failure ICD Code: N17.9 - Acute kidney failure, unspecified; N18.9 - Chronic kidney disease, unspecified (4) Diabetes ICD Code: E11.9 - Diabetes Status: Chronic (5) Atrial fibrillation ICD Code: I48.91 - Unspecified atrial fibrillation Status: Chronic (6) Complicated UTI (urinary tract infection) ICD Code: N39.0 - Urinary tract infection, site not specified Status: Acute Procedures 08/20/17 right nephrostomy tube Brief History - From Admission 71-year-old female with a medical history significant for diabetes, osteoarthritis, atrial fibrillation on Eliquis, history of ovarian cancer, anemia, history of bilateral ureteral stent placement for kidney stones, chronic kidney disease with fluctuating levels of renal functions who presented to the emergency room for sudden onset, severe generalized body ache. Patient reports she has had urinary tract infection on and off. She denies suprapubic pain. No dysuria. She believes she has been voiding as usual. She denies blood in her stool or melena. Workup in the emergency room revealed significant anemia with hemoglobin of 7.3 and acute on chronic renal failure with creatinine of 11 and low bicarbonate. The patient also reports increasing bilateral lower extremity erythema. She denies any fevers or chills at home. The patient normally follows with urology and nephrology at the [facility]. CBC/BMP: 08/31/17 0556 08/31/17 0556 Significant Findings Laboratory Tests Test 08/31/17 05:56 09/02/17 13:17 Red Blood Count 2.60 MIL/MM3 (4.00-5.30) Hemoglobin 7.4 GM/DL (11.6-15.3) Hematocrit 23.2 % (35.0-46.0) Mean Corpuscular Hemoglobin Concent 31.8 % (32.0-36.0) Red Cell Distribution Width 18.3 % (11.6-17.2) Platelet Count 130 TH/MM3 (150-450) Eosinophils (%) (Auto) 4.1 % (0.0-4.0) Blood Urea Nitrogen 20 MG/DL (7-18) Creatinine 3.01 MG/DL (0.50-1.00) Total Protein 5.5 GM/DL (6.4-8.2) Calcium Level 7.2 MG/DL (8.5-10.1) Chloride Level 112 MEQ/L (98-107) Estimat Glomerular Filtration Rate 15 ML/MIN (>89) Protein Corrected Calcium 8.1 MG/DL (8.5-10.1) Imaging Last Impressions Nephrostomy 08/20/17 0000 Signed Impressions: Service Date/Time: Sunday, August 20, 2017 11:30 - CONCLUSION: Uncomplicated percutaneous nephrostomy as above. Julien Ramos MD Abdomen/Pelvis CT 08/19/17 0216 Signed Impressions: Service Date/Time: Saturday, August 19, 2017 02:51 - CONCLUSION: 1. Compared with April 02 there is placement of a right-sided ureteral stent with persistent moderate right hydronephrosis. There is also moderate left hydronephrosis with renal cortical atrophy and stable left ureteral stent. Nonobstructing calcifications left kidney. 2. Stable large calcified gallstone without biliary ductal dilatation. 3. Stable left-sided ventral hernia containing fat and a loop of small bowel. 4. Bell catheter in bladder. Colin Gilmore MD Chest X-Ray 08/19/17 0054 Signed Impressions: Service Date/Time: Saturday, August 19, 2017 01:07 - CONCLUSION: 1. Mild basilar atelectasis. Cardiomegaly. Colin Gilmore MD PE at Discharge GENERAL: NAD SKIN: Warm and dry. HEAD: Normocephalic. EYES: No scleral icterus. No injection or drainage. NECK: Supple, trachea midline. No JVD or lymphadenopathy. CARDIOVASCULAR: Regular rate and rhythm without murmurs, gallops, or rubs. RESPIRATORY: Breath sounds equal bilaterally. No accessory muscle use. GASTROINTESTINAL: Abdomen soft, non-tender, nondistended. MUSCULOSKELETAL: No cyanosis, or edema. BACK: Nontender without obvious deformity. No CVA tenderness. Hospital Course Patient admitted secondary to acute on chronic renal failure for which nephrology was consulted. Urology was also consulted and patient underwent right nephrostomy tube placed with monitoring or renal function and urine output. She was transfuse 1 unit packed red blood cell as well as Venofer. Infectious disease specialist was consulted due to UTI secondary to ESBL and patient was treated with IV antibiotics. She responded well to Rocephin secondary to bilateral lower extremity cellulitis. Treatment for other chronic medical conditions were continued. DVT and GI prophylaxis were provided. Physical therapy was consulted. Patient will be discharge on IV antibiotic to be completed secondary to UTI Pt Condition on Discharge: Stable Discharge Disposition: Disch w/ Home Health Serv Discharge Time: > 30 minutes Discharge Instructions DIET: Follow Instructions for: Heart Healthy Diet Activities you can perform: Regular-No Restrictions Follow up Referrals: Nephrology PCP Follow-up - 1 Week Urology Continued Medications: Allopurinol (Allopurinol) 100 Mg Tab 100 MG PO DAILY for Gout, #30 TAB 0 Refills Atenolol (Atenolol) 25 Mg Tab 12.5 MG PO DAILY for Blood Pressure Management, #30 TAB 0 Refills Levothyroxine (Synthroid) 150 Mcg Tab 150 MCG PO DAILY for Thyroid, #30 TAB 0 Refills Simvastatin (Simvastatin) 20 Mg Tab 20 MG PO DAILY for Cholesterol Management, #30 TAB 0 Refills Sebas Franco MD Sep 02, 2017 14:51
[2017-09-02 14:54] LABS: BICARBONATE 23.5 MEQ/L (21.0-32.0); POTASSIUM 5.5 MEQ/L (3.5-5.1)
[2017-09-02] MEDS ORDERED: EPIN1INJ21 IV PUSH (14:55)
[2017-09-02] MEDS ORDERED: SOLU250I IV PUSH (14:55)
[2017-09-02] MEDS ORDERED: INVA1INJ IV (14:55)
[2017-09-02] MEDS ORDERED: EPIN1INJ21 SQ (14:55)
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
--- NOTE | 2017-09-02 15:01 | HHI.FF ---
cc: Claudine Brandon MD Infusion Therapy Location of Infusion Therapy: Home Health Care IV Infusion Order Patient Information Appointment Date: Sep 03, 2017 Patient Weight 113.4 kg Diagnosis: Diagnosis ESBL E.coli complicated UTI. ESBL E.coli bacteremia at outside institution a week prior to admission. Coded Allergies: ampicillin (Unverified Allergy, Unknown, 08/19/17) *MDRO Multi-Drug Resistant Organism (Verified Adverse Reaction, Unknown, ) 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 Administer Medication Ertapenem 1 gram IV q 24 hours Start Treatment: Sep 16, 2017 Additional Information Venous access: Other (Midline) Additional Instructions [x] Peripheral flush and dressing changes per protocol [x] Implanted port and central print line supervisor: * Implanted port: 10 ml Normal Saline followed by 5 ml Heparin 100 units/ml Heparin flush after each use and monthly to maintain. [] May leave port accessed during therapy. [] May leave peripheral site accessed for duration of therapy. [x] If patient has SOB or respiratory distress, check oxygen saturation. If less than 90% or clinical signs of respiratory distress, administer oxygen at 2 L/min. via nasal cannula and notify physician. [x] Anaphylaxis/Reaction orders: * Stop infusion. * Keep IV line open with saline flush. * Notify physician. * Monitor vital signs every 15 minutes until symptoms resolve. * Check Oxygen saturation; Oxygen at 2 L/min. via nasal cannula if less than 90% or clinical signs of respiratory distress. * Administer diphenhydramine (Benadryl) 25 mg IV STAT, (unless patient has received as pre-med). May repeat once, if necessary. * Solu-Cortef 250 mg IVP over 30-60 seconds, use 100 mg vials for each dissolution. * Epinephrine (1mg/1 ml) 0.3 mg subcutaneously or IVP now with any signs of respiratory distress. * Check with physician for new additional pre-med orders if patient is re- challenged or re-treated. [x] May remove PICC line when treatment complete, after confirming with Physician. [x] If the patient is admitted to the hospital, the ED, or transferred via [facility] , complete transfer form including medication reconciliation order sheet. Laboratory Tests Weekly Labs: CBC w/diff, Creatinine, CRP, LFT's (Hepatic function test) Additional Information Please draw weekly labs, fax to number below, Call with abnormals, change in clinical condition or problems to: Dr.Reba Brandon Follow up appt: Patient to schedule follow up appt with Dr.Reba Brandon within 10 days post discharge. Follow up with PCP Follow up with other MDs as planned. Counseling: Counseled about medication side effects Counseled about PICC line care and hand hygiene. Grisel Andrade MD Sep 02, 2017 15:01
[2017-09-02 23:07] LABS: AUTOMATED NEUTROPHIL # 4.4 TH/MM3 (1.8-7.7); BASOPHIL % 0.6 % (0.0-2.0); EOSINOPHIL # 0.2 TH/MM3 (0-0.4); EOSINOPHIL % 4.1 % (0.0-4.0); HEMATOCRIT 24.7 % (35.0-46.0); HEMO FLAGS DIFF FINAL; LYMPH % 14.7 % (9.0-44.0); LYMPHOCYTE # 0.9 TH/MM3 (1.0-4.8); MEAN CELL VOLUME 87.8 FL (80.0-100.0); MEAN CORPUSCULAR HEMOGLOBIN 27.6 PG (27.0-34.0); MEAN CORPUSCULAR HGB CONC 31.5 % (32.0-36.0); MONO % 7.9 % (0.0-8.0); NEUT % 72.7 % (16.0-70.0); PLATELET COUNT 137 TH/MM3 (150-450); RED BLOOD COUNT 2.81 MIL/MM3 (4.00-5.30); RED CELL DISTRIBUTION WIDTH 18.5 % (11.6-17.2); WHITE BLOOD COUNT 6.1 TH/MM3 (4.0-11.0)
[2017-09-02] MEDS ORDERED: ONDANSETRON HCL 4 MG/2 ML VIAL ONE (23:22)
[2017-09-03 00:32] VITALS: BP 100/54; PULSE 91; RESP 17; TEMP 98.9; O2SAT 97
[2017-09-03] MEDS: LEVOTHYROXINE SODIUM 25 MCG TAB PO SCH (05:49)
[2017-09-03] MEDS: LEVOTHYROXINE SODIUM 150 MCG TAB PO SCH (05:49)
[2017-09-03 07:16] LABS: AUTOMATED NEUTROPHIL # 4.3 TH/MM3 (1.8-7.7); BASOPHIL % 0.6 % (0.0-2.0); EOSINOPHIL # 0.2 TH/MM3 (0-0.4); EOSINOPHIL % 4.1 % (0.0-4.0); HEMATOCRIT 24.5 % (35.0-46.0); HEMO FLAGS DIFF FINAL; LYMPH % 16.2 % (9.0-44.0); MEAN CELL VOLUME 87.8 FL (80.0-100.0); MEAN CORPUSCULAR HEMOGLOBIN 28.4 PG (27.0-34.0); MEAN CORPUSCULAR HGB CONC 32.4 % (32.0-36.0); MONO % 8.2 % (0.0-8.0); NEUT % 70.9 % (16.0-70.0); PLATELET COUNT 128 TH/MM3 (150-450); RED CELL DISTRIBUTION WIDTH 18.7 % (11.6-17.2); WHITE BLOOD COUNT 6.1 TH/MM3 (4.0-11.0)
[2017-09-03 07:18] LABS: BICARBONATE 22.5 MEQ/L (21.0-32.0); POTASSIUM 5.5 MEQ/L (3.5-5.1)
[2017-09-03 07:31] LABS: CALCIUM-PROTEIN CORRECTED 8.1 MG/DL (8.5-10.1)
[2017-09-03] MEDS: PRAVASTATIN SOD 40 MG TAB PO SCH (07:43)
[2017-09-03] MEDS: ATENOLOL 25 MG TAB PO SCH (07:43)
[2017-09-03] MEDS: ALLOPURINOL 100 MG TAB PO SCH (07:43)
[2017-09-03] MEDS: traMADol HCL 50 MG TAB PO PRN ×2 (07:45→18:59)
[2017-09-03 08:00] VITALS: BP 128/56; PULSE 85; RESP 18; TEMP 97.4; O2SAT 95
[2017-09-03] MEDS: DOCUSATE SODIUM 50 MG/SENNA 8.6 MG TAB PO SCH (09:00)
[2017-09-03] MEDS: SODIUM CHLORIDE 0.9% FLUSH 10 ML FLUSH IV FLUSH SCH (09:00)
[2017-09-03 11:35] VITALS: BP 112/58; PULSE 85; RESP 18; TEMP 97.9; O2SAT 96
--- NOTE | 2017-09-03 16:05 | HHI.NPPN ---
Subjective History of Present Illness 71-year-old female with past medical history of diabetes mellitus, atrial fibrillation, history of recurrent renal stone, history of bilateral stent and following with urology and nephrology at [facility], came with abdominal pain, suprapubic pain and generalized body pain with nausea and vomiting. I was called to see the patient because of very high BUN and creatinine. Additional Remarks Patient is alert, no SOB, no abd. pain, feeling better. Review of Systems General Constitutional: Fatigue Cardiovascular Cardiac: Edema, BURGOS Objective Data Data Vital Signs Date Time Temp Pulse Resp B/P (MAP) Pulse Ox O2 Delivery O2 Flow Rate FiO2 09/03/17 11:35 97.9 85 18 112/58 (76) 96 09/03/17 08:00 97.4 85 18 128/56 (80) 95 09/03/17 00:32 98.9 91 17 100/54 (69) 97 09/02/17 20:55 97.0 87 17 105/52 (69) 96 09/02/17 16:34 97.4 91 16 110/57 93 09/02/17 16:19 98.5 75 18 122/58 97 -: 09/03/17 0535 09/03/17 0535 Physical Exam General Appearance: No Acute Distress, Comfortable Eyes Eye Exam: Pupils Equal Throat Throat Exam: Oral Mucosa [place] & Moist Neck Neck Exam: Neck Supple Pulmonary Resp Exam: Clear Bilaterally, Breath Sounds Equal, No Distress, Decreased Bases Cardiology CV Exam: Regular, Normal Sinus Rhythm Gastrointestinal/Abdomen GI Exam: Soft, Non-Tender, Bowel Sounds Present, Distended Extremeties Extremities Exam: Moderate Edema, Pitting Edema Neurologic Neuro Exam: Alert, Awake, Oriented Psychiatric Psych Exam: Appropriate Responses Assessment/Plan Assessment Summary: ANDREA/Acute Renal Failure Problem List: (1) Dehydration ICD Codes: E86.0 - Dehydration Status: Acute (2) Hypothyroidism ICD Codes: E03.9 - Hypothyroidism Status: Chronic (3) Chronic anemia ICD Codes: D64.9 - Chronic anemia Status: Chronic (4) Diabetes ICD Codes: E11.9 - Diabetes Status: Chronic (5) Atrial fibrillation ICD Codes: I48.91 - Unspecified atrial fibrillation Status: Chronic (6) Bilateral hydronephrosis ICD Codes: N13.30 - Unspecified hydronephrosis Status: Acute (7) ANDREA (acute kidney injury) ICD Codes: N17.9 - Acute kidney failure, unspecified Status: Acute Plan Patient has been post Rt. Nephrostomy. Has underlying Chronic kidney disease, her baseline Creatinine was 2.1-3.0 in March 2015. Now the Creatinine is now 3.0, was 2.1 in March 2017. Continue the IVF and on Ertapenem as per ID. Avoid Nephrotoxins. Her left Kidney is not much functional as per patient. Urine out put is adequate. Urology to follow about Nephrostomy, possible change of stent. If D/C , will need Urology and Nephrology follow up. Creatinine is 2.7 and stable. K is 5.5, D/C IVF with Kcl. Possible D/C. Nely Lopez MD Sep 03, 2017 16:05
== END 2017-09-03 20:28 | disposition home health service (06) | DRG 683 ==
LOC: NEPE 00:22 → NEDA 02:53 → N06A 05:50
PROVIDERS: ADMIT Family Medicine; ATTEND Hospitalist
PROC: 30233N1 Transfusion of Nonautologous Red Blood Cells into Peripheral Vein, Percutaneous Approach (ICD-10-PCS; 2017-08-19)
PROC: 0T9030Z Drainage of Right Kidney with Drainage Device, Percutaneous Approach (ICD-10-PCS; principal; 2017-08-20)
PROC: BT1D1ZZ Fluoroscopy of Right Kidney, Ureter and Bladder using Low Osmolar Contrast (ICD-10-PCS; 2017-08-20)
DX: N17.9 Acute kidney failure, unspecified (principal); E87.2 Acidosis; E11.22 Type 2 diabetes mellitus with diabetic chronic kidney disease; L03.115 Cellulitis of right lower limb; I48.91 Unspecified atrial fibrillation; N39.0 Urinary tract infection, site not specified; L03.116 Cellulitis of left lower limb; E86.0 Dehydration; E03.9 Hypothyroidism, unspecified; E78.5 Hyperlipidemia, unspecified; D63.1 Anemia in chronic kidney disease; M19.90 Unspecified osteoarthritis, unspecified site; Z16.12 Extended spectrum beta lactamase (ESBL) resistance; B96.20 Unspecified Escherichia coli [E. coli] as the cause of diseases classified elsewhere; N18.3 Chronic kidney disease, stage 3 (moderate); N13.30 Unspecified hydronephrosis; B96.89 Other specified bacterial agents as the cause of diseases classified elsewhere; I87.8 Other specified disorders of veins; R53.1 Weakness; M10.9 Gout, unspecified; Z85.43 Personal history of malignant neoplasm of ovary; Z87.442 Personal history of urinary calculi; Z87.440 Personal history of urinary (tract) infections; Z79.02 Long term (current) use of antithrombotics/antiplatelets; Z88.0 Allergy status to penicillin; Z23 Encounter for immunization
CPT/HCPCS: 36430; 36569; 50432; 71010; 74176; 76937; 80048; 80053; 81001; 83036; 83540; 83550; 83690; 83735; 84100; 84155; 84439; 84443; 85007; 85014; 85018; 85025; 85027; 85610; 85730; 86140; 86850; 86900; 86901; 86920; 87040; 87077; 87086; 87186; 90471; 90686; 93005; 93306; 99152; 99153; C1729; C1769; C1894; G0008; J0696; J1335; J1756; J1956; J2250; J2405; J3010; J3480; J7030; J7050; J7070; P9016; Q2038; Q9967

== ENCOUNTER 2017-09-12 13:29 | Observation (INO) | payer MEDICARE, OTHER ==
[~2017-09-12] VITALS: Ht 177.8 cm; Wt 107.0 kg
[~2017-09-12 13:29] MED LIST changes: -APIX2.5T PO; -CHOL1CAP8 PO; +EPIN1INJ21 IV PUSH; +EPIN1INJ21 SQ; -GABA100C4 PO; -HYDR-3516 PO; +INVA1INJ IV; -LEVO.125 PO; +LEVO.15 PO; +SOLU250I IV PUSH; -TAMS0.4C4 PO; -VESI10TA PO; -VITA10002 PO
[2017-09-12 13:50] VITALS: BP 127/72; PULSE 84; RESP 20; TEMP 98; O2SAT 100
--- NOTE | 2017-09-12 15:21 | PD ---
HPI Chief Complaint: Fall Time Seen by Provider: 15:16 Travel History International Travel<30 days: No Contact w/Intl Traveler<30days: No Traveled to known affect area: No History of Present Illness HPI 71-year-old female presents to the emergency department via EMS for evaluation of left knee pain, inability to ambulate. Patient states that she got up this morning and felt like her left knee was locked up. She states that she went to get up using her walker and felt like she would not be able to hold herself up on her left leg due to her knee pain. She sat back down and stated she tried to work out her knee. She stood back up, but was unable to sit down. She states she "crumpled to the floor". She denies hitting her head or LOC. She denies any neck pain or back pain. No chest pain or abdominal pain. No nausea , vomiting, diarrhea. She reports history of chronic right hip pain for the past 6 years. She was recently discharged from the hospital 9 days ago. She states that since then, she has had left knee pain. However, has not been this severe. Patient states that she called EMS who helped her into her wheelchair. However, she states that she has not been able ambulate due to her left knee since so she called her primary care physician who told her she should come to the emergency department. Her primary care physician is Dr. Chambers. Patient was recently admitted for cellulitis, anemia, acute on chronic renal failure. She also has history of diabetes, atrial fibrillation. She states that discoloration to her bilateral lower extremities is chronic for her. She denies any fevers or chills. Patient had a right nephrostomy tube recently placed in the hospital. She complains of the bag leaking and is requesting a new bag for her nephrostomy tube. Patient is requesting x-rays. PFSH Past Medical History Hx Anticoagulant Therapy: Yes (elaquis) Arthritis: Yes (R. HIP PAIN ) Atrial Fibrillation: Yes Heart Rhythm Problems: Yes (Afib) Cancer: Yes (UTERINE - Stage 1) Cardiac Catheterization: Yes Cardiovascular Problems: Yes (AFIB) High Cholesterol: Yes Chest Pain: No Congestive Heart Failure: No Diabetes: No Endocrine: Yes Genitourinary: Yes Kidney Stones: Yes Musculoskeletal: Yes Neurologic: No Psychiatric: No Reproductive: No Respiratory: No Radiation Therapy: Yes Thyroid Disease: Yes Past Surgical History 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 Reported Meds & Prescriptions Reported Meds & Active Scripts Active Invanz Inj (Ertapenem) 1 Gm Addvial 1 Gm IV Q24H 14 Days ADMINISTER IN 100ML NS Epinephrine Inj 1 Mg/Ml (1 Ml) Inj 0.3 Mg SQ ONCE PRN Give with any signs of respiratory distress. Solu-Cortef Inj (Hydrocortisone Sodium Succinate) 250 Mg/2 Ml Inj 250 Mg IV PUSH ONCE PRN Give over 30-60 seconds. Reported Eliquis (Apixaban) 5 Mg Tab 5 Mg PO BID Synthroid (Levothyroxine Sodium) 150 Mcg Tab 150 Mcg PO DAILY Simvastatin 20 Mg Tab 20 Mg PO DAILY Atenolol 25 Mg Tab 25 Mg PO DAILY Allopurinol 100 Mg Tab 100 Mg PO DAILY Review of Systems Except as stated in HPI: all other systems reviewed are Neg Physical Exam Narrative GENERAL: Well-nourished, well-developed female patient, afebrile. SKIN: Focused skin assessment warm/dry. Patient has discoloration of bilateral lower extremities which patient states is chronic for her. No warmth noted. HEAD: Normocephalic. Atraumatic. EYES: No scleral icterus. No injection or drainage. NECK: Supple, trachea midline. No JVD or lymphadenopathy. CARDIOVASCULAR: Regular rate and rhythm without murmurs, gallops, or rubs. RESPIRATORY: Breath sounds equal bilaterally. No accessory muscle use. Lungs sounds are clear to auscultation. GASTROINTESTINAL: Abdomen soft, non-tender, nondistended. Patient's right nephrostomy tube noted with clear, morales urine. The nephrostomy bag is leaking and a Ziploc bag is placed over it. MUSCULOSKELETAL: No cyanosis, or edema. Patient has tenderness to right upper calf with ecchymosis noted. Patient states this occurred from her fall. She also has tenderness to left anterior knee and right lateral hip. Patient has PICC line to the left upper extremity for IV antibiotics. No erythema. BACK: Nontender without obvious deformity. No CVA tenderness. Data Data Last Documented VS Vital Signs Date Time Temp Pulse Resp B/P (MAP) Pulse Ox O2 Delivery O2 Flow Rate FiO2 09/12/17 16:32 98.2 65 18 132/88 (103) 99 Room Air Orders Orders Hip, Uni(Ap&Lat) W Ap Pelvis (09/12/17 ) Tibia/Fibula (Ap/Lat) (09/12/17 ) Knee, Complete (4vws) (09/12/17 ) Tibia/Fibula (Ap/Lat) (09/12/17 ) Blood Glucose (09/12/17 15:11) Acetamin-Hydrocod 325-5 Mg ([place] 5-325 (09/12/17 16:45) Complete Blood Count With Diff (09/12/17 17:15) Comprehensive Metabolic Panel (09/12/17 17:15) Prothrombin Time / Inr (Pt) (09/12/17 17:15) Act Partial Throm Time (Ptt) (09/12/17 17:15) Urinalysis - C+S If Indicated (09/12/17 17:15) Urine Culture (09/12/17 17:04) Admit Order (Ed Use Only) (09/12/17 18:20) Labs Laboratory Tests Test 09/12/17 17:04 09/12/17 17:30 Urine Color LIGHT-YELLOW Urine Turbidity CLEAR Urine pH 6.5 Urine Specific [place] 1.009 Urine Protein 30 mg/dL Urine Glucose (UA) NEG mg/dL Urine Ketones NEG mg/dL Urine Occult Blood MOD Urine Nitrite NEG Urine Bilirubin NEG Urine Urobilinogen 2.0 MG/DL Urine Leukocyte Esterase LARGE Urine RBC 35 /hpf Urine WBC 29 /hpf Urine WBC Clumps RARE Urine Squamous Epithelial Cells <1 /hpf Urine Bacteria FEW /hpf Microscopic Urinalysis Comment CULTURE INDICATED White Blood Count 5.2 TH/MM3 Red Blood Count 2.95 MIL/MM3 Hemoglobin 8.5 GM/DL Hematocrit 26.1 % Mean Corpuscular Volume 88.6 FL Mean Corpuscular Hemoglobin 28.8 PG Mean Corpuscular Hemoglobin Concent 32.5 % Red Cell Distribution Width 17.9 % Platelet Count 206 TH/MM3 Mean Platelet Volume 7.6 FL Neutrophils (%) (Auto) 71.1 % Lymphocytes (%) (Auto) 17.6 % Monocytes (%) (Auto) 6.2 % Eosinophils (%) (Auto) 3.9 % Basophils (%) (Auto) 1.2 % Neutrophils # (Auto) 3.7 TH/MM3 Lymphocytes # (Auto) 0.9 TH/MM3 Monocytes # (Auto) 0.3 TH/MM3 Eosinophils # (Auto) 0.2 TH/MM3 Basophils # (Auto) 0.1 TH/MM3 CBC Comment DIFF FINAL Differential Comment Prothrombin Time 13.0 SEC Prothromb Time International Ratio 1.2 RATIO Activated Partial Thromboplast Time 25.4 SEC Blood Urea Nitrogen 17 MG/DL Creatinine 2.39 MG/DL Random Glucose 83 MG/DL Albumin 2.3 GM/DL Calcium Level 8.1 MG/DL Aspartate Amino Transf (AST/SGOT) 16 U/L Alanine Aminotransferase (ALT/SGPT) 7 U/L Sodium Level 141 MEQ/L Potassium Level 4.3 MEQ/L Chloride Level 112 MEQ/L Carbon Dioxide Level 24.3 MEQ/L Anion Gap 5 MEQ/L Estimat Glomerular Filtration Rate 20 ML/MIN [facility] Medical Decision Making Medical Screen Exam Complete: Yes Emergency Medical Condition: Yes Medical Record Reviewed: Yes Interpretation(s) Last Impressions Tibia/Fibula X-Ray 09/12/17 0000 Signed Impressions: Service Date/Time: August 15:47 - CONCLUSION: No acute disease. Johnny Robles Jr., MD Tibia/Fibula X-Ray 09/12/17 0000 Signed Impressions: Service Date/Time: August 15:40 - CONCLUSION: No acute disease. Johnny Robles Jr., MD Knee X-Ray 09/12/17 0000 Signed Impressions: Service Date/Time: August 15:53 - CONCLUSION: 1. Advanced osteoarthritis. 2. Small joint effusion. 3. No fracture or dislocation. Johnny Robles Jr., MD Hip and Pelvis X-Ray 09/12/17 0000 Signed Impressions: Service Date/Time: August 15:31 - CONCLUSION: Acute fracture involving the superior pubic ramus on the right. Chronic changes involving the right hip as detailed above. Johnny Robles Jr., MD Differential Diagnosis Fracture versus sprain versus dislocation versus chronic pain Narrative Course 71-year-old female presents to the emergency department via EMS for right hip, left knee pain. X-ray of the right hip, left knee, left tibia/fibula, right tibia/fibular ordered and pending. She is given Lortab 5/325 mg for pain. X-ray of the right hip shows acute fracture involving the superior pubic ramus on the right, chronic changes involving the right hip as detailed. X-ray of the left knee shows advanced osteoarthritis, no acute fracture. X-ray of the left tibia/fibula shows no acute disease. X-ray of the right tibia/fibula shows no acute disease. Patient lives alone and is unable to ambulate. Patient will be admitted due to inability to walk, acute fracture. She verbalizes agreement to this. Residents accepted admission. Diagnosis Primary Impression: Fracture of superior pubic ramus Qualified Codes: S32.511A - Fracture of superior rim of right pubis, initial encounter for closed fracture Additional Impression: Inability to ambulate due to right hip Admitting Information Admitting Physician Requests: Observation Jacqueline Savage Sep 12, 2017 15:21
[2017-09-12 16:32] VITALS: BP 132/88; PULSE 65; RESP 18; TEMP 98.2; O2SAT 99
[2017-09-12] MEDS ORDERED: ACETAMINOPHEN/HYDROcodone 325 MG/5 MG TAB PO ONE (16:45)
--- NOTE | 2017-09-12 16:54 | RADRPT ---
EXAM DATE/TIME: 09/12/2017 15:31 [facility] COMPARISON: No previous studies available for comparison. INDICATIONS : Fell at her house today. MEDICAL HISTORY : Cardiovascular disease. renal calculi, uterine cancer, diabetes SURGICAL HISTORY : Hysterectomy. thyroidectomy, cardiac catherization ENCOUNTER: Initial ACUITY: 1 day PAIN SCORE: 10/10 LOCATION: Right hip and pelvis FINDINGS: 4 views of the pelvis and right hip are performed. Crosstable lateral views of the right hip are esse ntially nondiagnostic. Frontal view of the pelvis shows chronic changes involving the hip. There are erosive changes involving the femoral head and acetabulum. Collapse of the femoral head particularly medially. Acetabula protrusio observed. An acute nondisplaced fracture involving the superior pubic r amus on the right. Osteoarthritis involving the left hip and SI joints. Bilateral double-J stents par tially seen. Soft tissues are unremarkable. CONCLUSION: Acute fracture involving the superior pubic ramus on the right. Chronic changes involving the right h ip as detailed above. Johnny Robles Jr., MD on September 12, 2017 at 16:50 Board Certified Radiologist. This report was verified electronically.
--- NOTE | 2017-09-12 16:56 | RADRPT ---
EXAM DATE/TIME: 09/12/2017 15:40 [facility] COMPARISON: No previous studies available for comparison. INDICATIONS : Fell today at her home MEDICAL HISTORY : Renal calculi. Cardiovascular disease. uterine cancer, diabetes SURGICAL HISTORY : Hysterectomy. thyroidectomy, cardiac cath ENCOUNTER: Initial ACUITY: 1 day PAIN SCORE: 10/10 LOCATION: Right tib/ fib FINDINGS: Two view examination of the right tibia demonstrates no evidence of fracture or dislocation. Bony mi neralization is normal. The soft tissue structures are intact. CONCLUSION: No acute disease. Johnny Robles Jr., MD on September 12, 2017 at 16:53 Board Certified Radiologist. This report was verified electronically.
--- NOTE | 2017-09-12 16:57 | RADRPT ---
EXAM DATE/TIME: 09/12/2017 15:47 [facility] COMPARISON: No previous studies available for comparison. INDICATIONS : Fell at her home today. MEDICAL HISTORY : Cardiovascular disease. Renal calculi. uterine cancer, diabetes SURGICAL HISTORY : Hysterectomy. thyroidectomy, cardiac cath ENCOUNTER: Initial ACUITY: 1 day PAIN SCORE: 10/10 LOCATION: Left tib fib FINDINGS: Two view examination of the left tibia demonstrates no evidence of fracture or dislocation. Bony min eralization is normal. The soft tissue structures are intact. CONCLUSION: No acute disease. Johnny Robles Jr., MD on September 12, 2017 at 16:55 Board Certified Radiologist. This report was verified electronically.
--- NOTE | 2017-09-12 16:58 | RADRPT ---
EXAM DATE/TIME: 09/12/2017 15:53 [facility] COMPARISON: No previous studies available for comparison. INDICATIONS : Fell at home today. MEDICAL HISTORY : Cardiovascular disease. Renal calculi. diabetes, uterine cancer SURGICAL HISTORY : Hysterectomy. thyroidectomy, cardiac cath ENCOUNTER: Initial ACUITY: 1 day PAIN SCORE: 6/10 LOCATION: Left knee FINDINGS: Multiple views of the knee show joint space narrowing with periarticular sclerotic change and osteoph yte production. No fracture or dislocation. Small joint effusion. Soft tissues are unremarkable. CONCLUSION: 1. Advanced osteoarthritis. 2. Small joint effusion. 3. No fracture or dislocation. Johnny Robles Jr., MD on September 12, 2017 at 16:55 Board Certified Radiologist. This report was verified electronically.
[2017-09-12] MEDS ORDERED: APIX5TAB PO (17:49)
[2017-09-12 17:51] LABS: BACTERIA, URINE FEW /hpf; BLOOD, URINE MOD (NEG); COMMENT (UR) CULTURE INDICATED; CULTURE IF INDICATED CULTURE INDICATED; GLUCOSE,URINE NEG (NEG); KETONE, URINE NEG (NEG); NITRITE,URINE NEG (NEG); PH, URINE 6.5 (5.0-8.5); SQUAMOUS EPITHELIAL CELL URINE <1 /hpf (0-5); URINE COLOR LIGHT-YELLOW (YELLW/STRAW)
[2017-09-12 17:55] LABS: AUTOMATED NEUTROPHIL # 3.7 TH/MM3 (1.8-7.7); BASOPHIL # 0.1 TH/MM3 (0-0.2); BASOPHIL % 1.2 % (0.0-2.0); EOSINOPHIL # 0.2 TH/MM3 (0-0.4); EOSINOPHIL % 3.9 % (0.0-4.0); HEMATOCRIT 26.1 % (35.0-46.0); HEMO FLAGS DIFF FINAL; LYMPH % 17.6 % (9.0-44.0); LYMPHOCYTE # 0.9 TH/MM3 (1.0-4.8); MEAN CELL VOLUME 88.6 FL (80.0-100.0); MEAN CORPUSCULAR HEMOGLOBIN 28.8 PG (27.0-34.0); MEAN CORPUSCULAR HGB CONC 32.5 % (32.0-36.0); MONO % 6.2 % (0.0-8.0); NEUT % 71.1 % (16.0-70.0); PLATELET COUNT 206 TH/MM3 (150-450); RED BLOOD COUNT 2.95 MIL/MM3 (4.00-5.30); RED CELL DISTRIBUTION WIDTH 17.9 % (11.6-17.2); WHITE BLOOD COUNT 5.2 TH/MM3 (4.0-11.0)
[2017-09-12 18:03] LABS: APTT (PATIENT) 25.4 SEC (24.3-30.1); INTERNATIONAL NORMALIZED RATIO 1.2 RATIO
[2017-09-12 18:20] LABS: ALT (GPT) 7 U/L (10-53); ANION GAP 5 MEQ/L (5-15); AST (GOT) 16 U/L (15-37); BICARBONATE 24.3 MEQ/L (21.0-32.0); BLOOD UREA NITROGEN 17 MG/DL (7-18); CHLORIDE 112 MEQ/L (98-107); GLOMERULAR FILTRATION RATE 20 ML/MIN (>89); POTASSIUM 4.3 MEQ/L (3.5-5.1); SODIUM (NA) 141 MEQ/L (136-145)
[2017-09-12 18:22] LABS: ALKALINE PHOSPHATASE 123 U/L (45-117); TOTAL BILIRUBIN ADULT 0.3 MG/DL (0.2-1.0)
--- NOTE | 2017-09-12 18:45 | HHI.HP ---
[facility] Service Family Medicine Primary Care Physician Quinn Chambers MD Admission Diagnosis superior pubic ramus fracture; inability to ambulate Diagnoses: International Travel<30 Days: No Contact w/Intl Traveler<30days: No Known Affected Area: No History of Present Illness 71 y/o F w/hx of diabetes, osteoarthritis, atrial fibrillation on Eliquis, anemia, history of bilateral ureteral stent placement for kidney stones, chronic kidney disease who presents with recent fall. States she got up this morning to go to the restroom and used a walker (hx of osteoarthritis in multiple joints, including the knees). Left knee would not straighten up and locked as she attempted to move herself. States she has "a bad right hip," so she fell on both knees and then right hip. Called EMS to help her get up. She called her GP to see what she should do; what told to head to the ER to find out if anything had broken and to make sure "she was ok." Imaging of the pelvis showed right superior pubic ramus fracture. Significant osteoarthritis seen on left knee XR. Patient denies urinary incontinence, no weakness, no numbness, no hematuria. Experiencing 4/10 pain in knee and hip with pain medication. Never had fx or broken bones from previous falls. Taking vitamin D but not taking calcium. Has had 2 bone scans, have been normal. Her PCP is Dr. Lopez on [facility]. 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 Patient had right nephrostomy tube placed for occluded stent secondary to renal stones. was recently hospitalized for renal failure and anemia with a Cr up to 11. Was diagnosed with UTI secondary to ESBL and underwent treatment with Abx. Receives ertapenem infusion for UTI via PICC line since hospitalization. D/C'd on September 03. (Nilsa Azul MD R1) Review of Systems Constitutional: DENIES: Fatigue, Fever Endocrine: DENIES: Polydipsia, Polyuria Eyes: DENIES: Blurred vision, Vision loss Ears, nose, mouth, throat: DENIES: Hearing loss, Sinus Pain Respiratory: DENIES: Cough, Shortness of breath Cardiovascular: DENIES: Palpitations, Lower Extremity Edema Gastrointestinal: DENIES: Abdominal pain, Nausea, Vomiting Genitourinary: DENIES: Urinary frequency, Urinary incontinence Musculoskeletal: DENIES: Joint pain, Stiffness Integumentary: DENIES: Abnormal pigmentation, Pruritus Hematologic/lymphatic: DENIES: Lymphadenopathy Immunologic/allergic: DENIES: Eczema Neurologic: DENIES: Headache, Speech Problems Psychiatric: DENIES: Anxiety, Mood changes (Nilsa Azul MD R1) Past Family Social History Past Medical History DM Afib - takes Eliquis for a year R. Nephrostomy tube L uretral stent Refractory UTI CKD Osteoarthritis Past Surgical History Tonsillectomy 1947 thyroidectomy in 1975 hysterectomy for uterine cancer 6.5 years ago rotator cuff repair (Nilsa Azul MD R1) Allergies: Coded Allergies: ampicillin (Unverified Allergy, Unknown, 08/19/17) *MDRO Multi-Drug Resistant Organism (Verified Adverse Reaction, Unknown, ) 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 Family History Dad: passed at age 86, old age Mom: passed at age 98, osteoporosis Social History Smoked for 5 years at one point. No ETOH use. No illegal drug use. Lives [place] condo, lives alone. Has home health caregivers who come during day and night. (Nilsa Azul MD R1) Physical Exam Vital Signs Vital Signs Date Time Temp Pulse Resp B/P (MAP) Pulse Ox O2 Delivery O2 Flow Rate FiO2 09/12/17 16:32 98.2 65 18 132/88 (103) 99 Room Air 09/12/17 16:32 66 18 98 Room Air 09/12/17 13:50 98.0 84 20 127/72 (90) 100 Physical Exam GENERAL: This is a well-nourished, well-developed patient, in no apparent distress. SKIN: Cool and dry. HEAD: Atraumatic. Normocephalic. No temporal or scalp tenderness. EYES: Pupils equal round and reactive. Extraocular motions intact. ENT: Uvula midline. Airway patent. NECK: Trachea midline. No JVD or lymphadenopathy. Supple, nontender, no meningeal signs. CARDIOVASCULAR: Regular rate and rhythm without murmurs, gallops, or rubs. RESPIRATORY: Clear to auscultation. Breath sounds equal bilaterally. No wheezes , rales, or rhonchi. GASTROINTESTINAL: Abdomen soft, non-tender, nondistended. No hepato-splenomegaly , or palpable masses. MUSCULOSKELETAL: Extremities without clubbing, cyanosis, or edema. Lower extremity venous stasis. Ecchymosis on the lateral right knee and left knee cap. Minimal movement of lower extremity due to pelvic pain. No large ecchymosis on pelvic. No calf tenderness. Negative Homans sign bilaterally. NEUROLOGICAL: Awake and alert. Motor and sensory grossly within normal limits. Five out of 5 muscle strength in all muscle groups. Normal speech. Laboratory Laboratory Tests Test 09/12/17 17:04 09/12/17 17:30 Urine Color LIGHT-YELLOW Urine Turbidity CLEAR Urine pH 6.5 Urine Specific [place] 1.009 Urine Protein 30 Urine Glucose (UA) NEG Urine Ketones NEG Urine Occult Blood MOD Urine Nitrite NEG Urine Bilirubin NEG Urine Urobilinogen 2.0 Urine Leukocyte Esterase LARGE Urine RBC 35 Urine WBC 29 Urine WBC Clumps RARE Urine Squamous Epithelial Cells <1 Urine Bacteria FEW Microscopic Urinalysis Comment CULTURE INDICATED White Blood Count 5.2 Red Blood Count 2.95 Hemoglobin 8.5 Hematocrit 26.1 Mean Corpuscular Volume 88.6 Mean Corpuscular Hemoglobin 28.8 Mean Corpuscular Hemoglobin Concent 32.5 Red Cell Distribution Width 17.9 Platelet Count 206 Mean Platelet Volume 7.6 Neutrophils (%) (Auto) 71.1 Lymphocytes (%) (Auto) 17.6 Monocytes (%) (Auto) 6.2 Eosinophils (%) (Auto) 3.9 Basophils (%) (Auto) 1.2 Neutrophils # (Auto) 3.7 Lymphocytes # (Auto) 0.9 Monocytes # (Auto) 0.3 Eosinophils # (Auto) 0.2 Basophils # (Auto) 0.1 CBC Comment DIFF FINAL Differential Comment Prothrombin Time 13.0 Prothromb Time International Ratio 1.2 Activated Partial Thromboplast Time 25.4 Blood Urea Nitrogen 17 Creatinine 2.39 Random Glucose 83 Total Protein 7.1 Albumin 2.3 Calcium Level 8.1 Alkaline Phosphatase 123 Aspartate Amino Transf (AST/SGOT) 16 Alanine Aminotransferase (ALT/SGPT) 7 Total Bilirubin 0.3 Sodium Level 141 Potassium Level 4.3 Chloride Level 112 Carbon Dioxide Level 24.3 Anion Gap 5 Estimat Glomerular Filtration Rate 20 Date/Time Source Procedure Growth Status 09/12/17 17:04 Urine Suprapubic Urine Urine Culture Pending Received (Nilsa Azul MD R1) Result Diagram: 09/12/17172909/12/17 1730 Imaging Last Impressions Tibia/Fibula X-Ray 09/12/17 0000 Signed Impressions: Service Date/Time: August 15:47 - CONCLUSION: No acute disease. Johnny Robles Jr., MD Knee X-Ray 09/12/17 0000 Signed Impressions: Service Date/Time: August 15:53 - CONCLUSION: 1. Advanced osteoarthritis. 2. Small joint effusion. 3. No fracture or dislocation. Johnny Robles Jr., MD Hip and Pelvis X-Ray 09/12/17 0000 Signed Impressions: Service Date/Time: August 15:31 - CONCLUSION: Acute fracture involving the superior pubic ramus on the right. Chronic changes involving the right hip as detailed above. Johnny Robles Jr., MD (Nilsa Azul MD R1) Caprini VTE Risk Assessment Caprini VTE Risk Assessment: Mod/High Risk (score >= 2) Caprini Risk Assessment Model Point Value = 1 Point Value = 2 Point Value = 3 Point Value = 5 Age 41-60 Minor surgery BMI > 25 kg/m2 Swollen legs Varicose veins or History of unexplained or recurrent spontaneous Oral contraceptives or hormone replacement Sepsis (< 1 month) Serious lung disease, including pneumonia (< 1 month) Abnormal pulmonary function Acute myocardial infarction Congestive heart failure (< 1 month) History of inflammatory bowel disease Medical patient at bed rest Age 61-74 Arthroscopic surgery Major open surgery (> 45 min) Laparoscopic surgery (> 45 min) Malignancy Confined to bed (> 72 hours) Immobilizing plaster cast Central venous access Age >= 75 History of VTE Family history of VTE Factor V Leiden Prothrombin [id number] Lupus anticoagulant Anticardiolipin antibodies Elevated serum homocysteine Heparin-induced thrombocytopenia Other congenital or acquired thrombophilia Stroke (< 1 month) Elective arthroplasty Hip, pelvis, or leg fracture Acute spinal cord injury (< 1 month) Prophylaxis Regimen Total Risk Factor Score Risk Level Prophylaxis Regimen 0-1 Low Early ambulation 2 Moderate Order ONE of the following: *Sequential Compression Device (SCD) *Heparin 5000 units SQ BID 3-4 Higher Order ONE of the following medications: *Heparin 5000 units SQ TID *Enoxaparin/Lovenox 40 mg SQ daily (WT < 150 kg, CrCl > 30 mL/min) *Enoxaparin/Lovenox 30 mg SQ daily (WT < 150 kg, CrCl > 10-29 mL/min) *Enoxaparin/Lovenox 30 mg SQ BID (WT < 150 kg, CrCl > 30 mL/min) AND/OR *Sequential Compression Device (SCD) 5 or more Highest Order ONE of the following medications: *Heparin 5000 units SQ TID (Preferred with Epidurals) *Enoxaparin/Lovenox 40 mg SQ daily (WT < 150 kg, CrCl > 30 mL/min) *Enoxaparin/Lovenox 30 mg SQ daily (WT < 150 kg, CrCl > 10-29 mL/min) *Enoxaparin/Lovenox 30 mg SQ BID (WT < 150 kg, CrCl > 30 mL/min) AND *Sequential Compression Device (SCD) (Nilsa Azul MD R1) Assessment and Plan Assessment and Plan 71 y/o F w/ hx of AFib, DM, and CKD and admitted for R pelvic rami fracture and decreased ability to ambulate. Patient has a left arm PICC line and R. nephrostomy tube. Patient will likely require surgery for significant knee osteoarthritis, since she will likely experience further knee buckling with weight bearing. Based on PT recs, will consult case management for arrangement of continued PT/OT in addition to her home health services. Will provide PT/OT in-patient and pain control. Code Status FULL (Nilsa Azul MD R1) Attending Attestation THIS CASE WAS DISCUSSED WITH THE RESIDENT PHYSICIANS. I HAVE REVIEWED THE RECORD AND AGREE WITH THE ABOVE NOTE AND PLAN OF CARE WAS DISCUSSED. I HAVE AUTHORIZED THE ORDER FOR ADMISSION TO AN IN-PATIENT STATUS. (Agatha Ulloa MD) Problem List: (1) Fracture of superior pubic ramus ICD Codes: S32.519A - Fracture of superior rim of unspecified pubis, initial encounter for closed fracture Status: Acute Plan: Will require conservative treatment. - PT and OT w/early ambulation - pain control: norco and morphine (2) CKD (chronic kidney disease) stage 3, GFR 30-59 ml/min ICD Codes: N18.3 - Chronic kidney disease, stage 3 (moderate) Status: Chronic Plan: GFR is 20, Cr is 2.39 which appears to be near her baseline (1.5-2.0) - IVF - daily CMP - avoid nephrotoxins - nephrostomy tube c/d/i, good urine output, clear and yellow (3) Atrial fibrillation ICD Codes: I48.91 - Unspecified atrial fibrillation Status: Chronic Plan: Con't atenolol and eliquis (4) Anemia ICD Codes: D64.9 - Anemia, unspecified Status: Chronic Plan: 8.5 hgb, in baseline range - monitor w/daily CBC - type and cross and transfuse if hgb <7 (5) UTI (urinary tract infection) ICD Codes: N39.0 - Urinary tract infection, site not specified Status: Acute Plan: Was diagnosed with UTI secondary to ESBL and underwent treatment with Abx. Receives ertapenem infusion for UTI via PICC line since hospitalization. - Will consult ID for in-patient recommendations (6) Hydronephrosis of left kidney ICD Codes: N13.30 - Unspecified hydronephrosis Status: Resolved Plan: Left uretral stent in place. Patient has a hx of recurrent UTIs and nephrolithiasis - Con't IVF and monitor for symptoms (7) FEN Plan: Nutrition: Regular Diet Fluids: IVF 100mls DVT Prophy: anticoagulated on Eliquis, will consider addition of DVT prophy Electrolytes: replace as needed (Nilsa Azul MD R1) Problem Qualifiers (1) Fracture of superior pubic ramus: Qualified Codes: S32.511A - Fracture of superior rim of right pubis, initial encounter for closed fracture (2) Anemia: Qualified Codes: D64.9 - Anemia, unspecified Nilsa Azul MD R1 Sep 12, 2017 18:45 Agatha Ulloa MD Sep 13, 2017 14:13
[2017-09-12] MEDS ORDERED: SODIUM CHLORIDE 0.9% FLUSH 10 ML FLUSH IV FLUSH PRN (19:15)
[2017-09-12] MEDS ORDERED: SENNOSIDES 8.6 MG TAB PO PRN (19:15)
[2017-09-12] MEDS ORDERED: LACTULOSE SYRUP 20 GM/30 ML CUP PO PRN (19:15)
[2017-09-12] MEDS ORDERED: BISACODYL 10 MG SUPP RECTAL PRN (19:15)
[2017-09-12] MEDS ORDERED: NALOXONE HCL 0.4 MG/ML AMP IV PUSH PRN (19:15)
[2017-09-12] MEDS ORDERED: MAGNESIUM HYDROXIDE SUSP 30 ML CUP PO PRN (19:15)
[2017-09-12] MEDS ORDERED: ACETAMINOPHEN/HYDROcodone 325 MG/5 MG TAB PO PRN (20:00)
[2017-09-12] MEDS ORDERED: MORPHINE SULFATE 2 MG/ML INJ IM PRN (20:00)
[2017-09-12 20:53] VITALS: BP 144/64; PULSE 84; RESP 18; TEMP 98; O2SAT 98
[2017-09-12] MEDS: DOCUSATE SODIUM 50 MG/SENNA 8.6 MG TAB PO SCH (21:00)
[2017-09-12] MEDS: APIXABAN 5 MG TABLET PO SCH (21:52)
[2017-09-12] MEDS: SODIUM CHLORIDE 0.9% FLUSH 10 ML FLUSH IV FLUSH SCH (21:52)
[2017-09-12 22:00] VITALS: BP 130/60; PULSE 80; RESP 16; TEMP 98.7; O2SAT 98
[2017-09-12] MEDS: SODIUM CHLOR 0.9% 1000 ML INJ 1,000 ML IV SCH (22:40)
[2017-09-13 03:34] VITALS: BP 138/72; PULSE 92; TEMP 98; O2SAT 97
[2017-09-13] MEDS: ACETAMINOPHEN/HYDROcodone 325 MG/10 MG TAB PO PRN ×2 (03:38→11:22)
[2017-09-13] MEDS ORDERED: LEVOTHYROXINE SODIUM 150 MCG TAB PO SCH (06:00)
[2017-09-13 08:49] VITALS: BP 141/62; PULSE 73; RESP 21; TEMP 97.1; O2SAT 98
[2017-09-13] MEDS ORDERED: PRAVASTATIN SOD 40 MG TAB PO SCH (09:00)
[2017-09-13] MEDS ORDERED: ATENOLOL 25 MG TAB PO SCH (09:00)
[2017-09-13] MEDS ORDERED: NON-FORMULARY DRUG (Simvastatin 20 MG) PO SCH (09:00)
[2017-09-13] MEDS ORDERED: ALLOPURINOL 100 MG TAB PO SCH (09:00)
[2017-09-13] MEDS: SODIUM CHLORIDE 0.9% FLUSH 10 ML FLUSH IV FLUSH SCH (10:16)
[2017-09-13] MEDS: APIXABAN 5 MG TABLET PO SCH (10:16)
[2017-09-13] MEDS: DOCUSATE SODIUM 50 MG/SENNA 8.6 MG TAB PO SCH (10:17)
[2017-09-13] MEDS: SODIUM CHLOR 0.9% 1000 ML INJ 1,000 ML IV SCH (10:18)
[2017-09-13 11:03] LABS: AUTOMATED NEUTROPHIL # 3.3 TH/MM3 (1.8-7.7); BASOPHIL # 0.1 TH/MM3 (0-0.2); BASOPHIL % 1.3 % (0.0-2.0); EOSINOPHIL # 0.3 TH/MM3 (0-0.4); EOSINOPHIL % 5.3 % (0.0-4.0); HEMATOCRIT 26.9 % (35.0-46.0); HEMO FLAGS DIFF FINAL; LYMPH % 17.6 % (9.0-44.0); LYMPHOCYTE # 0.8 TH/MM3 (1.0-4.8); MEAN CELL VOLUME 88.7 FL (80.0-100.0); MEAN CORPUSCULAR HEMOGLOBIN 28.6 PG (27.0-34.0); MEAN CORPUSCULAR HGB CONC 32.3 % (32.0-36.0); MONO % 6.9 % (0.0-8.0); NEUT % 68.9 % (16.0-70.0); PLATELET COUNT 210 TH/MM3 (150-450); RED BLOOD COUNT 3.03 MIL/MM3 (4.00-5.30); RED CELL DISTRIBUTION WIDTH 18.2 % (11.6-17.2); WHITE BLOOD COUNT 4.8 TH/MM3 (4.0-11.0)
[2017-09-13 11:34] LABS: ALT (GPT) 7 U/L (10-53); ANION GAP 7 MEQ/L (5-15); AST (GOT) 15 U/L (15-37); BICARBONATE 21.9 MEQ/L (21.0-32.0); BLOOD UREA NITROGEN 15 MG/DL (7-18); CHLORIDE 112 MEQ/L (98-107); GLOMERULAR FILTRATION RATE 22 ML/MIN (>89); POTASSIUM 4.5 MEQ/L (3.5-5.1); SODIUM (NA) 141 MEQ/L (136-145)
[2017-09-13 11:37] LABS: ALKALINE PHOSPHATASE 116 U/L (45-117); TOTAL BILIRUBIN ADULT 0.4 MG/DL (0.2-1.0)
[2017-09-13] MEDS ORDERED: ASP: Path resistant to other antimicrobials, culture proven PRN (11:45)
[2017-09-13] MEDS ORDERED: MISCELLANEOUS PHARMACY INFORMATION XX PRN ×2 (11:45)
[2017-09-13 11:52] VITALS: BP 142/65; PULSE 75; RESP 18; TEMP 98.3; O2SAT 98
--- NOTE | 2017-09-13 12:01 | MB ---
cc: REENA CRYSTAL MD,CARLOS Barrios MD DATE OF CONSULTATION: 09/13/[address] Snow. REASON FOR CONSULTATION ESBL in urine. Please assist. HISTORY OF PRESENT ILLNESS This is a 71-year-old white female who has been receiving intravenous antibiotics for a urinary infection due to ESBL E. coli. The patient was in the hospital recently and was discharged on September 03 with intravenous antibiotics in the form of ertapenem. She is due to continue ertapenem until 09/16/2017. She was seen by Infectious Disease during the hospitalization. The patient presented to the emergency department for this visit after she fell at home. She is noted to have sustained a pubic rami fracture and also the x-ray reported chronic changes involving the right hip. She is afebrile and her white blood cell count is normal. Urinalysis yesterday showed 29 white cells and urine culture was taken and the result is pending. This consultation is requested because of the history of urine infection. The patient had a nephrostomy tube on the right side. The urine in the nephrostomy tube is morales-colored and has no sediment. The patient denies chills. She has no nausea or vomiting. PAST MEDICAL HISTORY 1. Diabetes mellitus. 2. Atrial fibrillation. 3. Chronic UTI. 4. Chronic kidney disease. 5. Osteoarthritis. 6. History of left ureteral stent. 7. Right nephrostomy tube. 8. Tonsillectomy. 9. Hysterectomy for treatment of uterine cancer. 10.Thyroidectomy. ALLERGIES AMPICILLIN. MEDICATIONS 1. Allopurinol. 2. Atenolol. 3. Pravachol. 4. Synthroid. 5. Maria [place] Rosario-Colace. 6. Eliquis. 7. [place] 10, p.r.n. SOCIAL HISTORY No tobacco. No alcohol. No substance abuse. FAMILY HISTORY Noncontributory. REVIEW OF SYSTEMS Negative on 10-point review except for pain in the right hip. PHYSICAL EXAMINATION GENERAL: This is a moderately obese female who is in no acute distress. She is awake and alert and oriented. VITAL SIGNS: Temperature 97.1, BP 141/62, respirations 21, heart rate 73. HEENT: Head is atraumatic. Extraocular movements grossly intact. Pupils reactive to light. No icterus. No conjunctival erythema. Oropharynx has moist mucosa, no visible lesions. NECK: Supple. No adenopathy. LUNGS: Clear. Decreased breath sounds bilateral. HEART: Regular S1 and S2, without murmurs, rubs or gallops. ABDOMEN: Obese, soft, nontender. RECTAL: Not performed. EXTREMITIES: No clubbing, cyanosis or edema. The patient has dry skin of the tibias and mild erythema at the left tibia. SKIN: No diffuse rash. NEUROLOGIC: Grossly nonfocal. PSYCHIATRIC: Patient calm and cooperative. LABORATORY WBC 4.8, platelets 210, hemoglobin 8.7. Creatinine 2.39, estimated GFR 20, sodium 101. AST 16, ALT 7. IMPRESSION 1. Urinary tract infection due to ESBL E. coli. The patient has been receiving intravenous ertapenem. Urine culture is repeated and result pending. History of nephrostomy tube on the right side and double-J stent on the left. 2. Chronic kidney disease. RECOMMENDATIONS 1. Continue the ertapenem. I have ordered the medication. 2. Monitor urine culture to make sure that the urine is cleared of the ESBL E. coli or to determine whether a different bacteria is present that may need to be treated. The patient has a follow-up appointment to see Dr. Brandon. If she is discharged over the next few days she should just keep the appointment and follow-up with Dr. Brandon. If she remains in the hospital the culture will be monitored for antibiotic determination. If the patient is discharged she can continue with the ertapenem as previously ordered by Dr. Andrade. The patient reports that she has IV antibiotics at home and she already has a PICC line for administration of antibiotics. Thank you for this consultation. Reena Crystal MD FD/KENROY /11:24 AM /11:42 AM
[2017-09-13] MEDS ORDERED: ERTAPENEM INJ 1,000 MG in SODIUM CHLORIDE 0.9% INJ 100 ML IV SCH (14:00)
--- NOTE | 2017-09-13 14:10 | HHI.FPPN ---
Problem Problem List: (1) Fracture of superior pubic ramus (2) Inability to ambulate due to right hip (3) Infection due to ESBL-producing Escherichia coli (4) CKD (chronic kidney disease) stage 3, GFR 30-59 ml/min (5) Atrial fibrillation (6) Anemia Subjective Subjective 71 y/o female that fell after her left knee buckled and lock -- she landed on her right hip and knees. She was brought to the ED by EMS and noted to have suprapubic ramus fracture. She does report pain in the hip and knee after the fall. XRAY of the hip and knee reviewed. This am she reports her pain is reasonably controlled with the pain medication. SHe does like along Patient also has a hx of bilateral uretral stent placement and recurrent UTIs due to obstructive uropathy. Patient had right nephrostomy tube placed for occluded stent secondary to renal stones. States was recently hospitalized for renal failure and anemia with a Cr up to 11. Was diagnosed with UTI secondary to ESBL and underwent treatment with Abx. Receives ertapenem infusion for UTI via PICC line since hospitalization. D/C'd on September 03. She wants to ensure that she will continue to receive this therapy during this hospitalization Review of Systems Constitutional: DENIES: Fatigue, Fever Endocrine: DENIES: Polydipsia, Polyuria Eyes: DENIES: Blurred vision, Vision loss Ears, nose, mouth, throat: DENIES: Hearing loss, Sinus Pain Respiratory: DENIES: Cough, Shortness of breath Cardiovascular: DENIES: Palpitations, Lower Extremity Edema Gastrointestinal: DENIES: Abdominal pain, Nausea, Vomiting Genitourinary: DENIES: Urinary frequency, Urinary incontinence Musculoskeletal: DENIES: Joint pain, Stiffness except in hip and knee as listed above Integumentary: DENIES: Abnormal pigmentation, Pruritus Hematologic/lymphatic: DENIES: Lymphadenopathy Immunologic/allergic: DENIES: Eczema Neurologic: DENIES: Headache, Speech Problems Psychiatric: DENIES: Anxiety, Mood changes Past Family Social History Past Medical History DM Afib - takes Eliquis for a year R. Nephrostomy tube L uretral stent Refractory UTI CKD Osteoarthritis Past Surgical History Tonsillectomy 1947 thyroidectomy in 1975 hysterectomy for uterine cancer 6.5 years ago rotator cuff repair Allergies: Coded Allergies: ampicillin (Unverified Allergy, Unknown, 08/19/17) *MDRO Multi-Drug Resistant Organism (Verified Adverse Reaction, Unknown, ) 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 Family History Dad: passed at age 86, old age Mom: passed at age 98, osteoporosis Social History Smoked for 5 years at one point. No ETOH use. No illegal drug use. Lives in [place] in a condo, lives alone. Has home health caregivers who come during day and night. [facility] Objective Objective Last Impressions Tibia/Fibula X-Ray 09/12/17 0000 Signed Impressions: Service Date/Time: August 15:47 - CONCLUSION: No acute disease. Johnny Robles Jr., MD Knee X-Ray 09/12/17 0000 Signed Impressions: Service Date/Time: August 15:53 - CONCLUSION: 1. Advanced osteoarthritis. 2. Small joint effusion. 3. No fracture or dislocation. Johnny Robles Jr., MD Hip and Pelvis X-Ray 09/12/17 0000 Signed Impressions: Service Date/Time: August 15:31 - CONCLUSION: Acute fracture involving the superior pubic ramus on the right. Chronic changes involving the right hip as detailed above. Johnny Robles Jr., MD Laboratory Tests - Abnormals Test 09/12/17 17:04 09/12/17 17:30 09/13/17 10:34 Urine Protein 30 mg/dL Urine Occult Blood MOD Urine Leukocyte Esterase LARGE Urine RBC 35 /hpf Urine WBC 29 /hpf Urine WBC Clumps RARE Urine Bacteria FEW /hpf Red Blood Count 2.95 MIL/MM3 3.03 MIL/MM3 Hemoglobin 8.5 GM/DL 8.7 GM/DL Hematocrit 26.1 % 26.9 % Red Cell Distribution Width 17.9 % 18.2 % Neutrophils (%) (Auto) 71.1 % Lymphocytes # (Auto) 0.9 TH/MM3 0.8 TH/MM3 Prothrombin Time 13.0 SEC Creatinine 2.39 MG/DL 2.16 MG/DL Albumin 2.3 GM/DL 2.2 GM/DL Calcium Level 8.1 MG/DL 8.3 MG/DL Alkaline Phosphatase 123 U/L Alanine Aminotransferase (ALT/SGPT) 7 U/L 7 U/L Chloride Level 112 MEQ/L 112 MEQ/L Estimat Glomerular Filtration Rate 20 ML/MIN 22 ML/MIN Eosinophils (%) (Auto) 5.3 % Vital Signs 09/12/17 09/12/17 09/12/17 09/12/17 16:32 16:32 20:44 20:53 Temp 98.2 98.0 Pulse 66 65 84 Resp 18 18 18 B/P (MAP) 132/88 (103) 144/64 (90) Pulse Ox 98 99 98 O2 Delivery Room Air Room Air 09/12/17 09/13/17 09/13/17 09/13/17 22:00 03:34 08:49 11:52 Temp 98.7 98.0 97.1 98.3 Pulse 80 92 73 75 Resp 16 18 B/P (MAP) 130/60 (83) 138/72 (94) 141/62 (88) 142/65 (90) Pulse Ox 98 97 98 98 INTAKE & OUTPUT 09/14/17 07:00 Output Total 400 ml Balance -400 ml Physical exam O. CONSTITUTIONAL/GEN: obese, in NAD. EYES: conjunctiva normal, PERRLA, EOMI. ENT: Mouth and pharynx normal. NECK: thyroid midline, carotids symmetrical. LUNGS: clear A-P, respiratory effort is normal. CARDIOVASCULAR: RR without murmur or gallop. No significant edema. GI/ABD: soft without masses, without organomegaly. : no CVA tenderness, nephrostomy bag with yellow urine NEURO: No focal deficits. She is unable to ambulate at this time due to pain in the hip SKIN: color normal, no rashes noted. HEME/LYMPH: no petechia or significant adenopathy -- she has some bruising over the knee and hip where she fell MUSC: back is normal in appearance. limited ROM of the le due to pain at this time. PSYCH/MENTAL STATUS: Alert and oriented x 3. Assessment Assessment: (1) Fracture of superior pubic ramus (2) Inability to ambulate due to right hip (3) Infection due to ESBL-producing Escherichia coli (4) CKD (chronic kidney disease) stage 3, GFR 30-59 ml/min Assessment 71 year old woman that lives alone with a fall resulting in a suprapubic ramus fracture. She has significant pain in the hip and she currently is unable to ambulate due to pain. This type of fracture is not usually surgical and she needs early ambulation and PT/rehab. Suspect due to her advanced age and living alone and her body size she will need placement at a rehab facility for rehab and PT. At this time will get PT to assess her and case management on board to help with discharge planning for her based on PT recommendations. Continued pain control for now. Urine infection -- ID consulted in order to continue her antibiotics during this hospitalization -- Dr. Crystal's note was reviewed and appreciate the recommendations and orders for this patients. The patient chronic medical issues appear to be stable and we will continue her home medications. She is already on eliquis and due to risk of bleeding with falls/advanced age/etc we have decided to continue this and not add on additional prophylaxis medication for DVT risk. Anticipate d/c to home or rehab based on PT recommendations with outpatient fu with ortho and pcp in a few days once we can get the patient mobilized and her pain under good control. PLAN PLAN Patient was seen and dw the resident team --- Dr. Wesley, Dr. Azul, Dr. Snow, Dr. Urbano Ulloa,Agatha Narvaez MD Sep 13, 2017 14:09
--- NOTE | 2017-09-13 15:18 | HHI.DCPOC ---
Discharge Care Plan Diagnosis: (1) Fracture of superior pubic ramus Goals to Promote Your Health * To prevent worsening of your condition and complications, continue physical therapy at rehab and follow up with your primary care physician. Directions to Meet Your Goals Take your medications as prescribed Follow your dietary instruction Follow activity as directed Keep your appointments as scheduled Take your immunizations and boosters as scheduled If your symptoms worsen call your PCP, if no PCP go to Urgent Care Center or Emergency Room Smoking is Dangerous to Your Health. Avoid second hand smoke Call the 24-hour hour crisis hotline for domestic abuse at Armando Wesley MD R2 Sep 13, 2017 15:18
[2017-09-13] MEDS ORDERED: SENN1TAB PO (15:21)
[2017-09-13] MEDS ORDERED: HYDR-3516 PO (15:21)
[2017-09-13] MEDS ORDERED: CHOL1CAP13 PO (15:22)
[2017-09-13 16:13] VITALS: BP 143/66; RESP 18; TEMP 99.1
== END 2017-09-13 16:57 ==
LOC: NEPE 13:29 → NEDA 18:22 → NEPHCDU 20:32
PROVIDERS: ADMIT Family Medicine; ATTEND Family Medicine
DX: S32.511A Fracture of superior rim of right pubis, initial encounter for closed fracture (principal); G89.29 Other chronic pain; W18.39XA Other fall on same level, initial encounter; Y93.89 Activity, other specified; Y92.019 Unspecified place in single-family (private) house as the place of occurrence of the external cause; I48.91 Unspecified atrial fibrillation; N18.3 Chronic kidney disease, stage 3 (moderate); D64.9 Anemia, unspecified; N17.9 Acute kidney failure, unspecified; E78.00 Pure hypercholesterolemia, unspecified; E07.9 Disorder of thyroid, unspecified; R82.99 Other abnormal findings in urine; M15.9 Polyosteoarthritis, unspecified; Z79.01 Long term (current) use of anticoagulants
CPT/HCPCS: 73502; 73564; 73590; 80053; 81001; 82306; 85025; 85610; 85730; 86850; 86900; 86901; 87086; 96360; 96361; 97163; 97167; 99285; G0378; G8987; G8988; J1335; J7030

== ENCOUNTER 2017-10-06 02:10 | Inpatient (IN) | payer MEDICARE, OTHER ==
[2017-10-06] VITALS (8 sets, daily range): BP systolic 104–163; BP diastolic 51–103; PULSE 81–97; RESP 16–18; TEMP 98.3–99.5; O2SAT 93–99
[~2017-10-06] VITALS: Ht 177.8 cm; Wt 114.9 kg
[~2017-10-06 02:10] MED LIST changes: +ALLO100 PO; +APIX5TAB PO; +CHOL5000 PO; +CHOL500022 PO; +COMMODE 3-IN-11 MIS; -EPIN1INJ21 IV PUSH; -EPIN1INJ21 SQ; +FERR325T20 PO; +HYDR-3516 PO; -INVA1INJ IV; +MUPI2%T TOPICAL; +PRAV40TA PO; -SOLU250I IV PUSH; +WHEEMIS3
[2017-10-06] MEDS ORDERED: SODIUM CHLOR 0.9% 1000 ML INJ 1,000 ML IV SCH (03:28)
[2017-10-06] MEDS ORDERED: ONDANSETRON HCL 4 MG/2 ML VIAL IVP ONE (03:30)
[2017-10-06] MEDS ORDERED: MORPHINE SULFATE 4 MG/ML INJ IV PUSH ONE (03:30)
[2017-10-06] MEDS ORDERED: SODIUM CHLORIDE 0.9% FLUSH 10 ML FLUSH IV FLUSH PRN ×2 (03:30→05:15)
[2017-10-06 04:24] LABS: BASOPHIL # 0.1 TH/MM3 (0-0.2); BASOPHIL % 0.5 % (0.0-2.0); EOSINOPHIL # 0.1 TH/MM3 (0-0.4); EOSINOPHIL % 1.4 % (0.0-4.0); HEMO FLAGS DIFF FINAL; LYMPH % 6.8 % (9.0-44.0); LYMPHOCYTE # 0.7 TH/MM3 (1.0-4.8); MEAN CORPUSCULAR HEMOGLOBIN 30.6 PG (27.0-34.0); MEAN CORPUSCULAR HGB CONC 33.7 % (32.0-36.0); MONO % 5.1 % (0.0-8.0); NEUT % 86.2 % (16.0-70.0); PLATELET COUNT 226 TH/MM3 (150-450); RED BLOOD COUNT 2.64 MIL/MM3 (4.00-5.30); RED CELL DISTRIBUTION WIDTH 18.4 % (11.6-17.2); WHITE BLOOD COUNT 10.4 TH/MM3 (4.0-11.0)
--- NOTE | 2017-10-06 04:29 | RADRPT ---
EXAM DATE/TIME: 10/06/2017 04:00 [place] COMPARISON: No previous studies available for comparison. INDICATIONS : Right flank pain; possible displacement of right nephrostomy tube. ORAL CONTRAST: No oral contrast ingested. RADIATION DOSE: 15.59 CTDIvol (mGy) MEDICAL HISTORY : Cardiovascular disease. Renal calculi. Hypertension.Renal calculi. Uterine cancer. SURGICAL HISTORY : Hysterectomy. ENCOUNTER: Initial ACUITY: 1 day PAIN SCALE: 7/10 LOCATION: Right flank TECHNIQUE: Volumetric scanning of the abdomen and pelvis was performed. Using automated exposure control and ad justment of the mA and/or kV according to patient size, radiation dose was kept as low as reasonably achievable to obtain optimal diagnostic quality images. DICOM format image data is available electro nically for review and comparison. FINDINGS: Examination of the lung bases demonstrates no abnormality. No pleural fluid is identified. No pulmona ry nodules are present. The liver and spleen are normal in size and no focal defects are identified. Multiple calcified granulomas are present in the spleen. There is a single stone within the gallbladd er without wall thickening or pericholecystic fluid measuring 2.5 cm. The pancreas demonstrates no ev idence of mass and there is no dilatation of the pancreatic duct. There is a small atrophic left kidn ey with a double J stent present. A right nephroureteral stent is in place with moderate right hydron ephrosis. Correlation with function of the catheter is necessary. Examination of the pelvis demonstrates no evidence of free fluid or pelvic mass. No abnormally enlarg ed inguinal or retroperitoneal lymph nodes are present. The bladder is unremarkable. There is a herni a in the left lower quadrant containing nonincarcerated loops of transverse colon. CONCLUSION: 1. No evidence of acute abdominal or pelvic process. No masses are identified. 2. Nephroureteral stent in the expected position with moderate right hydronephrosis. Correlation with function is necessary. 3. Left lower quadrant hernia containing colon 4. Cholelithiasis Rodriguez Kraft MD on October 06, 2017 at 4:23 Board Certified Radiologist. This report was verified electronically.
[2017-10-06 04:31] LABS: ANION GAP 10 MEQ/L (5-15); AST (GOT) 10 U/L (15-37); BICARBONATE 18.2 MEQ/L (21.0-32.0); BLOOD UREA NITROGEN 41 MG/DL (7-18); CHLORIDE 111 MEQ/L (98-107); GLOMERULAR FILTRATION RATE 17 ML/MIN (>89); POTASSIUM 5.4 MEQ/L (3.5-5.1); SODIUM (NA) 139 MEQ/L (136-145)
[2017-10-06 04:33] LABS: ALT (GPT) 13 U/L (10-53)
[2017-10-06 04:34] LABS: ALKALINE PHOSPHATASE 143 U/L (45-117); TOTAL BILIRUBIN ADULT 0.4 MG/DL (0.2-1.0)
[2017-10-06] MEDS ORDERED: SENNOSIDES 8.6 MG TAB PO PRN (05:15)
[2017-10-06] MEDS ORDERED: LACTULOSE SYRUP 20 GM/30 ML CUP PO PRN (05:15)
[2017-10-06] MEDS ORDERED: ACETAMINOPHEN 325 MG TAB PO PRN (05:15)
[2017-10-06] MEDS ORDERED: MAGNESIUM HYDROXIDE SUSP 30 ML CUP PO PRN (05:15)
[2017-10-06] MEDS ORDERED: BISACODYL 10 MG SUPP RECTAL PRN (05:15)
--- NOTE | 2017-10-06 05:29 | HHI.HP ---
HPI Service [facility] Primary Care Physician Quinn Chambers MD Admission Diagnosis hydronephrosis, right nephrostomy tube malfunction Diagnoses: (1) Malfunction of nephrostomy tube Diagnosis: Principal (2) Renal insufficiency Diagnosis: Principal (3) Flank pain Diagnosis: Principal (4) A-fib Diagnosis: Principal Travel History International Travel<30 Days: No Contact w/Intl Traveler <30 Da: No Traveled to Known Affected Are: No History of Present Illness This is a 71 year old female w/ a PMH of HTN, A-fib on Eliquis, CKD Stage III, and Chronic Anemia who presented to the ER w/ complaints of right-sided flank pain and decreased urine output from nephrostomy. S/p UTI/Bacteremia, admitted 08/19/17 for ANDREA, ESBL E. Coli, s/p eval by ID, Right Nephrostomy Tube placed by IR on 08/20/17. D/c'd home from Rehab 09/13/17, has been doing well until yesterday when noted right-sided flank pain and decreased urinary output into bag. Denies fever or chills. BP 163/71, HR 97, O2 sat 99% on RA, Temp 99.5. CBC at baseline. Chemistry essentially at baseline. Creatinine 2.71, producing 2.38 on 09/27/17. UA pending. CT Abd/Pelvis w/ no acute abdominal process, Nephro-Adan ureteral stent in expected position, moderate right hydronephrosis, correlation with function necessary. Follows w/ Dr. Cyr, scheduled from stent removal next week. Review of Systems Except as stated in HPI: all other systems reviewed are Neg ROS: 14 point review of systems otherwise negative. Past Family Social History Past Medical History PMH: HTN, A-fib on Eliquis, CKD Stage III, and Chronic Anemia Past Surgical History PAST SURGICAL HISTORY: Tonsillectomy, Hysterectomy, Nephrostomy Tube, Partial Thyroidectomy Allergies: Coded Allergies: ampicillin (Verified Allergy, Unknown, 10/06/17) mineral oil (Verified Allergy, Unknown, 10/06/17) petrolatum,hydrophilic (Verified Allergy, Unknown, 10/06/17) Family History PAST FAMILY HISTORY: Reviewed. No h/o DM or CAD Social History PAST SOCIAL HISTORY: Negative for alcohol, tobacco or drugs. Physical Exam Vital Signs Vital Signs Date Time Temp Pulse Resp B/P (MAP) Pulse Ox O2 Delivery O2 Flow Rate FiO2 10/06/17 04:14 88 16 115/68 (84) 96 Room Air 10/06/17 03:58 96 Room Air 10/06/17 02:12 99.5 97 16 163/71 (101) 99 Room Air Physical Exam PE: GENERAL: Pleasant elderly white female in no acute distress. HEENT: PERRLA, EOMI. No scleral icterus or conjunctival pallor. No lid lag or facial droop. CARDIOVASCULAR: Regular rate and rhythm. No obvious murmurs to auscultation. No chest tenderness to palpation. RESPIRATORY: No obvious rhonchi or wheezing. Clear to auscultation. Breath sounds equal bilaterally. GASTROINTESTINAL: Abdomen soft, non-tender, nondistended. BS normal. Right flank tenderness. Nephrostomy in place MUSCULOSKELETAL: Extremities without clubbing, cyanosis, or edema. No obvious deformities. NEUROLOGICAL: Awake, alert and oriented x4. No focal neurologic deficits. Moving both upper and lower extremities spontaneously. Laboratory Laboratory Tests Test 10/06/17 03:50 White Blood Count 10.4 Red Blood Count 2.64 Hemoglobin 8.1 Hematocrit 24.0 Mean Corpuscular Volume 91.0 Mean Corpuscular Hemoglobin 30.6 Mean Corpuscular Hemoglobin Concent 33.7 Red Cell Distribution Width 18.4 Platelet Count 226 Mean Platelet Volume 7.2 Neutrophils (%) (Auto) 86.2 Lymphocytes (%) (Auto) 6.8 Monocytes (%) (Auto) 5.1 Eosinophils (%) (Auto) 1.4 Basophils (%) (Auto) 0.5 Neutrophils # (Auto) 9.0 Lymphocytes # (Auto) 0.7 Monocytes # (Auto) 0.5 Eosinophils # (Auto) 0.1 Basophils # (Auto) 0.1 CBC Comment DIFF FINAL Differential Comment Blood Urea Nitrogen 41 Creatinine 2.71 Random Glucose 142 Total Protein 7.8 Albumin 2.9 Calcium Level 8.7 Alkaline Phosphatase 143 Aspartate Amino Transf (AST/SGOT) 10 Alanine Aminotransferase (ALT/SGPT) 13 Total Bilirubin 0.4 Sodium Level 139 Potassium Level 5.4 Chloride Level 111 Carbon Dioxide Level 18.2 Anion Gap 10 Estimat Glomerular Filtration Rate 17 Result Diagram: 10/06/1734910/06/17349 Caprini VTE Risk Assessment Caprini VTE Risk Assessment: Mod/High Risk (score >= 2) Caprini Risk Assessment Model Point Value = 1 Point Value = 2 Point Value = 3 Point Value = 5 Age 41-60 Minor surgery BMI > 25 kg/m2 Swollen legs Varicose veins or History of unexplained or recurrent spontaneous Oral contraceptives or hormone replacement Sepsis (< 1 month) Serious lung disease, including pneumonia (< 1 month) Abnormal pulmonary function Acute myocardial infarction Congestive heart failure (< 1 month) History of inflammatory bowel disease Medical patient at bed rest Age 61-74 Arthroscopic surgery Major open surgery (> 45 min) Laparoscopic surgery (> 45 min) Malignancy Confined to bed (> 72 hours) Immobilizing plaster cast Central venous access Age >= 75 History of VTE Family history of VTE Factor V Leiden Prothrombin [id number] Lupus anticoagulant Anticardiolipin antibodies Elevated serum homocysteine Heparin-induced thrombocytopenia Other congenital or acquired thrombophilia Stroke (< 1 month) Elective arthroplasty Hip, pelvis, or leg fracture Acute spinal cord injury (< 1 month) Prophylaxis Regimen Total Risk Factor Score Risk Level Prophylaxis Regimen 0-1 Low Early ambulation 2 Moderate Order ONE of the following: *Sequential Compression Device (SCD) *Heparin 5000 units SQ BID 3-4 Higher Order ONE of the following medications: *Heparin 5000 units SQ TID *Enoxaparin/Lovenox 40 mg SQ daily (WT < 150 kg, CrCl > 30 mL/min) *Enoxaparin/Lovenox 30 mg SQ daily (WT < 150 kg, CrCl > 10-29 mL/min) *Enoxaparin/Lovenox 30 mg SQ BID (WT < 150 kg, CrCl > 30 mL/min) AND/OR *Sequential Compression Device (SCD) 5 or more Highest Order ONE of the following medications: *Heparin 5000 units SQ TID (Preferred with Epidurals) *Enoxaparin/Lovenox 40 mg SQ daily (WT < 150 kg, CrCl > 30 mL/min) *Enoxaparin/Lovenox 30 mg SQ daily (WT < 150 kg, CrCl > 10-29 mL/min) *Enoxaparin/Lovenox 30 mg SQ BID (WT < 150 kg, CrCl > 30 mL/min) AND *Sequential Compression Device (SCD) Assessment and Plan Problem List: (1) Malfunction of nephrostomy tube ICD Code: T83.098A - Other mechanical complication of other urinary catheter, initial encounter (2) Flank pain ICD Code: R10.9 - Unspecified abdominal pain (3) Renal insufficiency ICD Code: N28.9 - Disorder of kidney and ureter, unspecified (4) A-fib ICD Code: I48.91 - Unspecified atrial fibrillation Assessment and Plan A/P: 1. Nephrostomy Tube Malfunction: s/p Right Nephrostomy by IR 08/20/17, acute onset of right flank pain and decreased urinary output, CT Abd/Pelvis w/ stent in good position, moderate hydronephrosis, possible nephrostomy malfunction, images reviewed by me. Consult IR for eval/exchange of nephrostomy. Follows w / Dr. Cyr, will consult for further recommendations. 2. Right Flank Pain: Secondary to above, analgesics/antiemetics as needed. 3. Renal Insufficiency: Acute on Chronic. Creatinine 2.71, previously 2.38 on 09/27/17. IVF for hydration, repeat labs. 4. A-fib: Chronic. Hold Eliquis for IR intervention. 5. DVT Prophylaxis: On Eliquis, will hold as above. 6. Social work for d/c planning as needed. 7. Case discussed w/ ER physician at length. Olivia Keenan MD Oct 06, 2017 05:29
--- NOTE | 2017-10-06 05:29 | PD ---
HPI Chief Complaint: Flank/Kidney Pain Time Seen by Provider: 02:52 Travel History International Travel<30 days: No Contact w/Intl Traveler<30days: No Traveled to known affect area: No History of Present Illness HPI This is a 71-year-old female who has a history of a nephrostomy tube on the right and a nephroureteral stent who presents to the emergency department with increasing flank pain that's been going on for the past 12 hours associated with no urine output from her nephrostomy tube, constant, moderate severity, associated with some nausea but no vomiting. She says she's felt feverish. She follows with Dr. Cyr who 1 week from now was planning on taking her nephrostomy tube out. PFSH Past Medical History Hx Anticoagulant Therapy: Yes (elaquis) Arthritis: Yes (R. HIP PAIN ) Asthma: No Atrial Fibrillation: Yes Anxiety: No Depression: No Heart Rhythm Problems: Yes (Afib) Cancer: Yes (UTERINE - Stage 1) Cardiac Catheterization: Yes Cardiovascular Problems: Yes (AFIB) High Cholesterol: Yes Chemotherapy: No Chest Pain: No Congestive Heart Failure: No COPD: No Cerebrovascular Accident: No Diabetes: Yes Patient Takes Glucophage: Yes (10/04/2017) Endocrine: Yes Gastrointestinal Disorders: No GERD: No Genitourinary: Yes (UTI, Kidney disease ) Hiatal Hernia: No Hypertension: Yes Implanted Vascular Access Dvce: No Kidney Stones: Yes Musculoskeletal: Yes Neurologic: No Psychiatric: No Reproductive: Yes (histerectomy for uterine ca) Respiratory: No Migraines: No Radiation Therapy: Yes Renal Failure: Yes Seizures: No Sickle Cell Disease: No Sleep Apnea: No Thyroid Disease: Yes Ulcer: No Tetanus Vaccination: Unknown Influenza Vaccination: Yes ?: Not Past Surgical History Abdominal Surgery: No Arteriovenous Shunt: No Cardiac Surgery: No Ear Surgery: No Endocrine Surgery: Yes (partial thyroidectomy 1975) Eye Surgery: No Genitourinary Surgery: Yes (kiDney stone removals) Gynecologic Surgery: Yes (hysterectomy 5.5 years later) Hysterectomy: Yes (uterine cancer) Insulin Pump: No Joint Replacement: No Neurologic Surgery: No Oral Surgery: Yes (tonsilectomy at 2) Pacemaker: No Thoracic Surgery: No Tonsillectomy: Yes Other Surgery: Yes Social History Alcohol Use: No Tobacco Use: No Substance Use: No Allergies-Medications (Allergen,Severity, Reaction): Coded Allergies: ampicillin (Verified Allergy, Unknown, 10/06/17) mineral oil (Verified Allergy, Unknown, 10/06/17) petrolatum,hydrophilic (Verified Allergy, Unknown, 10/06/17) Reported Meds & Prescriptions Reported Meds & Active Scripts Active Pravachol (Pravastatin) 40 Mg Tab 40 Mg PO HS 30 Days Ferosul (Ferrous Sulfate) 325 Mg (65 Mg Iron) Tablet 325 Mg PO BID 30 Days Vitamin D3 Maximum Strength (Cholecalciferol) 5,000 Unit Cap 5,000 Units PO DAILY Reported Eliquis (Apixaban) 5 Mg Tab 5 Mg PO BID Synthroid (Levothyroxine Sodium) 150 Mcg Tab 150 Mcg PO DAILY Atenolol 25 Mg Tab 25 Mg PO DAILY Allopurinol 100 Mg Tab 100 Mg PO DAILY Review of Systems Except as stated in HPI: all other systems reviewed are Neg Physical Exam Narrative GENERAL:Well appearing, no acute distress SKIN: Focused skin assessment warm and dry. HEAD: Atraumatic. Normocephalic. EYES: Pupils equal and round. No injection or drainage. ENT: Moist mucous membranes NECK: Trachea midline. CARDIOVASCULAR: Regular rate and rhythm. No murmur appreciated. RESPIRATORY: Clear to auscultation. Breath sounds equal bilaterally. GASTROINTESTINAL: Abdomen soft, mildly tender to palpation in the right mid abdomen with no rebound or guarding. : Right sided nephrostomy tube with empty bag MUSCULOSKELETAL: No obvious deformities. NEUROLOGICAL: Awake and alert. No obvious cranial nerve deficits. Moving all extremities. PSYCHIATRIC: Appropriate mood and affect; insight and judgment normal. Data Data Last Documented VS Vital Signs Date Time Temp Pulse Resp B/P (MAP) Pulse Ox O2 Delivery O2 Flow Rate FiO2 10/06/17 04:14 88 16 115/68 (84) 96 Room Air 10/06/17 02:12 99.5 Orders Orders Complete Blood Count With Diff (10/06/17 03:28) Comprehensive Metabolic Panel (10/06/17 03:28) Urinalysis - C+S If Indicated (10/06/17 03:28) Ct Abd/Pel W/O Iv Contrast (10/06/17 03:28) Iv Access Insert/Monitor (10/06/17 03:28) Ecg Monitoring (10/06/17 03:28) Oximetry (10/06/17 03:28) Morphine Inj (Morphine Inj) (10/06/17 03:30) Ondansetron Inj (Zofran Inj) (10/06/17 03:30) Sodium Chlor 0.9% 1000 Ml Inj (Ns 1000 M (10/06/17 03:28) Sodium Chloride 0.9% Flush (Ns Flush) (10/06/17 03:30) Admit Order (Ed Use Only) (10/06/17 05:09) Labs Laboratory Tests Test 10/06/17 03:50 White Blood Count 10.4 TH/MM3 Red Blood Count 2.64 MIL/MM3 Hemoglobin 8.1 GM/DL Hematocrit 24.0 % Mean Corpuscular Volume 91.0 FL Mean Corpuscular Hemoglobin 30.6 PG Mean Corpuscular Hemoglobin Concent 33.7 % Red Cell Distribution Width 18.4 % Platelet Count 226 TH/MM3 Mean Platelet Volume 7.2 FL Neutrophils (%) (Auto) 86.2 % Lymphocytes (%) (Auto) 6.8 % Monocytes (%) (Auto) 5.1 % Eosinophils (%) (Auto) 1.4 % Basophils (%) (Auto) 0.5 % Neutrophils # (Auto) 9.0 TH/MM3 Lymphocytes # (Auto) 0.7 TH/MM3 Monocytes # (Auto) 0.5 TH/MM3 Eosinophils # (Auto) 0.1 TH/MM3 Basophils # (Auto) 0.1 TH/MM3 CBC Comment DIFF FINAL Differential Comment Blood Urea Nitrogen 41 MG/DL Creatinine 2.71 MG/DL Random Glucose 142 MG/DL Total Protein 7.8 GM/DL Albumin 2.9 GM/DL Calcium Level 8.7 MG/DL Alkaline Phosphatase 143 U/L Aspartate Amino Transf (AST/SGOT) 10 U/L Alanine Aminotransferase (ALT/SGPT) 13 U/L Total Bilirubin 0.4 MG/DL Sodium Level 139 MEQ/L Potassium Level 5.4 MEQ/L Chloride Level 111 MEQ/L Carbon Dioxide Level 18.2 MEQ/L Anion Gap 10 MEQ/L Estimat Glomerular Filtration Rate 17 ML/MIN [facility] Medical Decision Making Medical Screen Exam Complete: Yes Emergency Medical Condition: Yes Interpretation(s) afebrile, mild tachycardia, hypertension anemia no leukocytosis renal insufficiency similar to prior potassium 5.4 CT: nephroureteral stent is in place Differential Diagnosis Nephrostomy tube obstruction, pyelonephritis, hydronephrosis, nephrostomy tube displacement Narrative Course This is a 71-year-old female who has a history of right sided hydronephrosis who presents to the emergency department reporting no urine output from her nephrostomy tube. Labs are obtained which are similar to prior slight worsening of the patient's renal function. CT abdomen and pelvis demonstrates stent and tube in place. Given the absence of urine output I think she requires evaluation by interventional radiology and possible urology. Patient was given morphine in the emergency department. She continues to have some pain. She'll be placed in observation for pain control and IR consultation. Diagnosis Primary Impression: Malfunction of nephrostomy tube Additional Impression: Flank pain Admitting Information Admitting Physician Requests: Observation Marely Mar MD Oct 06, 2017 05:29
[2017-10-06] MEDS: SODIUM CHLOR 0.9% 1000 ML INJ 1,000 ML IV SCH ×2 (05:54→15:11)
[2017-10-06] MEDS: LEVOTHYROXINE SODIUM 150 MCG TAB PO SCH (05:55)
[2017-10-06] MEDS ORDERED: SODIUM POLYSTYRENE SULFONATE SUSP 15 GM/60 ML CUP PO ONE (08:00)
[2017-10-06] MEDS: SODIUM CHLORIDE 0.9% FLUSH 10 ML FLUSH IV FLUSH SCH ×2 (09:00→20:59)
[2017-10-06 11:16] LABS: BACTERIA, URINE MANY /hpf; BLOOD, URINE MOD (NEG); COMMENT (UR) CULTURE INDICATED; CULTURE IF INDICATED CULTURE INDICATED; GLUCOSE,URINE NEG (NEG); KETONE, URINE NEG (NEG); MUCUS URINE FEW /lpf (OCC); NITRITE,URINE POS (NEG); PH, URINE 5.5 (5.0-8.5); SQUAMOUS EPITHELIAL CELL URINE <1 /hpf (0-5); URINE COLOR LIGHT-YELLOW (YELLW/STRAW)
[2017-10-06] MEDS: ALLOPURINOL 100 MG TAB PO SCH (11:20)
[2017-10-06] MEDS: DOCUSATE SODIUM 50 MG/SENNA 8.6 MG TAB PO SCH ×2 (11:20→20:20)
[2017-10-06] MEDS: ATENOLOL 25 MG TAB PO SCH (11:20)
[2017-10-06] MEDS: CHOLECALCIFEROL (VIT D3) 5000 UNIT CAP PO SCH (11:20)
[2017-10-06] MEDS: FERROUS SULFATE 325 MG (65 MG ELEMENTAL IRON) TAB PO SCH ×2 (11:21→20:20)
--- NOTE | 2017-10-06 12:32 | MB ---
cc: LARRY TOMLIN MD, MADIEY F. M.D. DATE OF CONSULTATION: 10/06/2017 REASON FOR CONSULTATION: Right hydronephrosis. Right flank pain. HISTORY OF PRESENT ILLNESS: The patient is a 71 year-old female with a history of A-fib on Eliquis, history of kidney stones with bilateral nephrosis secondary to chronic ureteral strictures, presented to the ER last night after her right nephrostomy tube stropped draining. She states it was draining fine up until through Saturday afternoon but then into the evening it stopped draining as it has done multiple times during the last month. She started to develop right flank pain and nausea, so she decided to come to the ER for further evaluation. She is followed by Dr. Cyr who has scheduled to change her stents in the upcoming week and possibly removal of her right nephrostomy tube. She has had ongoing stents for several years due to her previous surgery from her kidney stones, resulting in ureteral structures. Currently her pain is improved and she is urinating from her bladder but she still is yet to have output from her nephrostomy tube since coming here last night. She denies fevers, chills, nausea, vomiting, hematuria. On presentation to the ER, she had a CT of the abdomen and pelvis without contrast done which showed right hydronephrosis despite the presence of a nephroureteral stent. The stent on her left kidney appeared to be in normal position. The left kidney is slightly atrophic. Her creatinine on presentation was 2.7, her baseline is usually around 2.3. PAST MEDICAL HISTORY: Significant for: 1. Hypertension. 2. A-fib. 3. Bilateral ureteral obstruction, secondary to ureteral strictures. 4. Chronic anemia. 5. Chronic kidney disease, stage III. PAST SURGICAL HISTORY: 1. Tonsillectomy. 2. Hysterectomy. 3. Bilateral stent insertion with multiple exchanges. 4. Partial thyroidectomy. 5. Right nephrostomy tube placement. ALLERGIES: AMPICILLIN MINERAL OIL PETROLEUM FAMILY HISTORY: Denies urolithiasis. SOCIAL HISTORY Negative for alcohol, tobacco or drugs. REVIEW OF SYSTEMS: As in the HPI. All systems reviewed which are negative, otherwise as in the history of present illness. PHYSICAL EXAMINATION Vital signs: Temperature 99.1, pulse 96, respiratory rate 18, blood pressure 104/51, sating 97% on room air. General: She is alert and oriented x3. No apparent distress, pleasant cooperative lady who appears her stated age. Head is normocephalic, atraumatic. Eyes: Extraocular movements intact. No scleral icterus. Neck: Supple. Trachea is in the midline. Respiratory: Nonlabored respirations. No rales, rhonchi or wheezing. Heart: Regular rhythm. No murmurs, gallops, rubs. Abdomen: Soft, obese but nontender, nondistended. Positive bowel sounds. Her right nephrostomy tube does not have any urine draining into it currently. No CVA tenderness. Pelvic: Benign. Extremities: Nontender. No clubbing, cyanosis or edema. Psych: Anxious. Neurological: Cranial nerves II-XII intact. Strength 05/05 all four extremities. LABORATORY DATA: Show a white count 10.4, hemoglobin 8.1, hematocrit 24.0, platelet count 226. Sodium 139, potassium 5.4, chloride 111, bicarb 18.2, BUN 41, creatinine 2.71. CT of the abdomen and pelvis images reviewed. The patient has right-sided hydronephrosis with indwelling nephroureteral stent. Left ureteral stent in good position. ASSESSMENT AND PLAN: The patient is a 71 year-old female with history of atrial fibrillation on Eliquis with bilateral hydronephrosis secondary to right nephroureteral stent and left ureteral stent insertion, presents with malfunctioning right nephrostomy tube with acute on chronic kidney failure. Will continue to hold Eliquis. Will consult interventional radiology for exchanging of the right nephroureteral stent. She can be evaluated as an outpatient from Dr. Cyr. Larry Tomlin MD EMF/[facility] /10:11 AM /12:18 PM
--- NOTE | 2017-10-06 14:42 | HHI.PR ---
Subjective Remarks Follow-up malfunctioning nephrostomy tube. Improved right flank pain. Awaiting IR evaluation. Discussed with RN and . Objective Vitals Vital Signs Date Time Temp Pulse Resp B/P (MAP) Pulse Ox O2 Delivery O2 Flow Rate FiO2 10/06/17 12:44 98.3 84 18 136/61 (86) 99 10/06/17 08:44 99.1 96 18 104/51 (68) 97 10/06/17 06:47 10/06/17 04:14 88 16 115/68 (84) 96 Room Air 10/06/17 03:58 96 Room Air 10/06/17 02:12 99.5 97 16 163/71 (101) 99 Room Air I/O 10/05/17 10/05/17 10/05/17 10/06/17 10/06/17 10/06/17 07:00 15:00 23:00 07:00 15:00 23:00 Output Total 500 ml Balance -500 ml Output Urine Total 500 ml Result Diagram: 10/06/17 0350 10/06/17 0350 Imaging Last Impressions Abdomen/Pelvis CT 10/06/17 0328 Signed Impressions: Service Date/Time: Friday, October 06, 2017 04:00 - CONCLUSION: 1. No evidence of acute abdominal or pelvic process. No masses are identified. 2. Nephroureteral stent in the expected position with moderate right hydronephrosis. Correlation with function is necessary. 3. Left lower quadrant hernia containing colon 4. Cholelithiasis Rodriguez Kraft MD Objective Remarks GENERAL: Pleasant elderly white female in no acute distress. HEENT: PERRLA, EOMI. No scleral icterus or conjunctival pallor. No lid lag or facial droop. CARDIOVASCULAR: Regular rate and rhythm. No obvious murmurs to auscultation. No chest tenderness to palpation. RESPIRATORY: No obvious rhonchi or wheezing. Clear to auscultation. Breath sounds equal bilaterally. GASTROINTESTINAL: Abdomen soft, non-tender, nondistended. BS normal. Right flank tenderness. Nephrostomy in place MUSCULOSKELETAL: Extremities without clubbing, cyanosis, or edema. No obvious deformities. NEUROLOGICAL: Awake, alert and oriented x4. No focal neurologic deficits. Moving both upper and lower extremities spontaneously. A/P Problem List: (1) Malfunction of nephrostomy tube ICD Code: T83.098A - Other mechanical complication of other urinary catheter, initial encounter (2) Flank pain ICD Code: R10.9 - Unspecified abdominal pain (3) Renal insufficiency ICD Code: N28.9 - Disorder of kidney and ureter, unspecified (4) A-fib ICD Code: I48.91 - Unspecified atrial fibrillation Assessment and Plan 1. Nephrostomy Tube Malfunction: s/p Right Nephrostomy by IR 08/20/17, acute onset of right flank pain and decreased urinary output, CT Abd/Pelvis w/ stent in good position, moderate hydronephrosis, possible nephrostomy malfunction, images reviewed by me. Consult IR for eval/exchange of nephrostomy. Follows w / Dr. Cyr, will consult for further recommendations. 2. Right Flank Pain: Secondary to above, analgesics/antiemetics as needed. Counseled regarding narcotics on Lortab and morphine sulfate 3. Renal Insufficiency: Acute on Chronic stage III. Creatinine 2.71, previously 2.38 on 09/27/17. IVF for hydration, repeat labs. 4. A-fib: Chronic. Hold Eliquis for IR intervention. 5. DVT Prophylaxis: On Eliquis, will hold as above. Discharge Planning Discharge after IR procedure Boone Collins MD Oct 06, 2017 14:42
[2017-10-06] MEDS: PRAVASTATIN SOD 40 MG TAB PO SCH (20:20)
[2017-10-06] MEDS: ACETAMINOPHEN/HYDROcodone 325 MG/5 MG TAB PO PRN (20:20)
[2017-10-07 03:43] VITALS: BP 128/65; PULSE 87; RESP 17; TEMP 98.5; O2SAT 98
[2017-10-07] MEDS: ACETAMINOPHEN/HYDROcodone 325 MG/5 MG TAB PO PRN ×3 (04:06→17:47)
[2017-10-07] MEDS: LEVOTHYROXINE SODIUM 150 MCG TAB PO SCH (05:48)
[2017-10-07] MEDS: SODIUM CHLOR 0.9% 1000 ML INJ 1,000 ML IV SCH ×2 (06:33→17:46)
[2017-10-07 07:33] LABS: AUTOMATED NEUTROPHIL # 7.9 TH/MM3 (1.8-7.7); BASOPHIL # 0.1 TH/MM3 (0-0.2); BASOPHIL % 0.5 % (0.0-2.0); EOSINOPHIL # 0.2 TH/MM3 (0-0.4); EOSINOPHIL % 2.6 % (0.0-4.0); LYMPH % 7.7 % (9.0-44.0); LYMPHOCYTE # 0.7 TH/MM3 (1.0-4.8); MEAN CELL VOLUME 93.5 FL (80.0-100.0); MEAN CORPUSCULAR HEMOGLOBIN 30.4 PG (27.0-34.0); MEAN CORPUSCULAR HGB CONC 32.5 % (32.0-36.0); MONO % 6.3 % (0.0-8.0); NEUT % 82.9 % (16.0-70.0); PLATELET COUNT 169 TH/MM3 (150-450); RED BLOOD COUNT 2.13 MIL/MM3 (4.00-5.30); RED CELL DISTRIBUTION WIDTH 18.4 % (11.6-17.2); WHITE BLOOD COUNT 9.5 TH/MM3 (4.0-11.0)
[2017-10-07 07:38] LABS: HEMATOCRIT 19.9 % (35.0-46.0); HEMO FLAGS DIFF FINAL
[2017-10-07 08:16] LABS: ALKALINE PHOSPHATASE 115 U/L (45-117); ALT (GPT) 9 U/L (10-53); ANION GAP 7 MEQ/L (5-15); AST (GOT) 10 U/L (15-37); BICARBONATE 16.8 MEQ/L (21.0-32.0); BLOOD UREA NITROGEN 40 MG/DL (7-18); CHLORIDE 116 MEQ/L (98-107); GLOMERULAR FILTRATION RATE 17 ML/MIN (>89); POTASSIUM 4.6 MEQ/L (3.5-5.1); SODIUM (NA) 140 MEQ/L (136-145); TOTAL BILIRUBIN ADULT 0.6 MG/DL (0.2-1.0)
[2017-10-07 08:17] VITALS: BP 129/52; PULSE 80; RESP 16; TEMP 98.7; O2SAT 98
[2017-10-07] MEDS: SODIUM CHLORIDE 0.9% FLUSH 10 ML FLUSH IV FLUSH SCH ×2 (09:00→21:54)
[2017-10-07] MEDS ORDERED: FUROSEMIDE 20 MG/2 ML VIAL IV PUSH SCH (09:15)
[2017-10-07] MEDS ORDERED: SODIUM CHLOR 0.9% 250 ML INJ 250 ML IV ONE (09:15)
[2017-10-07 11:08] LABS: APTT (PATIENT) 34.5 SEC (24.3-30.1); INTERNATIONAL NORMALIZED RATIO 1.1 RATIO; PROTHROMBIN TIME - PATIENT 12.7 SEC (9.8-11.6)
[2017-10-07 11:08] LABS: TRANSFERRIN IRON PROFILE 131 MG/DL (200-360)
[2017-10-07 11:26] LABS: FERRITIN 377 NG/ML (8-252)
[2017-10-07 12:10] VITALS: BP 138/87; PULSE 101; RESP 16; TEMP 99; O2SAT 97
[2017-10-07] MEDS: ALLOPURINOL 100 MG TAB PO SCH (12:14)
[2017-10-07] MEDS: FERROUS SULFATE 325 MG (65 MG ELEMENTAL IRON) TAB PO SCH ×2 (12:15→21:54)
[2017-10-07] MEDS: CHOLECALCIFEROL (VIT D3) 5000 UNIT CAP PO SCH (12:15)
[2017-10-07] MEDS: ATENOLOL 25 MG TAB PO SCH (12:15)
[2017-10-07] MEDS: DOCUSATE SODIUM 50 MG/SENNA 8.6 MG TAB PO SCH ×2 (12:15→12:30)
--- NOTE | 2017-10-07 14:49 | HHI.PR ---
Subjective Remarks Follow-up nephrostomy tube malfunction. Denies pain. Hemoglobin 6.9 denies GI bleeding agrees with blood transfusion. Discussed with RN Objective Vitals Vital Signs Date Time Temp Pulse Resp B/P (MAP) Pulse Ox O2 Delivery O2 Flow Rate FiO2 10/07/17 12:10 99.0 101 16 138/87 (104) 97 10/07/17 08:17 98.7 80 16 129/52 (77) 98 10/07/17 05:48 18 10/07/17 03:43 98.5 87 17 128/65 (86) 98 10/06/17 23:58 98.4 92 17 104/51 (68) 97 10/06/17 20:29 99.0 89 16 126/58 (80) 98 10/06/17 17:19 98.4 81 16 131/103 (112) 93 I/O 10/06/17 10/06/17 10/06/17 10/07/17 10/07/17 10/07/17 07:00 15:00 23:00 07:00 15:00 23:00 Intake Total 500 ml 1200 ml Output Total 500 ml Balance -500 ml 500 ml 1200 ml Intake Oral 500 ml 200 ml IV Total 1000 ml Output Urine Total 500 ml # Voids 2 Result Diagram: 10/07/17 0646 10/07/17 0646 Imaging Last Impressions Abdomen/Pelvis CT 10/06/17 0328 Signed Impressions: Service Date/Time: Friday, October 06, 2017 04:00 - CONCLUSION: 1. No evidence of acute abdominal or pelvic process. No masses are identified. 2. Nephroureteral stent in the expected position with moderate right hydronephrosis. Correlation with function is necessary. 3. Left lower quadrant hernia containing colon 4. Cholelithiasis Rodriguez Kraft MD Objective Remarks GENERAL: Pleasant elderly white female in no acute distress. Skin: Looks pale HEENT: PERRLA, EOMI. No scleral icterus or conjunctival pallor. No lid lag or facial droop. CARDIOVASCULAR: Regular rate and rhythm. No obvious murmurs to auscultation. No chest tenderness to palpation. RESPIRATORY: No obvious rhonchi or wheezing. Clear to auscultation. Breath sounds equal bilaterally. GASTROINTESTINAL: Abdomen soft, non-tender, nondistended. BS normal. Right flank tenderness. Nephrostomy in place MUSCULOSKELETAL: Extremities without clubbing, cyanosis, or edema. No obvious deformities. NEUROLOGICAL: Awake, alert and oriented x4. No focal neurologic deficits. Moving both upper and lower extremities spontaneously. A/P Problem List: (1) Malfunction of nephrostomy tube ICD Code: T83.098A - Other mechanical complication of other urinary catheter, initial encounter (2) Flank pain ICD Code: R10.9 - Unspecified abdominal pain (3) Renal insufficiency ICD Code: N28.9 - Disorder of kidney and ureter, unspecified (4) A-fib ICD Code: I48.91 - Unspecified atrial fibrillation Assessment and Plan 1. Nephrostomy Tube Malfunction: s/p Right Nephrostomy by IR 08/20/17, acute onset of right flank pain and decreased urinary output, CT Abd/Pelvis w/ stent in good position, moderate hydronephrosis, possible nephrostomy malfunction, images reviewed by me. Consult IR for eval/exchange of nephrostomy. Follows w / Dr. Cyr, will consult for further recommendations. 2. Right Flank Pain: Secondary to above, analgesics/antiemetics as needed. Counseled regarding narcotics on Lortab and morphine sulfate 3. Renal Insufficiency: Acute on Chronic stage III. Creatinine 2.71, previously 2.38 on 09/27/17. IVF for hydration, repeat labs. 4. A-fib: Chronic. Hold Eliquis for IR intervention. 5. Acute anemia. Patient with slight hematuria. We'll transfuse 2 units of packed RBC keep hemoglobin at least 8 DVT Prophylaxis: On Eliquis, will hold as above. Discharge Planning Discharge after IR procedure but not stable for discharge today she will need blood transfusion Boone Collins MD Oct 07, 2017 14:49
[2017-10-07] MEDS ORDERED: LEVOFLOXACIN 250 MG PREMIX INJ 50 ML IV SCH (15:00)
[2017-10-07 16:58] VITALS: BP 121/60; PULSE 82; RESP 16; TEMP 97.8; O2SAT 98
--- NOTE | 2017-10-07 17:06 | HHI.PR ---
Subjective Patient symptoms today Spoke to patient and discussed her clinical status. She is scheduled to undergo bilateral stent exchange and potential nephrostomy tube removal next week saturday. At this time she is without any pain and the the nephrostomy tube is with some drainage noted. Her Cr is mildly elevated, with a baseline of 2.3-2.4. -Recommend not exchange of her nephrostomy tube at this time -She may be discharged once medically stable with plans to followup for her scheduled surgery next week -Please call with questions Objective Vital Signs Vital Signs Date Time Temp Pulse Resp B/P (MAP) Pulse Ox O2 Delivery O2 Flow Rate FiO2 10/07/17 16:58 97.8 82 16 121/60 (80) 98 10/07/17 12:10 99.0 101 16 138/87 (104) 97 10/07/17 08:17 98.7 80 16 129/52 (77) 98 10/07/17 05:48 18 10/07/17 03:43 98.5 87 17 128/65 (86) 98 10/06/17 23:58 98.4 92 17 104/51 (68) 97 10/06/17 20:29 99.0 89 16 126/58 (80) 98 10/06/17 17:19 98.4 81 16 131/103 (112) 93 Intake & Output 10/07/17 10/07/17 07:00 19:00 Intake Total 1200 ml Balance 1200 ml Intake Oral 200 ml IV Total 1000 ml Result Diagram: 10/07/17 0646 10/07/17 0646 Medications and IVs Current Medications Medications (Trade) Dose Ordered Sig/David Route Start Time Stop Time Status Last Admin Sodium Chloride 1,000 ml @ 100 mls/hr Q10H IV 10/06/17 05:11 10/07/17 06:33 (NS Flush) 2 ml UNSCH PRN IV FLUSH 10/06/17 05:15 (NS Flush) 2 ml BID IV FLUSH 10/06/17 09:00 (Zofran Inj) 4 mg Q6H PRN IVP 10/06/17 05:15 (Tylenol) 650 mg Q6H PRN PO 10/06/17 05:15 ([place] 5-325 Mg) 1 tab Q4H PRN PO 10/06/17 05:15 10/07/17 12:30 (Morphine Inj) 2 mg Q3H PRN IV PUSH 10/06/17 05:15 (Maria Del Rosario-Colace) 1 tab BID PO 10/06/17 09:00 10/07/17 12:15 (Senokot) 17.2 mg Q12H PRN PO 10/06/17 05:15 (Dulcolax Supp) 10 mg DAILY PRN RECTAL 10/06/17 05:15 (Lactulose Liq) 30 ml DAILY PRN PO 10/06/17 05:15 (Zyloprim) 100 mg DAILY PO 10/06/17 09:00 10/07/17 12:14 (Tenormin) 25 mg DAILY PO 10/06/17 09:00 10/07/17 12:15 (Vitamin D3) 5,000 units DAILY PO 10/06/17 09:00 10/07/17 12:15 (Ferrous Sulfate) 325 mg BID PO 10/06/17 09:00 10/07/17 12:15 (Synthroid) 150 mcg DAILY@0600 PO 10/06/17 06:00 10/07/17 05:48 (Pravachol) 40 mg HS PO 10/06/17 21:00 10/06/17 20:20 Sodium Chloride 250 ml @ 15 mls/hr ONCE ONCE IV 10/07/17 09:15 10/08/17 01:54 Levofloxacin/ Dextrose 50 ml @ 50 mls/hr Q48H IV 10/07/17 15:00 Lele Cyr MD Oct 07, 2017 17:06
[2017-10-07 19:49] VITALS: BP 117/60; PULSE 86; RESP 18; TEMP 98.1; O2SAT 98
[2017-10-07] MEDS: PRAVASTATIN SOD 40 MG TAB PO SCH (21:54)
[2017-10-07 23:03] VITALS: BP 123/63; PULSE 77; RESP 18; TEMP 98.3; O2SAT 98
[2017-10-08] VITALS (10 sets, daily range): BP systolic 114–142; BP diastolic 58–68; PULSE 69–81; RESP 14–19; TEMP 98–98.7; O2SAT 95–98
[2017-10-08] MEDS: ACETAMINOPHEN/HYDROcodone 325 MG/5 MG TAB PO PRN ×4 (01:29→23:28)
[2017-10-08] MEDS: LEVOTHYROXINE SODIUM 150 MCG TAB PO SCH (05:50)
[2017-10-08 08:00] LABS: BASOPHIL # 0.1 TH/MM3 (0-0.2); BASOPHIL % 0.7 % (0.0-2.0); EOSINOPHIL # 0.4 TH/MM3 (0-0.4); HEMATOCRIT 21.6 % (35.0-46.0); HEMO FLAGS DIFF FINAL; LYMPH % 9.2 % (9.0-44.0); LYMPHOCYTE # 0.7 TH/MM3 (1.0-4.8); MEAN CELL VOLUME 90.5 FL (80.0-100.0); MEAN CORPUSCULAR HEMOGLOBIN 30.9 PG (27.0-34.0); MEAN CORPUSCULAR HGB CONC 34.1 % (32.0-36.0); MONO % 6.8 % (0.0-8.0); NEUT % 78.3 % (16.0-70.0); PLATELET COUNT 172 TH/MM3 (150-450); RED BLOOD COUNT 2.39 MIL/MM3 (4.00-5.30); RED CELL DISTRIBUTION WIDTH 17.5 % (11.6-17.2); WHITE BLOOD COUNT 7.7 TH/MM3 (4.0-11.0)
[2017-10-08 08:22] LABS: BICARBONATE 16.4 MEQ/L (21.0-32.0); POTASSIUM 4.1 MEQ/L (3.5-5.1)
--- NOTE | 2017-10-08 08:46 | HHI.PR ---
Subjective Remarks Follow up anemia. Patient states that she feels tired. Denies lightheadedness, dizziness, chest pain, dyspnea. No BM since Saturday. Objective Vitals Vital Signs Date Time Temp Pulse Resp B/P (MAP) Pulse Ox O2 Delivery O2 Flow Rate FiO2 10/08/17 05:53 98.7 77 16 123/61 95 10/08/17 05:35 98.1 75 18 121/60 95 10/08/17 04:11 98.6 72 18 114/58 (76) 98 10/08/17 02:05 98.7 75 18 119/62 97 10/08/17 01:32 98.6 77 14 122/66 98 10/07/17 23:03 98.3 77 18 123/63 (83) 98 10/07/17 19:49 98.1 86 18 117/60 (79) 98 10/07/17 16:58 97.8 82 16 121/60 (80) 98 10/07/17 12:10 99.0 101 16 138/87 (104) 97 I/O 10/07/17 10/07/17 10/07/17 10/08/17 10/08/17 10/08/17 07:00 15:00 23:00 07:00 15:00 23:00 Intake Total 1200 ml 900 ml Balance 1200 ml 900 ml Intake Oral 200 ml 500 ml IV Total 1000 ml Packed Cells 400 ml # Voids 7 Result Diagram: 10/08/17 0730 10/08/17 0730 Imaging Last Impressions Abdomen/Pelvis CT 10/06/17 0328 Signed Impressions: Service Date/Time: Friday, October 06, 2017 04:00 - CONCLUSION: 1. No evidence of acute abdominal or pelvic process. No masses are identified. 2. Nephroureteral stent in the expected position with moderate right hydronephrosis. Correlation with function is necessary. 3. Left lower quadrant hernia containing colon 4. Cholelithiasis Rodriguez Kraft MD Objective Remarks General: Elderly female in no acute distress. Heart: Regular rate and rhythm. No murmur. Lungs: Clear to auscultation bilaterally. No wheezes, rales, or rhonchi. Breathing is nonlabored. Abdomen: Soft, nontender, nondistended. Right nephrostomy tube in place. Large hernia in left lower quadrant is reducible, nontender. Extremities: No lower extremity edema. Psych: Alert and oriented. Procedures None Urinary Catheter: No Vascular Central Line Catheter: No A/P Problem List: (1) Malfunction of nephrostomy tube ICD Code: T83.098A - Other mechanical complication of other urinary catheter, initial encounter (2) Flank pain ICD Code: R10.9 - Unspecified abdominal pain (3) Renal insufficiency ICD Code: N28.9 - Disorder of kidney and ureter, unspecified (4) A-fib ICD Code: I48.91 - Unspecified atrial fibrillation Assessment and Plan 1. Nephrostomy tube malfunction: Status post right nephrostomy tube placed by IR on 08/20/17. Scheduled for nephrostomy tube exchange on Saturday. Appreciate urology recommendations. Per Dr. Cyr, does not need to be changed at this time. Keep scheduled appointment for tube exchange on Saturday. 2. Right flank pain: Secondary to above. Improving. 3. Acute kidney injury superimposed on chronic kidney disease stage III: IV fluids. Monitor BUN and creatinine. 4. Atrial fibrillation: Chronic. Eliquis on hold. 5. Acute worsening of chronic anemia: Patient currently receiving transfusion of 2 units PRBCs. Monitor H&H. 6. DVT prophylaxis: SCDs, RAPHAEL pantoja. Eliquis on hold. Discharge Planning Possible discharge home later today pending results of labs following transfusion. Wili Chance MD Oct 08, 2017 08:46
[2017-10-08] MEDS: SODIUM CHLORIDE 0.9% FLUSH 10 ML FLUSH IV FLUSH SCH ×2 (09:00→21:53)
[2017-10-08] MEDS: ALLOPURINOL 100 MG TAB PO SCH (10:08)
[2017-10-08] MEDS: CHOLECALCIFEROL (VIT D3) 5000 UNIT CAP PO SCH (10:08)
[2017-10-08] MEDS: FERROUS SULFATE 325 MG (65 MG ELEMENTAL IRON) TAB PO SCH ×2 (10:08→21:52)
[2017-10-08] MEDS: ATENOLOL 25 MG TAB PO SCH (10:08)
[2017-10-08] MEDS: DOCUSATE SODIUM 50 MG/SENNA 8.6 MG TAB PO SCH ×2 (10:08→21:52)
[2017-10-08 14:55] LABS: REVIEW FLAG FINAL
[2017-10-08] MEDS ORDERED: MISCELLANEOUS PHARMACY INFORMATION XX PRN ×2 (16:30)
[2017-10-08] MEDS ORDERED: ASP: Documented ESBL, MDR A baumannii or P. aeruginosa PRN (16:30)
--- NOTE | 2017-10-08 16:34 | HHI.FF ---
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 [] May leave port accessed during therapy. [] May leave peripheral site accessed for duration of therapy. [x] If patient has SOB or respiratory distress, check oxygen saturation. If less than 90% or clinical signs of respiratory distress, administer oxygen at 2 L/min. via nasal cannula and notify physician. [x] Anaphylaxis/Reaction orders: * Stop infusion. * Keep IV line open with saline flush. * Notify physician. * Monitor vital signs every 15 minutes until symptoms resolve. * Check Oxygen saturation; Oxygen at 2 L/min. via nasal cannula if less than 90% or clinical signs of respiratory distress. * Administer diphenhydramine (Benadryl) 25 mg IV STAT, (unless patient has received as pre-med). May repeat once, if necessary. * Solu-Cortef 250 mg IVP over 30-60 seconds, use 100 mg vials for each dissolution. * Epinephrine (1mg/1 ml) 0.3 mg subcutaneously or IVP now with any signs of respiratory distress. * Check with physician for new additional pre-med orders if patient is re- challenged or re-treated. [x] May remove PICC line when treatment complete, after confirming with Physician. [x] If the patient is admitted to the hospital, the ED, or transferred via [facility] , complete transfer form including medication reconciliation order sheet. Laboratory Tests Weekly Labs: BMP, LFT's (Hepatic function test) Additional Information Call any abnormal lab results to Dr Crystal [phone]. fax: [phone]. Jesus Alberto Crystal MD Oct 08, 2017 16:34
--- NOTE | 2017-10-08 16:49 | MB ---
cc: REENA CRYSTAL MD DATE OF CONSULTATION 10/08/[address] Chance. 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 The patient has been treated with multiple rounds of IV antibiotics. She has a right nephrostomy tube and bilateral ureteral stents. The patient is followed by neurology and there was plan to remove the nephrostomy tube next week. She apparently developed increasing flank pain and decreased urine output from her nephrostomy tube and she presented to the emergency department for evaluation. The patient tells me that she feels tired. Otherwise, she denies other symptoms including chills, nausea or vomiting. She had a urine culture which has ESBL E-coli. She was given a dose of Levaquin yesterday evening and this consultation is requested for antibiotic management. A CT scan of the abdomen and pelvis shows moderate right hydronephrosis. The patient was also noted to have a left lower quadrant hernia containing colon and also cholelithiasis. The patient has been afebrile. A white blood cell count is normal. PAST MEDICAL HISTORY 1. Hypertension, 2. Atrial fibrillation, 3. Chronic kidney disease stage III 4. Chronic anemia 5. Hysterectomy 6. Nephrostomy tube 7. Partial thyroidectomy, 8. Tonsillectomy. ALLERGIES AMPICILLIN MEDICATIONS 1. Pravachol 2. Maria Del Rosario-Colace. 3. Allopurinol 4. Tenormin 5. Vitamin D3. 6. Ferrous sulfate. 7. Synthroid. 8. [place] five p.r.n. SOCIAL HISTORY The patient lives alone. No tobacco, no alcohol. No illicit drugs. FAMILY HISTORY Noncontributory. REVIEW OF SYSTEMS Negative on 10-point review. PHYSICAL EXAMINATION GENERAL: This is a moderately obese female who is in no acute distress. She is awake and alert. VITAL SIGNS: Temperature 98.0, BP 142/68, respirations 16, heart rate 70. HEENT: Head atraumatic. Extraocular movements grossly intact, pupils reactive to light without icterus. Oropharynx moist mucosa. No lesions. NECK: Supple. No adenopathy. LUNGS: Clear breath sounds bilateral. HEART: Regular rate and rhythm. No murmurs, rubs or gallops. ABDOMEN: Bowel sounds present, obese, soft, no tenderness appreciated. Right nephrostomy tube in place. RECTAL: Not performed. EXTREMITIES: No clubbing, cyanosis or edema. SKIN: No rash. NEUROLOGIC: No gross focal findings. LABORATORY DATA WBC 7.7, platelets 172, hemoglobin of 8.2, creatinine 2.95, BUN 45, sodium 141, estimated GFR 16. IMPRESSION Recurrent urinary tract infection due to ESBL E-coli. Multiple prior episodes of infection. However, last urine testing on 09/14 and 09/18 were negative for the ESBL E-coli. Patient with nephrostomy tube and also ureteral stents. The patient is due to undergo removal of the nephrostomy potentially along with bilateral stent exchange in six days. The plan is to do this as an outpatient. RECOMMENDATIONS Treat the patient with Invanz again since she is at very high risk for developing complications including septicemia particularly with the plans to exchange her stents. I recommend giving her IV Invanz daily up until after the procedure and, once she has the procedure and is stable, then the medication can be discontinued. I will order the antibiotic for outpatient administration unless the patient is kept in the hospital and in this case she would need to continue while she is in the hospital. Thank you this consultation. Reena Crystal MD FD/ /4:21 PM /4:39 PM
[2017-10-08] MEDS: ERTAPENEM INJ 500 MG in SODIUM CHLORIDE 0.9% INJ 100 ML IV SCH (17:45)
[2017-10-08] MEDS: SODIUM CHLOR 0.9% 1000 ML INJ 1,000 ML IV SCH (17:46)
[2017-10-08] MEDS: PRAVASTATIN SOD 40 MG TAB PO SCH (21:52)
[2017-10-09] MEDS: SODIUM CHLOR 0.9% 1000 ML INJ 1,000 ML IV SCH ×2 (01:04→15:12)
[2017-10-09 04:13] VITALS: BP 145/78; PULSE 66; RESP 17; TEMP 97.9; O2SAT 98
[2017-10-09] MEDS: LEVOTHYROXINE SODIUM 150 MCG TAB PO SCH (06:19)
[2017-10-09] MEDS ORDERED: HYDR-3516 PO (08:36)
--- NOTE | 2017-10-09 08:37 | HHI.DCPOC ---
Discharge Care Plan Diagnosis: (1) Complicated UTI (urinary tract infection) (2) Malfunction of nephrostomy tube (3) A-fib (4) Anemia (5) CKD (chronic kidney disease) stage 3, GFR 30-59 ml/min (6) Hypothyroidism Goals to Promote Your Health * To prevent worsening of your condition and complications * To maintain your health at the optimal level Directions to Meet Your Goals Take your medications as prescribed Follow your dietary instruction Follow activity as directed Keep your appointments as scheduled Take your immunizations and boosters as scheduled If your symptoms worsen call your PCP, if no PCP go to Urgent Care Center or Emergency Room Smoking is Dangerous to Your Health. Avoid second hand smoke Call the 24-hour hour crisis hotline for domestic abuse at Wili Chance MD Oct 09, 2017 08:37
--- NOTE | 2017-10-09 08:41 | HHI.DS ---
cc: Quinn Chambers MD Discharge Summary Admission Date Oct 07, 2017 at 17:24 Discharge Date: Oct 09, 2017 Admitting Diagnosis hydronephrosis, right nephrostomy tube malfunction (1) Malfunction of nephrostomy tube ICD Code: T83.098A - Other mechanical complication of other urinary catheter, initial encounter (2) Flank pain ICD Code: R10.9 - Unspecified abdominal pain (3) Renal insufficiency ICD Code: N28.9 - Disorder of kidney and ureter, unspecified (4) A-fib ICD Code: I48.91 - Unspecified atrial fibrillation Procedures None Brief History - From Admission This is a 71 year old female w/ a PMH of HTN, A-fib on Eliquis, CKD Stage III, and Chronic Anemia who presented to the ER w/ complaints of right-sided flank pain and decreased urine output from nephrostomy. S/p UTI/Bacteremia, admitted 08/19/17 for ANDREA, ESBL E. Coli, s/p eval by ID, Right Nephrostomy Tube placed by IR on 08/20/17. D/c'd home from Rehab 09/13/17, has been doing well until yesterday when noted right-sided flank pain and decreased urinary output into bag. Denies fever or chills. BP 163/71, HR 97, O2 sat 99% on RA, Temp 99.5. CBC at baseline. Chemistry essentially at baseline. Creatinine 2.71, producing 2.38 on 09/27/17. UA pending. CT Abd/Pelvis w/ no acute abdominal process, Nephro-Adan ureteral stent in expected position, moderate right hydronephrosis, correlation with function necessary. Follows w/ Dr. Cyr, scheduled from stent removal next week. CBC/BMP: 10/08/17 1412 10/08/17 0730 Significant Findings Laboratory Tests Test 10/06/17 10:10 10/07/17 06:46 10/07/17 10:26 10/08/17 07:30 Urine Turbidity CLOUDY (CLEAR) Urine Protein 100 mg/dL (NEG-TRACE) Urine Occult Blood MOD (NEG) Urine Nitrite POS (NEG) Urine Leukocyte Esterase LARGE (NEG) Urine RBC 39 /hpf (0-3) Urine WBC Clumps MANY (NONE) Urine Bacteria MANY /hpf (NONE) Urine Mucus FEW /lpf (OCC) Red Blood Count 2.13 MIL/MM3 (4.00-5.30) 2.39 MIL/MM3 (4.00-5.30) Hemoglobin 6.5 GM/DL (11.6-15.3) 7.4 GM/DL (11.6-15.3) Hematocrit 19.9 % (35.0-46.0) 21.6 % (35.0-46.0) Red Cell Distribution Width 18.4 % (11.6-17.2) 17.5 % (11.6-17.2) Mean Platelet Volume 6.9 FL (7.0-11.0) Neutrophils (%) (Auto) 82.9 % (16.0-70.0) 78.3 % (16.0-70.0) Lymphocytes (%) (Auto) 7.7 % (9.0-44.0) Neutrophils # (Auto) 7.9 TH/MM3 (1.8-7.7) Lymphocytes # (Auto) 0.7 TH/MM3 (1.0-4.8) 0.7 TH/MM3 (1.0-4.8) Blood Urea Nitrogen 40 MG/DL (7-18) 45 MG/DL (7-18) Creatinine 2.75 MG/DL (0.50-1.00) 2.95 MG/DL (0.50-1.00) Random Glucose 115 MG/DL (74-106) 132 MG/DL (74-106) Total Protein 6.2 GM/DL (6.4-8.2) Albumin 2.2 GM/DL (3.4-5.0) Calcium Level 8.2 MG/DL (8.5-10.1) 8.0 MG/DL (8.5-10.1) Aspartate Amino Transf (AST/SGOT) 10 U/L (15-37) Alanine Aminotransferase (ALT/SGPT) 9 U/L (10-53) Chloride Level 116 MEQ/L (98-107) 114 MEQ/L (98-107) Carbon Dioxide Level 16.8 MEQ/L (21.0-32.0) 16.4 MEQ/L (21.0-32.0) Estimat Glomerular Filtration Rate 17 ML/MIN (>89) 16 ML/MIN (>89) Iron Level 18 MCG/DL (50-170) Total Iron Binding Capacity 183 MCG/DL (250-450) Percent Iron Saturation 9.8 % (20-50) Ferritin 377 NG/ML (8-252) Prothrombin Time 12.7 SEC (9.8-11.6) Activated Partial Thromboplast Time 34.5 SEC (24.3-30.1) Eosinophils (%) (Auto) 5.0 % (0.0-4.0) Test 10/08/17 14:12 Hemoglobin 8.2 GM/DL (11.6-15.3) Hematocrit 25.0 % (35.0-46.0) Imaging Last Impressions Abdomen/Pelvis CT 10/06/17 0328 Signed Impressions: Service Date/Time: Friday, October 06, 2017 04:00 - CONCLUSION: 1. No evidence of acute abdominal or pelvic process. No masses are identified. 2. Nephroureteral stent in the expected position with moderate right hydronephrosis. Correlation with function is necessary. 3. Left lower quadrant hernia containing colon 4. Cholelithiasis Rodriguez Kraft MD PE at Discharge General: Elderly female in no acute distress. Heart: Regular rate and rhythm. No murmur. Lungs: Clear to auscultation bilaterally. No wheezes, rales, or rhonchi. Breathing is nonlabored. Abdomen: Soft, nontender, nondistended. Right nephrostomy tube in place. Large hernia in left lower quadrant is reducible, nontender. Extremities: No lower extremity edema. Psych: Alert and oriented. Pt update on day of discharge The patient has no complaints at this time. Denies chest pain, dyspnea, nausea, vomiting. I spoke with her urologist, Dr. Cyr, and he recommended discharge home with IV antibiotics and keeping scheduled appointment on Saturday for nephrostomy tube exchange. Hospital Course The patient was admitted for management of nephrostomy tube malfunction. Urology was consulted. Patient had improvement of symptoms. Her H/H decreased and she received transfusion of 2 units PRBCs. H/H improved following transfusion. Urine culture grew ESBL positive e coli. Infectious disease was consulted. Patient was started on Invanz. PICC line was ordered and outpatient antibiotics were arranged. Pt Condition on Discharge: Stable Discharge Disposition: Discharge Home Discharge Time: > 30 minutes Discharge Instructions DIET: Follow Instructions for: As Tolerated, No Restrictions Activities you can perform: Regular-No Restrictions Follow up Referrals: PCP Follow-up - 1 Week Urology - 3-5 Days with Lele Cyr MD New Medications: Epinephrine Inj (Epinephrine Inj) 1 Mg/Ml (1 Ml) Inj 0.3 MG IV PUSH ONCE PRN for ALLERGIC REACTION, #1 VIAL Epinephrine Inj (Epinephrine Inj) 1 Mg/Ml (1 Ml) Inj 0.3 MG SQ ONCE PRN for ALLERGIC REACTION, #1 VIAL Give with any signs of respiratory distress. Ertapenem Inj (Invanz Inj) 1 Gm Addvial 500 MG IV Q24H for Infection for 7 Days, INJECTION 0 Refills ADMINISTER IN 100ML NS Hydrocortisone Inj (Solu-Cortef Inj) 250 Mg/2 Ml Inj 250 MG IV PUSH ONCE PRN for ALLERGIC REACTION, #1 VIAL 0 Refills Give over 30-60 seconds. Hydrocodone/Acetaminophen (Hydrocodone-Acetamin 5-325 mg) 5 Mg-325 Mg Tablet 1 TAB PO Q4H PRN for PAIN SCALE 4 TO 10, #12 TAB 0 Refills Continued Medications: Allopurinol (Allopurinol) 100 Mg Tab 100 MG PO DAILY for Gout, #30 TAB 0 Refills Apixaban (Eliquis) 5 Mg Tab 5 MG PO BID for Blood Clot Prevention, #60 TAB 0 Refills Atenolol (Atenolol) 25 Mg Tab 25 MG PO DAILY for Blood Pressure Management, #30 TAB 0 Refills Cholecalciferol (Vitamin D3 Maximum Strength) 5,000 Unit Cap 5000 UNITS PO DAILY for Nutritional Supplement, #30 CAP 0 Refills Ferrous Sulfate (Ferosul) 325 Mg (65 Mg Iron) Tablet 325 MG PO BID for Nutritional Supplement for 30 Days, 1 Refill Levothyroxine (Synthroid) 150 Mcg Tab 150 MCG PO DAILY for Thyroid, #30 TAB 0 Refills Pravastatin (Pravachol) 40 Mg Tab 40 MG PO HS for Cholesterol Management for 30 Days, TAB 1 Refill Wili Chance MD Oct 09, 2017 08:41
[2017-10-09 08:46] VITALS: BP 140/68; PULSE 73; RESP 16; TEMP 98.4; O2SAT 97
[2017-10-09] MEDS: SODIUM CHLORIDE 0.9% FLUSH 10 ML FLUSH IV FLUSH SCH ×2 (09:00→21:00)
[2017-10-09] MEDS: DOCUSATE SODIUM 50 MG/SENNA 8.6 MG TAB PO SCH ×2 (09:48→21:36)
[2017-10-09] MEDS: CHOLECALCIFEROL (VIT D3) 5000 UNIT CAP PO SCH (09:48)
[2017-10-09] MEDS: FERROUS SULFATE 325 MG (65 MG ELEMENTAL IRON) TAB PO SCH ×2 (09:48→21:42)
[2017-10-09] MEDS: ATENOLOL 25 MG TAB PO SCH (09:48)
[2017-10-09] MEDS: ALLOPURINOL 100 MG TAB PO SCH (09:48)
--- NOTE | 2017-10-09 10:06 | HHI.FF ---
Face to Face Verification Diagnosis: (1) Complicated UTI (urinary tract infection) Home Health Nursing Order: Nursing assessment with vital signs IV medication administration I have seen patient Dorothy Arredondo on 10/09/17. My clinical findings support the need for the requested home health care services because: Infection w/ risk of complications I certify that my clinical findings support that this patient is homebound because: Unsafe to leave home unassisted Wili Chance MD Oct 09, 2017 10:06
[2017-10-09 12:16] VITALS: BP 145/70; PULSE 88; RESP 16; TEMP 98.4; O2SAT 96
[2017-10-09] MEDS: ONDANSETRON HCL 4 MG/2 ML VIAL IVP PRN (15:23)
[2017-10-09] MEDS: ACETAMINOPHEN/HYDROcodone 325 MG/5 MG TAB PO PRN ×2 (15:23→21:46)
[2017-10-09] MEDS: ERTAPENEM INJ 500 MG in SODIUM CHLORIDE 0.9% INJ 100 ML IV SCH (17:47)
[2017-10-09 19:43] VITALS: BP 129/65; PULSE 74; RESP 18; TEMP 98.9; O2SAT 95
[2017-10-09] MEDS: SODIUM BICARBONATE 650 MG TAB PO SCH (21:36)
[2017-10-09] MEDS: PRAVASTATIN SOD 40 MG TAB PO SCH (21:36)
[2017-10-09] MEDS: MORPHINE SULFATE 4 MG/ML INJ IV PUSH PRN (21:39)
--- NOTE | 2017-10-09 21:45 | MB ---
cc: ELIZA FONTANEZ MD DATE OF CONSULTATION: 10/09/2017. REASON FOR CONSULTATION: Elevated BUN and creatinine for evaluation. HISTORY OF PRESENT ILLNESS: This 71-year-old female is known to me from before with a past medical history of chronic obstructive uropathy with recurrent urinary tract infections, chronic kidney disease, history of chronic anemia, atrial fibrillation, hypertension who came to the hospital because of malfunction of the right nephrostomy tube. I was called to see the patient because of elevated BUN and creatinine and the possibility of getting IV access for antibiotics. The patient was seen by me recently when she was discharged. She has chronic kidney disease with acute kidney injury. Her creatinine was as high as 11 in July and it improved and her baseline creatinine seems to be between 2.1 to 2.3 and she came here with a creatinine of 2.7 and it has gone up now to 2.9. The patient has decreased drainage from the right nephrostomy that she has and that was the main reason she came in here. During the hospital stay here now the nephrostomy started draining. The patient was seen by urology and they recommend to change the stent once the infection is better. The patient was seen by infectious disease and they recommended to continue Invanz until the urology procedure is done. The patient denies any shortness of breath. No chest pain. No palpitations. She had mild abdominal discomfort when she came in but it is better now. PAST MEDICAL HISTORY: 1. Chronic kidney disease with recent history of acute kidney injury. 2. Atrial fibrillation. 3. Hypertension. 4. Chronic anemia. 5. Recurrent urinary tract infections. PAST SURGICAL HISTORY: 1. Multiple cystoscopies. 2. History of stent placement. 3. Nephrostomy placement. 4. Hysterectomy. 5. Tonsillectomy. 6. Partial thyroidectomy. REVIEW OF SYSTEMS: Denies any history of fever. No headache, dizziness or blurring of vision. She has mild abdominal pain. There is no nausea or vomiting. No history of diarrhea. No shortness of breath or chest pain. No palpations. SOCIAL HISTORY: The patient is single. She lives alone. There is no history of smoking or alcoholism. FAMILY HISTORY: Family history noncontributory. ALLERGIES: 1. AMPICILLIN. 2. PETROLEUM MINERAL OIL. MEDICATIONS: Currently she is on following medications: 1. Normal saline at 100 an hour. 2. Maria Del Rosario-Colace one tablet twice a day. 3. Allopurinol 100 milligrams once a day. 4. Ferrous sulfate 325 milligrams twice a day. 5. Tenormin 25 milligrams once a day. 6. Vitamin D3 5000 units once a day. 7. Synthroid 150 micrograms daily. 8. Pravachol 40 milligrams at bedtime. 9. Ertapenem 500 milligrams IV q. 24 hours. 10. Zofran as needed. 11. [place] as needed. PHYSICAL EXAMINATION: GENERAL: On examination, the patient is awake and alert and she is not in acute distress. VITAL SIGNS: Her last blood pressure is 145/70, temperature is 98.4, oxygen saturation is 96% to 97%. HEAD, EYES, EARS, NOSE, THROAT: The pupils are mid-constricted. Nonicteric sclerae. Conjunctivae are pale. NECK: The neck is supple. JVD is not elevated. LUNGS: The patient has bilateral good air entry with occasional wheezing. HEART: S1 and S2 regular rhythm. ABDOMEN: Abdomen is distended, soft and lax. There is no tenderness. Bowel sounds positive. EXTREMITIES: There is mild edema in both legs. INVESTIGATIONS: White blood cell count is 7.7, hemoglobin 7.4 and repeat one is 8.2. Platelet count of 172,000. Neutrophils of 78.3%. Sodium 141, potassium 4.1, chloride 114, bicarbonate 16.4, BUN 45, creatinine 2.9, calcium is 8.0. Iron saturation is 9.8. INR is 1.1. Urinalysis showing moderate blood, nitrite-positive with RBCs 39, WBCs innumerable. Urine culture showing E. Coli, ESBL-positive. This was done on 10/06. ASSESSMENT: 1. Chronic kidney disease with acute kidney injury. 2. Recurrent urinary tract infections. 3. Obstructive uropathy with nephrostomy and stent placement. 4. Atrial fibrillation. 5. Hypertension. 6. Hypothyroidism. 7. Severe anemia. PLAN / RECOMMENDATIONS: The patient has chronic kidney disease and acute kidney injury and also has metabolic acidosis. 1. I will put her on sodium bicarbonate oral tablet. 2. She is supposed to get the antibiotic until she gets the urological procedure done with change of the stent. 3. The patient has advanced stage IV renal disease and her GFR at the best is around 20 to 22 mL/minute so she will need dialysis in the near future. I discussed this with the patient. The patient preserve her vein, it is better to avoid a PICC line, try to put a midline in the right arm and she can be discharged with get to get the IV antibiotic as an outpatient. Thank you for the consultation and I will follow the patient while she is in the hospital. MD NAEEM Morris/PARVEZ /6:48 PM /9:26 PM
[2017-10-10] VITALS (8 sets, daily range): BP systolic 131–160; BP diastolic 60–74; PULSE 67–94; RESP 16–20; TEMP 96.1–98.8; O2SAT 94–97
[2017-10-10] MEDS: SODIUM CHLOR 0.9% 1000 ML INJ 1,000 ML IV SCH ×3 (02:01→21:54)
[2017-10-10] MEDS: LEVOTHYROXINE SODIUM 150 MCG TAB PO SCH (06:03)
[2017-10-10] MEDS: ACETAMINOPHEN/HYDROcodone 325 MG/5 MG TAB PO PRN ×3 (06:08→21:54)
--- NOTE | 2017-10-10 08:37 | HHI.PR ---
Subjective Remarks Follow up chronic kidney disease, UTI, anemia. Patient states that she had some nausea yesterday, but feels better today. Denies dyspnea, chest pain. Wants to go home. Objective Vitals Vital Signs Date Time Temp Pulse Resp B/P (MAP) Pulse Ox O2 Delivery O2 Flow Rate FiO2 10/10/17 04:56 98.4 80 18 131/60 (83) 94 10/10/17 00:06 98.8 67 18 139/67 (91) 95 10/09/17 23:00 15 10/09/17 19:43 98.9 74 18 129/65 (86) 95 10/09/17 12:16 98.4 88 16 145/70 (95) 96 10/09/17 08:46 98.4 73 16 140/68 (92) 97 I/O 10/09/17 10/09/17 10/09/17 10/10/17 10/10/17 10/10/17 07:00 15:00 23:00 07:00 15:00 23:00 Intake Total 950 ml 1800 ml Output Total 750 ml 160 ml Balance 950 ml -750 ml 1640 ml Intake Oral 1800 ml IV Total 950 ml Output Urine Total 750 ml 160 ml # Voids 3 Result Diagram: 10/08/17 1412 10/08/17 0730 Imaging Last Impressions Abdomen/Pelvis CT 10/06/17 0328 Signed Impressions: Service Date/Time: Friday, October 06, 2017 04:00 - CONCLUSION: 1. No evidence of acute abdominal or pelvic process. No masses are identified. 2. Nephroureteral stent in the expected position with moderate right hydronephrosis. Correlation with function is necessary. 3. Left lower quadrant hernia containing colon 4. Cholelithiasis Rodriguez Kraft MD Objective Remarks General: Elderly female in no acute distress. Heart: Regular rate and rhythm. No murmur. Lungs: Clear to auscultation bilaterally. No wheezes, rales, or rhonchi. Breathing is nonlabored. Abdomen: Soft, nontender, nondistended. Right nephrostomy tube in place. Large hernia in left lower quadrant is reducible, nontender. Extremities: No lower extremity edema. Psych: Alert and oriented. Procedures None Urinary Catheter: No Vascular Central Line Catheter: No A/P Problem List: (1) Malfunction of nephrostomy tube ICD Code: T83.098A - Other mechanical complication of other urinary catheter, initial encounter (2) Flank pain ICD Code: R10.9 - Unspecified abdominal pain (3) Renal insufficiency ICD Code: N28.9 - Disorder of kidney and ureter, unspecified (4) A-fib ICD Code: I48.91 - Unspecified atrial fibrillation Assessment and Plan 1. Nephrostomy tube malfunction: Status post right nephrostomy tube placed by IR on 08/20/17. Scheduled for nephrostomy tube exchange on Saturday. Appreciate urology recommendations. Per Dr. Cyr, does not need to be changed at this time. Keep scheduled appointment for tube exchange on Saturday. 2. Right flank pain: Secondary to above. Improving. 3. Acute kidney injury superimposed on chronic kidney disease stage III: IV fluids. Monitor BUN and creatinine. Appreciate nephrology recommendations. Will likely need dialysis in the near future. 4. Atrial fibrillation: Chronic. Restart Eliquis. 5. Acute worsening of chronic anemia: H/H improved following transfusion. Labs are pending today. No apparent active bleeding. 6. DVT prophylaxis: RAPHAEL [place]. Eliquis. 7. UTI: Urine culture growing ESBL positive E. coli. Appreciate infectious disease recommendations. Outpatient IV antibiotics ordered. Midline to be placed today. Discharge Planning Plan for discharge home today after midline placement and pending labs. Wili Chance MD Oct 10, 2017 08:37
[2017-10-10] MEDS: DOCUSATE SODIUM 50 MG/SENNA 8.6 MG TAB PO SCH ×2 (09:00→21:53)
[2017-10-10 10:00] LABS: AUTOMATED NEUTROPHIL # 5.3 TH/MM3 (1.8-7.7); BASOPHIL # 0.1 TH/MM3 (0-0.2); BASOPHIL % 0.9 % (0.0-2.0); EOSINOPHIL # 0.3 TH/MM3 (0-0.4); EOSINOPHIL % 4.7 % (0.0-4.0); HEMATOCRIT 25.2 % (35.0-46.0); HEMO FLAGS DIFF FINAL; LYMPH % 9.4 % (9.0-44.0); LYMPHOCYTE # 0.6 TH/MM3 (1.0-4.8); MEAN CELL VOLUME 90.6 FL (80.0-100.0); MEAN CORPUSCULAR HEMOGLOBIN 30.3 PG (27.0-34.0); MEAN CORPUSCULAR HGB CONC 33.4 % (32.0-36.0); MONO % 7.9 % (0.0-8.0); NEUT % 77.1 % (16.0-70.0); PLATELET COUNT 202 TH/MM3 (150-450); RED BLOOD COUNT 2.78 MIL/MM3 (4.00-5.30); WHITE BLOOD COUNT 6.8 TH/MM3 (4.0-11.0)
[2017-10-10 10:22] LABS: BICARBONATE 15.1 MEQ/L (21.0-32.0); POTASSIUM 4.5 MEQ/L (3.5-5.1)
[2017-10-10] MEDS: SODIUM CHLORIDE 0.9% FLUSH 10 ML FLUSH IV FLUSH SCH ×2 (11:34→21:51)
[2017-10-10] MEDS: ALLOPURINOL 100 MG TAB PO SCH (11:35)
[2017-10-10] MEDS: FERROUS SULFATE 325 MG (65 MG ELEMENTAL IRON) TAB PO SCH ×2 (11:35→21:52)
[2017-10-10] MEDS: ATENOLOL 25 MG TAB PO SCH (11:35)
[2017-10-10] MEDS: SODIUM BICARBONATE 650 MG TAB PO SCH ×2 (11:36→21:53)
[2017-10-10] MEDS: CHOLECALCIFEROL (VIT D3) 5000 UNIT CAP PO SCH (11:36)
[2017-10-10] MEDS: APIXABAN 5 MG TABLET PO SCH ×2 (11:36→21:52)
--- NOTE | 2017-10-10 13:27 | HHI.NPPN ---
Subjective General Problems: Anemia, Edema, Mebatolic Acidosis Renal Failure: Stage IV History of Present Illness 71-year-old female is known to me from before with a past medical history of chronic obstructive uropathy with recurrent urinary tract infections, chronic kidney disease, history of chronic anemia, atrial fibrillation, hypertension who came to the hospital because of malfunction of the right nephrostomy tube. I was called to see the patient because of elevated BUN and creatinine and the possibility of getting IV access for antibiotics. Additional Remarks Patient is alert, no SOB, no nausea, has decrease appetite. Review of Systems General Constitutional: Fatigue Cardiovascular Cardiac: Edema, BURGOS Objective Data Data Vital Signs Date Time Temp Pulse Resp B/P (MAP) Pulse Ox O2 Delivery O2 Flow Rate FiO2 10/10/17 13:00 98.0 71 20 141/69 (93) 97 10/10/17 08:49 96.1 69 20 131/67 (88) 95 10/10/17 04:56 98.4 80 18 131/60 (83) 94 10/10/17 00:06 98.8 67 18 139/67 (91) 95 10/09/17 23:00 15 10/09/17 19:43 98.9 74 18 129/65 (86) 95 -: 10/10/17 0929 10/10/17 0929 Microbiology 10/09/17 Stool Occult Blood (ALLEN) - Final, Complete HEMOCCULT NEGATIVE Physical Exam General Appearance: No Acute Distress, Comfortable Eyes Eye Exam: Pupils Equal Neck Neck Exam: Neck Supple Pulmonary Resp Exam: Breath Sounds Equal, No Distress, Decreased Bases, Diminished Breath Sounds Cardiology CV Exam: Regular, Normal Sinus Rhythm Gastrointestinal/Abdomen GI Exam: Soft, Non-Tender, Bowel Sounds Present, Distended Extremeties Extremities Exam: Trace Edema Neurologic Neuro Exam: Alert, Awake, Oriented Psychiatric Psych Exam: Appropriate Responses Assessment/Plan Assessment Summary: ANDREA/Acute Renal Failure, Anemia of CKD, CKD Stage IV Electrolyte Assessment: Metabolic Acidosis Problem List: (1) Atrial fibrillation ICD Codes: I48.91 - Unspecified atrial fibrillation Status: Chronic (2) Diabetes ICD Codes: E11.9 - Diabetes Status: Chronic (3) Chronic anemia ICD Codes: D64.9 - Chronic anemia Status: Chronic (4) Bilateral hydronephrosis ICD Codes: N13.30 - Unspecified hydronephrosis Status: Acute (5) Urinary tract infection ICD Codes: N39.0 - Urinary tract infection Status: Chronic (6) Acute on chronic renal failure ICD Codes: N17.9 - Acute kidney failure, unspecified; N18.9 - Chronic kidney disease, unspecified Plan Patient has been non oliguric. Nephrostomy also draining the urine. Creatinine increase to 3.6. K is normal, has metabolic acidosis. On IVF and also on PO NaHco3. Most likely has ATN for ANDREA. Continue hydration, follow the urine out put and BMP. If Creatinine improve below 3.0, can be discharged with close out patient follow up. Possibility of Dialysis discussed with the patient. Nely Lopez MD Oct 10, 2017 13:26
--- NOTE | 2017-10-10 13:33 | HHI.PR ---
Subjective Remarks LATE ENTRY: PATIENT SEEN 10/09/17 at ~0800. Follow up UTI, anemia. Patient wants to have nephrostomy exchanged. Needs outpatient IV antibiotics. Denies chest pain, dyspnea. Objective Vitals Vital Signs Date Time Temp Pulse Resp B/P (MAP) Pulse Ox O2 Delivery O2 Flow Rate FiO2 10/10/17 13:00 98.0 71 20 141/69 (93) 97 10/10/17 08:49 96.1 69 20 131/67 (88) 95 10/10/17 04:56 98.4 80 18 131/60 (83) 94 10/10/17 00:06 98.8 67 18 139/67 (91) 95 10/09/17 23:00 15 10/09/17 19:43 98.9 74 18 129/65 (86) 95 I/O 10/09/17 10/09/17 10/09/17 10/10/17 10/10/17 10/10/17 07:00 15:00 23:00 07:00 15:00 23:00 Intake Total 950 ml 1800 ml Output Total 750 ml 160 ml Balance 950 ml -750 ml 1640 ml Intake Oral 1800 ml IV Total 950 ml Output Urine Total 750 ml 160 ml # Voids 3 Result Diagram: 10/10/1792810/10/17928 Imaging Last Impressions Abdomen/Pelvis CT 10/06/17 0328 Signed Impressions: Service Date/Time: Friday, October 06, 2017 04:00 - CONCLUSION: 1. No evidence of acute abdominal or pelvic process. No masses are identified. 2. Nephroureteral stent in the expected position with moderate right hydronephrosis. Correlation with function is necessary. 3. Left lower quadrant hernia containing colon 4. Cholelithiasis Rodriguez Kraft MD Objective Remarks General: Elderly female in no acute distress. Heart: Regular rate and rhythm. No murmur. Lungs: Clear to auscultation bilaterally. No wheezes, rales, or rhonchi. Breathing is nonlabored. Abdomen: Soft, nontender, nondistended. Right nephrostomy tube in place. Large hernia in left lower quadrant is reducible, nontender. Extremities: No lower extremity edema. Psych: Alert and oriented. Procedures None Urinary Catheter: No Vascular Central Line Catheter: No A/P Problem List: (1) Malfunction of nephrostomy tube ICD Code: T83.098A - Other mechanical complication of other urinary catheter, initial encounter (2) Flank pain ICD Code: R10.9 - Unspecified abdominal pain (3) Renal insufficiency ICD Code: N28.9 - Disorder of kidney and ureter, unspecified (4) A-fib ICD Code: I48.91 - Unspecified atrial fibrillation Assessment and Plan 1. Nephrostomy tube malfunction: Status post right nephrostomy tube placed by IR on 08/20/17. Scheduled for nephrostomy tube exchange on Saturday. Appreciate urology recommendations. Per Dr. Cyr, does not need to be changed at this time. Keep scheduled appointment for tube exchange on Saturday. 2. Right flank pain: Secondary to above. Improving. 3. Acute kidney injury superimposed on chronic kidney disease stage III: IV fluids. Monitor BUN and creatinine. Appreciate nephrology recommendations. Will likely need dialysis in the near future. 4. Atrial fibrillation: Chronic. Restart Eliquis. 5. Acute worsening of chronic anemia: H/H improved following transfusion. Labs are pending today. No apparent active bleeding. 6. DVT prophylaxis: RAPHAEL [place]. Eliquis. 7. UTI: Urine culture growing ESBL positive E. coli. Appreciate infectious disease recommendations. Outpatient IV antibiotics ordered. Midline to be placed today. Discharge Planning Plan for discharge home today after PICC placement. Wili Chance MD Oct 10, 2017 13:33
[2017-10-10] MEDS: ONDANSETRON HCL 4 MG/2 ML VIAL IVP PRN (17:04)
[2017-10-10] MEDS: ERTAPENEM INJ 500 MG in SODIUM CHLORIDE 0.9% INJ 100 ML IV SCH (18:44)
[2017-10-10] MEDS: PRAVASTATIN SOD 40 MG TAB PO SCH (21:52)
[2017-10-11] VITALS (9 sets, daily range): BP systolic 125–150; BP diastolic 56–74; PULSE 63–75; RESP 18–20; TEMP 97.3–98.7; O2SAT 93–99
[2017-10-11] MEDS: ACETAMINOPHEN/HYDROcodone 325 MG/5 MG TAB PO PRN ×3 (03:08→21:41)
[2017-10-11] MEDS: SODIUM CHLOR 0.9% 1000 ML INJ 1,000 ML IV SCH ×3 (03:09→21:41)
[2017-10-11] MEDS: LEVOTHYROXINE SODIUM 150 MCG TAB PO SCH (06:23)
--- NOTE | 2017-10-11 08:44 | HHI.PR ---
Subjective Remarks Follow up UTI, renal failure. The patient has no complaints at this time. Denies chest pain, dyspnea, nausea, vomiting. She wants to go home today. She states that her nephrostomy tube is not draining much. Objective Vitals Vital Signs Date Time Temp Pulse Resp B/P (MAP) Pulse Ox O2 Delivery O2 Flow Rate FiO2 10/11/17 04:09 20 10/11/17 04:08 98.6 74 18 125/56 (79) 94 10/10/17 23:10 98.0 84 18 160/74 (102) 97 10/10/17 22:53 98.0 94 18 157/72 (100) 95 10/10/17 21:22 98.2 78 16 136/68 (90) 96 10/10/17 17:08 98.4 81 20 157/73 (101) 10/10/17 13:00 98.0 71 20 141/69 (93) 97 10/10/17 08:49 96.1 69 20 131/67 (88) 95 I/O 10/10/17 10/10/17 10/10/17 10/11/17 10/11/17 10/11/17 07:00 15:00 23:00 07:00 15:00 23:00 Intake Total 1800 ml 960 ml Output Total 160 ml 550 ml 200 ml 450 ml Balance 1640 ml -550 ml -200 ml 510 ml Intake Oral 1800 ml 360 ml IV Total 600 ml Output Urine Total 160 ml 550 ml 200 ml 450 ml # Bowel Movements 0 Result Diagram: 10/10/17 0929 10/10/17 0929 Imaging Last Impressions Abdomen/Pelvis CT 10/06/17 0328 Signed Impressions: Service Date/Time: Friday, October 06, 2017 04:00 - CONCLUSION: 1. No evidence of acute abdominal or pelvic process. No masses are identified. 2. Nephroureteral stent in the expected position with moderate right hydronephrosis. Correlation with function is necessary. 3. Left lower quadrant hernia containing colon 4. Cholelithiasis Rodriguez Kraft MD Objective Remarks General: Elderly female in no acute distress. Heart: Regular rate and rhythm. No murmur. Lungs: Clear to auscultation bilaterally. No wheezes, rales, or rhonchi. Breathing is nonlabored. Abdomen: Soft, nontender, nondistended. Right nephrostomy tube in place. Large hernia in left lower quadrant is reducible, nontender. Extremities: No lower extremity edema. Psych: Alert and oriented. Procedures None Urinary Catheter: No Vascular Central Line Catheter: No A/P Problem List: (1) Malfunction of nephrostomy tube ICD Code: T83.098A - Other mechanical complication of other urinary catheter, initial encounter (2) Flank pain ICD Code: R10.9 - Unspecified abdominal pain (3) Renal insufficiency ICD Code: N28.9 - Disorder of kidney and ureter, unspecified (4) A-fib ICD Code: I48.91 - Unspecified atrial fibrillation Assessment and Plan 1. Nephrostomy tube malfunction: Status post right nephrostomy tube placed by IR on 08/20/17. Scheduled for nephrostomy tube exchange on Saturday. Appreciate urology recommendations. Per Dr. Cyr, does not need to be changed at this time. Keep scheduled appointment for tube exchange on Saturday. 2. Right flank pain: Secondary to above. Improving. 3. Acute kidney injury superimposed on chronic kidney disease stage III: IV fluids. Monitor BUN and creatinine. Appreciate nephrology recommendations. Will likely need dialysis in the near future. Labs are pending today. Per nephrology , patient can be discharged home if her creatinine decreases to below 3. 4. Atrial fibrillation: Chronic. Restart Eliquis. 5. Acute worsening of chronic anemia: H/H improved following transfusion. Labs are pending today. No apparent active bleeding. Labs are pending today. 6. DVT prophylaxis: SCDs, RAPHAEL trujill[place]. Eliquis. 7. UTI: Urine culture growing ESBL positive E. coli. Appreciate infectious disease recommendations. Outpatient IV antibiotics ordered. Midline placed. Discharge Planning Possible discharge home today pending lab results. Wili Chance MD Oct 11, 2017 08:44
[2017-10-11] MEDS: SODIUM CHLORIDE 0.9% FLUSH 10 ML FLUSH IV FLUSH SCH ×2 (09:00→21:41)
[2017-10-11] MEDS: CHOLECALCIFEROL (VIT D3) 5000 UNIT CAP PO SCH (09:02)
[2017-10-11] MEDS: ALLOPURINOL 100 MG TAB PO SCH (09:02)
[2017-10-11] MEDS: SODIUM BICARBONATE 650 MG TAB PO SCH ×2 (09:02→21:41)
[2017-10-11] MEDS: APIXABAN 5 MG TABLET PO SCH ×2 (09:02→21:41)
[2017-10-11] MEDS: FERROUS SULFATE 325 MG (65 MG ELEMENTAL IRON) TAB PO SCH ×2 (09:02→21:41)
[2017-10-11] MEDS: ATENOLOL 25 MG TAB PO SCH (09:02)
[2017-10-11] MEDS: DOCUSATE SODIUM 50 MG/SENNA 8.6 MG TAB PO SCH ×2 (09:03→21:41)
[2017-10-11] MEDS: MORPHINE SULFATE 4 MG/ML INJ IV PUSH PRN (09:09)
--- NOTE | 2017-10-11 13:39 | RADRPT ---
EXAM DATE/TIME: 10/11/2017 12:52 [facility] COMPARISON: NEPHROSTOMY, RIGHT, August 20, 2017, 11:30. CT ABDOMEN & PELVIS W/O CONTRAST, October 06, 2017, 4:00. INDICATIONS : Nephrostomy tube fell out MEDICAL HISTORY : Renal calculi. Hypertension uterine cancer SURGICAL HISTORY : Hysterectomy. ENCOUNTER: Initial ACUITY: 4 - 6 days PAIN SCORE: Non-responsive. LOCATION: Bilateral abdomen FINDINGS: 2 AP supine portable views of the abdomen were obtained and demonstrate a left double pigtail uretera l stent catheter in place. A right-sided nephrostomy tube is projected over the right side of the abd omen. No distinct renal calculi are identified. There no ureteral calculi. Degenerative changes are n oted in the umbar spine. CONCLUSION: 1. Left double pigtail ureteral stent catheter. 2. Right-sided nephrostomy tube projects over the right side of the abdomen. Bhargav Stearns MD on October 11, 2017 at 13:34 Board Certified Radiologist. This report was verified electronically.
[2017-10-11 13:57] LABS: AUTOMATED NEUTROPHIL # 5.9 TH/MM3 (1.8-7.7); BASOPHIL # 0.1 TH/MM3 (0-0.2); BASOPHIL % 0.8 % (0.0-2.0); EOSINOPHIL # 0.3 TH/MM3 (0-0.4); EOSINOPHIL % 4.2 % (0.0-4.0); HEMATOCRIT 25.3 % (35.0-46.0); HEMO FLAGS DIFF FINAL; LYMPH % 10.1 % (9.0-44.0); LYMPHOCYTE # 0.8 TH/MM3 (1.0-4.8); MEAN CELL VOLUME 90.3 FL (80.0-100.0); MEAN CORPUSCULAR HEMOGLOBIN 30.1 PG (27.0-34.0); MEAN CORPUSCULAR HGB CONC 33.3 % (32.0-36.0); MONO % 7.2 % (0.0-8.0); NEUT % 77.7 % (16.0-70.0); PLATELET COUNT 217 TH/MM3 (150-450); RED CELL DISTRIBUTION WIDTH 17.6 % (11.6-17.2); WHITE BLOOD COUNT 7.6 TH/MM3 (4.0-11.0)
[2017-10-11 14:17] LABS: BICARBONATE 13.3 MEQ/L (21.0-32.0); POTASSIUM 4.6 MEQ/L (3.5-5.1)
[2017-10-11] MEDS ORDERED: MIDAZOLAM HCL 2 MG/2 ML VIAL ONE (14:19)
[2017-10-11] MEDS ORDERED: IOHEXOL 350 MG/ML 50 ML BTL (for RAD DIAG) OTHER ONE (15:16)
--- NOTE | 2017-10-11 15:27 | PD.RAD ---
Post Procedure Progress Note Pre Procedure Diagnosis: (1) Bilateral hydronephrosis (2) Urinary tract infection Post Procedure Diagnosis: (1) Bilateral hydronephrosis (2) Urinary tract infection Procedure Date: Oct 11, 2017 Supervising Radiologist: Johnny Robles JR Proceduralist/Assist: Noa Dorsey, RT(R)(CV), Vandana Moreira RT(R) Anesthesia: Conscious Sedation Plan of Activity Patient to Unit: ROPU Patient Condition: Good See PACS Report for procedural detail/treatment Drainage Procedure Procedure 1 Imaging Guidance: Fluoroscopy Side: Right Procedure Type: Nephrostomy, Ureteral Stent Procedure: Placement [place]ian: 8 Drainage: [place] drainage Fluid Description: Purulent Findings: Original right nephrostomy had fallen out. Ureteral stent partially hanging out of nephrostomy site. Placed new 8F 22 cm ureteral stent. Placed new 8F nephrostomy. Draining purulent material. Sample to micro. PCN sutured in place. Plan Cx sent. Consider injection of right nephrostomy with possible drain removal early next week if urine has cleared. Jr. Travis,Johnny Goyal MD Oct 11, 2017 15:27
--- NOTE | 2017-10-11 16:06 | RADRPT ---
EXAM DATE/TIME: 10/11/2017 13:21 [facility] COMPARISON: No previous studies available for comparison. INDICATIONS : Patient with history of hydronephrosis. The patient's right nephrostomy tube was inadvertently pulled out. Patient's right ureteral stent is partially pain out of the percutaneous nephrostomy dermatotom y site.. MEDICAL HISTORY : HTN, Diabetes, Kidney stones, A-Fib, CKD Stage III, Chronic anemia, Uterine cancer 2010, Hypothyroidi sm SURGICAL HISTORY : Nephrostomy tube placement, Bilateral ureteral stents, Partial thyroidectomy, Cardiac cath, Kidney st one removal ENCOUNTER: Subsequent ACUITY: 4 - 6 days PAIN SCORE: 8/10 LOCATION: Right hip FLUORO TIME: 5.1 minutes IMAGE SERIES: 3 SEDATION TIME: 30 minutes CONTRAST: 10 cc Omnipaque (iohexol) 350 MEDICATION(S): 1.) 3.5 mg midazolam (Versed) IV 2.) 175 mcg fentanyl (Sublimaze) IV DEVICE(S): 1.) 8 [place] X22CM Polaris ureteral stent 2.) 8 [place] X25CM Expel nephrostomy catheter PROCEDURE : 1. antegrade pyelogram 2. Ureteral stent placement 3. Nephrostomy tube placement 4. Conscious sedation with continuous monitoring. The risks, benefits and alternatives to the procedure were explained and verbal and written consent w as obtained. The site was prepped in sterile fashion. Full sterile technique was used, including ca p, mask, sterile gloves and gown and a large sterile sheet. Hand hygiene and 2% chlorhexidine and/or betadine/alcohol prep was utilized per protocol for cutaneous antisepsis. The skin and subcutaneous tissues were infiltrated with local anesthetic solution. The patient's previous right-sided nephrostomy tube is no longer present. The patient's right uretera l stent is pain out of the orifice for the previous percutaneous nephrostomy. No urine is draining th rough this stent. The stent was removed over the wire. A new 8 [place] 22 cm ureteral stent was correc tly positioned. An 8 [place] nephrostomy tube was placed. Purulent material drained from the nephrosto my tube. A sample was sent for microbiological evaluation. The nephrostomy tube was sutured in place. Conscious sedation with continuous monitoring was performed throughout the exam. The patient is curre ntly on IV antibiotics. The patient tolerated the procedure well. CONCLUSION: 1. The patient's right nephrostomy tube had fallen out and the ureteral stent was hanging out of the previous nephrostomy site. 2. A new right sided double-J stent and nephrostomy tube were placed. Purulent material was noted and a sample was sent for microbiological evaluation. 3. In 3 days if the urine has cleared consideration can be made to injecting the right-sided nephrost jeffrey tube with possible removal under fluoroscopic control. Johnny Robles Jr., MD on October 11, 2017 at 15:58 Board Certified Radiologist. This report was verified electronically.
[2017-10-11] MEDS: ERTAPENEM INJ 500 MG in SODIUM CHLORIDE 0.9% INJ 100 ML IV SCH (17:09)
--- NOTE | 2017-10-11 17:15 | HHI.NPPN ---
Subjective General Problems: Anemia, Edema, Mebatolic Acidosis Renal Failure: Stage IV History of Present Illness 71-year-old female is known to me from before with a past medical history of chronic obstructive uropathy with recurrent urinary tract infections, chronic kidney disease, history of chronic anemia, atrial fibrillation, hypertension who came to the hospital because of malfunction of the right nephrostomy tube. I was called to see the patient because of elevated BUN and creatinine and the possibility of getting IV access for antibiotics. Additional Remarks Patient is alert, no SOB, no nausea, has decrease appetite. Review of Systems General Constitutional: Fatigue Cardiovascular Cardiac: Edema, BURGOS Objective Data Data 10/11/17 10/12/17 19:00 07:00 Output Total 1120 ml Balance -1120 ml Output Urine Total 500 ml Drainage Total 620 ml Vital Signs Date Time Temp Pulse Resp B/P (MAP) Pulse Ox O2 Delivery O2 Flow Rate FiO2 10/11/17 16:45 97.6 70 18 129/74 (92) 99 10/11/17 16:45 97.6 70 18 129/74 (92) 99 Automatic Cuff 10/11/17 16:19 70 20 130/58 (82) 94 10/11/17 15:50 72 20 146/68 (94) 94 10/11/17 15:35 75 20 150/63 (92) 94 10/11/17 15:20 98.7 74 20 148/71 (96) 93 10/11/17 12:30 98.3 68 18 147/70 (95) 93 10/11/17 08:00 97.3 63 18 132/62 (85) 94 10/11/17 04:09 20 10/11/17 04:08 98.6 74 18 125/56 (79) 94 10/10/17 23:10 98.0 84 18 160/74 (102) 97 10/10/17 22:53 98.0 94 18 157/72 (100) 95 10/10/17 21:22 98.2 78 16 136/68 (90) 96 -: 10/11/17 1314 10/11/17 1314 Microbiology 10/11/17 Gram Stain, Received Pending 10/11/17 Body Fluid Culture, Received Pending Physical Exam General Appearance: No Acute Distress, Comfortable Eyes Eye Exam: Pupils Equal Neck Neck Exam: Neck Supple Pulmonary Resp Exam: Breath Sounds Equal, No Distress, Decreased Bases, Diminished Breath Sounds Cardiology CV Exam: Regular, Normal Sinus Rhythm Gastrointestinal/Abdomen GI Exam: Soft, Non-Tender, Bowel Sounds Present, Distended Extremeties Extremities Exam: Trace Edema Neurologic Neuro Exam: Alert, Awake, Oriented Psychiatric Psych Exam: Appropriate Responses Assessment/Plan Assessment Summary: ANDREA/Acute Renal Failure, Anemia of CKD, CKD Stage IV Electrolyte Assessment: Metabolic Acidosis Problem List: (1) Atrial fibrillation ICD Codes: I48.91 - Unspecified atrial fibrillation Status: Chronic (2) Diabetes ICD Codes: E11.9 - Diabetes Status: Chronic (3) Chronic anemia ICD Codes: D64.9 - Chronic anemia Status: Chronic (4) Bilateral hydronephrosis ICD Codes: N13.30 - Unspecified hydronephrosis Status: Acute (5) Urinary tract infection ICD Codes: N39.0 - Urinary tract infection Status: Chronic (6) Acute on chronic renal failure ICD Codes: N17.9 - Acute kidney failure, unspecified; N18.9 - Chronic kidney disease, unspecified Plan Patient has been non oliguric. Nephrostomy also draining the urine. Creatinine increase to 3.6. K is normal, has metabolic acidosis. On IVF and also on PO NaHco3. Most likely has ATN for ANDREA. Continue hydration, follow the urine out put and BMP. If Creatinine improve below 3.0, can be discharged with close out patient follow up. Possibility of Dialysis discussed with the patient. Nely Lopez MD Oct 11, 2017 17:15
[2017-10-11] MEDS: PRAVASTATIN SOD 40 MG TAB PO SCH (21:41)
[2017-10-12] VITALS: BP 111/53; PULSE 66; RESP 20; TEMP 97.8; O2SAT 97
[2017-10-12] MEDS: ACETAMINOPHEN/HYDROcodone 325 MG/5 MG TAB PO PRN ×4 (02:27→23:12)
[2017-10-12 04:00] VITALS: BP 124/60; PULSE 66; RESP 18; TEMP 97.4; O2SAT 98
[2017-10-12] MEDS: LEVOTHYROXINE SODIUM 150 MCG TAB PO SCH (05:59)
[2017-10-12 07:56] LABS: AUTOMATED NEUTROPHIL # 4.7 TH/MM3 (1.8-7.7); BASOPHIL # 0.1 TH/MM3 (0-0.2); BASOPHIL % 1.4 % (0.0-2.0); EOSINOPHIL # 0.4 TH/MM3 (0-0.4); EOSINOPHIL % 6.2 % (0.0-4.0); HEMO FLAGS DIFF FINAL; LYMPH % 11.9 % (9.0-44.0); LYMPHOCYTE # 0.8 TH/MM3 (1.0-4.8); MEAN CELL VOLUME 91.2 FL (80.0-100.0); MEAN CORPUSCULAR HEMOGLOBIN 30.1 PG (27.0-34.0); MONO % 8.1 % (0.0-8.0); NEUT % 72.4 % (16.0-70.0); PLATELET COUNT 208 TH/MM3 (150-450); RED BLOOD COUNT 2.63 MIL/MM3 (4.00-5.30); RED CELL DISTRIBUTION WIDTH 18.1 % (11.6-17.2); WHITE BLOOD COUNT 6.5 TH/MM3 (4.0-11.0)
[2017-10-12 08:00] VITALS: BP 122/59; PULSE 68; RESP 20; TEMP 98.4; O2SAT 97
[2017-10-12 08:18] LABS: BICARBONATE 15.6 MEQ/L (21.0-32.0); POTASSIUM 4.5 MEQ/L (3.5-5.1)
[2017-10-12] MEDS: SODIUM CHLOR 0.9% 1000 ML INJ 1,000 ML IV SCH (08:22)
[2017-10-12] MEDS: SODIUM CHLORIDE 0.9% FLUSH 10 ML FLUSH IV FLUSH SCH ×2 (09:00→20:43)
[2017-10-12] MEDS: SODIUM BICARBONATE 650 MG TAB PO SCH ×2 (10:16→20:44)
[2017-10-12] MEDS: APIXABAN 5 MG TABLET PO SCH ×2 (10:16→20:43)
[2017-10-12] MEDS: ATENOLOL 25 MG TAB PO SCH (10:16)
[2017-10-12] MEDS: CHOLECALCIFEROL (VIT D3) 5000 UNIT CAP PO SCH (10:16)
[2017-10-12] MEDS: FERROUS SULFATE 325 MG (65 MG ELEMENTAL IRON) TAB PO SCH ×2 (10:16→20:44)
[2017-10-12] MEDS: DOCUSATE SODIUM 50 MG/SENNA 8.6 MG TAB PO SCH ×2 (10:17→20:43)
[2017-10-12] MEDS: ALLOPURINOL 100 MG TAB PO SCH (10:17)
[2017-10-12 12:00] VITALS: BP 127/58; PULSE 66; RESP 18; TEMP 98.1; O2SAT 99
--- NOTE | 2017-10-12 12:21 | HHI.PR ---
Subjective Remarks Follow-up for acute on chronic renal failure and nephrostomy tube placement Patient stated that she had her nephrostomy tube and stent placed yesterday. He stated that she feels a little better today but she feels the same. Patient was upset that nephrostomy tube placement at this long. She stated that was placed yesterday because it fell out. Otherwise she denies any fevers. She has no other complaints. Objective Vitals Vital Signs Date Time Temp Pulse Resp B/P (MAP) Pulse Ox O2 Delivery O2 Flow Rate FiO2 10/12/17 04:00 97.4 66 18 124/60 (81) 98 10/12/17 00:00 97.8 66 20 111/53 (72) 97 10/11/17 20:00 Nasal Cannula 2.00 10/11/17 20:00 97.5 69 20 133/63 (86) 95 10/11/17 16:45 97.6 70 18 129/74 (92) 99 10/11/17 16:45 97.6 70 18 129/74 (92) 99 Automatic Cuff 10/11/17 16:19 70 20 130/58 (82) 94 10/11/17 15:50 72 20 146/68 (94) 94 10/11/17 15:35 75 20 150/63 (92) 94 10/11/17 15:20 98.7 74 20 148/71 (96) 93 10/11/17 12:30 98.3 68 18 147/70 (95) 93 I/O 10/11/17 10/11/17 10/11/17 10/12/17 10/12/17 10/12/17 07:00 15:00 23:00 07:00 15:00 23:00 Intake Total 960 ml 500 ml 942 ml 192 ml Output Total 450 ml 20 ml 1100 ml 950 ml Balance 510 ml -20 ml -600 ml -8 ml 192 ml Intake Oral 360 ml 220 ml IV Total 600 ml 500 ml 722 ml 192 ml Output Urine Total 450 ml 500 ml 300 ml Drainage Total 20 ml 600 ml 650 ml # Voids 4 # Bowel Movements 0 0 Result Diagram: 10/12/17 0747 10/12/17 0747 Objective Remarks GENERAL: In no acute distress. CARDIOVASCULAR: Regular rate and rhythm without murmurs, gallops, or rubs. RESPIRATORY: Breath sounds equal bilaterally. No accessory muscle use. GASTROINTESTINAL: Abdomen soft, non-tender, nondistended. MUSCULOSKELETAL: No cyanosis, or edema. BACK: Nontender without obvious deformity. No CVA tenderness. Nephrostomy tube in place Procedures None Medications and IVs Current Medications Morphine Sulfate (Morphine Inj) 4 mg ONCE ONCE IV PUSH Last administered on 04:06; Start 10/06/17 at 03:30; Stop 10/06/17 at 03:31; Status DC Ondansetron HCl (Zofran Inj) 4 mg ONCE ONCE IVP Last administered on 04:06; Start 10/06/17 at 03:30; Stop 10/06/17 at 03:31; Status DC Sodium Chloride 1,000 ml @ 1,000 mls/hr Q1H IV Last administered on 04:07; Start 10/06/17 at 03:28; Stop 10/06/17 at 04:27; Status DC Sodium Chloride (NS Flush) 2 ml UNSCH PRN IV FLUSH FLUSH AFTER USING IV ACCESS ; Start 10/06/17 at 03:30; Stop 10/07/17 at 15:00; Status DC Sodium Chloride 1,000 ml @ 100 mls/hr Q10H IV Last administered on 10/12/17 08:22; Start 10/06/17 at 05:11 Sodium Chloride (NS Flush) 2 ml UNSCH PRN IV FLUSH FLUSH AFTER USING IV ACCESS ; Start 10/06/17 at 05:15 Sodium Chloride (NS Flush) 2 ml BID IV FLUSH Last administered on 10/11/17 21 :41; Start 10/06/17 at 09:00 Ondansetron HCl (Zofran Inj) 4 mg Q6H PRN IVP NAUSEA OR VOMITING Last administered on 10/10/17 17:04; Start 10/06/17 at 05:15 Acetaminophen (Tylenol) 650 mg Q6H PRN PO FEVER/PAIN SCALE 1 TO 2 Last administered on 10/10/17 02:02; Start 10/06/17 at 05:15 Acetaminophen/ Hydrocodone Bitart ([place] 5-325 Mg) 1 tab Q4H PRN PO PAIN SCALE 3 TO 5 Last administered on 10/12/17 08:23; Start 10/06/17 at 05:15 Morphine Sulfate (Morphine Inj) 2 mg Q3H PRN IV PUSH Pain 6-10 Last administered on 10/11/17 09:09; Start 10/06/17 at 05:15 Senna/Docusate Sodium (Maria [place] Rosario-Colace) 1 tab BID PO Last administered on 10:17; Start 10/06/17 at 09:00 Magnesium Hydroxide (Milk Of Magnesia Liq) 30 ml Q12H PRN PO Mild constipation ; Start 10/06/17 at 05:15; Stop 10/06/17 at 07:51; Status DC Sennosides (Senokot) 17.2 mg Q12H PRN PO Moderate constipation; Start at 05:15 Bisacodyl (Dulcolax Supp) 10 mg DAILY PRN RECTAL SEVERE CONSITIPATION; Start 10/06/17 at 05:15 Lactulose (Lactulose Liq) 30 ml DAILY PRN PO SEVERE CONSITIPATION; Start 10/06 at 05:15 Allopurinol (Zyloprim) 100 mg DAILY PO Last administered on 10/12/17 10:17; Start 10/06/17 at 09:00 Atenolol (Tenormin) 25 mg DAILY PO Last administered on 10/12/17 10:16; Start 10/06/17 at 09:00 Cholecalciferol (Vitamin D3) 5,000 units DAILY PO Last administered on 10:16; Start 10/06/17 at 09:00 Ferrous Sulfate (Ferrous Sulfate) 325 mg BID PO Last administered on 10:16; Start 10/06/17 at 09:00 Levothyroxine Sodium (Synthroid) 150 mcg DAILY@0600 PO Last administered on 05:59; Start 10/06/17 at 06:00 Pravastatin Sodium (Pravachol) 40 mg HS PO Last administered on 10/11/17 21: 41; Start 10/06/17 at 21:00 Sodium Polystyrene Sulfonate (Kayexalate Liq) 15 gm ONCE ONCE PO Last administered on 10/06/17 11:19; Start 10/06/17 at 08:00; Stop 10/06/17 at 08 :14; Status DC Sodium Chloride 250 ml @ 15 mls/hr ONCE ONCE IV ; Start 10/07/17 at 09:15; Stop 10/08/17 at 01:54; Status DC Furosemide (Lasix Inj) 20 mg UNSCH X1 IV PUSH ; Start 10/07/17 at 09:15; Stop 10/07/17 at 15:00; Status DC Levofloxacin/ Dextrose 50 ml @ 50 mls/hr Q48H IV Last administered on 17:47; Start 10/07/17 at 15:00; Stop 10/08/17 at 15:19; Status DC Miscellaneous Medication (ASP Crit: Doc ESBL, MDR A baumannii or P aer) 1 UNSCH X1 PRN .XX PHARMACY DOCUMENTATION; Start 10/08/17 at 16:30; Stop 10/09/17 at 16:29; Status DC Miscellaneous Medication ([facility] Information) 1 UNSCH X1 PRN XX PHARMACY DOCUMENTATION; Start 10/08/17 at 16:30; Stop 10/09/17 at 16:29; Status DC Ertapenem 500 mg/ Sodium Chloride 100 ml @ 200 mls/hr Q24H IV Last administered on 10/11/17 17:09; Start 10/08/17 at 18:00 Miscellaneous Medication ([facility] Information) 1 UNSCH X1 PRN XX PHARMACY DOCUMENTATION; Start 10/08/17 at 16:30; Stop 10/09/17 at 16:29; Status DC Sodium Bicarbonate (Sodium Bicarbonate) 650 mg Q12HR PO Last administered on 10:16; Start 10/09/17 at 21:00 Apixaban (Eliquis) 5 mg BID PO Last administered on 10/12/17 10:16; Start at 11:00 Fentanyl Citrate (fentaNYL INJ) 200 mcg STK-MED ONCE .ROUTE Last administered on 10/11/17 14:19; Start 10/11/17 at 14:19; Stop 10/11/17 at 14:20; Status DC Midazolam HCl (Versed Inj) 4 mg STK-MED ONCE .ROUTE Last administered on 14:19; Start 10/11/17 at 14:19; Stop 10/11/17 at 14:20; Status DC Iohexol (Omnipaque 350 Inj) 10 ml STK-MED ONCE OTHER Last administered on 10/11t 15:00; Start 10/11/17 at 15:16; Stop 10/11/17 at 15:17; Status DC A/P Problem List: (1) Malfunction of nephrostomy tube ICD Code: T83.098A - Other mechanical complication of other urinary catheter, initial encounter (2) Flank pain ICD Code: R10.9 - Unspecified abdominal pain (3) Renal insufficiency ICD Code: N28.9 - Disorder of kidney and ureter, unspecified (4) A-fib ICD Code: I48.91 - Unspecified atrial fibrillation Assessment and Plan This is a 71-year-old female who presented with nephrostomy tube malfunction Nephrostomy tube malfunction: -Status post right nephrostomy tube placed by IR on 08/20/17. -Patient nephrostomy tube fell out yesterday so she had nephrostomy tube replaced with ureteral stent. Per report she had draining purulent material coming from the nephrostomy tube and samples was sent to micro. - Per IR consider injection of right nephrostomy me with possible drainable early next week if urine has clear. Acute on chronic renal failure stage III -On IV fluids. Per ditch cleaner patient can be discharge from creatinine decreased below 3 but she was need close follow-up. She will most likely need dialysis in the near future. -Creatinine today is 3.6. Continue to monitor. Strict ins and outs. Avoid nephrotoxins. -Water Resource Consultant is following. Atrial fibrillation: - Chronic. -On Eliquis. Acute worsening of chronic anemia: -Stable continue to monitor. UTI: -Urine culture growing ESBL positive E. coli. - Appreciate infectious disease recommendations. Outpatient IV antibiotics ordered. Midline placed. DVT prophylaxis: RAPHAEL [place]. Eliquis. Yvonne Benton MD Oct 12, 2017 12:21
--- NOTE | 2017-10-12 15:19 | HHI.NPPN ---
Subjective General Problems: Anemia, Edema, Mebatolic Acidosis Renal Failure: Stage IV History of Present Illness 71-year-old female is known to me from before with a past medical history of chronic obstructive uropathy with recurrent urinary tract infections, chronic kidney disease, history of chronic anemia, atrial fibrillation, hypertension who came to the hospital because of malfunction of the right nephrostomy tube. I was called to see the patient because of elevated BUN and creatinine and the possibility of getting IV access for antibiotics. Additional Remarks No acute complaints Review of Systems General Constitutional: Fatigue Cardiovascular Cardiac: Edema, BURGOS Objective Data Data 10/12/17 10/13/17 19:00 07:00 Intake Total 192 ml Balance 192 ml IV Total 192 ml Vital Signs Date Time Temp Pulse Resp B/P (MAP) Pulse Ox O2 Delivery O2 Flow Rate FiO2 10/12/17 12:00 98.1 66 18 127/58 (81) 99 10/12/17 04:00 97.4 66 18 124/60 (81) 98 10/12/17 00:00 97.8 66 20 111/53 (72) 97 10/11/17 20:00 Nasal Cannula 2.00 10/11/17 20:00 97.5 69 20 133/63 (86) 95 10/11/17 16:45 97.6 70 18 129/74 (92) 99 10/11/17 16:45 97.6 70 18 129/74 (92) 99 Automatic Cuff 10/11/17 16:19 70 20 130/58 (82) 94 10/11/17 15:50 72 20 146/68 (94) 94 10/11/17 15:35 75 20 150/63 (92) 94 10/11/17 15:20 98.7 74 20 148/71 (96) 93 -: 10/12/17 0747 10/12/17 0747 Physical Exam General Appearance: No Acute Distress, Comfortable Eyes Eye Exam: Pupils Equal Neck Neck Exam: Neck Supple Pulmonary Resp Exam: Breath Sounds Equal, No Distress, Decreased Bases, Diminished Breath Sounds Cardiology CV Exam: Regular, Normal Sinus Rhythm Gastrointestinal/Abdomen GI Exam: Soft, Non-Tender, Bowel Sounds Present, Distended Extremeties Extremities Exam: Trace Edema Neurologic Neuro Exam: Alert, Awake, Oriented Psychiatric Psych Exam: Appropriate Responses Assessment/Plan Assessment Summary: ANDREA/Acute Renal Failure, Anemia of CKD, CKD Stage IV Electrolyte Assessment: Metabolic Acidosis Problem List: (1) Atrial fibrillation ICD Codes: I48.91 - Unspecified atrial fibrillation Status: Chronic (2) Diabetes ICD Codes: E11.9 - Diabetes Status: Chronic (3) Chronic anemia ICD Codes: D64.9 - Chronic anemia Status: Chronic (4) Bilateral hydronephrosis ICD Codes: N13.30 - Unspecified hydronephrosis Status: Acute (5) Urinary tract infection ICD Codes: N39.0 - Urinary tract infection Status: Chronic (6) Acute on chronic renal failure ICD Codes: N17.9 - Acute kidney failure, unspecified; N18.9 - Chronic kidney disease, unspecified Plan Patient has been non oliguric. Nephrostomy also draining the urine with good UOP. K is normal, has metabolic acidosis. On IVF and also on PO NaHco3 - will add NaHCO3 to IVFs Most likely has ATN for ANDREA. Continue hydration, follow the urine out put and BMP. Creatinine 3.7 ->3.6, continue to monitor on IVFs May need eventual dialysis, however no need for HD at this time. Tonny Payan MD Oct 12, 2017 15:19
[2017-10-12 16:00] VITALS: BP 137/62; PULSE 69; RESP 18; TEMP 98.8; O2SAT 97
[2017-10-12] MEDS: ERTAPENEM INJ 500 MG in SODIUM CHLORIDE 0.9% INJ 100 ML IV SCH (18:00)
[2017-10-12] MEDS: SODIUM BICARBONATE 8.4% INJ 75 MEQ in SODIUM CHLOR 0.45% 1000 ML INJ 1,000 ML IV SCH (19:06)
[2017-10-12 20:00] VITALS: BP 149/71; PULSE 76; RESP 20; TEMP 98.5; O2SAT 97
[2017-10-12] MEDS: PRAVASTATIN SOD 40 MG TAB PO SCH (20:43)
[2017-10-13] MEDS: LEVOTHYROXINE SODIUM 150 MCG TAB PO SCH (04:53)
[2017-10-13 05:00] VITALS: BP 116/54; PULSE 75; RESP 20; TEMP 98.5; O2SAT 96
[2017-10-13] MEDS: SODIUM BICARBONATE 8.4% INJ 75 MEQ in SODIUM CHLOR 0.45% 1000 ML INJ 1,000 ML IV SCH (05:02)
[2017-10-13 08:00] VITALS: BP 142/69; PULSE 68; RESP 18; TEMP 98; O2SAT 94
[2017-10-13] MEDS: CHOLECALCIFEROL (VIT D3) 5000 UNIT CAP PO SCH (08:51)
[2017-10-13] MEDS: SODIUM BICARBONATE 650 MG TAB PO SCH ×2 (08:51→20:02)
[2017-10-13] MEDS: SODIUM CHLORIDE 0.9% FLUSH 10 ML FLUSH IV FLUSH SCH ×2 (08:51→20:02)
[2017-10-13] MEDS: ACETAMINOPHEN/HYDROcodone 325 MG/5 MG TAB PO PRN ×3 (08:52→23:42)
[2017-10-13] MEDS: DOCUSATE SODIUM 50 MG/SENNA 8.6 MG TAB PO SCH ×2 (08:52→20:02)
[2017-10-13] MEDS: ALLOPURINOL 100 MG TAB PO SCH (08:52)
[2017-10-13] MEDS: APIXABAN 5 MG TABLET PO SCH ×2 (08:52→20:02)
[2017-10-13] MEDS: ATENOLOL 25 MG TAB PO SCH (08:53)
[2017-10-13] MEDS: FERROUS SULFATE 325 MG (65 MG ELEMENTAL IRON) TAB PO SCH ×2 (09:00→20:02)
[2017-10-13 09:37] LABS: HEMATOCRIT 24.6 % (35.0-46.0); MEAN CELL VOLUME 89.6 FL (80.0-100.0); MEAN CORPUSCULAR HEMOGLOBIN 30.1 PG (27.0-34.0); MEAN CORPUSCULAR HGB CONC 33.6 % (32.0-36.0); PLATELET COUNT 202 TH/MM3 (150-450); RED BLOOD COUNT 2.75 MIL/MM3 (4.00-5.30); RED CELL DISTRIBUTION WIDTH 17.4 % (11.6-17.2); REVIEW FLAG FINAL; WHITE BLOOD COUNT 5.3 TH/MM3 (4.0-11.0)
[2017-10-13 09:56] LABS: BICARBONATE 13.8 MEQ/L (21.0-32.0); POTASSIUM 4.2 MEQ/L (3.5-5.1)
[2017-10-13 12:00] VITALS: BP 148/67; PULSE 68; RESP 18; TEMP 98.4; O2SAT 95
--- NOTE | 2017-10-13 12:34 | HHI.PR ---
Subjective Remarks f/u for acute on chronic renal failure and nephrostomy tube replacement. patient stated she feels the same. denied any issues. she remains afebrile. asking to go home before thanksgiving. Objective Vitals Vital Signs Date Time Temp Pulse Resp B/P (MAP) Pulse Ox O2 Delivery O2 Flow Rate FiO2 10/13/17 08:00 98.0 68 18 142/69 (93) 94 10/13/17 05:00 98.5 75 20 116/54 (74) 96 10/13/17 04:00 Nasal Cannula 2.00 10/12/17 20:00 Nasal Cannula 2.00 10/12/17 20:00 98.5 76 20 149/71 (97) 97 10/12/17 16:00 98.8 69 18 137/62 (87) 97 I/O 10/12/17 10/12/17 10/12/17 10/13/17 10/13/17 10/13/17 07:00 15:00 23:00 07:00 15:00 23:00 Intake Total 942 ml 192 ml 720 ml 1075 ml Output Total 950 ml 1500 ml 1100 ml Balance -8 ml 192 ml -780 ml 1075 ml -1100 ml Intake Oral 220 ml 720 ml IV Total 722 ml 192 ml 1075 ml Output Urine Total 300 ml 600 ml 550 ml Drainage Total 650 ml 900 ml 550 ml # Bowel Movements 0 Result Diagram: 10/13/1791410/13/17914 Objective Remarks GENERAL: In no acute distress. CARDIOVASCULAR: Regular rate and rhythm without murmurs, gallops, or rubs. RESPIRATORY: Breath sounds equal bilaterally. No accessory muscle use. GASTROINTESTINAL: Abdomen soft, non-tender, nondistended. MUSCULOSKELETAL: No cyanosis, or edema. BACK: Nontender without obvious deformity. No CVA tenderness. Nephrostomy tube in place Procedures None Medications and IVs Current Medications Morphine Sulfate (Morphine Inj) 4 mg ONCE ONCE IV PUSH Last administered on 04:06; Start 10/06/17 at 03:30; Stop 10/06/17 at 03:31; Status DC Ondansetron HCl (Zofran Inj) 4 mg ONCE ONCE IVP Last administered on 04:06; Start 10/06/17 at 03:30; Stop 10/06/17 at 03:31; Status DC Sodium Chloride 1,000 ml @ 1,000 mls/hr Q1H IV Last administered on 04:07; Start 10/06/17 at 03:28; Stop 10/06/17 at 04:27; Status DC Sodium Chloride (NS Flush) 2 ml UNSCH PRN IV FLUSH FLUSH AFTER USING IV ACCESS ; Start 10/06/17 at 03:30; Stop 10/07/17 at 15:00; Status DC Sodium Chloride 1,000 ml @ 100 mls/hr Q10H IV Last administered on 10/12/17 08:22; Start 10/06/17 at 05:11; Stop 10/12/17 at 15:20; Status DC Sodium Chloride (NS Flush) 2 ml UNSCH PRN IV FLUSH FLUSH AFTER USING IV ACCESS ; Start 10/06/17 at 05:15 Sodium Chloride (NS Flush) 2 ml BID IV FLUSH Last administered on 10/11/17 21 :41; Start 10/06/17 at 09:00 Ondansetron HCl (Zofran Inj) 4 mg Q6H PRN IVP NAUSEA OR VOMITING Last administered on 10/10/17 17:04; Start 10/06/17 at 05:15 Acetaminophen (Tylenol) 650 mg Q6H PRN PO FEVER/PAIN SCALE 1 TO 2 Last administered on 10/10/17 02:02; Start 10/06/17 at 05:15 Acetaminophen/ Hydrocodone Bitart ([place] 5-325 Mg) 1 tab Q4H PRN PO PAIN SCALE 3 TO 5 Last administered on 10/13/17 08:52; Start 10/06/17 at 05:15 Morphine Sulfate (Morphine Inj) 2 mg Q3H PRN IV PUSH Pain 6-10 Last administered on 10/11/17 09:09; Start 10/06/17 at 05:15 Senna/Docusate Sodium (Maria Del Rosario-Colace) 1 tab BID PO Last administered on 08:52; Start 10/06/17 at 09:00 Magnesium Hydroxide (Milk Of Magnesia Liq) 30 ml Q12H PRN PO Mild constipation ; Start 10/06/17 at 05:15; Stop 10/06/17 at 07:51; Status DC Sennosides (Senokot) 17.2 mg Q12H PRN PO Moderate constipation; Start at 05:15 Bisacodyl (Dulcolax Supp) 10 mg DAILY PRN RECTAL SEVERE CONSITIPATION; Start 10/06/17 at 05:15 Lactulose (Lactulose Liq) 30 ml DAILY PRN PO SEVERE CONSITIPATION; Start 10/06 at 05:15 Allopurinol (Zyloprim) 100 mg DAILY PO Last administered on 10/13/17 08:52; Start 10/06/17 at 09:00 Atenolol (Tenormin) 25 mg DAILY PO Last administered on 10/13/17 08:53; Start 10/06/17 at 09:00 Cholecalciferol (Vitamin D3) 5,000 units DAILY PO Last administered on 08:51; Start 10/06/17 at 09:00 Ferrous Sulfate (Ferrous Sulfate) 325 mg BID PO Last administered on 09:00; Start 10/06/17 at 09:00 Levothyroxine Sodium (Synthroid) 150 mcg DAILY@0600 PO Last administered on 04:53; Start 10/06/17 at 06:00 Pravastatin Sodium (Pravachol) 40 mg HS PO Last administered on 10/12/17 20: 43; Start 10/06/17 at 21:00 Sodium Polystyrene Sulfonate (Kayexalate Liq) 15 gm ONCE ONCE PO Last administered on 10/06/17 11:19; Start 10/06/17 at 08:00; Stop 10/06/17 at 08 :14; Status DC Sodium Chloride 250 ml @ 15 mls/hr ONCE ONCE IV ; Start 10/07/17 at 09:15; Stop 10/08/17 at 01:54; Status DC Furosemide (Lasix Inj) 20 mg UNSCH X1 IV PUSH ; Start 10/07/17 at 09:15; Stop 10/07/17 at 15:00; Status DC Levofloxacin/ Dextrose 50 ml @ 50 mls/hr Q48H IV Last administered on 17:47; Start 10/07/17 at 15:00; Stop 10/08/17 at 15:19; Status DC Miscellaneous Medication (ASP Crit: Doc ESBL, MDR A baumannii or P aer) 1 UNSCH X1 PRN .XX PHARMACY DOCUMENTATION; Start 10/08/17 at 16:30; Stop 10/09/17 at 16:29; Status DC Miscellaneous Medication ([facility] Information) 1 UNSCH X1 PRN XX PHARMACY DOCUMENTATION; Start 10/08/17 at 16:30; Stop 10/09/17 at 16:29; Status DC Ertapenem 500 mg/ Sodium Chloride 100 ml @ 200 mls/hr Q24H IV Last administered on 10/12/17 18:00; Start 10/08/17 at 18:00 Miscellaneous Medication ([facility] Information) 1 UNSCH X1 PRN XX PHARMACY DOCUMENTATION; Start 10/08/17 at 16:30; Stop 10/09/17 at 16:29; Status DC Sodium Bicarbonate (Sodium Bicarbonate) 650 mg Q12HR PO Last administered on 08:51; Start 10/09/17 at 21:00 Apixaban (Eliquis) 5 mg BID PO Last administered on 10/13/17 08:52; Start at 11:00 Fentanyl Citrate (fentaNYL INJ) 200 mcg STK-MED ONCE .ROUTE Last administered on 10/11/17 14:19; Start 10/11/17 at 14:19; Stop 10/11/17 at 14:20; Status DC Midazolam HCl (Versed Inj) 4 mg STK-MED ONCE .ROUTE Last administered on 14:19; Start 10/11/17 at 14:19; Stop 10/11/17 at 14:20; Status DC Iohexol (Omnipaque 350 Inj) 10 ml STK-MED ONCE OTHER Last administered on 10/11 15:00; Start 10/11/17 at 15:16; Stop 10/11/17 at 15:17; Status DC Sodium Bicarbonate 75 meq/Sodium Chloride 1,075 ml @ 100 mls/hr [id number] IV Last administered on 10/13/17 05:02; Start 10/12/17 at 16:00 A/P Problem List: (1) Malfunction of nephrostomy tube ICD Code: T83.098A - Other mechanical complication of other urinary catheter, initial encounter (2) Flank pain ICD Code: R10.9 - Unspecified abdominal pain (3) Renal insufficiency ICD Code: N28.9 - Disorder of kidney and ureter, unspecified (4) A-fib ICD Code: I48.91 - Unspecified atrial fibrillation Assessment and Plan This is a 71-year-old female who presented with nephrostomy tube malfunction Nephrostomy tube malfunction: -Status post right nephrostomy tube placed by IR on 08/20/17. -Patient nephrostomy tube fell out yesterday so she had nephrostomy tube replaced with ureteral stent. Per report she had draining purulent material coming from the nephrostomy tube and samples was sent to micro. - Per IR consider injection of right nephrostomy me with possible drainable early next week if urine has clear. Acute on chronic renal failure stage III -On IV fluids bicarb added yesterday. Per secondary teacher patient can be discharge from creatinine decreased below 3 but she was need close follow-up. She will most likely need dialysis in the near future. -Creatinine today is 3.4. Continue to monitor. Strict ins and outs. Avoid nephrotoxins. -Still Operator Brandy is following. Atrial fibrillation: - Chronic. -On Eliquis. Acute worsening of chronic anemia: -Stable continue to monitor. UTI: -Urine culture growing ESBL positive E. coli. - Appreciate infectious disease recommendations. Outpatient IV antibiotics ordered. Midline placed. DVT prophylaxis: RAPHAEL [place]. Eliquis. Yvonne Benton MD Oct 13, 2017 12:34
--- NOTE | 2017-10-13 13:06 | HHI.NPPN ---
Subjective General Problems: Anemia, Edema, Mebatolic Acidosis Renal Failure: Stage IV History of Present Illness 71-year-old female is known to me from before with a past medical history of chronic obstructive uropathy with recurrent urinary tract infections, chronic kidney disease, history of chronic anemia, atrial fibrillation, hypertension who came to the hospital because of malfunction of the right nephrostomy tube. I was called to see the patient because of elevated BUN and creatinine and the possibility of getting IV access for antibiotics. Additional Remarks No acute complaints Review of Systems General Constitutional: Fatigue Cardiovascular Cardiac: Edema, BURGOS Objective Data Data 10/13/17 10/14/17 19:00 07:00 Output Total 1100 ml Balance -1100 ml Output Urine Total 550 ml Drainage Total 550 ml Vital Signs Date Time Temp Pulse Resp B/P (MAP) Pulse Ox O2 Delivery O2 Flow Rate FiO2 10/13/17 12:00 98.4 68 18 148/67 (94) 95 10/13/17 08:00 98.0 68 18 142/69 (93) 94 10/13/17 05:00 98.5 75 20 116/54 (74) 96 10/13/17 04:00 Nasal Cannula 2.00 10/12/17 20:00 Nasal Cannula 2.00 10/12/17 20:00 98.5 76 20 149/71 (97) 97 10/12/17 16:00 98.8 69 18 137/62 (87) 97 -: 10/13/17 0915 10/13/17 0915 Physical Exam General Appearance: No Acute Distress, Comfortable Eyes Eye Exam: Pupils Equal Neck Neck Exam: Neck Supple Pulmonary Resp Exam: Breath Sounds Equal, No Distress, Decreased Bases, Diminished Breath Sounds Cardiology CV Exam: Regular, Normal Sinus Rhythm Gastrointestinal/Abdomen GI Exam: Soft, Non-Tender, Bowel Sounds Present, Distended Extremeties Extremities Exam: Trace Edema Neurologic Neuro Exam: Alert, Awake, Oriented Psychiatric Psych Exam: Appropriate Responses Assessment/Plan Assessment Summary: ANDREA/Acute Renal Failure, Anemia of CKD, CKD Stage IV Electrolyte Assessment: Metabolic Acidosis Problem List: (1) Atrial fibrillation ICD Codes: I48.91 - Unspecified atrial fibrillation Status: Chronic (2) Diabetes ICD Codes: E11.9 - Diabetes Status: Chronic (3) Chronic anemia ICD Codes: D64.9 - Chronic anemia Status: Chronic (4) Bilateral hydronephrosis ICD Codes: N13.30 - Unspecified hydronephrosis Status: Acute (5) Urinary tract infection ICD Codes: N39.0 - Urinary tract infection Status: Chronic (6) Acute on chronic renal failure ICD Codes: N17.9 - Acute kidney failure, unspecified; N18.9 - Chronic kidney disease, unspecified Plan Patient has been non oliguric. Nephrostomy also draining the urine with good UOP (1.5L total UOP over 24 hours) . K is normal, has significant metabolic acidosis (HCO3 13). Will check lactic acid On IVF and on PO NaHco3. Added NaHCO3 to IVFs yesterday, will increase NaHCO3 today. Most likely has ATN for ANDREA. Continue hydration, follow the urine out put and BMP. Creatinine 3.7 ->3.6 -> 3.4, continue to monitor on IVFs. Renal function slowly improving. May need eventual dialysis, however no need for HD at this time. Tonny Payan MD Oct 13, 2017 13:06
[2017-10-13] MEDS: SODIUM BICARBONATE 8.4% INJ 150 MEQ in DEXTROSE 5% IN WATE 1000ML INJ 1,000 ML IV SCH ×2 (14:37)
[2017-10-13 16:00] VITALS: BP 147/70; PULSE 66; RESP 18; TEMP 98.5; O2SAT 96
[2017-10-13] MEDS: ERTAPENEM INJ 500 MG in SODIUM CHLORIDE 0.9% INJ 100 ML IV SCH (19:03)
[2017-10-13 20:00] VITALS: BP 163/77; PULSE 75; RESP 18; TEMP 97.9; O2SAT 93
[2017-10-13] MEDS: PRAVASTATIN SOD 40 MG TAB PO SCH (20:02)
[2017-10-14] VITALS: BP 149/67; PULSE 80; RESP 20; TEMP 98.1; O2SAT 95
[2017-10-14] MEDS: SODIUM BICARBONATE 8.4% INJ 150 MEQ in DEXTROSE 5% IN WATE 1000ML INJ 1,000 ML IV SCH ×4 (01:31→14:25)
[2017-10-14 04:00] VITALS: BP 137/87; PULSE 73; RESP 20; TEMP 97.6; O2SAT 96
[2017-10-14] MEDS: LEVOTHYROXINE SODIUM 150 MCG TAB PO SCH (05:50)
[2017-10-14] MEDS: SODIUM CHLORIDE 0.9% FLUSH 10 ML FLUSH IV FLUSH SCH ×2 (07:11→19:30)
[2017-10-14] MEDS: ONDANSETRON HCL 4 MG/2 ML VIAL IVP PRN ×2 (07:32→19:30)
[2017-10-14 08:05] LABS: ANION GAP 11 MEQ/L (5-15); AST (GOT) 10 U/L (15-37); BICARBONATE 20.7 MEQ/L (21.0-32.0); BLOOD UREA NITROGEN 47 MG/DL (7-18); CHLORIDE 111 MEQ/L (98-107); GLOMERULAR FILTRATION RATE 15 ML/MIN (>89); MAGNESIUM 1.3 MG/DL (1.5-2.5); POTASSIUM 3.5 MEQ/L (3.5-5.1); SODIUM (NA) 143 MEQ/L (136-145)
[2017-10-14 08:07] LABS: ALT (GPT) 9 U/L (10-53)
[2017-10-14 08:09] LABS: ALKALINE PHOSPHATASE 136 U/L (45-117); TOTAL BILIRUBIN ADULT 0.3 MG/DL (0.2-1.0)
[2017-10-14 08:14] LABS: AUTOMATED NEUTROPHIL # 3.7 TH/MM3 (1.8-7.7); BASOPHIL # 0.1 TH/MM3 (0-0.2); EOSINOPHIL # 0.4 TH/MM3 (0-0.4); EOSINOPHIL % 7.3 % (0.0-4.0); HEMATOCRIT 24.8 % (35.0-46.0); HEMO FLAGS DIFF FINAL; LYMPH % 15.2 % (9.0-44.0); LYMPHOCYTE # 0.8 TH/MM3 (1.0-4.8); MEAN CELL VOLUME 88.9 FL (80.0-100.0); MEAN CORPUSCULAR HEMOGLOBIN 29.2 PG (27.0-34.0); MEAN CORPUSCULAR HGB CONC 32.8 % (32.0-36.0); MONO % 6.4 % (0.0-8.0); NEUT % 70.1 % (16.0-70.0); PLATELET COUNT 264 TH/MM3 (150-450); RED BLOOD COUNT 2.79 MIL/MM3 (4.00-5.30); RED CELL DISTRIBUTION WIDTH 17.5 % (11.6-17.2); WHITE BLOOD COUNT 5.3 TH/MM3 (4.0-11.0)
[2017-10-14] MEDS: ATENOLOL 25 MG TAB PO SCH (09:19)
[2017-10-14] MEDS: FERROUS SULFATE 325 MG (65 MG ELEMENTAL IRON) TAB PO SCH ×2 (09:19→22:12)
[2017-10-14] MEDS: ALLOPURINOL 100 MG TAB PO SCH (09:19)
[2017-10-14] MEDS: APIXABAN 5 MG TABLET PO SCH ×2 (09:19→22:12)
[2017-10-14] MEDS: DOCUSATE SODIUM 50 MG/SENNA 8.6 MG TAB PO SCH ×2 (09:19→22:12)
[2017-10-14] MEDS: SODIUM BICARBONATE 650 MG TAB PO SCH ×2 (09:19→22:12)
[2017-10-14] MEDS: CHOLECALCIFEROL (VIT D3) 5000 UNIT CAP PO SCH (09:19)
[2017-10-14] MEDS: ACETAMINOPHEN/HYDROcodone 325 MG/5 MG TAB PO PRN ×2 (09:20→14:26)
[2017-10-14] MEDS ORDERED: LORazepam 2 MG/ML VIAL IV PUSH ONE (10:00)
[2017-10-14 12:00] VITALS: BP 169/77; PULSE 60; RESP 20; TEMP 97.9; O2SAT 94
--- NOTE | 2017-10-14 13:15 | HHI.PR ---
Subjective Remarks Follow-up for nephrostomy tube placement, infection, acute on chronic renal failure Patient was scheduled for possible nephrostomy removal by IR but it was canceled this morning. Patient has no other complaints. She was anxious she thought she had a get another procedure done. Otherwise she feels like she is doing well. Her nurse is at the bedside during the interview. Objective Vitals Vital Signs Date Time Temp Pulse Resp B/P (MAP) Pulse Ox O2 Delivery O2 Flow Rate FiO2 10/14/17 10:20 18 10/14/17 04:00 97.6 73 20 137/87 (104) 96 10/14/17 04:00 Nasal Cannula 2.00 10/14/17 00:00 Nasal Cannula 2.00 10/14/17 00:00 98.1 80 20 149/67 (94) 95 10/13/17 20:00 97.9 75 18 163/77 (105) 93 10/13/17 20:00 Nasal Cannula 2.00 10/13/17 16:00 98.5 66 18 147/70 (95) 96 I/O 10/13/17 10/13/17 10/13/17 10/14/17 10/14/17 10/14/17 07:00 15:00 23:00 07:00 15:00 23:00 Intake Total 1075 ml 800 ml 480 ml 1390 ml Output Total 1750 ml 1650 ml Balance 1075 ml -950 ml 480 ml -260 ml Intake Oral 480 ml 240 ml IV Total 1075 ml 800 ml 1150 ml Output Urine Total 550 ml 1650 ml Stool Total 0 ml Drainage Total 1200 ml # Bowel Movements 0 Result Diagram: 10/14/1720 10/14/17 0720 Objective Remarks GENERAL: In no acute distress. CARDIOVASCULAR: Regular rate and rhythm without murmurs, gallops, or rubs. RESPIRATORY: Breath sounds equal bilaterally. No accessory muscle use. GASTROINTESTINAL: Abdomen soft, non-tender, nondistended. MUSCULOSKELETAL: No cyanosis, or edema. BACK: Nontender without obvious deformity. No CVA tenderness. Nephrostomy tube in place Procedures None Medications and IVs Current Medications Morphine Sulfate (Morphine Inj) 4 mg ONCE ONCE IV PUSH Last administered on t 04:06; Start 10/06/17 at 03:30; Stop 10/06/17 at 03:31; Status DC Ondansetron HCl (Zofran Inj) 4 mg ONCE ONCE IVP Last administered on 04:06; Start 10/06/17 at 03:30; Stop 10/06/17 at 03:31; Status DC Sodium Chloride 1,000 ml @ 1,000 mls/hr Q1H IV Last administered on 04:07; Start 10/06/17 at 03:28; Stop 10/06/17 at 04:27; Status DC Sodium Chloride (NS Flush) 2 ml UNSCH PRN IV FLUSH FLUSH AFTER USING IV ACCESS ; Start 10/06/17 at 03:30; Stop 10/07/17 at 15:00; Status DC Sodium Chloride 1,000 ml @ 100 mls/hr Q10H IV Last administered on 10/12/17 08:22; Start 10/06/17 at 05:11; Stop 10/12/17 at 15:20; Status DC Sodium Chloride (NS Flush) 2 ml UNSCH PRN IV FLUSH FLUSH AFTER USING IV ACCESS ; Start 10/06/17 at 05:15 Sodium Chloride (NS Flush) 2 ml BID IV FLUSH Last administered on 10/11/17 21 :41; Start 10/06/17 at 09:00 Ondansetron HCl (Zofran Inj) 4 mg Q6H PRN IVP NAUSEA OR VOMITING Last administered on 10/14/17 07:32; Start 10/06/17 at 05:15 Acetaminophen (Tylenol) 650 mg Q6H PRN PO FEVER/PAIN SCALE 1 TO 2 Last administered on 10/10/17 02:02; Start 10/06/17 at 05:15 Acetaminophen/ Hydrocodone Bitart ([place] 5-325 Mg) 1 tab Q4H PRN PO PAIN SCALE 3 TO 5 Last administered on 10/14/17 09:20; Start 10/06/17 at 05:15 Morphine Sulfate (Morphine Inj) 2 mg Q3H PRN IV PUSH Pain 6-10 Last administered on 10/11/17 09:09; Start 10/06/17 at 05:15 Senna/Docusate Sodium ([place]-Colace) 1 tab BID PO Last administered on 09:19; Start 10/06/17 at 09:00 Magnesium Hydroxide (Milk Of Magnesia Liq) 30 ml Q12H PRN PO Mild constipation ; Start 10/06/17 at 05:15; Stop 10/06/17 at 07:51; Status DC Sennosides (Senokot) 17.2 mg Q12H PRN PO Moderate constipation; Start at 05:15 Bisacodyl (Dulcolax Supp) 10 mg DAILY PRN RECTAL SEVERE CONSITIPATION; Start 10/06/17 at 05:15 Lactulose (Lactulose Liq) 30 ml DAILY PRN PO SEVERE CONSITIPATION; Start 10/06 at 05:15 Allopurinol (Zyloprim) 100 mg DAILY PO Last administered on 10/14/17 09:19; Start 10/06/17 at 09:00 Atenolol (Tenormin) 25 mg DAILY PO Last administered on 10/14/17 09:19; Start 10/06/17 at 09:00 Cholecalciferol (Vitamin D3) 5,000 units DAILY PO Last administered on 09:19; Start 10/06/17 at 09:00 Ferrous Sulfate (Ferrous Sulfate) 325 mg BID PO Last administered on 09:19; Start 10/06/17 at 09:00 Levothyroxine Sodium (Synthroid) 150 mcg DAILY@0600 PO Last administered on 05:50; Start 10/06/17 at 06:00 Pravastatin Sodium (Pravachol) 40 mg HS PO Last administered on 10/13/17 20: 02; Start 10/06/17 at 21:00 Sodium Polystyrene Sulfonate (Kayexalate Liq) 15 gm ONCE ONCE PO Last administered on 10/06/17 11:19; Start 10/06/17 at 08:00; Stop 10/06/17 at 08 :14; Status DC Sodium Chloride 250 ml @ 15 mls/hr ONCE ONCE IV ; Start 10/07/17 at 09:15; Stop 10/08/17 at 01:54; Status DC Furosemide (Lasix Inj) 20 mg UNSCH X1 IV PUSH ; Start 10/07/17 at 09:15; Stop 10/07/17 at 15:00; Status DC Levofloxacin/ Dextrose 50 ml @ 50 mls/hr Q48H IV Last administered on 17:47; Start 10/07/17 at 15:00; Stop 10/08/17 at 15:19; Status DC Miscellaneous Medication (ASP Crit: Doc ESBL, MDR A baumannii or P aer) 1 UNSCH X1 PRN .XX PHARMACY DOCUMENTATION; Start 10/08/17 at 16:30; Stop 10/09/17 at 16:29; Status DC Miscellaneous Medication ([facility]) 1 UNSCH X1 PRN XX PHARMACY DOCUMENTATION; Start 10/08/17 at 16:30; Stop 10/09/17 at 16:29; Status DC Ertapenem 500 mg/ Sodium Chloride 100 ml @ 200 mls/hr Q24H IV Last administered on 10/13/17 19:03; Start 10/08/17 at 18:00 Miscellaneous Medication ([facility]) 1 UNSCH X1 PRN XX PHARMACY DOCUMENTATION; Start 10/08/17 at 16:30; Stop 10/09/17 at 16:29; Status DC Sodium Bicarbonate (Sodium Bicarbonate) 650 mg Q12HR PO Last administered on 09:19; Start 10/09/17 at 21:00 Apixaban (Eliquis) 5 mg BID PO Last administered on 10/14/17 09:19; Start at 11:00 Fentanyl Citrate (fentaNYL INJ) 200 mcg STK-MED ONCE .ROUTE Last administered on 10/11/17 14:19; Start 10/11/17 at 14:19; Stop 10/11/17 at 14:20; Status DC Midazolam HCl (Versed Inj) 4 mg STK-MED ONCE .ROUTE Last administered on 14:19; Start 10/11/17 at 14:19; Stop 10/11/17 at 14:20; Status DC Iohexol (Omnipaque 350 Inj) 10 ml STK-MED ONCE OTHER Last administered on 10/11 15:00; Start 10/11/17 at 15:16; Stop 10/11/17 at 15:17; Status DC Sodium Bicarbonate 75 meq/Sodium Chloride 1,075 ml @ 100 mls/hr [id number] IV Last administered on 10/13/17 05:02; Start 10/12/17 at 16:00; Stop 10/13/17 at 13:07; Status DC Sodium Bicarbonate 150 meq/Dextrose 1,150 ml @ 100 mls/hr [id number] IV Last administered on 10/14/17t 01:31; Start 10/13/17 at 15:00 Lorazepam (Ativan Inj) 0.5 mg ONCE ONCE IV PUSH ; Start 10/14/17 at 10:00; Stop 10/14/17 at 10:19; Status DC A/P Problem List: (1) Malfunction of nephrostomy tube ICD Code: T83.098A - Other mechanical complication of other urinary catheter, initial encounter (2) Flank pain ICD Code: R10.9 - Unspecified abdominal pain (3) Renal insufficiency ICD Code: N28.9 - Disorder of kidney and ureter, unspecified (4) A-fib ICD Code: I48.91 - Unspecified atrial fibrillation Assessment and Plan This is a 71-year-old female who presented with nephrostomy tube malfunction Nephrostomy tube malfunction: -Status post right nephrostomy tube placed by IR on 08/20/17. -s/p nephrostomy tube replaced with ureteral stent 10/11. Per report she had draining purulent material coming from the nephrostomy tube and samples was sent to micro pending final cultures. - Per IR consider injection of right nephrostomy me with possible drainable early next week if urine has clear. Acute on chronic renal failure stage III -On IV fluids and bicarb. Per rat farmer patient can be discharge from creatinine decreased below 3 but she was need close follow-up. She will most likely need dialysis in the near future. -Creatinine today is 3.08. Continue to monitor. Strict ins and outs. Avoid nephrotoxins. -[place] is following. Atrial fibrillation: - Chronic. -On Eliquis. Acute worsening of chronic anemia: -Stable continue to monitor. UTI: -Urine culture growing ESBL positive E. coli. - Appreciate infectious disease recommendations. Outpatient IV antibiotics ordered. Midline placed. DVT prophylaxis: RAPHAEL [place]. Eliquis. Yvonne Benton MD Oct 14, 2017 13:15
--- NOTE | 2017-10-14 14:28 | HHI.IDPN ---
Note Infectious Disease Note R double J ureteral stent and nephrostomy replaced 10/11. Culture from purulent urine was sent and is growing mixed bacteria. Says she feels okay. Afebrile. Feels tired. PAST MEDICAL HISTORY 1. Hypertension, 2. Atrial fibrillation, 3. Chronic kidney disease stage III 4. Chronic anemia 5. Hysterectomy 6. Nephrostomy tube 7. Partial thyroidectomy, 8. Tonsillectomy. ALLERGIES AMPICILLIN ABX: Ertapenem. OBJECTIVE. Vital Signs Date Time Temp Pulse Resp B/P (MAP) Pulse Ox O2 Delivery O2 Flow Rate FiO2 10/14/17 12:00 97.9 60 20 169/77 (107) 94 10/14/17 10:20 18 10/14/17 04:00 97.6 73 20 137/87 (104) 96 10/14/17 04:00 Nasal Cannula 2.00 10/14/17 00:00 Nasal Cannula 2.00 10/14/17 00:00 98.1 80 20 149/67 (94) 95 10/13/17 20:00 97.9 75 18 163/77 (105) 93 10/13/17 20:00 Nasal Cannula 2.00 10/13/17 16:00 98.5 66 18 147/70 (95) 96 Laboratory Tests Test 10/13/17 09:15 10/14/17 07:20 White Blood Count 5.3 TH/MM3 5.3 TH/MM3 Red Blood Count 2.75 MIL/MM3 2.79 MIL/MM3 Hemoglobin 8.3 GM/DL 8.2 GM/DL Hematocrit 24.6 % 24.8 % Mean Corpuscular Volume 89.6 FL 88.9 FL Mean Corpuscular Hemoglobin 30.1 PG 29.2 PG Mean Corpuscular Hemoglobin Concent 33.6 % 32.8 % Red Cell Distribution Width 17.4 % 17.5 % Platelet Count 202 TH/MM3 264 TH/MM3 Mean Platelet Volume 7.2 FL 7.0 FL Hematology Comments Neutrophils (%) (Auto) 70.1 % Lymphocytes (%) (Auto) 15.2 % Monocytes (%) (Auto) 6.4 % Eosinophils (%) (Auto) 7.3 % Basophils (%) (Auto) 1.0 % Neutrophils # (Auto) 3.7 TH/MM3 Lymphocytes # (Auto) 0.8 TH/MM3 Monocytes # (Auto) 0.3 TH/MM3 Eosinophils # (Auto) 0.4 TH/MM3 Basophils # (Auto) 0.1 TH/MM3 CBC Comment DIFF FINAL Differential Comment Laboratory Tests Test 10/13/17 09:15 10/14/17 07:20 Blood Urea Nitrogen 53 MG/DL 47 MG/DL Creatinine 3.44 MG/DL 3.08 MG/DL Random Glucose 90 MG/DL 98 MG/DL Calcium Level 7.9 MG/DL 8.1 MG/DL Sodium Level 142 MEQ/L 143 MEQ/L Potassium Level 4.2 MEQ/L 3.5 MEQ/L Chloride Level 118 MEQ/L 111 MEQ/L Carbon Dioxide Level 13.8 MEQ/L 20.7 MEQ/L Anion Gap 10 MEQ/L 11 MEQ/L Estimat Glomerular Filtration Rate 13 ML/MIN 15 ML/MIN Total Protein 6.2 GM/DL Albumin 1.9 GM/DL Phosphorus Level 4.0 MG/DL Magnesium Level 1.3 MG/DL Alkaline Phosphatase 136 U/L Aspartate Amino Transf (AST/SGOT) 10 U/L Alanine Aminotransferase (ALT/SGPT) 9 U/L Total Bilirubin 0.3 MG/DL Lactic Acid Level 1.7 mmol/L Microbiology Date/Time Source Procedure Growth Status 10/11/17 15:04 Fluid Other Gram Stain - Final Complete 10/11/17 15:04 Body Fluid Culture - Final Escherichia Coli Esbl Positive Lactobacillus Species Aisha Glabrata Complete PHYSICAL EXAMINATION GENERAL: No acute distress. She is awake and alert. HEENT: Head atraumatic. Extraocular movements grossly intact, pupils reactive to light without icterus. Oropharynx moist mucosa. No lesions. NECK: Supple. No adenopathy. LUNGS: Clear. HEART: Regular rate and rhythm. No murmurs, rubs or gallops. ABDOMEN: Bowel sounds present, obese, soft, no tenderness appreciated. Right nephrostomy tube has clear urine. EXTREMITIES: No clubbing, cyanosis or edema. SKIN: No rash. NEUROLOGIC: No gross focal findings. IMPRESSION Recurrent urinary tract infection due to ESBL E-coli. Multiple prior episodes of infection. Had replacement of the nephrostomy tube 10/11/17. Mixed bacteria on culture including ESBL e. coli. RECOMMENDATIONS Complete Invanz tomorrow then Discontinue. She can be discharged from ID standpoint. Going forward if urine cultures are done and has ESBL e. coli or mixed bacteria and she is asymptomatic I do not think she should be put on antibiotics. I will sign off now. Jesus Alberto Crystal MD Oct 14, 2017 14:28
[2017-10-14 16:00] VITALS: BP 172/83; PULSE 79; RESP 20; TEMP 98; O2SAT 94
--- NOTE | 2017-10-14 16:44 | HHI.NPPN ---
Subjective General Problems: Anemia, Edema, Mebatolic Acidosis Renal Failure: Stage IV History of Present Illness 71-year-old female is known to me from before with a past medical history of chronic obstructive uropathy with recurrent urinary tract infections, chronic kidney disease, history of chronic anemia, atrial fibrillation, hypertension who came to the hospital because of malfunction of the right nephrostomy tube. I was called to see the patient because of elevated BUN and creatinine and the possibility of getting IV access for antibiotics. Additional Remarks Patient is alert, no abd. pain, feeling better. Review of Systems General Constitutional: Fatigue Cardiovascular Cardiac: Edema, BURGOS Objective Data Data 10/14/17 10/15/17 19:00 07:00 Intake Total 1150 ml Balance 1150 ml IV Total 1150 ml # Voids 1 Vital Signs Date Time Temp Pulse Resp B/P (MAP) Pulse Ox O2 Delivery O2 Flow Rate FiO2 10/14/17 16:00 98.0 79 20 172/83 (112) 94 10/14/17 15:26 16 10/14/17 12:00 97.9 60 20 169/77 (107) 94 10/14/17 04:00 97.6 73 20 137/87 (104) 96 10/14/17 04:00 Nasal Cannula 2.00 10/14/17 00:00 Nasal Cannula 2.00 10/14/17 00:00 98.1 80 20 149/67 (94) 95 10/13/17 20:00 97.9 75 18 163/77 (105) 93 10/13/17 20:00 Nasal Cannula 2.00 -: 10/14/17 0720 10/14/17 0720 Physical Exam General Appearance: No Acute Distress, Comfortable Eyes Eye Exam: Pupils Equal Neck Neck Exam: Neck Supple Pulmonary Resp Exam: Breath Sounds Equal, No Distress, Decreased Bases, Diminished Breath Sounds Cardiology CV Exam: Regular, Normal Sinus Rhythm Gastrointestinal/Abdomen GI Exam: Soft, Non-Tender, Bowel Sounds Present, Distended Extremeties Extremities Exam: Trace Edema Neurologic Neuro Exam: Alert, Awake, Oriented Psychiatric Psych Exam: Appropriate Responses Assessment/Plan Assessment Summary: ANDREA/Acute Renal Failure, Anemia of CKD, CKD Stage IV Electrolyte Assessment: Metabolic Acidosis Problem List: (1) Atrial fibrillation ICD Codes: I48.91 - Unspecified atrial fibrillation Status: Chronic (2) Diabetes ICD Codes: E11.9 - Diabetes Status: Chronic (3) Chronic anemia ICD Codes: D64.9 - Chronic anemia Status: Chronic (4) Bilateral hydronephrosis ICD Codes: N13.30 - Unspecified hydronephrosis Status: Acute (5) Urinary tract infection ICD Codes: N39.0 - Urinary tract infection Status: Chronic (6) Acute on chronic renal failure ICD Codes: N17.9 - Acute kidney failure, unspecified; N18.9 - Chronic kidney disease, unspecified Plan Patient has been non oliguric. Nephrostomy also draining the urine with good UOP. . K is normal, has significant metabolic acidosis. On IVF with NaHco3. Hco3 is improving. Most likely has ATN for ANDREA. Continue hydration, follow the urine out put and BMP. Creatinine continue to improve. Her baseline Creatinine is 2.1-2.2. Nely Lopez MD Oct 14, 2017 16:44
[2017-10-14] MEDS: ERTAPENEM INJ 500 MG in SODIUM CHLORIDE 0.9% INJ 100 ML IV SCH (17:45)
[2017-10-14 20:00] VITALS: BP 168/78; PULSE 70; RESP 18; TEMP 98.2; O2SAT 93
[2017-10-14] MEDS: PRAVASTATIN SOD 40 MG TAB PO SCH (22:12)
[2017-10-15] VITALS: BP 161/72; PULSE 77; RESP 18; TEMP 98.4; O2SAT 92
[2017-10-15] MEDS: SODIUM BICARBONATE 8.4% INJ 150 MEQ in DEXTROSE 5% IN WATE 1000ML INJ 1,000 ML IV SCH ×2 (01:15)
[2017-10-15 04:00] VITALS: BP 165/76; PULSE 69; RESP 20; TEMP 98.2; O2SAT 92
[2017-10-15] MEDS: LEVOTHYROXINE SODIUM 150 MCG TAB PO SCH (05:25)
[2017-10-15 06:51] LABS: HEMATOCRIT 25.3 % (35.0-46.0); MEAN CELL VOLUME 89.1 FL (80.0-100.0); MEAN CORPUSCULAR HEMOGLOBIN 29.5 PG (27.0-34.0); MEAN CORPUSCULAR HGB CONC 33.1 % (32.0-36.0); PLATELET COUNT 248 TH/MM3 (150-450); RED BLOOD COUNT 2.84 MIL/MM3 (4.00-5.30); RED CELL DISTRIBUTION WIDTH 17.4 % (11.6-17.2); REVIEW FLAG FINAL; WHITE BLOOD COUNT 5.1 TH/MM3 (4.0-11.0)
[2017-10-15 07:05] LABS: BICARBONATE 25.8 MEQ/L (21.0-32.0); POTASSIUM 3.4 MEQ/L (3.5-5.1)
[2017-10-15 08:00] VITALS: BP 166/77; PULSE 71; RESP 18; TEMP 98.2; O2SAT 92
--- NOTE | 2017-10-15 08:47 | HHI.NPPN ---
Subjective General Problems: Anemia, Edema, Mebatolic Acidosis Renal Failure: Stage IV History of Present Illness 71-year-old female is known to me from before with a past medical history of chronic obstructive uropathy with recurrent urinary tract infections, chronic kidney disease, history of chronic anemia, atrial fibrillation, hypertension who came to the hospital because of malfunction of the right nephrostomy tube. I was called to see the patient because of elevated BUN and creatinine and the possibility of getting IV access for antibiotics. Additional Remarks Patient is alert, no abd. pain, eating well, no SOB. Review of Systems General Constitutional: Fatigue Cardiovascular Cardiac: Edema, BURGOS Objective Data Data Vital Signs Date Time Temp Pulse Resp B/P (MAP) Pulse Ox O2 Delivery O2 Flow Rate FiO2 10/15/17 04:00 98.2 69 20 165/76 (105) 92 10/15/17 00:00 98.4 77 18 161/72 (101) 92 10/14/17 20:00 98.2 70 18 168/78 (108) 93 10/14/17 20:00 Nasal Cannula 3.00 10/14/17 16:00 98.0 79 20 172/83 (112) 94 10/14/17 15:26 16 10/14/17 12:00 97.9 60 20 169/77 (107) 94 10/14/17 09:20 Nasal Cannula 3.00 -: 10/15/17 0518 10/15/17 0518 Physical Exam General Appearance: No Acute Distress, Comfortable Eyes Eye Exam: Pupils Equal Neck Neck Exam: Neck Supple Pulmonary Resp Exam: Breath Sounds Equal, No Distress, Decreased Bases, Diminished Breath Sounds Cardiology CV Exam: Regular, Normal Sinus Rhythm Gastrointestinal/Abdomen GI Exam: Soft, Non-Tender, Bowel Sounds Present, Distended Extremeties Extremities Exam: Trace Edema Neurologic Neuro Exam: Alert, Awake, Oriented Psychiatric Psych Exam: Appropriate Responses Assessment/Plan Assessment Summary: ANDREA/Acute Renal Failure, Anemia of CKD, CKD Stage IV Electrolyte Assessment: Metabolic Acidosis Problem List: (1) Atrial fibrillation ICD Codes: I48.91 - Unspecified atrial fibrillation Status: Chronic (2) Diabetes ICD Codes: E11.9 - Diabetes Status: Chronic (3) Chronic anemia ICD Codes: D64.9 - Chronic anemia Status: Chronic (4) Bilateral hydronephrosis ICD Codes: N13.30 - Unspecified hydronephrosis Status: Acute (5) Urinary tract infection ICD Codes: N39.0 - Urinary tract infection Status: Chronic (6) Acute on chronic renal failure ICD Codes: N17.9 - Acute kidney failure, unspecified; N18.9 - Chronic kidney disease, unspecified Plan Patient has been non oliguric. Nephrostomy also draining the urine with good UOP. . K is normal, has significant metabolic acidosis. On IVF with NaHco3. Hco3 is improving. Will D/C NaHco3 in IVF. Most likely has ATN for ANDREA. Continue hydration, Creatinine continue to improve. Her baseline Creatinine is 2.1-2.2. follow the urine out put and BMP. Avoid Nephrotoxins. Nely Lopez MD Oct 15, 2017 08:47
[2017-10-15] MEDS: CHOLECALCIFEROL (VIT D3) 5000 UNIT CAP PO SCH (09:31)
[2017-10-15] MEDS: DOCUSATE SODIUM 50 MG/SENNA 8.6 MG TAB PO SCH ×2 (09:31→20:57)
[2017-10-15] MEDS: APIXABAN 5 MG TABLET PO SCH ×2 (09:32→20:57)
[2017-10-15] MEDS: ALLOPURINOL 100 MG TAB PO SCH (09:32)
[2017-10-15] MEDS: SODIUM BICARBONATE 650 MG TAB PO SCH ×2 (09:32→20:57)
[2017-10-15] MEDS: FERROUS SULFATE 325 MG (65 MG ELEMENTAL IRON) TAB PO SCH ×2 (09:32→20:57)
[2017-10-15] MEDS: ONDANSETRON HCL 4 MG/2 ML VIAL IVP PRN ×2 (09:32→18:56)
[2017-10-15] MEDS: SODIUM CHLORIDE 0.9% FLUSH 10 ML FLUSH IV FLUSH SCH ×2 (09:33→20:58)
[2017-10-15] MEDS: SODIUM CHLOR 0.9% 1000 ML INJ 1,000 ML IV SCH ×2 (09:40→21:02)
[2017-10-15] MEDS: ACETAMINOPHEN/HYDROcodone 325 MG/5 MG TAB PO PRN ×2 (10:51→18:56)
[2017-10-15] MEDS: ATENOLOL 25 MG TAB PO SCH (10:51)
--- NOTE | 2017-10-15 10:51 | HHI.PR ---
Subjective Remarks Follow-up for acute on chronic renal failure, nephrostomy tube management Patient still complaints. Denied any abdominal pain. Patient stated that should would like to go to rehab facility. she remains afebrile. Objective Vitals Vital Signs Date Time Temp Pulse Resp B/P (MAP) Pulse Ox O2 Delivery O2 Flow Rate FiO2 10/15/17 04:00 98.2 69 20 165/76 (105) 92 10/15/17 00:00 98.4 77 18 161/72 (101) 92 10/14/17 20:00 98.2 70 18 168/78 (108) 93 10/14/17 20:00 Nasal Cannula 3.00 10/14/17 16:00 98.0 79 20 172/83 (112) 94 10/14/17 15:26 16 10/14/17 12:00 97.9 60 20 169/77 (107) 94 I/O 10/14/17 10/14/17 10/14/17 10/15/17 10/15/17 10/15/17 07:00 15:00 23:00 07:00 15:00 23:00 Intake Total 1390 ml 1150 ml 329 ml 1440 ml 416 ml Output Total 1650 ml 1800 ml 2600 ml Balance -260 ml 1150 ml -1471 ml -1160 ml 416 ml Intake Oral 240 ml 240 ml IV Total 1150 ml 1150 ml 329 ml 1200 ml 416 ml Output Urine Total 1650 ml 2300 ml Stool Total 0 ml Drainage Total 1800 ml 300 ml # Voids 1 # Bowel Movements 2 Result Diagram: 10/15/1718 10/15/17 0518 Imaging Last Impressions Ureteral Stent Placement 10/11/17 0000 Signed Impressions: Service Date/Time: Wednesday, October 11, 2017 13:21 - CONCLUSION: 1. The patient's right nephrostomy tube had fallen out and the ureteral stent was hanging out of the previous nephrostomy site. 2. A new right sided double-J stent and nephrostomy tube were placed. Purulent material was noted and a sample was sent for microbiological evaluation. 3. In 3 days if the urine has cleared consideration can be made to injecting the right-sided nephrostomy tube with possible removal under fluoroscopic control. Johnny Robles Jr., MD Abdomen X-Ray 10/11/17 0000 Signed Impressions: Service Date/Time: Wednesday, October 11, 2017 12:52 - CONCLUSION: 1. Left double pigtail ureteral stent catheter. 2. Right-sided nephrostomy tube projects over the right side of the abdomen. Bhargav Stearns MD Abdomen/Pelvis CT 10/06/17 0328 Signed Impressions: Service Date/Time: Friday, October 06, 2017 04:00 - CONCLUSION: 1. No evidence of acute abdominal or pelvic process. No masses are identified. 2. Nephroureteral stent in the expected position with moderate right hydronephrosis. Correlation with function is necessary. 3. Left lower quadrant hernia containing colon 4. Cholelithiasis Rodriguez Kraft MD Objective Remarks GENERAL: In no acute distress. CARDIOVASCULAR: Regular rate and rhythm without murmurs, gallops, or rubs. RESPIRATORY: Breath sounds equal bilaterally. No accessory muscle use. GASTROINTESTINAL: Abdomen soft, non-tender, nondistended. MUSCULOSKELETAL: No cyanosis, or edema. BACK: Nontender without obvious deformity. No CVA tenderness. Nephrostomy tube in place Procedures None Medications and IVs Current Medications Morphine Sulfate (Morphine Inj) 4 mg ONCE ONCE IV PUSH Last administered on 04:06; Start 10/06/17 at 03:30; Stop 10/06/17 at 03:31; Status DC Ondansetron HCl (Zofran Inj) 4 mg ONCE ONCE IVP Last administered on 04:06; Start 10/06/17 at 03:30; Stop 10/06/17 at 03:31; Status DC Sodium Chloride 1,000 ml @ 1,000 mls/hr Q1H IV Last administered on 04:07; Start 10/06/17 at 03:28; Stop 10/06/17 at 04:27; Status DC Sodium Chloride (NS Flush) 2 ml UNSCH PRN IV FLUSH FLUSH AFTER USING IV ACCESS ; Start 10/06/17 at 03:30; Stop 10/07/17 at 15:00; Status DC Sodium Chloride 1,000 ml @ 100 mls/hr Q10H IV Last administered on 10/12/17 08:22; Start 10/06/17 at 05:11; Stop 10/12/17 at 15:20; Status DC Sodium Chloride (NS Flush) 2 ml UNSCH PRN IV FLUSH FLUSH AFTER USING IV ACCESS ; Start 10/06/17 at 05:15 Sodium Chloride (NS Flush) 2 ml BID IV FLUSH Last administered on 10/15/17 09 :33; Start 10/06/17 at 09:00 Ondansetron HCl (Zofran Inj) 4 mg Q6H PRN IVP NAUSEA OR VOMITING Last administered on 10/15/17 09:32; Start 10/06/17 at 05:15 Acetaminophen (Tylenol) 650 mg Q6H PRN PO FEVER/PAIN SCALE 1 TO 2 Last administered on 10/10/17 02:02; Start 10/06/17 at 05:15 Acetaminophen/ Hydrocodone Bitart (Eug[place] 5-325 Mg) 1 tab Q4H PRN PO PAIN SCALE 3 TO 5 Last administered on 10/14/17 14:26; Start 10/06/17 at 05:15 Morphine Sulfate (Morphine Inj) 2 mg Q3H PRN IV PUSH Pain 6-10 Last administered on 10/11/17 09:09; Start 10/06/17 at 05:15 Senna/Docusate Sodium (Maria Del Rosario-Colace) 1 tab BID PO Last administered on 09:31; Start 10/06/17 at 09:00 Magnesium Hydroxide (Milk Of Magnesia Liq) 30 ml Q12H PRN PO Mild constipation ; Start 10/06/17 at 05:15; Stop 10/06/17 at 07:51; Status DC Sennosides (Senokot) 17.2 mg Q12H PRN PO Moderate constipation; Start at 05:15 Bisacodyl (Dulcolax Supp) 10 mg DAILY PRN RECTAL SEVERE CONSITIPATION; Start 10/06/17 at 05:15 Lactulose (Lactulose Liq) 30 ml DAILY PRN PO SEVERE CONSITIPATION; Start 10/06 at 05:15 Allopurinol (Zyloprim) 100 mg DAILY PO Last administered on 10/15/17 09:32; Start 10/06/17 at 09:00 Atenolol (Tenormin) 25 mg DAILY PO Last administered on 10/14/17 09:19; Start 10/06/17 at 09:00 Cholecalciferol (Vitamin D3) 5,000 units DAILY PO Last administered on 09:31; Start 10/06/17 at 09:00 Ferrous Sulfate (Ferrous Sulfate) 325 mg BID PO Last administered on 09:32; Start 10/06/17 at 09:00 Levothyroxine Sodium (Synthroid) 150 mcg DAILY@0600 PO Last administered on 05:25; Start 10/06/17 at 06:00 Pravastatin Sodium (Pravachol) 40 mg HS PO Last administered on 10/14/17 22: 12; Start 10/06/17 at 21:00 Sodium Polystyrene Sulfonate (Kayexalate Liq) 15 gm ONCE ONCE PO Last administered on 10/06/17 11:19; Start 10/06/17 at 08:00; Stop 10/06/17 at 08 :14; Status DC Sodium Chloride 250 ml @ 15 mls/hr ONCE ONCE IV ; Start 10/07/17 at 09:15; Stop 10/08/17 at 01:54; Status DC Furosemide (Lasix Inj) 20 mg UNSCH X1 IV PUSH ; Start 10/07/17 at 09:15; Stop 10/07/17 at 15:00; Status DC Levofloxacin/ Dextrose 50 ml @ 50 mls/hr Q48H IV Last administered on 17:47; Start 10/07/17 at 15:00; Stop 10/08/17 at 15:19; Status DC Miscellaneous Medication (ASP Crit: Doc ESBL, MDR A baumannii or P aer) 1 UNSCH X1 PRN .XX PHARMACY DOCUMENTATION; Start 10/08/17 at 16:30; Stop 10/09/17 at 16:29; Status DC Miscellaneous Medication ([facility] [place] [facility] Information) 1 UNSCH X1 PRN XX PHARMACY DOCUMENTATION; Start 10/08/17 at 16:30; Stop 10/09/17 at 16:29; Status DC Ertapenem 500 mg/ Sodium Chloride 100 ml @ 200 mls/hr Q24H IV Last administered on 10/14/17 17:45; Start 10/08/17 at 18:00 Miscellaneous Medication ([facility] [place] [facility] Information) 1 UNSCH X1 PRN XX PHARMACY DOCUMENTATION; Start 10/08/17 at 16:30; Stop 10/09/17 at 16:29; Status DC Sodium Bicarbonate (Sodium Bicarbonate) 650 mg Q12HR PO Last administered on 09:32; Start 10/09/17 at 21:00 Apixaban (Eliquis) 5 mg BID PO Last administered on 10/15/17 09:32; Start at 11:00 Fentanyl Citrate (fentaNYL INJ) 200 mcg STK-MED ONCE .ROUTE Last administered on 10/11/17 14:19; Start 10/11/17 at 14:19; Stop 10/11/17 at 14:20; Status DC Midazolam HCl (Versed Inj) 4 mg STK-MED ONCE .ROUTE Last administered on 14:19; Start 10/11/17 at 14:19; Stop 10/11/17 at 14:20; Status DC Iohexol (Omnipaque 350 Inj) 10 ml STK-MED ONCE OTHER Last administered on 10/11 15:00; Start 10/11/17 at 15:16; Stop 10/11/17 at 15:17; Status DC Sodium Bicarbonate 75 meq/Sodium Chloride 1,075 ml @ 100 mls/hr [id number] IV Last administered on 10/13/17 05:02; Start 10/12/17 at 16:00; Stop 10/13/17 at 13:07; Status DC Sodium Bicarbonate 150 meq/Dextrose 1,150 ml @ 100 mls/hr [id number] IV Last administered on 10/15/17 01:15; Start 10/13/17 at 15:00; Stop 10/15/17 at 08 :49; Status DC Lorazepam (Ativan Inj) 0.5 mg ONCE ONCE IV PUSH ; Start 10/14/17 at 10:00; Stop 10/14/17 at 10:19; Status DC Sodium Chloride 1,000 ml @ 84 mls/hr [id number] IV Last administered on 09:40; Start 10/15/17 at 09:00 A/P Problem List: (1) Malfunction of nephrostomy tube ICD Code: T83.098A - Other mechanical complication of other urinary catheter, initial encounter (2) Flank pain ICD Code: R10.9 - Unspecified abdominal pain (3) Renal insufficiency ICD Code: N28.9 - Disorder of kidney and ureter, unspecified (4) A-fib ICD Code: I48.91 - Unspecified atrial fibrillation Assessment and Plan This is a 71-year-old female who presented with nephrostomy tube malfunction Nephrostomy tube malfunction: -Status post right nephrostomy tube placed by IR on 08/20/17. -s/p nephrostomy tube replaced with ureteral stent 10/11. Per report she had draining purulent material coming from the nephrostomy tube and samples was sent to micro pending final cultures. - Per IR consider injection of right nephrostomy me with possible drainable early next week if urine has clear. Acute on chronic renal failure stage III -IVFs with bicarb dc today and now on NS Per commercial drafter patient can be discharge from creatinine decreased below 3 but she was need close follow-up. She will most likely need dialysis in the near future. -Creatinine today is 2.6. Continue to monitor. Strict ins and outs. Avoid nephrotoxins. -Automatic Riveting Machine Operator is following. Recommended to continue to follow up strict ins and outs and BMP. Atrial fibrillation: - Chronic. -On Eliquis. Acute worsening of chronic anemia: -Stable continue to monitor. UTI: -Urine culture growing ESBL positive E. coli. - Appreciate infectious disease recommendations. Outpatient IV antibiotics ordered. Midline placed. DVT prophylaxis: Jasmeet, RAPHAEL pantoja. Eliquis. Discharge Planning Automatic Riveting Machine Operator wants to continue to monitor patient off of bicarbonate. Patient requesting go to a rehabilitation center. Will have a physical therapist evaluate patient. Yvonne Benton MD Oct 15, 2017 10:51
[2017-10-15 12:00] VITALS: BP 156/75; PULSE 71; RESP 18; TEMP 98.6; O2SAT 90
[2017-10-15 16:00] VITALS: BP 147/90; PULSE 74; RESP 18; TEMP 98.3; O2SAT 93
[2017-10-15] MEDS: ERTAPENEM INJ 500 MG in SODIUM CHLORIDE 0.9% INJ 100 ML IV SCH (18:55)
[2017-10-15 20:00] VITALS: BP 139/87; PULSE 87; RESP 20; TEMP 98.4; O2SAT 95
[2017-10-15] MEDS: PRAVASTATIN SOD 40 MG TAB PO SCH (20:57)
[2017-10-16] VITALS: BP 148/73; PULSE 74; RESP 18; TEMP 98.3; O2SAT 93
[2017-10-16] MEDS: ACETAMINOPHEN/HYDROcodone 325 MG/5 MG TAB PO PRN ×2 (02:03→12:03)
[2017-10-16 04:00] VITALS: BP 146/67; PULSE 66; RESP 18; TEMP 98.1; O2SAT 93
[2017-10-16] MEDS: LEVOTHYROXINE SODIUM 150 MCG TAB PO SCH (05:13)
[2017-10-16 08:00] VITALS: BP 141/58; PULSE 68; RESP 18; TEMP 98.1; O2SAT 92
[2017-10-16] MEDS: ONDANSETRON HCL 4 MG/2 ML VIAL IVP PRN (08:43)
[2017-10-16] MEDS: SODIUM CHLOR 0.9% 1000 ML INJ 1,000 ML IV SCH (08:44)
[2017-10-16] MEDS: SODIUM CHLORIDE 0.9% FLUSH 10 ML FLUSH IV FLUSH SCH (08:46)
[2017-10-16] MEDS: DOCUSATE SODIUM 50 MG/SENNA 8.6 MG TAB PO SCH (09:00)
[2017-10-16] MEDS ORDERED: PERI PO (10:07)
[2017-10-16] MEDS ORDERED: SODI650T PO (10:07)
[2017-10-16] MEDS ORDERED: IOHEXOL 350 MG/ML 50 ML BTL (for RAD DIAG) OTHER ONE (11:42)
--- NOTE | 2017-10-16 11:46 | HHI.DS ---
Discharge Summary Admission Date Oct 07, 2017 at 17:24 Discharge Date: Oct 16, 2017 Admitting Diagnosis hydronephrosis, right nephrostomy tube malfunction (1) Renal insufficiency ICD Code: N28.9 - Disorder of kidney and ureter, unspecified (2) Malfunction of nephrostomy tube ICD Code: T83.098A - Other mechanical complication of other urinary catheter, initial encounter Diagnosis: Principal (3) A-fib ICD Code: I48.91 - Unspecified atrial fibrillation Diagnosis: Secondary (4) Acute on chronic renal failure ICD Code: N17.9 - Acute kidney failure, unspecified; N18.9 - Chronic kidney disease, unspecified Diagnosis: Principal (5) Chronic anemia ICD Code: D64.9 - Chronic anemia Diagnosis: Secondary Status: Chronic (6) Bilateral hydronephrosis ICD Code: N13.30 - Unspecified hydronephrosis Diagnosis: Principal Status: Acute (7) CKD (chronic kidney disease) stage 3, GFR 30-59 ml/min ICD Code: N18.3 - Chronic kidney disease, stage 3 (moderate) Diagnosis: Secondary Status: Chronic (8) Complicated UTI (urinary tract infection) ICD Code: N39.0 - Urinary tract infection, site not specified Diagnosis: Principal Status: Acute (9) Infection due to ESBL-producing Escherichia coli ICD Code: A49.8 - Other bacterial infections of unspecified site; Z16.12 - Extended spectrum beta lactamase (ESBL) resistance Diagnosis: Principal Status: Resolved Procedures None Brief History - From Admission This is a 71 year old female w/ a PMH of HTN, A-fib on Eliquis, CKD Stage III, and Chronic Anemia who presented to the ER w/ complaints of right-sided flank pain and decreased urine output from nephrostomy. S/p UTI/Bacteremia, admitted 08/19/17 for ANDREA, ESBL E. Coli, s/p eval by ID, Right Nephrostomy Tube placed by IR on 08/20/17. D/c'd home from Rehab 09/13/17, has been doing well until yesterday when noted right-sided flank pain and decreased urinary output into bag. Denies fever or chills. BP 163/71, HR 97, O2 sat 99% on RA, Temp 99.5. CBC at baseline. Chemistry essentially at baseline. Creatinine 2.71, producing 2.38 on 09/27/17. UA pending. CT Abd/Pelvis w/ no acute abdominal process, Nephro-Adan ureteral stent in expected position, moderate right hydronephrosis, correlation with function necessary. Follows w/ Dr. Cyr, scheduled from stent removal next week. CBC/BMP: 10/15/1718 10/15/17 0518 Significant Findings Laboratory Tests Test 10/14/17 07:20 10/15/17 05:18 Red Blood Count 2.79 MIL/MM3 (4.00-5.30) 2.84 MIL/MM3 (4.00-5.30) Hemoglobin 8.2 GM/DL (11.6-15.3) 8.4 GM/DL (11.6-15.3) Hematocrit 24.8 % (35.0-46.0) 25.3 % (35.0-46.0) Red Cell Distribution Width 17.5 % (11.6-17.2) 17.4 % (11.6-17.2) Neutrophils (%) (Auto) 70.1 % (16.0-70.0) Eosinophils (%) (Auto) 7.3 % (0.0-4.0) Lymphocytes # (Auto) 0.8 TH/MM3 (1.0-4.8) Blood Urea Nitrogen 47 MG/DL (7-18) 37 MG/DL (7-18) Creatinine 3.08 MG/DL (0.50-1.00) 2.62 MG/DL (0.50-1.00) Total Protein 6.2 GM/DL (6.4-8.2) Albumin 1.9 GM/DL (3.4-5.0) Calcium Level 8.1 MG/DL (8.5-10.1) 7.9 MG/DL (8.5-10.1) Magnesium Level 1.3 MG/DL (1.5-2.5) Alkaline Phosphatase 136 U/L (45-117) Aspartate Amino Transf (AST/SGOT) 10 U/L (15-37) Alanine Aminotransferase (ALT/SGPT) 9 U/L (10-53) Chloride Level 111 MEQ/L (98-107) 109 MEQ/L (98-107) Carbon Dioxide Level 20.7 MEQ/L (21.0-32.0) Estimat Glomerular Filtration Rate 15 ML/MIN (>89) 18 ML/MIN (>89) Potassium Level 3.4 MEQ/L (3.5-5.1) Imaging Last Impressions Ureteral Stent Placement 10/11/17 0000 Signed Impressions: Service Date/Time: Wednesday, October 11, 2017 13:21 - CONCLUSION: 1. The patient's right nephrostomy tube had fallen out and the ureteral stent was hanging out of the previous nephrostomy site. 2. A new right sided double-J stent and nephrostomy tube were placed. Purulent material was noted and a sample was sent for microbiological evaluation. 3. In 3 days if the urine has cleared consideration can be made to injecting the right-sided nephrostomy tube with possible removal under fluoroscopic control. Johnny Robles Jr., MD Abdomen X-Ray 10/11/17 0000 Signed Impressions: Service Date/Time: Wednesday, October 11, 2017 12:52 - CONCLUSION: 1. Left double pigtail ureteral stent catheter. 2. Right-sided nephrostomy tube projects over the right side of the abdomen. Bhargav Stearns MD Abdomen/Pelvis CT 10/06/17 0328 Signed Impressions: Service Date/Time: Friday, October 06, 2017 04:00 - CONCLUSION: 1. No evidence of acute abdominal or pelvic process. No masses are identified. 2. Nephroureteral stent in the expected position with moderate right hydronephrosis. Correlation with function is necessary. 3. Left lower quadrant hernia containing colon 4. Cholelithiasis Rodriguez Kraft MD PE at Discharge GENERAL: In no acute distress. CARDIOVASCULAR: Regular rate and rhythm without murmurs, gallops, or rubs. RESPIRATORY: Breath sounds equal bilaterally. No accessory muscle use. GASTROINTESTINAL: Abdomen soft, non-tender, nondistended. MUSCULOSKELETAL: No cyanosis, or edema. BACK: Nontender without obvious deformity. No CVA tenderness. Pt update on day of discharge Follow-up for acute on chronic renal failure, UTI, nephrostomy tube placement Patient had nephrostomy tube removed by IR. She had no complaints. She stated that PT got her up yesterday standing. Deny any pain. Spoke to Dr. Lopez in person who stated that patient can be discharged today. Hospital Course This is a 71-year-old female who presented with nephrostomy tube malfunction Nephrostomy tube malfunction: -Patient had right nephrostomy tube placed by IR on 08/20/17. Then it was accidentally removed so it was replaced on 10/11 with ureteral stent. - Per report she had draining purulent material coming from the nephrostomy tube and samples was sent to [facility] in which she completed her antibiotic course during her hospitalization. -Nephrostomy tube was removed by IR on the day of discharge on 10/16/2017. Acute on chronic renal failure stage III -Per puller out most likely secondary to ATN. She was put on IVFs and later bicarb was added. That was later discontinued she was put on oral bicarbonate -Creatinine improved drastically dropped her hospital course. She had good urine output. Atrial fibrillation: - Chronic. -On Eliquis. Acute worsening of chronic anemia: -Improved. Secondary to acute on chronic renal failure. UTI: -Urine culture growing ESBL positive E. coli. - Infectious disease was consulted. She finished her treatment with IV antibiotics during her hospitalization. She was on meropenem last day of medication 10/15/2017 -Per infectious disease going forward if urine cultures are done and has ESBL e. coli or mixed bacteria and she is asymptomatic I do not think she should be put on antibiotics. Pt Condition on Discharge: Stable Discharge Disposition: Discharge to SNF Discharge Time: > 30 minutes Discharge Instructions DIET: Follow Instructions for: Heart Healthy Diet Activities you can perform: Regular-No Restrictions Follow up Referrals: Nephrology - 2 Weeks with Nely Lopez MD PCP Follow-up - 1 Week Urology - 3-5 Days with Lele Cyr MD New Medications: Hydrocodone/Acetaminophen (Hydrocodone-Acetamin 5-325 mg) 5 Mg-325 Mg Tablet 1 TAB PO Q4H PRN for PAIN SCALE 4 TO 10, #12 TAB 0 Refills Sennosides-Docusate Sodium (Gnp Senna Plus 8.6-50 mg) 8.6 Mg-50 Mg Tab 1 TAB PO BID for constipation, #60 TAB 0 Refills Sodium Bicarbonate (Sodium Bicarbonate) 650 Mg Tab 650 MG PO Q12HR for renal failure, #60 TAB 0 Refills Continued Medications: Allopurinol (Allopurinol) 100 Mg Tab 100 MG PO DAILY for Gout, #30 TAB 0 Refills Apixaban (Eliquis) 5 Mg Tab 5 MG PO BID for Blood Clot Prevention, #60 TAB 0 Refills Atenolol (Atenolol) 25 Mg Tab 25 MG PO DAILY for Blood Pressure Management, #30 TAB 0 Refills Cholecalciferol (Vitamin D3 Maximum Strength) 5,000 Unit Cap 5000 UNITS PO DAILY for Nutritional Supplement, #30 CAP 0 Refills Ferrous Sulfate (Ferosul) 325 Mg (65 Mg Iron) Tablet 325 MG PO BID for Nutritional Supplement for 30 Days, 1 Refill Levothyroxine (Synthroid) 150 Mcg Tab 150 MCG PO DAILY for Thyroid, #30 TAB 0 Refills Pravastatin (Pravachol) 40 Mg Tab 40 MG PO HS for Cholesterol Management for 30 Days, TAB 1 Refill Yvonne Benton MD Oct 16, 2017 11:46
[2017-10-16] MEDS: FERROUS SULFATE 325 MG (65 MG ELEMENTAL IRON) TAB PO SCH (12:01)
[2017-10-16] MEDS: CHOLECALCIFEROL (VIT D3) 5000 UNIT CAP PO SCH (12:01)
[2017-10-16] MEDS: APIXABAN 5 MG TABLET PO SCH (12:01)
[2017-10-16] MEDS: ALLOPURINOL 100 MG TAB PO SCH (12:01)
[2017-10-16] MEDS: ATENOLOL 25 MG TAB PO SCH (12:01)
[2017-10-16] MEDS: SODIUM BICARBONATE 650 MG TAB PO SCH (12:02)
--- NOTE | 2017-10-16 17:37 | RADRPT ---
EXAM DATE/TIME: 10/16/2017 12:19 [facility] COMPARISON: No previous studies available for comparison. INDICATIONS : Patient with hx of hydronephrosis. Checking neph tube for removal. MEDICAL HISTORY : 1. HTN 2. DM 3. kidney stones 4. A fib 5. CKD 6. Chronic anemia 7. uterine cancer SURGICAL HISTORY : 1. Nephrrostomy tube 2. bilateral ureteral stents 3. cardiac cath 4. kidneys tone removal ENCOUNTER: Subsequent ACUITY: 2 weeks PAIN SCORE: 8/10 LOCATION: Right hip FLUORO TIME: 1.5 minutes IMAGE SERIES: 2 CONTRAST: 10 cc Omnipaque (iohexol) 350 PROCEDURE : 1. Antegrade pyelogram. The risks, benefits and alternatives to the procedure were explained and verbal and written consent w as obtained. Under sterile conditions and using aseptic technique with fluoroscopic guidance the pat ient's existing nephroureteral tube was accessed. Injection of contrast through the existing nephrostomy tube shows the double J stent in good position . Contrast freely spills into the urinary bladder. The urine draining from the nephrostomy tube is cl ear. The nephrostomy tube was removed over a wire under fluoroscopic control. CONCLUSION: The right sided ureteral stent is in good position and functioning well. The nephrostomy tube was rem mitch under fluoroscopic control. Johnny Robles Jr., MD on October 16, 2017 at 17:33 Board Certified Radiologist. This report was verified electronically.
== END 2017-10-16 13:11 | DRG 698 ==
LOC: NEPC 02:10 → NEDA 05:10 → NEPGCP 06:38 → OBSVTOIN 10-07 17:24 → N04B 10-10 22:53
PROVIDERS: ADMIT Family Medicine; ATTEND Family Medicine
PROC: 30233N1 Transfusion of Nonautologous Red Blood Cells into Peripheral Vein, Percutaneous Approach (ICD-10-PCS; principal; 2017-10-08)
PROC: 0T9030Z Drainage of Right Kidney with Drainage Device, Percutaneous Approach (ICD-10-PCS; 2017-10-11)
PROC: BT1D1ZZ Fluoroscopy of Right Kidney, Ureter and Bladder using Low Osmolar Contrast (ICD-10-PCS; 2017-10-11)
PROC: 0T763DZ Dilation of Right Ureter with Intraluminal Device, Percutaneous Approach (ICD-10-PCS; 2017-10-11)
PROC: 0TP5X0Z Removal of Drainage Device from Kidney, External Approach (ICD-10-PCS; 2017-10-16)
DX: N99.522 Malfunction of incontinent external stoma of urinary tract (principal); N17.0 Acute kidney failure with tubular necrosis; E87.2 Acidosis; N18.4 Chronic kidney disease, stage 4 (severe); I48.2 Chronic atrial fibrillation; E11.22 Type 2 diabetes mellitus with diabetic chronic kidney disease; N13.30 Unspecified hydronephrosis; N39.0 Urinary tract infection, site not specified; Y73.2 Prosthetic and other implants, materials and accessory gastroenterology and urology devices associated with adverse incidents; I12.9 Hypertensive chronic kidney disease with stage 1 through stage 4 chronic kidney disease, or unspecified chronic kidney disease; D63.1 Anemia in chronic kidney disease; Z16.12 Extended spectrum beta lactamase (ESBL) resistance; B96.20 Unspecified Escherichia coli [E. coli] as the cause of diseases classified elsewhere; E03.9 Hypothyroidism, unspecified; E78.00 Pure hypercholesterolemia, unspecified; K80.20 Calculus of gallbladder without cholecystitis without obstruction; M19.90 Unspecified osteoarthritis, unspecified site; Z85.42 Personal history of malignant neoplasm of other parts of uterus; Z87.442 Personal history of urinary calculi; Z79.01 Long term (current) use of anticoagulants; Z87.440 Personal history of urinary (tract) infections
CPT/HCPCS: 36430; 36569; 50384; 50389; 50431; 50695; 74000; 74176; 76937; 80048; 80053; 81001; 82272; 82728; 82746; 83540; 83550; 83605; 83735; 84100; 84443; 85014; 85018; 85025; 85027; 85610; 85730; 86850; 86900; 86901; 86920; 87070; 87077; 87086; 87186; 87205; 96361; 96374; 96375; 99152; 99153; C1729; C1769; C1887; C2617; G0378; J1335; J1956; J2250; J2270; J2405; J3010; J7030; J7070; P9016; Q9967